=== PATIENT | female | born 1995 | race Caucasian/White ===

== ENCOUNTER → 2019-08-16 17:26 | Outpatient (BNVA) | payer OTHER, MEDICAID, SELFPAY | PROVIDERS: Family Provider Obstetrics & Gynecology; PCP Obstetrics & Gynecology; Visit Provider Obstetrics & Gynecology | DX: O09.891 Supervision of other high risk pregnancies, first trimester (principal); O21.9 Vomiting of pregnancy, unspecified; O99.611 Diseases of the digestive system complicating pregnancy, first trimester; B96.89 Other specified bacterial agents as the cause of diseases classified elsewhere; O23.599 Infection of other part of genital tract in pregnancy, unspecified trimester | CPT/HCPCS: 36415; 80048; 80307; 82950; 84315; 84443; 85027; 86592; 86762; 86803; 86850; 86900; 87077; 87086; 87186; 87210; 87340; 87491; 87591 ==

== ENCOUNTER 2019-08-20 11:48 | Emergency (ER) | payer OTHER, MEDICAID, SELFPAY ==
[2019-08-20 11:57] VITALS: BP 160/98; PULSE 95; RESP 18; TEMP 37.2; O2SAT 98; BMI 39.1
--- NOTE | 2019-08-20 12:06 | ED_ITS ---
HPI - Chest Pain General: Chief Complaint: Chest Pain Stated Complaint: Chest Pain and preg Time Seen by Provider: 08/20/19 12:06 Source: patient Mode of arrival: ambulatory Limitations: no limitations History of Present Illness: HPI narrative: Patient is a 24-year-old female 13 weeks here for complaints of right-sided chest pains that have been present over the past several days; she was seen by her OB doctor Dr. Hayes on Monday and given medications for heartburn, nausea, sleep; she addressed her chest pains to him and he recommended patient discontinue to monitor symptoms; patient presents to ED today because pain seems to be worsening MD complaint: chest pain Timing of current episode: episodic Prior episodes: Yes Pain location: right chest Pain radiation: right arm Relieving factors: nothing Exacerbating factors: nothing Associated symptoms: Reports no associated symptoms; Deny abdominal pain, dyspnea, fever(s), palpitations or syncope Review of Systems Const: Denies: fever or chills Card: Reports: chest pain; Denies: palpitations, irregular heart rhythm, edema, swelling of feet/ankles, lightheadedness, syncope, pre-syncope, shortness of breath on exertion, shortness of breath when lying down or leg pain with exertion Resp: Denies: shortness of breath, productive cough, non-productive cough, wheezing, stridor, pain on inspiration, change in phlegm color, coughing up blood or chest congestion GI: Denies: abdominal pain Musc: Denies: back pain Neuro: Denies: numbness in extremities, weakness in extremities, changes in sensation or lack of coordination PFSH ED PFSH: Statuses (acute, chronic, etc) shown below reflect problem list status as previously entered and may not be historically accurate Medical History (Updated 08/20/19 @ 13:35 by KUSH Hanley) Supervision of other high risk pregnancies, first trimester (Acute) Ms. Decker is a 24 year old 5 para 2021 with an LMP of 05/15/2019 and an EDC of 02/20/2020 ---Prior section (desires repeat). [place] OBI: 4 28WG: PP: Chicken Pox: Had the vaccine and the virus as child Flu Vaccine: Tdap Vaccine: Sex: Circumcision: Communications Technician: Epidural: Cont raception: Accepts Blood: Yes Impression: - OBI @ 9.1 WG -Ob packet provided. Reviewed routine vist schedule, labs, approved medications in , discussed the importance of avoiding nicotine/alcohol/drugs and the effects this has on her and the , and when to notify the doctor. Medical and obstetrical history reviewed. -Continue vitamins. - labs at next visit; discussed NIPT, QUAD, AFP, CF. All questions answered to her satisfaction. Greater than 50% of the visit was spent in counseling and coordinating obstetrical care. Total visit time: 30 minutes. RTC: 1-2 weeks Surgical History (Updated 08/16/19 @ 15:47 by You Hayes MD) History of tonsillectomy and adenoidectomy (Acute) 2002 performed at age 8 in [facility] cholecystectomy (Acute) 2010 Laparoscopic in [facility] Social History (Updated 08/16/19 @ 15:48 by You Hayes MD) Smoking and tobacco status: former smoker Smoking risk assessment/counseling performed?: Yes Alcohol intake: never Female Reproductive History: Date of last menstrual period: 05/14/19 Physical Exam Const: COMMON NORMALS: no apparent distress, oriented x3, alert and well nourished Chest: COMMONS NORMALS: inspection of chest normal OTHER: mild substernal tenderness with palpation Resp: COMMON NORMALS: normal respiratory effort and clear to auscultation bilaterally AUSCULTATION: clear to auscultation bilaterally Cardio: COMMON NORMALS: regular rate and regular rhythm RATE: regular rate RHYTHM: regular rhythm Neuro: COMMON NORMALS: oriented x3 SENSORIUM/ORIENTATION: Yes alert Course Vital Signs: Vital signs: Vital Signs Temperature 98.9 F 08/20/19 11:57 Pulse Rate 95 08/20/19 11:57 Respiratory Rate 18 08/20/19 11:57 Blood Pressure 160/98 08/20/19 11:57 Pulse Oximetry 98 08/20/19 11:57 MDM - Chest Pain MDM Narrative: Medical decision making narrative: labs non-concerning; CXR and EKG normal; recommend she follow up with Dr. Hayes Lab Data: Labs: Lab Results 08/20/19 08/20/19 08/20/19 Range/Units 12:37 12:37 12:56 WBC 8.4 (4.0-10.0) 10^3/ uL RBC 4.37 (4.1-5.3) 10^6/u L Hgb 12.8 (11.5-15.3) g/dL Hct 36.9 L (37.0-47.0) % MCV 84.4 (81-99) fL MCH 29.3 (28.0-34.0) pg MCHC 34.7 (30.0-36.0) g/dL RDW 11.6 L (12.1-15.1) % Plt Count 153 (130-400) 10^3/c mm MPV 12.9 H (7.4-10.4) fL Neut % (Auto) 72.4 % Lymph % (Auto) 18.5 % [place] % (Auto) 6.7 % Eos % (Auto) 2.0 % Baso % (Auto) 0.2 % Neut # (Auto) 6.0 (1.8-7.7) 10^3/u L Lymph # (Auto) 1.6 (0.8-4.8) 10^3/u L [place] # (Auto) 0.6 (0.2-0.9) 10^3/u L Eos # (Auto) 0.2 (0.0-0.8) 10^3/u L Baso # (Auto) 0.0 (0.0-0.1) 10^3/u L Nucleated RBC % (a uto) 0 % Nucleated RBCs # 0.0 /100WBC Sodium 135 L (136-145) mmol/L Potassium 3.7 (3.5-5.1) mmol/L Chloride 102 (98-107) mmol/L Carbon Dioxide 22 (22-29) mmol/L Anion Gap 14.7 (5-19) BUN 7 (6-20) mg/dL Creatinine 0.3 L (0.5-0.9) mg/dL GFR Calculation 275.7 H (90-130) mL/min Glucose 109 (74-109) mg/dL Calcium 9.4 (8.6-10.0) mg/Dl Total Bilirubin 0.3 (0.15-1.2) mg/dL AST 9 (0-32) U/L ALT 8 (0-33) U/L Alkaline Phosphata se 36 (35-105) IU/L Total Protein 6.3 L (6.6-8.7) g/dL Albumin 4.1 (3.5-5.2) g/dL Globulin 2.2 (1.3-4.6) g/dL Urine Color Yellow (Yellow) Urine Appearance Cloudy (CLEAR) Urine pH 8 H (5-7) Ur Specific Gravit y 1.015 (1.005-1.030) Urine Protein Neg (Negative) Urine Glucose (UA) 1+ (Normal) Urine Ketones Negative (Negative) Urine Occult Blood Neg (Negative) Urine Nitrate Negative (Negative) Urine Bilirubin Neg (NEGATIVE) Prot Sulfosalicyli c Acd Negative Urine Urobilinogen Norm (Negative) mg/dL Ur Leukocyte Zuleima ase Negative (Negative) Urine RBC None (0-2) /hpf Urine WBC 0-4 H (0-5) /hpf Ur Squamous Epith Cells 0-4 H (0-5) Amorphous Sediment 2+ Urine Bacteria 1+ H (NONE) Imaging Data^: CXR: Radiologist's impression: [place] [address] XRay Report Signed Patient: Evelio Knight Unit #: [id number] : [id number] Age/Sex: 24 / F ADM Date: 08/20/19 Loc: ER Room/Bed: Attending Dr: Ordering Provider/Ordering MD: Gaye Henry Date of Service: 08/20/19 Procedure(s): XR chest 1V portable [id number] Accession Number(s): [id number] Report Number: [id number] WS: [id number] PORTABLE CHEST HISTORY: chest pain COMPARISON: 02/20/2017 Minimal atelectasis at the lingula. No pneumonia. Lungs are clear. No pleural effusion or pneumothorax. Cardiac size: Normal. Mediastinum/Aorta: Normal mediastinum. No osseous abnormality seen. XR/XR chest 1V portable [id number] IMPRESSION: Minimal subsegmental atelectasis in the lingula. Dictated By: Leanne Sherwood DO Signed By: Leanne Sherwood DO Signed Date/Time: 08/20/19 1239 DD/ 1238 EKG Data^: EKG 1: EKG interpretation date: 01/14/20 EKG interpretation time: 12:13 Interpretation: Sinus Rhythm Rate [address] depression/elevation noted Discharge Plan Discharge Clinical Impression: Atypical chest pain Condition: Stable Prescriptions: No Action doxylamine-pyridoxine (vit B6) [Diclegis] 10-10 mg tablet,delayed release (DR/EC) See Rx Instructions PO .COMPLEX Qty: 120 RF: 3 famotidine 20 mg tablet 20 mg PO BID Qty: 60 RF: 10 metronidazole 500 mg tablet 500 mg PO BID 5 Days Qty: 10 RF: 0 Benadryl 25 mg Capsule 25 mg PO BEDTIME RF: 0 promethazine 25 mg Tablet 25 mg PO BEDTIME RF: 0 Discharge Orders: Discharge Order (Routine); Ordered 08/20/19 Ordered By: Gaye Henry Referrals: You Hayes MD [Primary Care Provider] - Discharge Diet: Usual diet Discharge Activity: Increase activity as tolerated Coding Level of Care Code ED Low Pressure Boiler Operator for Chg Fwd Exam Problem Focused
--- NOTE | 2019-08-20 12:16 | XR_ITS ---
WS: [id number] PORTABLE CHEST HISTORY: chest pain COMPARISON: 02/20/2017 Minimal atelectasis at the lingula. No pneumonia. Lungs are clear. No pleural effusion or pneumothora x. Cardiac size: Normal. Mediastinum/Aorta: Normal mediastinum. No osseous abnormality seen. XR/XR chest 1V portable [id number] IMPRESSION: Minimal subsegmental atelectasis in the lingula.
[2019-08-20 12:57] LABS: Basophils % 0.2 %; Eosinophils # 0.2 10^3/uL (0.0-0.8); Hematocrit 36.9 % (37.0-47.0); Hemoglobin 12.8 g/dL (11.5-15.3); Lymphocytes # 1.6 10^3/uL (0.8-4.8); Lymphocytes % 18.5 %; Mean Corpuscular HGB Conc 34.7 g/dL (30.0-36.0); Mean Corpuscular Hemoglobin 29.3 pg (28.0-34.0); Mean Corpuscular Volume 84.4 fL (81-99); Mean Platelet Volume 12.9 fL (7.4-10.4); Monocytes # 0.6 10^3/uL (0.2-0.9); Monocytes % 6.7 %; Neutrophils % 72.4 %; Nucleated Red Blood Cells % 0 %; Platelet Count 153 10^3/cmm (130-400); Red Blood Count 4.37 10^6/uL (4.1-5.3); Red Cell Distribution Width 11.6 % (12.1-15.1); White Blood Count 8.4 10^3/uL (4.0-10.0)
[2019-08-20 13:10] LABS: Alanine Aminotransferase 8 U/L (0-33); Albumin Level 4.1 g/dL (3.5-5.2); Alkaline Phosphatase 36 IU/L (35-105); Anion Gap 14.7 (5-19); Aspartate Amino Transferase 9 U/L (0-32); Blood Urea Nitrogen 7 mg/dL (6-20); Calcium 9.4 mg/Dl (8.6-10.0); Carbon Dioxide 22 mmol/L (22-29); Chloride 102 mmol/L (98-107); Globulin 2.2 g/dL (1.3-4.6); Glomerular Filtration Rate 275.7 mL/min (90-130); Glucose 109 mg/dL (74-109); Potassium 3.7 mmol/L (3.5-5.1); Sodium 135 mmol/L (136-145); Total Bilirubin 0.3 mg/dL (0.15-1.2); Total Protein 6.3 g/dL (6.6-8.7)
[2019-08-20 13:29] LABS: Urine Appearance Cloudy (CLEAR); Urine Color Yellow (Yellow)
[2019-08-20 13:30] LABS: Add Urine Microscopic? YES; Bilirubin Urine Neg (NEGATIVE); Blood Urine Neg (Negative); Glucose Urine UA 1+ (Normal); Ketones Urine Negative (Negative); Leukocyte Esterase Urine Negative (Negative); Nitrate Urine Negative (Negative); Protein Urine Neg (Negative); Specific Gravity, Urine 1.015 (1.005-1.030); Sulfosalicylic Acid Urine Negative; Urobilinogen Urine Norm (Negative); pH Urine 8 (5-7)
[2019-08-20 13:38] LABS: Bacteria Urine 1+
[2019-08-20 13:39] LABS: Add Urine Culture? No; Amorphous Sediment Urine 2+; Squamous Epithelial Cell Urine 0-4 (0-5); WBC Urine 0-4 /hpf (0-5)
[2019-08-20 14:32] VITALS: BP 122/87; PULSE 85; RESP 16; O2SAT 98
--- NOTE | 2019-08-20 16:09 | ECG_ITS ---
Measurements Intervals [place] Rate: 95 P: 22 DC: 165 QRS: 36 QRSD: 101 T: 15 QT: 351 QTc: 443 SINUS RHYTHM Compared to ECG 02/20/2017 17:10:49 No significant changes Electronically Signed On 08-20-2019 17:52:32 ENFORCEMENT OFFICER by Cherelle Silvestre M.D. [email or web address]
--- NOTE | 2019-08-21 10:16 | DCPLANNER ---
services program manager had message to schedule a follow up appointment for patient with [facility], Dr. Hayes. services program manager called the clinic, spoke with Radha, a follow up appointment is scheduled for Monday, September 06, 2019 at 1:[address] Hayes. Clinic will call patient with appointment information.
--- NOTE | 2019-09-27 14:44 | DCPLANNER ---
Patient did attend appointment scheduled for 09.06.19 with [facility].
== END 2019-08-20 14:33 | disposition home or self-care (01) ==
PROVIDERS: Physician Assistant; Emergency Provider Emergency Medicine; Family Provider Obstetrics & Gynecology; PCP Obstetrics & Gynecology
DX: O26.891 Other specified pregnancy related conditions, first trimester (principal); R07.89 Other chest pain; Z3A.13 13 weeks gestation of pregnancy; Z87.891 Personal history of nicotine dependence
CPT/HCPCS: 36415; 71045; 80053; 81003; 85025; 93005; 99281; 99282; 99283; 99284; A9270

== ENCOUNTER → 2019-09-04 10:45 | Outpatient (BNVA) | payer OTHER, MEDICAID, SELFPAY | PROVIDERS: Family Provider Obstetrics & Gynecology; PCP Obstetrics & Gynecology; Visit Provider Family Medicine | DX: J11.1 Influenza due to unidentified influenza virus with other respiratory manifestations (principal) | CPT/HCPCS: 87804 ==

== ENCOUNTER → 2019-09-13 15:51 | Outpatient (BNVA) | payer OTHER, MEDICAID, SELFPAY | PROVIDERS: Family Provider Obstetrics & Gynecology; PCP Obstetrics & Gynecology; Visit Provider Obstetrics & Gynecology | DX: O09.892 Supervision of other high risk pregnancies, second trimester (principal); O99.89 Other specified diseases and conditions complicating pregnancy, childbirth and the puerperium; R82.71 Bacteriuria | CPT/HCPCS: 81003; 84315; 87077; 87086; 87186 ==

== ENCOUNTER 2019-09-24 22:52 | Emergency (ER) | payer MEDICAID, SELFPAY ==
[2019-09-24 22:56] VITALS: BP 168/94; PULSE 99; RESP 17; TEMP 37.2; O2SAT 98; BMI 39.9
--- NOTE | 2019-09-24 23:09 | US_ITS ---
WS: [id number] TRANSABDOMINAL FIRST TRIMESTER ULTRASOUND HISTORY: abdominal pain/back pain : 6 PARA: 2 COMPARISON: None available. FINDINGS: Mild physical profile 03/14. Cervical length is 4.29 cm; closed. Single live intrauterine . Aquatic projections . Gestational sac measures 19w2d cm. cardiac tones 150 BPM. Estimated date of delivery 02/16/2020. Good activity is seen. US/US OB <= 14 weeks fetus [id number] IMPRESSION: Intrauterine with a viable at 19 weeks 2 days gestation. Suspected that a confinement February 16, 2020 Biophysical profile 03/14.
--- NOTE | 2019-09-24 23:19 | ED_ITS ---
Entered by Mary Hanson, acting as scribe for Maye Ambrose HPI - General: Chief complaint: OB/Uterine Contractions Stated complaint: 19 weeks/back and abd pain Time Seen by Provider: 09/24/19 23:14 Source: patient and family Mode of arrival: ambulatory History of Present Illness: HPI Narrative: 24 y/o female presents to the ED with elevated BP, OROZCO and cramping. Pt is 19 weeks and her OB told her she may have preeclampsia. She has had abd and back pain. She states she is on her second round of abx for E.coli in her urine. She is reports feeling dehydrated and nauseated. MD Complaint: abdominal pain Date of Last Menstrual Period: 05/14/19 Associated symptoms: Deny headache(s), malaise or syncope Review of Systems General: Reports: other (negative unless marked) Const: Denies: fever, chills, body aches, fatigue, malaise or diaphoresis Eyes: Denies: change in vision or blurry vision ENMT: Denies: throat pain, painful swallowing, hoarseness, ear pain, ear discharge, Change in hearing or nasal discharge Card: Denies: chest pain, palpitations, irregular heart rhythm, syncope, pre- syncope, shortness of breath on exertion or shortness of breath when lying down Resp: Denies: shortness of breath, productive cough, non-productive cough, wheezing, coughing up blood or chest congestion Skin/Breast: Denies: rash, skin tenderness or yellow skin Neuro: Denies: headache, numbness in extremities, weakness in extremities, changes in sensation, lack of coordination, difficulty walking, dizziness, vertigo or confusion Endo: Denies: excessive thirst, tired all the time, cold intolerance, excessive sweating, flushing or hot flashes Luis Enrique/Lymph: Denies: easy bruising, easy bleeding, petechiae or enlarged lymph nodes All/Imm: Denies: hives, throat swelling, tongue swelling, facial swelling or acute wheezing PFS ED PFSH: Social History Smoking and tobacco status: former smoker Quit status (tobacco): has quit using tobacco Year quit tobacco: 08/2019 Former quit date comment: Originally smoking 1 pack/day Smoking risk assessment/counseling performed?: Yes Alcohol intake: never Female Reproductive History: Date of last menstrual period: 05/14/19 Physical Exam Const: COMMON NORMALS: no apparent distress, oriented x3, no limitations, healthy appearing and well nourished EXAM LIMITATIONS: no altered mental status GENERAL APPEARANCE: cooperative, well kempt and well developed ORIENTATION/CONSCIOUSNESS: Yes awake HENMT: COMMON NORMALS: normocephalic, head/scalp atraumatic, hearing grossly normal bilaterally, external ears normal, EAC's normal, external nose normal and moist oral mucous membranes HEAD & SCALP: normal to inspection, normocephalic and atraumatic FACE & SINUS: normal facial exam and face symmetric NOSE: external nose normal and nares normal EXTERNAL EAR: Yes external ears normal EXTERNAL AUDITORY CANAL: EAC's normal MOUTH: oral and palatal mucosa normal and tongue normal Eye: COMMON NORMALS: PERRL, EOMs intact bilaterally, conjunctivae normal and no scleral icterus GENERAL EYE: normal appearance of both eyes and normal light reflex CONJUNCTIVA: Yes conjunctivae normal SCLERA: sclerae normal CORNEA: Yes corneas normal PUPIL: Yes PERRL DIRECT OPHTHALMOSCOPY: Yes normal light reflex Neck/C-Spine: COMMON NORMALS: full ROM, no lymphadenopathy, supple, no meningeal signs and no JVD GENERAL: Yes normal visual inspection and Yes trachea midline CERVICAL SPINE: Yes cervical ROM normal Chest: COMMONS NORMALS: inspection of chest normal and palpation of chest normal Resp: COMMON NORMALS: normal respiratory effort, no retractions, no use of accessory muscles and clear to auscultation bilaterally EFFORT & INSPECTION: Yes able to speak in complete sentences AUSCULTATION: clear to auscultation bilaterally Cardio: COMMON NORMALS: no JVD, regular rate, regular rhythm, S1 normal heart sound, S2 normal heart sound, no gallops, no clicks, no murmurs and no rub JUGULAR VENOUS DISTENTION: no JVD RATE: regular rate RHYTHM: regular rhythm HEART SOUNDS: S1 normal and S2 normal GI: INSPECTION: Yes normal to inspection Back/Pelvis: COMMON NORMALS: no thoracic nor lumbar tenderness Extremity: COMMON NORMALS: normal to inspection, full ROM, normal capillary refill, no joint enlargement, no clubbing, cyanosis or edema and no calf tenderness Neuro: COMMON NORMALS: oriented x3, CN's II-XII intact bilaterally, moves all extremities, no focal motor deficits and no sensory deficits noted MENINGEAL SIGNS: Yes no meningeal signs Psych: COMMON NORMALS: mental status grossly normal, thought process normal, cooperative, affect normal, speech normal and activity/motor behavior normal APPEARANCE: Yes well kempt SPEECH: Yes normal speech THOUGHT PROCESS: normal thought process Skin: COMMON NORMALS: no rashes or lesions noted, skin turgor normal, no jaundice, no petechiae and no mottling GENERAL SKIN EXAM: no rashes or lesions noted and turgor normal Course Vital Signs: Vital signs: Vital Signs Temperature 98.9 F 09/24/19 22:56 Pulse Rate 89 09/25/19 02:04 Respiratory Rate 18 09/25/19 02:04 Blood Pressure 154/77 09/25/19 02:04 Pulse Oximetry 99 09/25/19 02:04 MDM - OB/Uterine Contractions MDM Narrative: Medical decision making narrative: Evelio is a very nice 24-year-old female who comes in complaining of abdominal cramping but no vaginal discharge or bleeding. She is 19 weeks . She feels as though she is dehydrated. After IV fluids the patient is feeling much better and her abdominal pain has resolved. There is no sign of infection at this time and she is already on Keflex for a UTI. Her urine here tonight was contaminated. She wants to continue her antibiotics that she is already on. She has no sign of pyelonephritis as she is refusing a repeat cath specimen to better delineate if there is infection. She understands the risks of this but despite that she wants to be discharged. He is not vomited here, there is no sign of preeclampsia or other acute abnormality. Patient does agree to return should her symptoms change or worsen. Lab Data: Attestation: I reviewed the patient's lab results. Labs: Lab Results 09/24/19 09/24/19 09/24/19 Range/Units 23:22 23:22 23:22 WBC 9.1 (4.0-10.0) 10^3/ uL RBC 4.31 (4.1-5.3) 10^6/u L Hgb 13.0 (11.5-15.3) g/dL Hct 37.9 (37.0-47.0) % MCV 87.9 (81-99) fL MCH 30.2 (28.0-34.0) pg MCHC 34.3 (30.0-36.0) g/dL RDW 12.2 (12.1-15.1) % Plt Count 161 (130-400) 10^3/c mm MPV 12.6 H (7.4-10.4) fL Neut % (Auto) 69.0 % Lymph % (Auto) 20.9 % [place] % (Auto) 7.6 % Eos % (Auto) 2.1 % Baso % (Auto) 0.1 % Neut # (Auto) 6.3 (1.8-7.7) 10^3/u L Lymph # (Auto) 1.9 (0.8-4.8) 10^3/u L [place] # (Auto) 0.7 (0.2-0.9) 10^3/u L Eos # (Auto) 0.2 (0.0-0.8) 10^3/u L Baso # (Auto) 0.0 (0.0-0.1) 10^3/u L Nucleated RBC % (a uto) 0 % Nucleated RBCs # 0.0 /100WBC PT 12.70 (10.5-13.3) SECO NDS INR 0.95 (0.8-1.2) APTT 36.7 (23.9-36.7) SECO NDS Sodium 136 (136-145) mmol/L Potassium 3.7 (3.5-5.1) mmol/L Chloride 101 (98-107) mmol/L Carbon Dioxide 22 (22-29) mmol/L Anion Gap 16.7 (5-19) BUN 9 (6-20) mg/dL Creatinine 0.4 L (0.5-0.9) mg/dL GFR Calculation 197.8 H (90-130) mL/min Glucose 123 H (65-115) mg/dL Calcium 10.8 H (8.5-10.5) mg/dL Magnesium 1.8 (1.7-2.3) mg/dL Total Bilirubin 0.2 (0.15-1.2) mg/dL AST 11 (0-32) U/L ALT 11 (0-33) U/L Alkaline Phosphata se 43 (35-105) IU/L Total Protein 6.9 (6.6-8.7) g/dL Albumin 3.9 (3.5-5.2) g/dL Globulin 3.0 (1.3-4.6) g/dL Urine Color (Yellow) Urine Appearance (CLEAR) Urine pH (5-7) Ur Specific Gravit y (1.005-1.030) Urine Protein (Negative) Urine Glucose (UA) (Normal) Urine Ketones (Negative) Urine Occult Blood (Negative) Urine Nitrate (Negative) Urine Bilirubin (NEGATIVE) Urine Urobilinogen (Negative) mg/dL Ur Leukocyte Zuleima ase (Negative) Urine RBC (0-2) /hpf Urine WBC (0-5) /hpf Ur Squamous Epith Cells (0-5) Urine Bacteria (NONE) 09/24/19 Range/Units 23:57 WBC (4.0-10.0) 10^3/ uL RBC (4.1-5.3) 10^6/u L Hgb (11.5-15.3) g/dL Hct (37.0-47.0) % MCV (81-99) fL MCH (28.0-34.0) pg MCHC (30.0-36.0) g/dL RDW (12.1-15.1) % Plt Count (130-400) 10^3/c mm MPV (7.4-10.4) fL Neut % (Auto) % Lymph % (Auto) % [place] % (Auto) % Eos % (Auto) % Baso % (Auto) % Neut # (Auto) (1.8-7.7) 10^3/u L Lymph # (Auto) (0.8-4.8) 10^3/u L [place] # (Auto) (0.2-0.9) 10^3/u L Eos # (Auto) (0.0-0.8) 10^3/u L Baso # (Auto) (0.0-0.1) 10^3/u L Nucleated RBC % (a uto) % Nucleated RBCs # /100WBC PT (10.5-13.3) SECO NDS INR (0.8-1.2) APTT (23.9-36.7) SECO NDS Sodium (136-145) mmol/L Potassium (3.5-5.1) mmol/L Chloride (98-107) mmol/L Carbon Dioxide (22-29) mmol/L Anion Gap (5-19) BUN (6-20) mg/dL Creatinine (0.5-0.9) mg/dL GFR Calculation (90-130) mL/min Glucose (65-115) mg/dL Calcium (8.5-10.5) mg/dL Magnesium (1.7-2.3) mg/dL Total Bilirubin (0.15-1.2) mg/dL AST (0-32) U/L ALT (0-33) U/L Alkaline Phosphata se (35-105) IU/L Total Protein (6.6-8.7) g/dL Albumin (3.5-5.2) g/dL Globulin (1.3-4.6) g/dL Urine Color Yellow (Yellow) Urine Appearance Cloudy (CLEAR) Urine pH 6 (5-7) Ur Specific Gravit y 1.020 (1.005-1.030) Urine Protein Neg (Negative) Urine Glucose (UA) Norm (Normal) Urine Ketones Negative (Negative) Urine Occult Blood Neg (Negative) Urine Nitrate Negative (Negative) Urine Bilirubin Neg (NEGATIVE) Urine Urobilinogen Norm (Negative) mg/dL Ur Leukocyte Zuleima ase Trace H (Negative) Urine RBC 0-4 H (0-2) /hpf Urine WBC 15-25 H (0-5) /hpf Ur Squamous Epith Cells 55-80 H (0-5) Urine Bacteria 1+ H (NONE) Imaging Data^: US OB: Radiologist's impression: Ultrasound viability, tech interpretation -see formal report, no acute abnormalities. Discharge Plan Discharge Patient Disposition: Home, Self-Care Clinical Impression: Asymptomatic bacteriuria during , Abdominal pain affecting Condition: Stable Prescriptions: No Action Gummies 400 mcg-35 mg- 25 mg-5 mg tablet,chewable 2 tab PO DAILY RF: 0 potassium chloride 10 mEq tablet extended release 10 meq PO DAILY Qty: 30 RF: 0 cephalexin 500 mg capsule 500 mg PO BID Qty: 20 RF: 0 diphenhydramine HCl [Benadryl] 25 mg Capsule 25 mg PO BEDTIME RF: 0 promethazine 25 mg Tablet 25 mg PO BEDTIME RF: 0 Discharge Orders: Discharge Order (Routine); Ordered 09/25/19 Ordered By: Maye Ambrose Referrals: Freddy,You, MD [Primary Care Provider] - 1-3 days Discharge Diet: Advance as tolerated Discharge Activity: Increase activity as tolerated Patient Instructions: Abdominal Pain (ED), Abdominal Pain in (ED) Activity Restrictions/Additional Instructions: Please return to the ER immediately for any of the signs or symptoms listed on your discharge instruction sheets, worsening/changing of your symptoms, you are not getting better as quickly as expected, or for ANY other cause or concerns. Discharge Date/Time: 09/25/19 02:05 Coding Level of Care Code ED Seeing Eye Dog Trainer for Chg 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 The documentation recorded by the Valentin rodriguez Ashley, accurately reflects the service I personally performed and the decisions made by , Maye Ambrose Sep 24, 2019 22:52
[2019-09-24] MEDS: acetaminophen 500 mg Tablet 1000 MG PO (23:24)
[2019-09-24] MEDS: sodium chloride 0.9% 1,000 ML 999 ML IV (23:28)
[2019-09-24 23:35] LABS: Basophils % 0.1 %; Eosinophils # 0.2 10^3/uL (0.0-0.8); Eosinophils % 2.1 %; Hematocrit 37.9 % (37.0-47.0); Lymphocytes # 1.9 10^3/uL (0.8-4.8); Lymphocytes % 20.9 %; Mean Corpuscular HGB Conc 34.3 g/dL (30.0-36.0); Mean Corpuscular Hemoglobin 30.2 pg (28.0-34.0); Mean Corpuscular Volume 87.9 fL (81-99); Mean Platelet Volume 12.6 fL (7.4-10.4); Monocytes # 0.7 10^3/uL (0.2-0.9); Monocytes % 7.6 %; Neutrophils # 6.3 10^3/uL (1.8-7.7); Nucleated Red Blood Cells % 0 %; Platelet Count 161 10^3/cmm (130-400); Red Blood Count 4.31 10^6/uL (4.1-5.3); Red Cell Distribution Width 12.2 % (12.1-15.1); White Blood Count 9.1 10^3/uL (4.0-10.0)
[2019-09-24] MEDS: metoclopramide 5 mg/mL SDV 2 mL 10 MG IV (23:35)
[2019-09-24 23:36] VITALS: BP 130/97; BP 160/87; BP 166/100; PULSE 102; PULSE 105; PULSE 99
[2019-09-24 23:41] VITALS: BP 130/97; PULSE 101; RESP 20; O2SAT 98
[2019-09-24 23:54] LABS: Alanine Aminotransferase 11 U/L (0-33); Albumin Level 3.9 g/dL (3.5-5.2); Alkaline Phosphatase 43 IU/L (35-105); Anion Gap 16.7 (5-19); Aspartate Amino Transferase 11 U/L (0-32); Blood Urea Nitrogen 9 mg/dL (6-20); Calcium 10.8 mg/dL (8.5-10.5); Carbon Dioxide 22 mmol/L (22-29); Chloride 101 mmol/L (98-107); Glomerular Filtration Rate 197.8 mL/min (90-130); Glucose 123 mg/dL (65-115); Magnesium 1.8 mg/dL (1.7-2.3); Potassium 3.7 mmol/L (3.5-5.1); Sodium 136 mmol/L (136-145); Total Bilirubin 0.2 mg/dL (0.15-1.2); Total Protein 6.9 g/dL (6.6-8.7)
[2019-09-25 00:09] LABS: INR 0.95 (0.8-1.2); Partial Thromboplastin Time 36.7 SECONDS (23.9-36.7)
[2019-09-25 00:34] LABS: Add Urine Microscopic? NO; Bilirubin Urine Neg (NEGATIVE); Blood Urine Neg (Negative); Glucose Urine UA Norm (Normal); Ketones Urine Negative (Negative); Leukocyte Esterase Urine Trace (Negative); Nitrate Urine Negative (Negative); Protein Urine Neg (Negative); Urine Appearance Cloudy (CLEAR); Urine Color Yellow (Yellow); Urobilinogen Urine Norm (Negative); pH Urine 6 (5-7)
[2019-09-25] MEDS: sodium chloride 0.9% 1,000 ML 999 ML IV (00:40)
[2019-09-25 00:47] VITALS: BP 129/67; PULSE 88; RESP 18; O2SAT 98
[2019-09-25 00:48] LABS: RBC Urine 0-4 /hpf (0-2)
[2019-09-25 00:49] LABS: Add Urine Culture? No; Bacteria Urine 1+; Squamous Epithelial Cell Urine 55-80 (0-5); WBC Urine 15-25 /hpf (0-5)
[2019-09-25 01:22] VITALS: BP 128/60; PULSE 77; RESP 18; O2SAT 99
[2019-09-25 02:04] VITALS: BP 154/77; PULSE 89; RESP 18; O2SAT 99
--- NOTE | 2019-09-27 09:46 | DCPLANNER ---
registration manager had message to schedule a follow up appointment for patient with [facility]. registration manager called the clinic, spoke with Radha, gave clinic patients information. registration manager was told that patients information would be printed and reviewed. Clinic will call watch case polisher and patient with appointment information.
--- NOTE | 2019-09-27 13:32 | DCPLANNER ---
Radha from [facility] called, patient has a follow up appointment scheduled for Friday, October 11, 2019 at 2:[address] Hayes. Clinic will inform patient of the scheduled appointment.
--- NOTE | 2019-10-16 14:04 | DCPLANNER ---
Patient did attend appointment scheduled for 10.11.19 with [facility].
== END 2019-09-25 02:05 | disposition home or self-care (01) ==
PROVIDERS: Physician Assistant; Emergency Provider Emergency Medicine; Family Provider Obstetrics & Gynecology; PCP Obstetrics & Gynecology
DX: O23.42 Unspecified infection of urinary tract in pregnancy, second trimester (principal); B96.89 Other specified bacterial agents as the cause of diseases classified elsewhere; O99.89 Other specified diseases and conditions complicating pregnancy, childbirth and the puerperium; R10.9 Unspecified abdominal pain; Z3A.19 19 weeks gestation of pregnancy; Z87.891 Personal history of nicotine dependence
CPT/HCPCS: 36415; 76801; 80053; 81001; 81003; 83735; 85025; 85610; 85730; 96360; 96361; 96374; 96375; 99284; J2765; J7030

== ENCOUNTER 2019-10-07 14:09 | Outpatient (CLI) | payer MEDICAID, SELFPAY ==
[2019-10-07 14:10] VITALS: BMI 41.7
[2019-10-07 14:51] VITALS: BP 104/51; PULSE 85; RESP 17; TEMP 36.4
[2019-10-07 15:11] VITALS: BP 107/53; PULSE 85; RESP 16
[2019-10-07 15:32] VITALS: BP 124/54; PULSE 86; RESP 17
[2019-10-07 15:34] LABS: Bilirubin Urine Neg (NEGATIVE); Blood Urine Neg (Negative); Glucose Urine UA Trace (Normal); Ketones Urine Negative (Negative); Leukocyte Esterase Urine Negative (Negative); Nitrate Urine Negative (Negative); Protein Urine Neg (Negative); Specific Gravity, Urine 1.015 (1.005-1.030); Urine Appearance SL Hazy (CLEAR); Urine Color Yellow (Yellow); Urobilinogen Urine Norm (Negative); pH Urine 7 (5-7)
[2019-10-07 15:37] LABS: WBC Urine 0-4 /hpf (0-5)
[2019-10-07 15:38] LABS: Bacteria Urine 1+; Mucus Urine TRACE
[2019-10-07 15:55] VITALS: BP 124/54; PULSE 86; RESP 16; TEMP 36.4
== END 2019-10-07 15:55 | disposition home or self-care (01) ==
LOC: OPOB 14:31 → OBGYN 15:47 → OPOB 10-08 08:04
PROVIDERS: Family Provider Obstetrics & Gynecology; PCP Obstetrics & Gynecology; Visit Provider Obstetrics & Gynecology Female Pelvic Medicine and Reconstructive Surgery
DX: O26.899 Other specified pregnancy related conditions, unspecified trimester (principal); Z3A.00 Weeks of gestation of pregnancy not specified
CPT/HCPCS: 81001; 99211

== ENCOUNTER → 2019-10-08 12:58 | Outpatient (BNVA) | payer MEDICAID, SELFPAY | PROVIDERS: Family Provider Obstetrics & Gynecology; PCP Obstetrics & Gynecology; Visit Provider Obstetrics & Gynecology | DX: Z36.89 Encounter for other specified antenatal screening (principal); Z3A.21 21 weeks gestation of pregnancy | CPT/HCPCS: 76805 ==

== ENCOUNTER → 2019-10-11 14:19 | Outpatient (BNVA) | payer MEDICAID, SELFPAY | PROVIDERS: Family Provider Obstetrics & Gynecology; PCP Obstetrics & Gynecology; Visit Provider Obstetrics & Gynecology | DX: O99.89 Other specified diseases and conditions complicating pregnancy, childbirth and the puerperium (principal); R82.71 Bacteriuria; A74.9 Chlamydial infection, unspecified; O98.812 Other maternal infectious and parasitic diseases complicating pregnancy, second trimester | CPT/HCPCS: 84315; 87077; 87086; 87186; 87491; 87591 ==

== ENCOUNTER → 2019-10-29 13:25 | Outpatient (BNVA) | payer MEDICAID, SELFPAY | PROVIDERS: Family Provider Obstetrics & Gynecology; PCP Obstetrics & Gynecology; Visit Provider Family Medicine | DX: R68.89 Other general symptoms and signs (principal); J06.9 Acute upper respiratory infection, unspecified | CPT/HCPCS: 87400 ==

== ENCOUNTER 2019-11-09 18:41 | Emergency (ER) | payer MEDICAID, SELFPAY ==
[2019-11-09 19:05] VITALS: BP 150/86; PULSE 100; RESP 18; TEMP 36.7; O2SAT 98; BMI 42.0
--- NOTE | 2019-11-09 19:26 | PC.NURSE ---
patient states that she has been sick for the past two weeks with fever and upper respiratory with a cough. patient states that last night nausea and back pain and abdominal pain started. patient states that she is 25 weeks .
[2019-11-09 19:28] VITALS: BP 147/87; PULSE 96; RESP 16; O2SAT 97
--- NOTE | 2019-11-09 19:28 | USR_ITS ---
PROCEDURE INFORMATION: Exam: US , Limited Exam date and time: 11/09/2019 9:16 PM Age: 24 years old Clinical indication: complicated by abdominal or pelvic pain; Generalized abdominal pain; Second trimester; Gestational age or lmp: Zack 02/19/20; ; Additional info: Abd pain/back pain TECHNIQUE: Imaging protocol: Real-time ultrasound of the maternal uterus with image documentation. Exam focused on the clinical indication. COMPARISON: US OB >= 14 weeks fetus [id number] 10/08/2019 12:59 PM FINDINGS: GESTATION: Gestation: Single live intrauterine fetus. Heart rate: heart rate 153 bpm. BIOMETRY: Estimated gestational age: Ultrasonographic age 25 weeks 5 days. US/US OB >= 14 weeks fetus [id number] IMPRESSION: 1. Single live intrauterine fetus. 2. Ultrasonographic age 25 weeks 5 days. 3. heart rate 153 bpm.
[2019-11-09] MEDS: ondansetron 2 mg/ML SDV 2 mL 4 MG IVP (19:37)
[2019-11-09] MEDS: sodium chloride 0.9% 1,000 ML 999 ML IV (19:37)
[2019-11-09 19:42] LABS: Basophils % 0.2 %; Eosinophils # 0.1 10^3/uL (0.0-0.8); Eosinophils % 1.4 %; Hematocrit 36.1 % (37.0-47.0); Hemoglobin 12.2 g/dL (11.5-15.3); Lymphocytes # 1.8 10^3/uL (0.8-4.8); Lymphocytes % 19.9 %; Mean Corpuscular HGB Conc 33.8 g/dL (30.0-36.0); Mean Corpuscular Hemoglobin 29.8 pg (28.0-34.0); Monocytes # 0.7 10^3/uL (0.2-0.9); Monocytes % 7.2 %; Neutrophils # 6.4 10^3/uL (1.8-7.7); Neutrophils % 70.9 %; Nucleated Red Blood Cells % 0 %; Platelet Count 172 10^3/cmm (130-400); Red Cell Distribution Width 12.5 % (12.1-15.1); White Blood Count 9.1 10^3/uL (4.0-10.0)
--- NOTE | 2019-11-09 19:55 | PC.NURSE ---
Monitors placed at this time
--- NOTE | 2019-11-09 19:56 | W.ED.GENADLT ---
HPI - General Adult General: Chief complaint: General Medical Stated complaint: abdominal pain Time Seen by Provider: 11/09/19 19:04 History of Present Illness: HPI narrative: 24-year-old female, 25 weeks . She comes in with multiple complaints, mainly dysuria, frequency, but also some upper respiratory symptoms that of been going on for 2 weeks. She tested negative for flu a couple of weeks ago. She has not had any contact with any source of novel coronavirus. Onset (ago): day(s) Location: abdomen and pelvis Radiation: non-radiation Severity: moderate Quality: burning and aching Pain Consistency: intermittent Relieving factors: none Exacerbating factors: none Associated symptoms: Reports cough, fevers/chills and nausea; Deny chest pain, confusion, dyspnea, headache(s), rash, vomiting or weakness Review of Systems Const: Denies: fever or chills Eyes: Denies: change in vision or blurry vision ENMT: Denies: painful swallowing, swelling of lips/tongue, bleeding gums, post nasal drip or facial/sinus pain Card: Denies: chest pain Resp: Reports: non-productive cough; Denies: shortness of breath, productive cough or wheezing GI: Reports: nausea; Denies: vomiting : Reports: painful urination and urinary frequency; Denies: urinary urgency or blood in urine Musc: Reports: back pain; Denies: neck pain, redness or joint warmth Skin/Breast: Denies: rash, itching or redness Neuro: Denies: headache, dizziness, vertigo, confusion or seizure-like activity Psych: Denies: anxiety PFSH ED PFSH: Social History Smoking and tobacco status: never smoked Quit status (tobacco): has quit using tobacco Year quit tobacco: 08/2019 Former quit date comment: Originally smoking 1 pack/day Smoking risk assessment/counseling performed?: Yes Alcohol intake: never Female Reproductive History: Date of last menstrual period: 05/14/19 Physical Exam Const: GENERAL APPEARANCE: well developed ORIENTATION/CONSCIOUSNESS: Yes oriented to person, Yes oriented to place and Yes oriented to time HENMT: COMMON NORMALS: normocephalic, external ears normal and external nose normal HEAD & SCALP: normocephalic FACE & SINUS: normal facial exam NOSE: external nose normal and mucous membranes and turbinates abnormal boggy and erythematous EXTERNAL EAR: Yes external ears normal MOUTH: tongue normal TEETH & GINGIVA: no abnormal tooth and associated gingiva THROAT: tonsils abnormal bilateral erythema (mild); no peritonsillar mass Eye: COMMON NORMALS: PERRL, EOMs intact bilaterally and conjunctivae normal EYELID: eyelids normal CONJUNCTIVA: Yes conjunctivae normal PUPIL: Yes PERRL Neck/C-Spine: COMMON NORMALS: full ROM GENERAL: No tracheal deviation Chest: COMMONS NORMALS: inspection of chest normal CHEST: No tenderness Resp: COMMON NORMALS: clear to auscultation bilaterally EFFORT & INSPECTION: No tachypneic, No respiratory distress, No retractions, No uses accessory muscles and No tracheal deviation AUSCULTATION: clear to auscultation bilaterally, no rhonchi, no wheezes and lung sounds not diminished Cardio: COMMON NORMALS: regular rate and regular rhythm RATE: regular rate RHYTHM: regular rhythm HEART SOUNDS: no murmurs PERIPHERAL PULSES: radial pulses present GI: INSPECTION: No abdominal distension AUSCULTATION: No hyperactive bowel sounds and No hypoactive bowel sounds PALPATION: Yes tender Details: LLQ, RLQ and other (Suprapubic), No guarding and No rigid PERCUSSION: no dullness to percussion and no tympanic to percussion : COMMON NORMALS: Yes no CVA tenderness BLADDER/KIDNEY EXAM: Yes no CVA tenderness Back/Pelvis: COMMON NORMALS: no CVA tenderness Neuro: SENSORIUM/ORIENTATION: Yes oriented to person, Yes oriented to place and Yes oriented to time Psych: COMMON NORMALS: mental status grossly normal Skin: COMMON NORMALS: no rashes or lesions noted GENERAL SKIN EXAM: no rashes or lesions noted Course Vital Signs: Vital signs: Vital Signs Temperature 98.0 F 11/09/19 19:05 Pulse Rate 91 11/09/19 21:54 Respiratory Rate 16 11/09/19 21:54 Blood Pressure 124/44 11/09/19 20:25 Pulse Oximetry 98 11/09/19 21:54 MDM - General Adult MDM Narrative: Medical decision making narrative: 24-year-old female, 25 weeks. She presents with multiple complaints some upper respiratory, mostly belly. Her white blood cell count is 9. Her hemoglobin is 12. She was mildly dry, other labs are benign. Urinalysis shows some bacteriuria without positive nitrites or leukocyte esterase. Her symptoms are mainly urinary though. Her ultrasound did not reveal a cause of belly pain. Ultrasound is consistent with her dates, with good movement, fluid level, etc. Spoke with the wire spring relay adjuster on-call Dr. Collier. He notes that she has had E. coli twice in her urine. He would like to treat with ciprofloxacin as an outpatient, and suppressed with Macrodantin following. He will see her in a couple of days. Because of her upper respiratory symptoms, during the novel coronavirus outbreak, she will be tested. Lab Data: Labs: Lab Results 11/09/19 11/09/19 11/09/19 Range/Units 19:30 19:30 19:32 WBC 9.1 (4.0-10.0) 10^3/ uL RBC 4.10 (4.1-5.3) 10^6/u L Hgb 12.2 (11.5-15.3) g/dL Hct 36.1 L (37.0-47.0) % MCV 88.0 (81-99) fL MCH 29.8 (28.0-34.0) pg MCHC 33.8 (30.0-36.0) g/dL RDW 12.5 (12.1-15.1) % Plt Count 172 (130-400) 10^3/c mm MPV 12.0 H (7.4-10.4) fL Neut % (Auto) 70.9 % Lymph % (Auto) 19.9 % [place] % (Auto) 7.2 % Eos % (Auto) 1.4 % Baso % (Auto) 0.2 % Neut # (Auto) 6.4 (1.8-7.7) 10^3/u L Lymph # (Auto) 1.8 (0.8-4.8) 10^3/u L [place] # (Auto) 0.7 (0.2-0.9) 10^3/u L Eos # (Auto) 0.1 (0.0-0.8) 10^3/u L Baso # (Auto) 0.0 (0.0-0.1) 10^3/u L Nucleated RBC % (a uto) 0 % Nucleated RBCs # 0.0 /100WBC Sodium 136 (136-145) mmol/L Potassium 3.7 (3.5-5.1) mmol/L Chloride 104 (98-107) mmol/L Carbon Dioxide 20 L (22-29) mmol/L Anion Gap 15.7 (5-19) BUN 4 L (6-20) mg/dL Creatinine 0.3 L (0.5-0.9) mg/dL GFR Calculation 275.7 H (90-130) mL/min Glucose 84 (65-115) mg/dL Calculated Osmolal ity 277 L (285-295) mOsm/k g Calcium 9.4 (8.5-10.5) mg/dL Total Bilirubin 0.2 (0.15-1.2) mg/dL AST 14 (0-32) U/L ALT 13 (0-33) U/L Alkaline Phosphata se 53 (35-105) IU/L Total Protein 7.1 (6.6-8.7) g/dL Albumin 3.9 (3.5-5.2) g/dL Globulin 3.2 (1.3-4.6) g/dL Lipase 21 (13-60) U/L Ser , [place] 79446.00 mIU/mL Urine Color Yellow (Yellow) Urine Appearance Clear (CLEAR) Urine pH 8 H (5-7) Ur Specific Gravit y 1.015 (1.005-1.030) Urine Protein Neg (Negative) Urine Glucose (UA) Norm (Normal) Urine Ketones Negative (Negative) Urine Blood Neg (Negative) Urine Nitrate Negative (Negative) Urine Bilirubin Neg (NEGATIVE) Prot Sulfosalicyli c Acd Trace (Negative) Urine Urobilinogen Norm (Negative) mg/dL Ur Leukocyte Zuleima ase Negative (Negative) Urine RBC 0-4 H (0-2) /hpf Urine WBC 0-4 H (0-5) /hpf Ur Squamous Epith Cells 0-4 H (0-5) Urine Bacteria 1+ H (NONE) Discharge Plan Discharge Patient Disposition: Home, Self-Care Clinical Impression: UTI (urinary tract infection) during Qualifiers: Trimester: second trimester Qualified Code(s): O23.42 - Unspecified infection of urinary tract in , second trimester Condition: Stable Prescriptions: New ciprofloxacin HCl 500 mg tablet 500 mg PO BID Qty: 14 RF: 0 No Action Gummies 400 mcg-35 mg- 25 mg-5 mg tablet,chewable 2 tab PO DAILY RF: 0 diphenhydramine HCl [Benadryl] 25 mg Capsule 25 mg PO BEDTIME RF: 0 promethazine 25 mg Tablet 25 mg PO BEDTIME RF: 0 Discharge Orders: Discharge Order (Routine); Ordered 11/09/19 Ordered By: Paresh Callahan Referrals: You Hayes MD [Primary Care Provider] - 1-3 days Discharge Diet: Advance as tolerated Discharge Activity: Increase activity as tolerated Patient Instructions: Urinary Tract Infection in Women (ED) Activity Restrictions/Additional Instructions: Return for worsening pain, worsening fever despite 2-3 doses of antibiotics, shortness of breath, other concerning symptoms. Antibiotics as directed by your wire spring relay adjuster. 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
[2019-11-09 20:09] LABS: Alanine Aminotransferase 13 U/L (0-33); Albumin Level 3.9 g/dL (3.5-5.2); Alkaline Phosphatase 53 IU/L (35-105); Anion Gap 15.7 (5-19); Aspartate Amino Transferase 14 U/L (0-32); Blood Urea Nitrogen 4 mg/dL (6-20); Calcium 9.4 mg/dL (8.5-10.5); Carbon Dioxide 20 mmol/L (22-29); Chloride 104 mmol/L (98-107); Globulin 3.2 g/dL (1.3-4.6); Glomerular Filtration Rate 275.7 mL/min (90-130); Glucose 84 mg/dL (65-115); Osmolality Calculated 277 mOsm/kg (285-295); Potassium 3.7 mmol/L (3.5-5.1); Sodium 136 mmol/L (136-145); Total Bilirubin 0.2 mg/dL (0.15-1.2); Total Protein 7.1 g/dL (6.6-8.7)
--- NOTE | 2019-11-09 20:10 | PC.NURSE ---
Dr. Collier called at this time. Notified of previous x 2 at 25.3 weeks gestation, presented to the ER with cough, congestion, fever for 2 weeks and lower abdominal pain, lower back pain, nausea and migraine since last night. Patient reported that she was diagnosed on 10/29/2019 with an URI and was given no medications, and finished her 2 week course of antibiotics from [facility] for E. Coli in her urine. Patient reported that for the last week she has been taking AZO at home to self treat her symptoms of burning while urinating and frequent urination. MD also updated that FHTs were noted to be 145 with moderate variability and accels present at this time with variables noted only going down 10BPM but that the strip looks appropriate for a gestational age of 25 weeks, no contractions have been traced, palpated or reported by the patient at this time. MD updated on vitals. MD orders to check patients cervix, have patients swabbed for covid, and look up lab results and call MD with new lab results.
--- NOTE | 2019-11-09 20:20 | PC.NURSE ---
Dr. Callahan, ER physician, notified of Dr. Collier's order to swab for COVID. states that he will place the order at this time.
[2019-11-09 20:25] VITALS: BP 124/44; PULSE 80; RESP 18; O2SAT 99
--- NOTE | 2019-11-09 20:30 | PC.NURSE ---
SVE done at this time. Cervix was closed, medium firmness and midposition. head was measured to be -5 station.
--- NOTE | 2019-11-09 20:45 | PC.NURSE ---
Dr. Collier gives order for discharge from the OB side at this time.
--- NOTE | 2019-11-09 20:45 | PC.NURSE ---
Dr. Collier called ER requesting to speak to this RN. RN updated MD on lab results and MD reviewing labs from home, informed that SVE was closed, no contractions and FHTs strip reviewed with MD. orders for prescription to be sent to patient pharmacy for Cipro 500mg PO BID for 7 days, follow up with Dr. Collier in the office on Monday11/13/2019 unless symptoms get worse and come into office sooner and continue with the COVID precautions until seen in the office on monday and results are discussed. MD transferred to speak with Dr. Callahan at this time.
[2019-11-09 20:51] LABS: Bilirubin Urine Neg (NEGATIVE); Blood Urine Neg (Negative); Glucose Urine UA Norm (Normal); Ketones Urine Negative (Negative); Leukocyte Esterase Urine Negative (Negative); Nitrate Urine Negative (Negative); Protein Urine Neg (Negative); RBC Urine 0-4 /hpf (0-2); Specific Gravity, Urine 1.015 (1.005-1.030); Squamous Epithelial Cell Urine 0-4 (0-5); Sulfosalicylic Acid Urine Trace (Negative); Urine Appearance Clear (CLEAR); Urine Color Yellow (Yellow); Urobilinogen Urine Norm (Negative); WBC Urine 0-4 /hpf (0-5); pH Urine 8 (5-7)
[2019-11-09 20:52] LABS: Bacteria Urine 1+
--- NOTE | 2019-11-09 21:00 | PC.NURSE ---
RN at bedside discussing POC with patient. All questions answered at this time.
[2019-11-09 21:01] VITALS: O2SAT 99
--- NOTE | 2019-11-09 21:04 | PC.NURSE ---
ultrasound in room
--- NOTE | 2019-11-09 21:28 | PC.NURSE ---
covid swab completed with nurse in droplet precautions PPE. swab taken to lab by nurse.
--- NOTE | 2019-11-09 21:28 | PC.NURSE ---
FHTs discussed with Dr. Collier. Notified that FHTs strip was broken due to movement and maternal habitus. FHTs appropriate for gestational age. MD orders that monitors may be discontinued at this time.
[2019-11-09] MEDS: ciprofloxacin 500 mg Tablet PO (21:41)
--- NOTE | 2019-11-09 21:44 | XRR_ITS ---
PROCEDURE INFORMATION: Exam: XR Chest, 1 View Exam date and time: 11/09/2019 9:48 PM Age: 24 years old Clinical indication: Cough TECHNIQUE: Imaging protocol: XR of the chest Views: 1 view. COMPARISON: CR XR chest 1V portable [id number] 08/20/2019 12:37 PM FINDINGS: Lungs: Hazy bilateral interstitial markings may reflect bronchitis or early bronchopneumonia. Pleural space: Unremarkable. No pleural effusion. No pneumothorax. Heart/Mediastinum: Unremarkable. No cardiomegaly. Bones/joints: Unremarkable. XR/XR chest 1V portable [id number] IMPRESSION: Hazy bilateral interstitial markings may reflect bronchitis or early bronchopneumonia.
[2019-11-09] MEDS: acetaminophen 500 mg Tablet 1000 MG PO (21:47)
[2019-11-09 21:54] VITALS: PULSE 91; RESP 16; O2SAT 98
[2019-11-09 22:24] LABS: Lipase 21 U/L (13-60)
[2019-11-13 08:20] LABS: Coronavirus Overall Results NOT DETECTED
--- NOTE | 2019-11-13 10:16 | PC.NURSE ---
ATTEMPTED TO CONTACT PT TO INFORM HER OF NEGATIVE RESULTS OF covid-19 TESTING. WAS UNABLE TO GET AHOLD OF PT. NO VOICEMAIL OPTION WAS SETUP AT THE GIVEN PHONE NUMBER.
--- NOTE | 2019-11-14 08:19 | PC.NURSE ---
Pt called and notified of negative COVID-19 test.
== END 2019-11-09 21:54 | disposition home or self-care (01) ==
PROVIDERS: Emergency Provider Emergency Medicine; Family Provider Obstetrics & Gynecology; PCP Obstetrics & Gynecology
DX: O23.42 Unspecified infection of urinary tract in pregnancy, second trimester (principal); Z3A.25 25 weeks gestation of pregnancy; Z87.891 Personal history of nicotine dependence
CPT/HCPCS: 12345; 71045; 76805; 80053; 81001; 83690; 84702; 85025; 87635; 96360; 96361; 96374; 96375; 99283; 99284; J2405; J7030

== ENCOUNTER → 2019-11-21 16:30 | Outpatient (BNVA) | payer MEDICAID, SELFPAY | PROVIDERS: Family Provider Obstetrics & Gynecology; PCP Obstetrics & Gynecology; Visit Provider Obstetrics & Gynecology | DX: O09.892 Supervision of other high risk pregnancies, second trimester (principal); B96.20 Unspecified Escherichia coli [E. coli] as the cause of diseases classified elsewhere; N39.0 Urinary tract infection, site not specified | CPT/HCPCS: 80053; 81000; 82950; 85027 ==

== ENCOUNTER → 2019-11-27 08:26 | Outpatient (BNVA) | payer MEDICAID, SELFPAY | PROVIDERS: Family Provider Obstetrics & Gynecology; PCP Obstetrics & Gynecology; Visit Provider Obstetrics & Gynecology | DX: R73.09 Other abnormal glucose (principal); O21.2 Late vomiting of pregnancy; O34.211 Maternal care for low transverse scar from previous cesarean delivery; O99.213 Obesity complicating pregnancy, third trimester; Z87.59 Personal history of other complications of pregnancy, childbirth and the puerperium; O09.893 Supervision of other high risk pregnancies, third trimester; O99.613 Diseases of the digestive system complicating pregnancy, third trimester; K21.9 Gastro-esophageal reflux disease without esophagitis; O16.3 Unspecified maternal hypertension, third trimester; Z30.09 Encounter for other general counseling and advice on contraception; Z3A.28 28 weeks gestation of pregnancy | CPT/HCPCS: 81000; 82951; 82952 ==

== ENCOUNTER 2019-12-02 12:03 | Outpatient (CLI) | payer MEDICAID, SELFPAY ==
[2019-12-02 16:23] LABS: Total Protein 24 Hour Urine 250.1 mg/24HR (0-150); Total Volume, Urine 2050 mL; Urine Total Protein 24 Hour 12.2 mg/dL (0-150)
== END 2019-12-02 12:04 | disposition home or self-care (01) ==
LOC: LAB 12:08
PROVIDERS: Family Provider Obstetrics & Gynecology; Visit Provider Obstetrics & Gynecology
DX: O16.2 Unspecified maternal hypertension, second trimester (principal)
CPT/HCPCS: 84156

== ENCOUNTER 2019-12-24 06:27 | Outpatient (CLI) | payer MEDICAID, SELFPAY ==
[2019-12-24] VITALS (11 sets, daily range): BP systolic 0–140; BP diastolic 0–76; PULSE 97–104; RESP 18; TEMP 37.2; BMI 43.7
[2019-12-24] MEDS: lactated ringers 1,000 ML 999 ML IV (08:20)
[2019-12-24 08:27] LABS: Glucose Point of Care 113 mg/dL (70-110)
--- NOTE | 2019-12-24 08:59 | PM.ACPR ---
Procedure/Consent Procedure Narrative: NONSTRESS TEST: Place of test: [facility] Indication: 24-year-old 6 para 2-0-3-2 at 31 weeks and 6 days, abdominal pain, back pain, gestational diabetic Date and time of test: 12/24/2019, 8 AM Baseline: 155 Variability: Moderate variability Accelerations: Accelerations present Decelerations: No decelerations Tocometry: Contractions irregularly INTERPRETATION: NST reactive, continue kick counts, consider continuous monitoring given contractions
== END 2019-12-24 10:10 | disposition home or self-care (01) ==
LOC: OPOB 06:38 → OBGYN 10:02
PROVIDERS: Absent Provider Obstetrics & Gynecology; Family Provider Obstetrics & Gynecology; Visit Provider Obstetrics & Gynecology
DX: O26.899 Other specified pregnancy related conditions, unspecified trimester (principal); Z3A.00 Weeks of gestation of pregnancy not specified; R10.9 Unspecified abdominal pain
CPT/HCPCS: 12345; 36416; 82962

== ENCOUNTER → 2020-01-02 15:23 | Outpatient (BNVA) | payer MEDICAID, SELFPAY | PROVIDERS: Family Provider Obstetrics & Gynecology; Visit Provider Obstetrics & Gynecology | DX: O24.410 Gestational diabetes mellitus in pregnancy, diet controlled (principal); Z3A.00 Weeks of gestation of pregnancy not specified | CPT/HCPCS: 81000 ==

== ENCOUNTER 2020-01-10 | Outpatient (CLI) | payer MEDICAID, SELFPAY | END 2020-01-10 00:01 | disposition home or self-care (01) | LOC: RAD 04-06 12:57 | PROVIDERS: Family Provider Obstetrics & Gynecology; PCP Obstetrics & Gynecology; Visit Provider Obstetrics & Gynecology | DX: O09.893 Supervision of other high risk pregnancies, third trimester (principal) | CPT/HCPCS: 81000 ==

== ENCOUNTER 2020-01-10 10:00 | Outpatient (CLI) | payer MEDICAID, SELFPAY ==
--- NOTE | 2020-01-10 10:13 | US_ITS ---
WS: [id number] US OB BPP wo NST [id number] REASON FOR EXAM: Gestional Diabetes FINDINGS: Cephalic presentation. heart rate 147 beats for minute. Good movement, tone, normal fluid densities. Breathing not demonstrated. Biophysical profile 01/12. The placenta is grade 1. US/US OB BPP wo NST [id number] IMPRESSION: Biophysical profile 01/12 Breathing was not demonstrated.
[2020-01-10 10:15] VITALS: BP 124/70; PULSE 104; TEMP 36.7
== END 2020-01-10 11:38 | disposition home or self-care (01) ==
LOC: OPOB 10:08 → OBGYN 10:09
PROVIDERS: Family Provider Obstetrics & Gynecology; Visit Provider Obstetrics & Gynecology
DX: O24.419 Gestational diabetes mellitus in pregnancy, unspecified control (principal); Z3A.00 Weeks of gestation of pregnancy not specified
CPT/HCPCS: 59025; 76819; 99211

== ENCOUNTER 2020-01-14 13:55 | Outpatient (CLI) | payer MEDICAID, SELFPAY ==
[2020-01-14 15:02] LABS: Total Volume, Urine 2800 mL
[2020-01-14 16:35] LABS: Total Protein 24 Hour Urine 921.2 mg/24HR (0-150); Urine Total Protein 24 Hour 32.9 mg/dL (0-150)
== END 2020-01-14 13:56 | disposition home or self-care (01) ==
LOC: LAB 13:59
PROVIDERS: Family Provider Obstetrics & Gynecology; Visit Provider Obstetrics & Gynecology
DX: O16.3 Unspecified maternal hypertension, third trimester (principal)
CPT/HCPCS: 84156

== ENCOUNTER → 2020-01-16 10:13 | Outpatient (BNVA) | payer MEDICAID, SELFPAY | PROVIDERS: Family Provider Obstetrics & Gynecology; Visit Provider Obstetrics & Gynecology | DX: O24.410 Gestational diabetes mellitus in pregnancy, diet controlled (principal); O09.893 Supervision of other high risk pregnancies, third trimester; O14.93 Unspecified pre-eclampsia, third trimester | CPT/HCPCS: 80053; 81000; 84550; 85027; 87081 ==

== ENCOUNTER 2020-01-19 15:40 | Inpatient (IN) | payer MEDICAID, SELFPAY ==
[2020-01-19] VITALS (35 sets, daily range): BP systolic 0–221; BP diastolic 0–113; PULSE 72–110; RESP 16–18; TEMP 36–36.9; O2SAT 95–98; BMI 47.3
[2020-01-19 16:14] LABS: Urine Appearance Clear (CLEAR); Urine Color Straw (Yellow)
[2020-01-19 16:15] LABS: Add Urine Culture? No; Bacteria Urine 1+; Bilirubin Urine Neg (NEGATIVE); Blood Urine Neg (Negative); Glucose Urine UA Norm (Normal); Ketones Urine Negative (Negative); Leukocyte Esterase Urine Negative (Negative); Nitrate Urine Negative (Negative); Protein Urine Trace (Negative); Specific Gravity, Urine 1.005 (1.005-1.030); Squamous Epithelial Cell Urine 0-4 (0-5); Urobilinogen Urine Norm (Negative); WBC Urine 0-4 /hpf (0-5); pH Urine 6.5 (5-7)
[2020-01-19 16:28] LABS: Urine Creatinine 25 mg/dL (28-217)
[2020-01-19] MEDS: acetaminophen 325 mg Tablet 650 MG PO (16:40)
[2020-01-19 16:45] LABS: Urine Protein Random 30 mg/dL
[2020-01-19 17:01] LABS: Basophils % 0.4 %; Eosinophils # 0.1 10^3/uL (0.0-0.8); Eosinophils % 1.1 %; Hemoglobin 11.8 g/dL (11.5-15.3); Lymphocytes # 1.9 10^3/uL (0.8-4.8); Lymphocytes % 21.7 %; Mean Corpuscular HGB Conc 32.8 g/dL (30.0-36.0); Mean Corpuscular Hemoglobin 27.6 pg (28.0-34.0); Mean Corpuscular Volume 84.3 fL (81-99); Mean Platelet Volume 13.7 fL (7.4-10.4); Monocytes # 0.6 10^3/uL (0.2-0.9); Monocytes % 7.5 %; Neutrophils # 5.9 10^3/uL (1.8-7.7); Neutrophils % 68.9 %; Nucleated Red Blood Cells % 0 %; Platelet Count 142 10^3/cmm (130-400); Red Blood Count 4.27 10^6/uL (4.1-5.3); Red Cell Distribution Width 12.4 % (12.1-15.1); White Blood Count 8.6 10^3/uL (4.0-10.0)
[2020-01-19 17:21] LABS: Alanine Aminotransferase 7 U/L (0-33); Albumin Level 3.5 g/dL (3.5-5.2); Alkaline Phosphatase 133 IU/L (35-105); Anion Gap 18.2 (5-19); Aspartate Amino Transferase 14 U/L (0-32); Blood Urea Nitrogen 8 mg/dL (6-20); Calcium 9.9 mg/dL (8.5-10.5); Carbon Dioxide 21 mmol/L (22-29); Chloride 102 mmol/L (98-107); Globulin 2.7 g/dL (1.3-4.6); Glomerular Filtration Rate 197.8 mL/min (90-130); Glucose 99 mg/dL (65-115); Osmolality Calculated 280 mOsm/kg (285-295); Potassium 4.2 mmol/L (3.5-5.1); Sodium 137 mmol/L (136-145); Total Bilirubin 0.2 mg/dL (0.15-1.2); Total Protein 6.2 g/dL (6.6-8.7); Uric Acid 3.9 mg/dL (2.4-5.7)
--- NOTE | 2020-01-19 18:01 | PC.NURSE ---
Patient on phone when medical technical writer in to assess, with arm bent. Blood pressure cuff on elbow and not in correct position. Blood pressure cuff repositioned and patient instructed to relax arm while taking blood pressure. Reading 147/79.
[2020-01-19] MEDS: lactated ringers 1,000 ML 999 ML IV (18:48)
[2020-01-19] MEDS: labetalol 5 mg/mL SDV 20mL IVP (18:48)
[2020-01-19] MEDS: magnesium sulfate premix 4 GM/100 ML PREMIX IV (18:53)
[2020-01-19] MEDS: famotidine 20 mg/2 mL INJ IVP (18:53)
--- NOTE | 2020-01-19 18:56 | P.HP_ITS ---
Providers/Chief Complaint Admitting Physician: You Hayes MD Primary Care Provider: You Hayes MD [facility] LIFE CYCLE ASSESSMENT ANALYST History of Present Illness Evelio Knight is a 24 year old female 6, para 2-0-3-2 with an LMP of 05/15/2019 and an EDC of 02/19/2020 based on LMP and consistent with 21-week ultrasound, which places her at 35-4/7 weeks gestation. Her has been complicated by insulin controlled gestational diabetes and recently diagnosed preeclampsia. She has had 2 prior sections and is not a candidate. She is also requesting sterilization. is also complicated by maternal obesity and GERD. She presented to labor and delivery this afternoon due to contractions, worsening swelling, and headache. She had tried taking Tylenol this morning for the headache which helped some but did not alleviate it. She was reporting contractions that were occurring frequently through the day. She had also noticed increased swelling in her legs through the weekend. Labs 08/16/2019 Blood type: A positive. Antibody screen: Negative. Intake CBC: WBC 9.3, Hgb 12.5, Hct 37.1, MCV 85.9, Plt 158. Rubella: Immune. Hepatitis B surface antigen: Negative. Hepatitis C antibody: Negative. RPR: Nonreactive. HIV: Negative. Cystic fibrosis screen: Urine drug screen: Negative. Urine culture: 50-60,000 CFU, E. coli. BMP: Na 135, K 3.2, Cl 100, CO2 23, BUN 6, Creat 0.4, Gluc 87. GCT: 87. TSH: 1.33. Gonorrhea: Negative. Chlamydia: POSITIVE. Pap smear: 08/20/2019 BMP: Na 135, K 3.7, Cl 102, CO2 22, BUN 7, Creat 0.3, Gluc 109. 09/13/2019 Quad screen: Declined. Urine culture: 50-60,000 CFU, E. coli. 10/11/2019 Urine culture: 40-50,000 CFU, E. coli Chlamydia: Negative. 11/21/2019 GCT 180. 28 week CBC: WBC 10.1, Hgb 12.1, Hct 36.2, MCV 89.4, Plt 170. Urine culture: No growth. 11/27/2019 3-hour GTT: 99/153/208/158 (2 and 3-hour test elevated). 01/14/2020 24-hour urine total protein: 921 mg (TV 2800 mL). 01/16/2020 GBS: POSITIVE OB Ultrasound LMP 05/15/2019 ---> EDC 02/19/2020. 1. 10/08/2019 ---> 21-0/7 WG ---> EDC 02/18/2020. EFW 15 oz (412 g) 67%. Performed at [facility]. Consistent with dates. Normal anatomic survey. Female. Cephalic. FHR 144 bpm. Anterior placenta without previa. Grade 1. Visually normal amniotic fluid volume. DRY MOLDER 5.6. Cervix 3.8. 2. 01/02/2020 ---> 35-0/7 WG ---> EDC 02/06/2020. EFW 5 lbs 13 oz (2643 g) 94%. Performed at [facility]. Consistent with dates. LGA fetus. Female. Cephalic. FHR 146 bpm. Anterior, right lateral placenta without previa. Grade 1. KALIE 15.3 cm. DRY MOLDER 6.5 cm. Review of Systems Const: Denies: fever(s) or chills Eyes: Denies: change in vision ENMT: Denies: throat pain or nasal congestion Card: Reports: swelling of feet/ankles; Denies: chest pain, palpitations or lightheadedness Resp: Denies: dyspnea, productive cough, non-productive cough or wheezing GI: Denies: abdominal pain, nausea, vomiting, diarrhea or constipation : Reports: urinary frequency; Denies: difficulty voiding, dysuria, genital pruritis, vaginal bleeding or vaginal discharge Neuro: Reports: headache(s); Denies: dizziness or seizure-like activity Psych: Denies: anxiety or depression Luis Enrique/Lymph: Denies: easy bruising or easy bleeding Medications/Allergies Home Medications Medication Instructions Recorded Confirmed Last Taken Type diphenhydramine HCl [Benadryl] 25 mg PO BEDTIME 08/20/19 01/16/20 12/23/19 23:00 History PNV 153-FA 400 mcg-om3 35 mg-dha 2 tab PO DAILY tab 09/13/19 01/16/20 12/23/19 23:00 History 25 mg-epa 5 mg-fish oil chew tablet promethazine 25 mg tablet 25 mg PO .every 6 hours PRN tab 11/27/19 01/16/20 12/23/19 23:00 History pyridoxine (vitamin B6) 50 mg 50 mg PO DAILY 11/27/19 01/16/20 12/23/19 23:00 History capsule blood sugar diagnostic #200 each 12/02/19 01/16/20 Unknown Rx blood-glucose meter #1 each 12/02/19 01/16/20 Unknown Rx lancets 28 gauge #200 each 12/02/19 01/16/20 Unknown Rx insulin syringe-needle U-100 0.3 #200 each 01/02/20 01/16/20 Unknown Rx mL 29 gauge x 1/2 insulin aspart U-100 100 unit/mL 6 unit SUBCUT DAILY ml 01/16/20 Unknown History subcutaneous solution insulin detemir U-100 100 unit/mL 16 unit SUBCUT DAILY ml 01/16/20 Unknown History subcutaneous solution Allergies Allergy/AdvReac Type Severity Reaction Status Date / Time adhesive tape Allergy ALGY-Rash Verified 01/16/20 09:52 banana Allergy ALGY-Swell Verified 01/16/20 09:52 Lip/Tongue/Throat hydrocodone Allergy angry and Verified 01/16/20 09:52 [From Hycomine violent (hydrocodone-PPA)] phenylpropanolamine Allergy angry and Verified 01/16/20 09:52 [From Hycomine violent (hydrocodone-PPA)] PFSH LIFE CYCLE ASSESSMENT ANALYST PFSH: Medical History History of macrosomia in in prior , currently in first trimester Had macrosomia with a 10 lb 5-1/2 oz baby at delivery of her fourth baby. This increases her risk for undiagnosed gestational diabetes. Needs early GCT with current . History of pre-eclampsia in prior , currently in first trimester Had preeclampsia in her third that was present at delivery. Did not have preeclampsia with her next . Surgical History S/P section (01/31/17) Repeat low transverse section. Performed by Dr. You Hayes at [facility] in [place], [place]. S/P section (08/17/15) Low transverse section (documented). Diagnosis: Nonreassuring heart tones. Performed by Dr. Ashanti Jha at [facility] in [place], [place]. Single-layer closure of uterus. S/P cholecystectomy (~2010) Laparoscopic. Performed in [place], [place] S/P tonsillectomy and adenoidectomy (~2002) Age 8. Performed in [place], [place] Family History Father Hyperlipidemia Grandmother Diabetes paternal Hypertension Maternal Family/Other Diabetes paternal uncle, paternal aunt, paternal cousin Ovarian cancer paternal aunt Thyroid disease paternal aunt Grandfather Diabetes paternal Colon cancer maternal Thyroid disease Maternal Social History Smoking and tobacco status: never smoked Quit status (tobacco): has quit using tobacco Year quit tobacco: 08/2019 Former quit date comment: Originally smoking 1 pack/day Alcohol intake: never Substance/Drug Use: never Other Female Reproductive History: Hx Age of Menarche: 10 Duration of menses: 3-5 days Cycle Length: every 28 days Menstrual flow: normal/abnormal: normal History History History 6 Term 2 Miscarriages/Ectopic 3 0 Living Children 2 Past Pregnancies Del. Date GA/Weeks Outcome Route Wt Inf Gender Labor Lgth Comp. Anesth esia Location Unknown 5 spontaneous Unknown 12 spontaneous Unknown spontaneous 08/17/15 38 live - full term 6 lb 12 oz [place], [place] 01/31/17 39 live - full term 10 lb 5.5 oz [facility] in [place], [place] Delivery Date: First . 01/2014. No D&C needed. You Hayes Delivery Date: Second . 07/2014. No D&C needed. You Hayes Delivery Date: Fifth . No D&C needed. You Hayes Delivery Date: 08/17/15 Third . LTCS. Indications: Nonreassuring heart tones. C omplicated by preeclampsia at delivery. Progressed to 9 cm before . You Hayes Delivery Date: 01/31/17 Fourth . Repeat LTCS. Performed by Dr. You Hayes. Complications none. You Hayes Care ABHINAV Calculator Estimated Delivery Date Method Current WG Current Estimate 02/19/20 LMP (Certain) 35w 4d Other Estimates 02/18/20 Ultrasound #1 35w 5d Expected Delivery Route/Plan repeat section on 01/28 with BTL (Partial salpingectomy) Specific Issues/Plans * Prior x 2 - scheduled repeat . * Obesity * History of macrosomia (10 lbs 5-1/2 oz) * Dx: Preeclampsia at 35 weeks * Chlamydia at 13 weeks * Asymptomatic bacteriuria (E. coli at 13 weeks). * Gestational diabetes - insulin controlled Vitals/I&O/Wt Last Vital Signs Temp 98.4 F 01/19/20 15:48 Pulse 107 H 01/19/20 18:42 Resp 18 01/19/20 15:48 BP 196/113 01/19/20 18:42 Weight last 48 hrs Weight 259 lb Physical Exam Const: COMMON NORMALS: no acute distress, average body habitus, alert and well nourished GENERAL APPEARANCE: well developed ORIENTATION/CONSCIOUSNESS: Yes oriented to person, Yes oriented to place and Yes oriented to time Neck/C-Spine: COMMON NORMALS: Thyroid normal GENERAL: Yes trachea midline THYROID: Thyroid normal Resp: COMMON NORMALS: normal respiratory effort and clear to auscultation bilaterally AUSCULTATION: clear to auscultation bilaterally Cardio: COMMON NORMALS: regular rate, regular rhythm, No gallops present (Cardio) and No rub (Cardio) RATE: regular rate RHYTHM: regular rhythm GI: COMMON NORMALS: Soft to palpation, non-tender, No hepatosplenomegaly present and no masses (Except for nontender gravid uterus) AUSCULTATION: Yes normoactive bowel sounds PALPATION: Yes Soft to palpation, Yes No hepatosplenomegaly present and No Hernia present : EXTERNAL FEMALE EXAM: No Hernia present Extremity: COMMON NORMALS: no calf tenderness GENERAL: Yes edema (1+ bilateral lower extremity edema) Neuro: SENSORIUM/ORIENTATION: Yes alert, Yes oriented to person, Yes oriented to place and Yes oriented to time Psych: COMMON NORMALS: normal affect MOOD & AFFECT: Yes euthymic mood Skin: COMMON NORMALS: no rashes or lesions noted GENERAL SKIN EXAM: no rashes or lesions noted Data : 01/19/20 16:35 01/19/20 16:35 A&P Assessment and plan (1) Severe preeclampsia: Patient has severe preeclampsia based upon blood pressure readings. She is currently at 35-4/7 weeks gestation. Due to severe preeclampsia, recommendations are to proceed with delivery. Patient had mildly elevated blood pressures initially which worsened while she was being evaluated. She now has blood pressures in the 190-200/90-100. Labetalol has been ordered and given. Magnesium sulfate was discussed with patient and started for seizure prophylaxis. Patient had been diagnosed with mild preeclampsia last week with a 24-hour urine total protein of 921 on 01/13. She was being monitored conservatively prior to coming in today. Status: Acute Qualifiers: Trimester: third trimester Qualified Code(s): O14.13 - Severe pre-ec lampsia, third trimester (2) Maternal care for unspecified type scar from previous delivery: Patient has had 2 prior sections confirmed to be low transverse incisions on both. versus repeat section had been discussed with her and she wished to proceed to a repeat section. Specific risks of surgery including bleeding to the point of needing a blood transfusion, infection, and injury to intra-abdominal organs including bowel, bladder, blood vessels, nerves, and ureters were discussed. Questions were answered. She still wished for us to proceed with the section. Status: Acute Qualifiers: Previous delivery type: low transverse Qualified Code(s): O34.211 - Maternal care for low transverse scar from previous delivery (3) Contraception management: 11/27/2019: Permanence of sterilization was discussed with the patient in detail. Alternatives including control pills, Ortho Evra, NuvaRing, Depo- Provera, IUDs, Nexplanon, condoms, diaphragms, family planning methods, and vasectomy were discussed with the patient. Risks and failure rates associated with these methods were discussed. Different sterilization methods including intrapartum (time of ) and interval sterilization by partial salpingectomy, complete salpingectomy, tubal fulguration, and Falope ring application were discussed including failure rates, surgical risks, and expectations following surgery. Inability of complete salpingectomy to be reversed was discussed. Risk of ectopic was discussed. Questions were answered. Patient considering complete removal of tubes at time of . 12/26/2019: Medicaid consent signed today. Today, 01/19/2020, I reviewed with the patient her desire for sterilization. She is still adamant that she does not want any further children and wants to proceed with sterilization. Permanence of the procedure was reviewed with her. Failure rate and risk for ectopic were discussed. Questions were answered. She still wished to proceed with sterilization. She is requesting a partial salpingectomy. Status: Acute Qualifiers: Contraceptive encounter type: other general counseling and advice Qualified Code(s): Z30.09 - Encounter for other general counseling and advice on contraception (4) Diabetes in : Patient had been diagnosed with gestational diabetes at approximately 29 weeks in the . She has required insulin for control of her diabetes. Her most recent doses of insulin are Levemir 18 units daily and NovoLog 8 units at breakfast, 6 units at lunch, and 4 units at supper. Status: Acute Qualifiers: Diabetes in type: gestational Gestational diabetes mellitus control: diet-controlled Trimester: third trimester Qualified Code(s): O24.410 - Gestational diabetes mellitus in , diet controlled (5) Obesity affecting : Status: Acute Qualifiers: Trimester: third trimester Qualified Code(s): O99.213 - Obesity complicating , third trimester (6) Gastroesophageal reflux in in third trimester: Patient has been taking famotidine and Reglan for her reflux. Status: Acute Attestations Medical Necessity Statement*: Patient has developed severe preeclampsia requiring delivery. Coding Level of Care Code Acute Student Development Coordinator for [facility] Diagnoses Severe preeclampsia O14.13 Trimester: third trimester Maternal care for unspecified type scar from previous delivery O34.211 Previous delivery type: low transverse Contraception management Z30.09 Contraceptive encounter type: other general counseling and advice Diabetes in O24.410 Diabetes in type: gestational Gestational diabetes mellitus control: diet-controlled Trimester: third trimester Obesity affecting O99.213 Trimester: third trimester Gastroesophageal reflux in in third trimester O99.613; K21.9
--- NOTE | 2020-01-19 18:58 | ANES.PREANE2 ---
Pre-Anesthetic Assessment Pre-Anesthetic Assessment: Height/Weight: Height 1.57 m Weight 117.48 kg Temp Pulse Resp BP 98.4 F 107 H 18 196/113 01/19/20 15:48 01/19/20 18:42 01/19/20 15:48 01/19/20 18:42 Preop Diagnosis: IUP w/ preclampsia Proposed Procedure: C section Familial anesthetic complications: ponv Was Beta Jesi taken within 24 hours: Yes Last intake: 1500 - salad 1600 - water Social: Social History: No alcohol and No tobacco Exam: Pre-Anes Outpt Exam: alert, oriented x 3, clear to auscultation bilaterally and regular rate & rhythm Airway: Cervical ROM: WNL MP: 3 Additional comments: 1 missing Pulmonary: Pulmonary: None reported CV/HEM: CV/HEM: HTN (Preeclampsia) GI: GI: GERD Metabolic: Metabolic: DM and Morbid obesity Comments: gestational on insulin Musc/skel: Musc/skel: None reported Neuropsych: Neuropsych: None reported Anesthetic Plan: ASA status: 3E Anesthesia: Regional (specify below) Risk of > 500 ml blood loss (7ml/kg in children): No Meds/Allergies Current Medications: Current Medications Generic Name Dose Route Start Last Admin Trade Name Freq PRN Reason Stop Dose Admin Cefazolin Sodium/D extrose 2 gm in 50 mls @ 100 mls/hr 01/19/20 18:30 01/19/20 18:52 Kefzol IV 01/19/20 18:59 100 mls/hr 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 This increases her risk for undiagnosed gestational diabetes. Needs early GCT with current . History of pre-eclampsia in prior , currently in first trimester Had preeclampsia in her third that was present at delivery. Did not have preeclampsia with her next . Surgical History S/P section (01/31/17) Repeat low transverse section. Performed by Dr. You Hayes at [facility] in [place], [place]. S/P section (08/17/15) Low transverse section (documented). Diagnosis: Nonreassuring heart tones. Performed by Dr. Ashanti Jha at [facility] in [place], [place]. Single-layer closure of uterus. S/P cholecystectomy (~2010) Laparoscopic. Performed in [place], [place] S/P tonsillectomy and adenoidectomy (~2002) Age 8. Performed in [place], [place] Family History Father Hyperlipidemia Grandmother Diabetes paternal Hypertension Maternal Family/Other Diabetes paternal uncle, paternal aunt, paternal cousin Ovarian cancer paternal aunt Thyroid disease paternal aunt Grandfather Diabetes paternal Colon cancer maternal Thyroid disease Maternal Social History (Updated 01/19/20 @ 16:20 by You Hayes MD) Smoking and tobacco status: never smoked Quit status (tobacco): has quit using tobacco Year quit tobacco: 08/2019 Former quit date comment: Originally smoking 1 pack/day Alcohol intake: never Substance/Drug Use: never Female Reproductive History: Date of last menstrual period: 05/14/19 : 6 Data Anesthesia CBC & Chem 7: 01/19/20 16:35 01/19/20 16:35 Other Labs: Laboratory Results - last 48 hr 01/19/20 01/19/20 01/19/20 15:50 15:50 16:35 WBC 8.6 RBC 4.27 Hgb 11.8 Hct 36.0 L MCV 84.3 MCH 27.6 L MCHC 32.8 RDW 12.4 Plt Count 142 MPV 13.7 H Neut % (Auto) 68.9 Lymph % (Auto) 21.7 [place] % (Auto) 7.5 Eos % (Auto) 1.1 Baso % (Auto) 0.4 Neut # (Auto) 5.9 Lymph # (Auto) 1.9 [place] # (Auto) 0.6 Eos # (Auto) 0.1 Baso # (Auto) 0.0 Nucleated RBC % (auto) 0 Nucleated RBCs # 0.0 Sodium Potassium Chloride Carbon Dioxide Anion Gap BUN Creatinine GFR Calculation Glucose Calculated Osmolality Uric Acid Calcium Total Bilirubin AST ALT Alkaline Phosphatase Total Protein Albumin Globulin Urine Color Straw Urine Appearance Clear Urine pH 6.5 Ur Specific [place] 1.005 Urine Protein Trace Urine Glucose (UA) Norm Urine Ketones Negative Urine Blood Neg Urine Nitrate Negative Urine Bilirubin Neg Urine Urobilinogen Norm Ur Leukocyte Esterase Negative Urine RBC None Urine WBC 0-4 H Ur Squamous Epith Cells 0-4 H Urine Bacteria 1+ H U Random Total Protein 30 Urine Creatinine 25 L Protein/Creatinin Ratio 1.20 01/19/20 16:35 WBC RBC Hgb Hct MCV MCH MCHC RDW Plt Count MPV Neut % (Auto) Lymph % (Auto) [place] % (Auto) Eos % (Auto) Baso % (Auto) Neut # (Auto) Lymph # (Auto) [place] # (Auto) Eos # (Auto) Baso # (Auto) Nucleated RBC % (auto) Nucleated RBCs # Sodium 137 Potassium 4.2 Chloride 102 Carbon Dioxide 21 L Anion Gap 18.2 BUN 8 Creatinine 0.4 L GFR Calculation 197.8 H Glucose 99 Calculated Osmolality 280 L Uric Acid 3.9 Calcium 9.9 Total Bilirubin 0.2 AST 14 ALT 7 Alkaline Phosphatase 133 H Total Protein 6.2 L Albumin 3.5 Globulin 2.7 Urine Color Urine Appearance Urine pH Ur Specific [place] Urine Protein Urine Glucose (UA) Urine Ketones Urine Blood Urine Nitrate Urine Bilirubin Urine Urobilinogen Ur Leukocyte Esterase Urine RBC Urine WBC Ur Squamous Epith Cells Urine Bacteria U Random Total Protein Urine Creatinine Protein/Creatinin Ratio Cardiac Studies: No Data to Display
[2020-01-19] MEDS: metoclopramide 5 mg/mL SDV 2 mL 10 MG IVP (19:11)
[2020-01-19] MEDS: citric acid-sodium citrate 30 mL UDC PO (19:12)
[2020-01-19] MEDS: magnesium sulfate premix 20 GM/500 ML BAG IV (19:35)
--- NOTE | 2020-01-19 20:40 | PM.OP ---
Operative Report Date of procedure: January 19, 2020 Pre-op Diagnosis: 1. Severe preeclampsia in third trimester 2. at 35-4/7 weeks gestation 3. Prior section x2 4. Undesired fertility 5. Insulin requiring gestational diabetes in third trimester 6. Obesity complicating in third trimester 7. Gastroesophageal reflux complicating in third trimester Post-op Diagnosis: 1. Severe preeclampsia - delivered 2. at 35-4/7 weeks gestation 3. Prior section x2 4. Undesired fertility 5. Insulin requiring gestational diabetes - delivered 6. Obesity complicating - delivered 7. Gastroesophageal reflux complicating - delivered 8. Viable female Procedure Done: Repeat low transverse section with bilateral tubal ligation Specimens removed/disposition: Portions of right and left fallopian tubes Surgeon: You Hayes Anesthesia: Other (Spinal) Estimated blood loss (mL): 800 IV fluids (mL): 1,200 Complications: None Findings: 1. Viable female infant weighing 8 pounds 0.5 ounces with a length of 19-1/2 inches and Apgars of 8 at 1 minute and 8 at 5 minutes. 2. Normal-appearing uterus, tubes, and ovaries. Condition: stable Brief History: Patient is a 24-year-old white female 6, para 2-0-3-2 with an LMP of 05/15/2019 and an EDC of 02/19/2020 based on LMP and consistent with a 21-week ultrasound, which placed her at 35-4/7 weeks gestation. She presented to labor and delivery complaining of contractions, worsening swelling, and headache. She had been previously diagnosed in the office with mild preeclampsia of the prior week. Initially, blood pressures were mildly elevated. She was evaluated for possible help syndrome which was negative. Blood pressures have been slowly increasing following admission and eventually came up to severe ranges with blood pressures in the 190-200/90-100. Based upon these readings, she was diagnosed as severe preeclampsia. As a result, recommendations were to proceed with delivery. Because of 2 prior sections, decision was made to proceed to a repeat section which patient had been planning to have anyway. Patient had also requested to have a sterilization performed during the . She was still adamant regarding this. As a result, she was prepared for repeat section with tubal ligation. Procedure: A Pfannenstiel skin incision was made with a knife through the patient's prior scar and carried down to the underlying fascia with the knife. Fascia was incised in the midline with the knife and extended laterally with Link scissors. Superior aspect of the fascia was grasped with Sanchez clamps, elevated, and sharply and bluntly dissected. The inferior aspect of the fascia was grasped with Sanchez clamps, elevated, and sharply and bluntly dissected. The rectus muscles were in the midline. Peritoneum was sharply entered. Peritoneal incision was extended both superiorly and inferiorly with good visualization of the bladder. Bladder blade was inserted. The vesicouterine peritoneum was tented up and sharply entered. It was extended laterally and the bladder flap was created digitally. Bladder blade was reinserted. A transverse incision was made with the knife in the lower uterine segment. Clear fluid was obtained upon entry into the uterine cavity. The head was not well engaged and to facilitate delivery, Kiwi vacuum was used. The infant's head was delivered and no nuchal cords were noted. The rest of the infant delivered atraumatically. Nose and mouth were suctioned with bulb suction. Cord was clamped and cut and the was handed off to Dr. Ann and the waiting nurses. Cord blood was obtained. Placenta was delivered via uterine massage. Patient received 20 units of Pitocin in the IV fluids. The uterus was exteriorized and cleared of clots and debris. The uterine incision was closed in a running locking fashion using 0 Vicryl suture. The incision was imbricated using 0 Vicryl suture in a horizontal mattress fashion. The incision was inspected and noted to be hemostatic. The left fallopian tube was identified and grasped with a [place] clamp approximately midway along the tube. A window was made in the underlying mesosalpinx with electrocautery. The segment was tied proximally and distally with 0 plain suture. The intervening segment was excised and the ends were cauterized with electrocautery. It was noted to be hemostatic. The right fallopian tube was identified and grasped with a [place] clamp approximately midway along the tube. A window was made in the underlying mesosalpinx with electrocautery. The segment was tied proximally and distally with 0 plain suture. The intervening segment was excised and the ends were cauterized with electrocautery. It was noted to be hemostatic. Posterior cul-de-sac was thoroughly irrigated and cleared of clots and blood. The uterus was returned to the abdomen. The uterine incision was irrigated and noted to be hemostatic. The gutters were cleared of clots and blood. The rectus muscles and peritoneum were reapproximated in the midline using interrupted stitches of 2-0 Vicryl suture. The muscle layer was irrigated and noted to be hemostatic. The fascia was reapproximated using 0 Vicryl suture in a running fashion. The subcutaneous layer was irrigated and brought to hemostasis using electrocautery. It was reapproximated using 3-0 plain suture in an interrupted fashion. Skin was reapproximated using 4-0 Vicryl suture in a subcuticular fashion. Steri-Strips were applied. Patient tolerated the procedures well. Sponge, needle, and instrument counts were correct. DRAINS: Avalos catheter POSTOPERATIVE STATUS: The patient was left to recover in satisfactory condition Associated Problem List Diagnoses (1) Severe pre-eclampsia, delivered, current hospitalization: (2) Gestational diabetes mellitus, delivered, current hospitalization: (3) Contraception management: Qualifiers: Contraceptive encounter type: other general counseling and advice Qualified Code(s): Z30.09 - Encounter for other general counseling and advice on contraception (4) Gastroesophageal reflux in in third trimester: (5) Maternal care for unspecified type scar from previous delivery: Qualifiers: Previous delivery type: low transverse Qualified Code(s): O34.211 - Maternal care for low transverse scar from previous delivery (6) Maternal obesity, delivered, current hospitalization:
[2020-01-19] MEDS: labetalol 5 mg/mL SDV 20mL 20 MG IVP (22:10)
[2020-01-19 22:17] LABS: Magnesium Level (OB Only) 3.7 mg/dL (5.0-7.5)
[2020-01-19] MEDS: diphenhydrAMINE 50 mg/mL SDV 1mL 25 MG IVP (22:51)
[2020-01-20] VITALS (22 sets, daily range): BP systolic 99–151; BP diastolic 67–92; PULSE 74–103; RESP 16–17; TEMP 36.6–36.7; O2SAT 96–98
[2020-01-20] MEDS: ondansetron 2 mg/ML SDV 2 mL 4 MG IVP (02:26)
[2020-01-20] MEDS: ketorolac 30 mg/mL INJ IVP ×3 (02:27→15:54)
[2020-01-20 03:48] LABS: Magnesium Level (OB Only) 4.7 mg/dL (5.0-7.5)
[2020-01-20] MEDS: dextrose 5%-lactated ringers 1,000 ML 125 ML IV (04:41)
[2020-01-20] MEDS: magnesium sulfate premix 20 GM/500 ML BAG IV ×2 (04:43→13:58)
[2020-01-20] MEDS: diphenhydrAMINE 50 mg/mL SDV 1mL 25 MG IVP (08:09)
[2020-01-20] MEDS: docusate sodium 100 mg Capsule PO ×2 (08:10→18:33)
[2020-01-20 10:37] LABS: Hematocrit 31.8 % (37.0-47.0); Hemoglobin 10.3 g/dL (11.5-15.3); Mean Corpuscular HGB Conc 32.4 g/dL (30.0-36.0); Mean Corpuscular Hemoglobin 27.5 pg (28.0-34.0); Mean Corpuscular Volume 84.8 fL (81-99); Platelet Count 115 10^3/cmm (130-400); Red Blood Count 3.75 10^6/uL (4.1-5.3); Red Cell Distribution Width 12.3 % (12.1-15.1); White Blood Count 7.7 10^3/uL (4.0-10.0)
[2020-01-20 10:49] LABS: Magnesium Level (OB Only) 4.9 mg/dL (5.0-7.5)
--- NOTE | 2020-01-20 18:26 | PM.PN ---
Subjective Subjective: Interval history: Denies any problems. Reports some discomfort in lower abdomen. Denies headaches. Denies shortness of breath. Denies chest pains. Denies nausea or vomiting. Vitals/I&O/Wt Last Vital Signs Temp 98.0 F 01/20/20 14:30 Pulse 76 01/20/20 16:30 Resp 16 01/20/20 16:30 BP 132/74 01/20/20 16:30 Pulse Ox 97 01/20/20 16:30 01/20/20 01/20/20 01/20/20 06:59 14:59 22:59 Intake Total 1656.667 / 1656.667 924.166 / 924.166 Output Total 2090 / 2175 1500 / 1500 850 / 2350 Balance -433.333 / -518.333 -575.834 / -575.834 -850 / -1425.834 Weight last 48 hrs Weight 259 lb Physical Exam Const: COMMON NORMALS: no acute distress, average body habitus, alert and well nourished GENERAL APPEARANCE: well developed ORIENTATION/CONSCIOUSNESS: Yes oriented to person, Yes oriented to place and Yes oriented to time Resp: COMMON NORMALS: normal respiratory effort and clear to auscultation bilaterally AUSCULTATION: clear to auscultation bilaterally Cardio: COMMON NORMALS: regular rate, regular rhythm, No gallops present (Cardio) and No rub (Cardio) RATE: regular rate RHYTHM: regular rhythm GI: COMMON NORMALS: Soft to palpation, No hepatosplenomegaly present and no masses (except for firm uterus below umbilicus) AUSCULTATION: Yes normoactive bowel sounds PALPATION: Yes Soft to palpation, Yes Tenderness to palpation present (GI) (lower abdomen), Yes No hepatosplenomegaly present and No Hernia present : EXTERNAL FEMALE EXAM: No Hernia present Extremity: COMMON NORMALS: no calf tenderness GENERAL: Yes edema (1+ bilateral lower extremity edema) Neuro: SENSORIUM/ORIENTATION: Yes alert, Yes oriented to person, Yes oriented to place and Yes oriented to time Psych: COMMON NORMALS: normal affect MOOD & AFFECT: Yes euthymic mood Data : 01/20/20 10:25 01/19/20 16:35 Micro: Microbiology 01/19/20 15:50 Chlamydia trachomatis (DION) - Final Urine Random Neisseria gonorrhoeae (DION) - Final A&P Assessment and plan (1) Severe pre-eclampsia, delivered, current hospitalization: Postoperative day 1, s/p repeat section with BTL. Patient has been diuresing well. Discontinue magnesium at 24 hour point after delivery. Continue IVF at least until morning. Has not needed BP medication since last night. Continue to follow BP as she becomes more active tomorrow. Start clear liquid diet after magnesium stopped. Status: Acute Attestations Medical Necessity Statement*: Patient on IV magnesium for seizure prophylaxis due to severe pre-ecalmpsia. Coding Level of Care Code Acute Instructional Support Specialist for g Fwd Diagnoses Severe pre-eclampsia, delivered, current hospitalization O14.14
[2020-01-20 18:58] LABS: Magnesium Level (OB Only) 6.7 mg/dL (5.0-7.5)
[2020-01-20] MEDS: oxyCODONE-APAP 5-325 mg Tablet PO (22:00)
[2020-01-21 04:53] VITALS: BP 149/84; PULSE 73; RESP 18; TEMP 36.8
[2020-01-21 05:37] VITALS: RESP 16
[2020-01-21] MEDS: oxyCODONE-APAP 5-325 mg Tablet PO ×2 (05:37→13:54)
--- NOTE | 2020-01-21 07:22 | PM.PN ---
Subjective Subjective: Interval history: Reports feeling better this morning off of the magnesium. Denied lightheadedness or dizziness with getting up out of bed. Denied shortness of breath or chest pains. Denies nausea or vomiting with clear liquids. Reports bleeding has slowed. Reports passing flatus. Vitals/I&O/Wt Last Vital Signs Temp 98.2 F 01/21/20 04:53 Pulse 73 01/21/20 04:53 Resp 16 01/21/20 05:37 BP 149/84 01/21/20 04:53 Pulse Ox 98 01/20/20 18:36 01/20/20 01/21/20 01/21/20 22:59 06:59 14:59 Output Total 1400 / 2900 600 / 3500 Balance -1400 / -1975.834 -600 / -2575.834 Weight last 48 hrs Weight 259 lb Physical Exam Const: COMMON NORMALS: no acute distress, average body habitus, alert and well nourished GENERAL APPEARANCE: well developed ORIENTATION/CONSCIOUSNESS: Yes oriented to person, Yes oriented to place and Yes oriented to time Resp: COMMON NORMALS: normal respiratory effort and clear to auscultation bilaterally AUSCULTATION: clear to auscultation bilaterally Cardio: COMMON NORMALS: regular rate, regular rhythm, No gallops present (Cardio) and No rub (Cardio) RATE: regular rate RHYTHM: regular rhythm GI: COMMON NORMALS: Soft to palpation, No hepatosplenomegaly present and no masses (Except for firm uterus below the umbilicus.) INSPECTION: Yes incision (Well approximated with Steri-Strips present) AUSCULTATION: Yes normoactive bowel sounds PALPATION: Yes Soft to palpation, Yes Tenderness to palpation present (GI) (Lower abdomen), Yes No hepatosplenomegaly present and No Hernia present : EXTERNAL FEMALE EXAM: No Hernia present Extremity: COMMON NORMALS: no calf tenderness OTHER: SCDs in use Neuro: SENSORIUM/ORIENTATION: Yes alert, Yes oriented to person, Yes oriented to place and Yes oriented to time Psych: COMMON NORMALS: normal affect MOOD & AFFECT: Yes euthymic mood Data : 01/20/20 10:25 01/19/20 16:35 Micro: Microbiology 01/19/20 15:50 Chlamydia trachomatis (DION) - Final Urine Random Neisseria gonorrhoeae (DION) - Final A&P Assessment and plan (1) Maternal care for unspecified type scar from previous delivery: Postoperative day 2, status post repeat section with tubal ligation Patient doing well overall. Incision appears good. Increase activity, may shower. Patient switched to oral pain medications. Advance to regular diet. Status: Acute Qualifiers: Previous delivery type: low transverse Qualified Code(s): O34.211 - Maternal care for low transverse scar from previous delivery (2) Severe pre-eclampsia, delivered, current hospitalization: Patient had good diuresis yesterday and magnesium was stopped yesterday evening. Discontinue Avalos catheter this morning. Monitor blood pressure through the day as activities are increased. Discussed with patient possible need for oral blood pressure medicine depending upon what happens with her blood pressure. Status: Acute (3) Gestational diabetes mellitus, delivered, current hospitalization: Following delivery, blood sugar testing was stopped. Patient was instructed that she does not need to do any type of testing at this time or after going home. She will be rescreened for diabetes at her 6 weeks checkup. Status: Acute Attestations Medical Necessity Statement*: Patient is approximately 36 hours post delivery. Came off of magnesium last night. Monitor blood pressure during the day today with increased activities. Coding Level of Care Code Acute Trauma Manager for Claude Fwd Diagnoses Maternal care for unspecified type scar from previous delivery O34.211 Previous delivery type: low transverse Severe pre-eclampsia, delivered, current hospitalization O14.14 Gestational diabetes mellitus, delivered, current hospitalization O24.429
--- NOTE | 2020-01-21 07:45 | PC.NURSE ---
D/C valencia 10ml in balloon, cath in tact, patient tolerated well
[2020-01-21] MEDS: prenatal vitamin Capsule 1 CAP PO (08:52)
[2020-01-21] MEDS: docusate sodium 100 mg Capsule PO ×2 (08:52→18:20)
[2020-01-21 10:08] VITALS: BP 103/69; PULSE 82; RESP 14; TEMP 36.5; O2SAT 98
--- NOTE | 2020-01-21 11:51 | PC.NURSE ---
moderate sized blood clot came out in the shower . witnessed and cleaned up shower
[2020-01-21 13:54] VITALS: RESP 16
[2020-01-21 16:46] VITALS: BP 143/91; PULSE 85; RESP 17; TEMP 36.6
[2020-01-21 22:19] VITALS: BP 133/77; PULSE 93; RESP 16; TEMP 36.7; O2SAT 98
[2020-01-22] MEDS: acetaminophen 325 mg Tablet 650 MG PO (00:16)
[2020-01-22 04:10] VITALS: BP 105/69; PULSE 83; RESP 16; TEMP 36.6; O2SAT 97
[2020-01-22 05:41] VITALS: RESP 15
[2020-01-22] MEDS: oxyCODONE-APAP 5-325 mg Tablet PO (05:41)
--- NOTE | 2020-01-22 08:19 | PM.DCS ---
Discharge Providers Date of Admission: 01/19/20 18:30 Date of Discharge: January 22, 2020 Attending Provider at Admission: You Hayes MD Attending Provider at Discharge: You Hayes MD Primary Care Provider: You Hayes MD Diagnoses at Discharge Discharge Diagnosis (1) Severe pre-eclampsia, delivered, current hospitalization: Status: Acute (2) Maternal care for unspecified type scar from previous delivery: Status: Acute Qualifiers: Previous delivery type: low transverse Qualified Code(s): O34.211 - Maternal care for low transverse scar from previous delivery (3) Gestational diabetes mellitus, delivered, current hospitalization: Status: Acute (4) Contraception management: Status: Acute Qualifiers: Contraceptive encounter type: sterilization Qualified Code(s): Z30.2 - Encounter for sterilization (5) Maternal obesity, delivered, current hospitalization: Status: Acute (6) Gastroesophageal reflux in in third trimester: Status: Acute Hospital Course Hospital Course: Patient is a 24-year-old white female 6, para 2-0-3-2 with an LMP of 05/15/2019 and an EDC of 02/19/2020 based on LMP and consistent with a 21-week ultrasound, which placed her at 35-4/7 weeks gestation. She presented to L&D with complaint of contractions, worsening swelling, and headaches. She had been previously diagnosed with mild preeclampsia in the office within the last week. On evaluation in L&D she had mildly elevated blood pressures which over the observation time worsened to severe levels requiring medication management. This changed her diagnosis from mild preeclampsia to severe preeclampsia and as a result delivery was recommended. Due to her having had 2 prior sections with plan for repeat section, she was prepared for a section delivery. She had also stated during the that she did not want any further children and wanted to have her tubes tied. She was still adamant about this at this time. Patient was started on magnesium sulfate for seizure prophylaxis. Blood pressure was treated with IV labetalol. She was taken to the OR where a repeat low transverse section with bilateral tubal ligation was performed in the evening of 01/18. She delivered a viable female infant weighing 8 lbs 0.5 oz with a length of 19-1/2 inches and Apgars of 8 at 1 minute and 8 at 5 minutes. Baby was taken to the nursery after delivery and required supplemental oxygen. Mother was continued on magnesium following delivery. POSTOPERATIVE DAY 1 Patient reported doing fine at that time. She stated that her pain was controlled with the Duramorph. She denied any shortness of breath or chest pains. She denied any nausea or vomiting. Blood pressures were normal to mildly elevated, not requiring medication since the prior evening. Magnesium sulfate was discontinued at the 24-hour point after delivery. Patient was diuresing well at that time. POSTOPERATIVE DAY 2 Patient was reporting feeling better that morning after having the magnesium discontinued the prior evening. She was tolerating liquids without nausea or vomiting. She was sitting up in the chair without lightheadedness or dizziness. She denied any shortness of breath or chest pains. She reported that her pain was still well controlled on oral medications. Avalos catheter was discontinued. Activities were increased. Blood pressures were monitored through the day. She started passing flatus and diet was advanced. POSTOPERATIVE DAY 3 Patient reports that she is continuing to do well. She states that her pain is been well controlled on oral medications. She denied any shortness of breath or chest pains. She denied any lightheadedness or dizziness with ambulation. She reports tolerating a regular diet without nausea or vomiting. She denies any problems with urination. She reports passing flatus. She states that her bleeding has slowed. Physical exam: See below Plan Discharged to home (patient will be rooming-in with the baby since it is not being released today). Discharge instructions were discussed with the patient. Patient is to follow-up in the office in 2 and 6 weeks following discharge. Medication use was discussed and she plans to use [id number] ibuprofen in addition to the prescribed Percocet. Patient was instructed to stop sugar checks at home and to stop her insulin. She will need a screen at her checkup for diabetes. Physical Exam Const: COMMON NORMALS: no acute distress, average body habitus, alert and well nourished GENERAL APPEARANCE: well developed ORIENTATION/CONSCIOUSNESS: Yes oriented to person, Yes oriented to place and Yes oriented to time Neck/C-Spine: COMMON NORMALS: Thyroid normal GENERAL: Yes trachea midline THYROID: Thyroid normal Resp: COMMON NORMALS: normal respiratory effort and clear to auscultation bilaterally AUSCULTATION: clear to auscultation bilaterally Cardio: COMMON NORMALS: regular rate, regular rhythm, No gallops present (Cardio) and No rub (Cardio) RATE: regular rate RHYTHM: regular rhythm GI: COMMON NORMALS: Soft to palpation, No hepatosplenomegaly present and no masses (Except for firm uterus below the umbilicus.) INSPECTION: Yes incision (Clean, dry, and intact with Steri-Strips present.) AUSCULTATION: Yes normoactive bowel sounds PALPATION: Yes Soft to palpation, Yes Tenderness to palpation present (GI) (Lower abdomen.), Yes No hepatosplenomegaly present and No Hernia present : EXTERNAL FEMALE EXAM: No Hernia present Extremity: COMMON NORMALS: no calf tenderness GENERAL: Yes edema (1+ lower extremity edema bilaterally) Neuro: SENSORIUM/ORIENTATION: Yes alert, Yes oriented to person, Yes oriented to place and Yes oriented to time Psych: COMMON NORMALS: normal affect MOOD & AFFECT: Yes euthymic mood Discharge Data Data Completed and P[place]01/19/2020 CBC: WBC 8.6, hemoglobin 11.8, hematocrit 36.0, platelet 142 CMP: Sodium 137, potassium 4.2, chloride 102, CO2 21, BUN 8, creatinine 0.4, glucose 99, calcium 9.9, total bili 0.2, AST 14, ALT 7, alk phos 133, total protein 6.2, albumin 3.5 Serum uric acid: 3.9 01/20/2020 CBC: WBC 7.7, hemoglobin 10.3, Suki 31.8, platelet 115,000 Vitals: Last Vital Signs Temp 97.9 F 01/22/20 04:10 Pulse 83 01/22/20 04:10 Resp 15 01/22/20 05:41 BP 105/69 01/22/20 04:10 Pulse Ox 97 01/22/20 04:10 Discharge Plan Discharge Patient Disposition: Home, Self-Care Condition: Stable Prescriptions: New oxycodone-acetaminophen 5-325 mg Tablet 1 - 2 tab PO Q6H PRN (Reason: Moderate To Severe Pain) Qty: 30 RF: 0 Continued Gummies 400 mcg-35 mg- 25 mg-5 mg tablet,chewable 2 tab PO DAILY RF: 0 Discontinued pyridoxine (vitamin B6) 50 mg capsule 50 mg PO DAILY RF: 0 (DME) insulin syringe-needle U-100 [BD Insulin Syringe] 0.3 mL 29 gauge x 1/2 syringe See Rx Instructions .ROUTE .MEDSUPPLY Qty: 200 RF: 1 Levemir U-100 Insulin 100 unit/mL solution 16 unit SUBCUT DAILY RF: 0 insulin aspart U-100 [Novolog U-100 Insulin aspart] 100 unit/mL solution 6 unit SUBCUT DAILY RF: 0 (DME) blood-glucose meter [Blood Glucose Monitoring] Kit See Rx Instructions .ROUTE .MEDSUPPLY Qty: 1 RF: 0 (DME) blood sugar diagnostic [Advanced Gluc Meter Test Strip] Strip See Rx Instructions .ROUTE .MEDSUPPLY Qty: 200 RF: 2 (DME) lancets [Acti-Jesus Lancets] 28 gauge misc See Rx Instructions .ROUTE .MEDSUPPLY Qty: 200 RF: 2 diphenhydramine HCl [Benadryl] 25 mg Capsule 25 mg PO BEDTIME RF: 0 promethazine 25 mg tablet 25 mg PO .every 6 hours PRN (Reason: nausea and vomiting) RF: 0 Discharge Orders: Discharge Order (Routine); Ordered 01/22/20 Ordered By: You Hayes Referrals: You Hayes MD [Primary Care Provider] - 2 weeks (* Your 2 week incision check is on 02/10/2020 at 9:00am * Your 6 week follow up will be 03/05/2020 at 8:00am. At this appointment you will have your fasting 2 hour glucose check. Please do not drink or eat anything after midnight) Discharge Diet: Regular Discharge Activity: Limit activity as instructed Patient Instructions: OB C, OB Discharge Report, OB Food/Drug Interaction Guide, OB Home Care, OB Proud Parent Packet Discharge Attestations Time Spent in Discharge Care*: less than 30 min Quality Metrics Clinical Quality Measures During this hospital stay, did patient experience: None Coding Level of Care Code Acute Gum Scoring Machine Operator for Chg Fwd Diagnoses Severe pre-eclampsia, delivered, current hospitalization O14.14 Maternal care for unspecified type scar from previous delivery O34.211 Previous delivery type: low transverse Gestational diabetes mellitus, delivered, current hospitalization O24.429 Contraception management Z30.2 Contraceptive encounter type: sterilization Maternal obesity, delivered, current hospitalization O99.214 Gastroesophageal reflux in in third trimester O99.613; K21.9
[2020-01-22 09:00] VITALS: BP 124/78; PULSE 88; RESP 20; TEMP 36.7; O2SAT 99
[2020-01-22] MEDS: prenatal vitamin Capsule 1 CAP PO (09:12)
[2020-01-22] MEDS: docusate sodium 100 mg Capsule PO (09:12)
[2020-01-22 09:15] VITALS: BP 124/78; PULSE 88; RESP 20; TEMP 36.7; O2SAT 99
--- NOTE | 2020-01-22 09:16 | PC.NURSE ---
MOM DISCHARGED HOME WITH INSTRUCTIONS, MOTHER IS REMAINING WITH BABY WHO IS STILL A PATIENT.
== END 2020-01-22 09:15 | disposition home or self-care (01) | DRG 785 ==
PROVIDERS: Admitting Provider Obstetrics & Gynecology; Family Provider Obstetrics & Gynecology; PCP Obstetrics & Gynecology; Visit Provider Obstetrics & Gynecology
PROC: 10D00Z1 Extraction of Products of Conception, Low, Open Approach (ICD-10-PCS; CPT 59514; principal; 2020-01-19 19:15)
DX: O14.14 Severe pre-eclampsia complicating childbirth (principal); O99.214 Obesity complicating childbirth; O99.824 Streptococcus B carrier state complicating childbirth; O24.424 Gestational diabetes mellitus in childbirth, insulin controlled; Z3A.35 35 weeks gestation of pregnancy; Z37.0 Single live birth; Z87.891 Personal history of nicotine dependence; O34.211 Maternal care for low transverse scar from previous cesarean delivery; O75.89 Other specified complications of labor and delivery; K21.9 Gastro-esophageal reflux disease without esophagitis; Z30.2 Encounter for sterilization
CPT/HCPCS: 12345; 36415; 51702; 58611; 59025; 59409; 80053; 81001; 82570; 83735; 84156; 84550; 85025; 85027; 87491; 87591; 88302; 96374; 96375; 99211; G0378; G0379; J0690; J1200; J1885; J2274; J2405; J2590; J2765; J3475; J3490

== ENCOUNTER → 2020-03-05 08:08 | Outpatient (BNVA) | payer MEDICAID, SELFPAY | PROVIDERS: Family Provider Obstetrics & Gynecology; PCP Obstetrics & Gynecology; Visit Provider Obstetrics & Gynecology | DX: Z12.4 Encounter for screening for malignant neoplasm of cervix (principal); Z86.32 Personal history of gestational diabetes | CPT/HCPCS: 82947; 88175 ==

== ENCOUNTER 2020-05-19 18:32 | Emergency (ER) | payer MEDICAID, SELFPAY ==
[2020-05-19] VITALS (7 sets, daily range): BP systolic 109–173; BP diastolic 65–116; PULSE 91–95; RESP 17–18; TEMP 36.7–36.8; O2SAT 97–99; BMI 40.2
--- NOTE | 2020-05-19 19:15 | USR_ITS ---
PROCEDURE INFORMATION: Exam: US Nonobstetric Pelvis; Complete Exam date and time: 05/19/2020 9:02 PM Age: 25 years old Clinical indication: Pelvic pain; Additional info: Left sided pain, bleeding TECHNIQUE: Imaging protocol: Transabdominal and transvaginal pelvic nonobstetric ultrasound. Complete exam. Real time ultrasound with image documentation. COMPARISON: US Pelvis Female [id number] 02/20/2017 7:05 PM FINDINGS: Uterus/cervix: Uterus is normal. Endometrial stripe is normal. Normal homogeneous echotexture. Endometrium maximum diameter 10 mm. No endometrial fluid. Uterus measures 10.6 cm x 4.2 cm x 4.9 cm. Right adnexa: Ovary is normal. No mass. Normal blood flow. Right ovary measures 33 mm x 16 mm x 27 mm. Left adnexa: Ovary is normal. No mass. Normal blood flow. Left ovary measures 28 mm x 14 mm x 26 mm. Intraperitoneal space: None. Bladder: Normal. US/US pelvic with transvaginal IMPRESSION: No acute findings.
--- NOTE | 2020-05-19 19:41 | PC.NURSE ---
IV attempt-unsuccessful- lab obtained
--- NOTE | 2020-05-19 19:43 | ED_ITS ---
HPI - Female Genitourinary General: Chief complaint: Vaginal Bleeding Stated complaint: vaginal bleeding 4 MO PP Time Seen by Provider: 05/19/20 19:02 History of Present Illness: HPI Narrative: This patient is a 25-year-old female presenting with vaginal bleeding. She had a baby in January that was delivered by . She was delivered early due to preeclampsia and gestational diabetes. She also had her tubes tied. That was her third successful . The other 2 also were delivered by . She had several miscarriages prior to those. She had her first period after the in March. She did not have a period in April. She started bleeding 2 days ago and it has gotten to be extremely heavy and painful. She said her periods are normally not heavy and painful. She is concerned about endometriosis which she has been told she might have and her female family members all have. She said she is only been sexually active once since she delivered and that was in February. MD elicited complaint: vaginal bleeding Onset (ago): day(s) (2) Location of symptoms: LLQ, vaginal and pelvis Female Urogenital Radiation: Non-Radiating Severity scale (1-10): 8 Quality of pain: sharp Vaginal bleeding: heavy and # pads per hour (3) Associated symptoms: Deny abdominal pain, headache(s) or nausea Date of Last Menstrual Period: 05/19/20 Review of Systems General: Reports: 10 or more systems reviewed and unremarkable except in HPI and below Const: Denies: fever(s), chills, fatigue or malaise Eyes: Denies: change in vision ENMT: Denies: odynophagia Card: Denies: chest pain or swelling of feet/ankles Resp: Denies: dyspnea, productive cough or non-productive cough GI: Denies: abdominal pain, nausea or vomiting : Denies: flank pain or difficulty voiding Musc: Denies: neck pain or back pain Skin/Breast: Denies: rash Neuro: Denies: headache(s), numbness in extremities or weakness in extremities Luis Enrique/Lymph: Denies: easy bruising or easy bleeding PFS ED PFSH: Medical History History of gestational diabetes GDM with 6th Surgical History H/O tubal ligation (01/19/20) At time of C/S. Performed by Dr. Hayes at [facility] in [place], [place] S/P section (01/31/17) Repeat low transverse section. Performed by Dr. You Hayes at [facility] in [place], [place]. S/P section (08/17/15) Low transverse section (documented). Diagnosis: Nonreassuring heart tones. Performed by Dr. Ashanti Jha at [facility] in [place], [place]. Single-layer closure of uterus. S/P cholecystectomy (~2010) Laparoscopic. Performed in [place], [place] S/P tonsillectomy and adenoidectomy (~2002) Age 8. Performed in [place], [place] Status post section (01/19/20) RLTCS with BTL. Performed by Dr. Hayes at [facility] in [place], [place] Family History Father Hyperlipidemia Grandmother Diabetes paternal Hypertension Maternal Family/Other Diabetes paternal uncle, paternal aunt, paternal cousin Ovarian cancer paternal aunt Thyroid disease paternal aunt Grandfather Diabetes paternal Colon cancer maternal Thyroid disease Maternal Social History Smoking and tobacco status: never smoked Quit status (tobacco): has quit using tobacco Year quit tobacco: 08/2019 Former quit date comment: Originally smoking 1 pack/day Alcohol intake: never Female Reproductive History: Date of last menstrual period: 05/19/20 Physical Exam Const: COMMON NORMALS: no acute distress, patient oriented x3, no limitations and alert GENERAL APPEARANCE: cooperative and comfortable HENMT: HEAD & SCALP: normal to inspection FACE & SINUS: normal facial exam Eye: GENERAL EYE: appearance normal, both eyes and all related structures Neck/C-Spine: COMMON NORMALS: supple, no meningeal signs and no JVD Chest: COMMONS NORMALS: normal inspection of the chest Resp: COMMON NORMALS: normal respiratory effort, No use of accessory muscles and clear to auscultation bilaterally AUSCULTATION: clear to auscultation bilaterally Cardio: COMMON NORMALS: no JVD, regular rate, regular rhythm and No murmurs present (Cardio) RATE: regular rate RHYTHM: regular rhythm GI: COMMON NORMALS: Normal to inspection, nondistended, normoactive bowel sounds present, Soft to palpation and non-tender INSPECTION: Yes normal to inspection AUSCULTATION: Yes normoactive bowel sounds PALPATION: Yes Soft to palpation Back/Pelvis: COMMON NORMALS: thoracic and lumbar spine normal to inspection Extremity: COMMON NORMALS: normal to inspection Neuro: COMMON NORMALS: patient oriented x3, moves all extremities, no focal motor deficits and no sensory deficits noted SENSORIUM/ORIENTATION: Yes alert MENINGEAL SIGNS: Yes no meningeal signs Psych: COMMON NORMALS: mental status grossly normal, cooperative and normal affect Skin: COMMON NORMALS: no rashes or lesions noted and turgor normal GENERAL SKIN EXAM: no rashes or lesions noted and turgor normal Course ED course: This patient did have significant bleeding in the ER. Her hemoglobin was stable and was checked twice. I spoke with Dr. Hayes who made some recommendations for medications to try to help control the bleeding. He will follow her up in the office. Patient understands to return if worsening symptoms or if she develops any signs and symptoms of clinically significant anemia. Vital Signs: Vital signs: Vital Signs Temperature 98.1 F 05/19/20 22:39 Pulse Rate 91 05/19/20 22:39 Respiratory Rate 17 05/19/20 22:39 Blood Pressure 150/105 05/19/20 22:39 Pulse Oximetry 97 05/19/20 22:39 MDM - Female Lab Data: Labs: Lab Results 05/19/20 05/19/20 05/19/20 Range/Units 19:35 19:35 21:17 WBC 7.5 (4.0-10.0) 10^3/ uL RBC 4.63 (4.1-5.3) 10^6/u L Hgb 13.0 13.4 (11.5-15.3) g/dL Hct 39.3 41.7 (37.0-47.0) % MCV 84.9 (81-99) fL MCH 28.1 (28.0-34.0) pg MCHC 33.1 (30.0-36.0) g/dL RDW 13.0 (12.1-15.1) % Plt Count 190 (130-400) 10^3/c mm MPV 12.0 H (7.4-10.4) fL Neut % (Auto) 51.7 % Lymph % (Auto) 35.7 % [place] % (Auto) 7.9 % Eos % (Auto) 4.1 % Baso % (Auto) 0.5 % Neut # (Auto) 3.86 (1.8-7.7) 10^3/u L Lymph # (Auto) 2.7 (0.8-4.8) 10^3/u L [place] # (Auto) 0.6 (0.2-0.9) 10^3/u L Eos # (Auto) 0.3 (0.0-0.8) 10^3/u L Baso # (Auto) 0.0 (0.0-0.1) 10^3/u L Nucleated RBC % (a uto) 0 % Nucleated RBCs # 0.0 /100WBC Sodium 135 L (136-145) mmol/L Potassium 3.9 (3.5-5.1) mmol/L Chloride 102 (98-107) mmol/L Carbon Dioxide 21 L (22-29) mmol/L Anion Gap 15.9 (5-19) BUN 14 (6-20) mg/dL Creatinine 0.4 L (0.5-0.9) mg/dL GFR Calculation 196.1 H (90-130) mL/min Glucose 103 (65-115) mg/dL Calculated Osmolal ity 281 L (285-295) mOsm/k g Calcium 9.7 (8.5-10.5) mg/dL Total Bilirubin 0.2 (0.15-1.2) mg/dL AST 19 (0-32) U/L ALT 35 H (0-33) U/L Alkaline Phosphata se 47 (35-105) IU/L Total Protein 7.2 (6.6-8.7) g/dL Albumin 4.4 (3.5-5.2) g/dL Globulin 2.8 (1.3-4.6) g/dL Ser , Josi i-Qnt < 0.50 mIU/mL Discharge Plan Discharge Condition: Stable Prescriptions: New oxycodone-acetaminophen 5-325 mg tablet 1 tab PO Q6H PRN (Reason: pain) Qty: 10 RF: 0 Low-Ogestrel (28) 0.3-30 mg-mcg tablet 1 tab PO DAILY Qty: 28 RF: 0 No Action acetaminophen [Tylenol Extra Strength] 500 mg tablet 500 mg PO Q6H PRNRF: 0 metronidazole 500 mg tablet 500 mg PO BID Qty: 10 RF: 0 Discharge Orders: Discharge Order (Routine); Ordered 05/19/20 Ordered By: Angelique Swan Referrals: You Hayes MD [Physician] - Discharge Diet: Usual diet Discharge Activity: Resume usual activity Patient Instructions: Menorrhagia (ED) Activity Restrictions/Additional Instructions: Return to the ED if chest pain, shortness of breath, passing out. Expect bleeding to slow down when she start taking the pills. Take the first pack in the following manner. Take 1 tablet 3 times a day for 3 days. Then take 1 tablet 2 times a day x3 days, then take 1 pill daily for the next 15 days. Skip the last week of pills and the pack and start the next pack. Take that one as you normally would, 1 pill daily. You may have some nausea and breast tenderness while on the high dose but it will stop the bleeding. You may continue to have some spotting off and on. Follow-up with Dr. Hayes as we discussed. Discharge Date/Time: 05/19/20 22:39 Coding Level of Care Code ED Visual Lead for Claude 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
[2020-05-19 19:48] LABS: Basophils % 0.5 %; Eosinophils # 0.3 10^3/uL (0.0-0.8); Eosinophils % 4.1 %; Hematocrit 39.3 % (37.0-47.0); Lymphocytes # 2.7 10^3/uL (0.8-4.8); Lymphocytes % 35.7 %; Mean Corpuscular HGB Conc 33.1 g/dL (30.0-36.0); Mean Corpuscular Hemoglobin 28.1 pg (28.0-34.0); Mean Corpuscular Volume 84.9 fL (81-99); Monocytes # 0.6 10^3/uL (0.2-0.9); Monocytes % 7.9 %; Neutrophils # 3.86 10^3/uL (1.8-7.7); Neutrophils % 51.7 %; Nucleated Red Blood Cells % 0 %; Platelet Count 190 10^3/cmm (130-400); Red Blood Count 4.63 10^6/uL (4.1-5.3); White Blood Count 7.5 10^3/uL (4.0-10.0)
--- NOTE | 2020-05-19 20:20 | PC.NURSE ---
Ultrasound in room.
[2020-05-19 20:37] LABS: Alanine Aminotransferase 35 U/L (0-33); Albumin Level 4.4 g/dL (3.5-5.2); Alkaline Phosphatase 47 IU/L (35-105); Anion Gap 15.9 (5-19); Aspartate Amino Transferase 19 U/L (0-32); Blood Urea Nitrogen 14 mg/dL (6-20); Calcium 9.7 mg/dL (8.5-10.5); Carbon Dioxide 21 mmol/L (22-29); Chloride 102 mmol/L (98-107); Globulin 2.8 g/dL (1.3-4.6); Glomerular Filtration Rate 196.1 mL/min (90-130); Glucose 103 mg/dL (65-115); Osmolality Calculated 281 mOsm/kg (285-295); Potassium 3.9 mmol/L (3.5-5.1); Sodium 135 mmol/L (136-145); Total Bilirubin 0.2 mg/dL (0.15-1.2); Total Protein 7.2 g/dL (6.6-8.7)
[2020-05-19 20:40] LABS: HCG Quantitative < 0.50 mIU/mL
[2020-05-19] MEDS: ibuprofen 600 mg Tablet PO (21:35)
[2020-05-19 21:42] LABS: Hematocrit 41.7 % (37.0-47.0); Hemoglobin 13.4 g/dL (11.5-15.3)
[2020-05-19] MEDS: oxyCODONE-APAP 5-325 mg Tablet 1 TAB PO (22:12)
== END 2020-05-19 22:39 ==
PROVIDERS: Emergency Provider Emergency Medicine
DX: N93.9 Abnormal uterine and vaginal bleeding, unspecified (principal); Z87.891 Personal history of nicotine dependence
CPT/HCPCS: 12345; 36415; 76830; 76856; 80053; 84702; 85014; 85018; 85025; 99282; 99283

== ENCOUNTER → 2020-06-05 17:05 | Outpatient (BNVA) | payer MEDICAID, SELFPAY | DX: N92.1 Excessive and frequent menstruation with irregular cycle (principal) | CPT/HCPCS: 87635 ==

== ENCOUNTER → 2020-06-08 08:45 | Outpatient (BNVA) | payer MEDICAID, SELFPAY | PROVIDERS: Visit Provider Obstetrics & Gynecology | DX: N92.1 Excessive and frequent menstruation with irregular cycle (principal) | CPT/HCPCS: 84703; 85027 ==

== ENCOUNTER 2020-06-09 05:46 | Day surgery (SDC) | payer MEDICAID, SELFPAY ==
[2020-06-08 10:56] VITALS: BMI 36.6
[2020-06-09] VITALS (7 sets, daily range): BP systolic 125–153; BP diastolic 82–126; PULSE 87–117; RESP 18–25; TEMP 36.2–36.6; O2SAT 97–99
[2020-06-09] MEDS: ketorolac 30 mg/mL INJ IVP (06:20)
[2020-06-09] MEDS: sodium chloride 0.9% 1,000 ML 30 ML IV (06:21)
--- NOTE | 2020-06-09 06:35 | P.ANESASSM_ITS ---
Pre-Anesthetic Assessment Pre-Anesthetic Assessment: Height/Weight: Height 1.57 m Weight 90.718 kg Temp Pulse Resp BP Pulse Ox 97.8 F 87 18 135/98 98 06/09/20 05:55 06/09/20 05:55 06/09/20 05:55 06/09/20 05:55 06/09/20 05:55 Preop Diagnosis: Menometrorrhagia Proposed Procedure: Operation Date: 06/09/20 07:00 Proposed Procedures p Hysteroscopy [id number] N92.1(Not Applicable) - You Hayes MD s Dilation And Curettage (D&C) and paracervical block(Not Applicable) - You Hayes MD Familial anesthetic complications: None Was Beta Jesi taken within 24 hours: N/A Last intake: Intake Last Liquid Date 06/08/20 Last Liquid Time 23:00 Last Solid Date 06/08/20 Last Solid Time 21:00 Social: Social History: No alcohol and No tobacco Exam: Pre-Anes Outpt Exam: alert, oriented x 3, clear to auscultation bilaterally and regular rate & rhythm Airway: Cervical ROM: WNL MP: 2 Dentition: Other (1 missing tooth) Metabolic: Metabolic: Morbid obesity Anesthetic Plan: ASA status: 1 Anesthesia: MAC Risk of > 500 ml blood loss (7ml/kg in children): No Meds/Allergies Current Medications: Current Medications Generic Name Dose Route Start Last Admin Trade Name Freq PRN Reason Stop Dose Admin Sodium Chloride 1,000 mls @ 30 ml s/hr 06/09/20 06:00 06/09/20 06:21 Sodium Chloride 0.9% IV 06/10/20 05:59 30 mls/hr .Q24H BRET Administration PFSH Anesthesia PFSH: Medical History History of gestational diabetes GDM with 6th Surgical History H/O tubal ligation (01/19/20) At time of C/S. Performed by Dr. Hayes at [facility] in [place], [place] S/P section (01/31/17) Repeat low transverse section. Performed by Dr. You Hayes at [facility] in [place], [place]. S/P section (08/17/15) Low transverse section (documented). Diagnosis: Nonreassuring heart tones. Performed by Dr. Ashanti Jha at [facility] in [place], [place]. Single-layer closure of uterus. S/P cholecystectomy (~2010) Laparoscopic. Performed in [place], [place] S/P tonsillectomy and adenoidectomy (~2002) Age 8. Performed in [place], [place] Status post section (01/19/20) RLTCS with BTL. Performed by Dr. Hayes at [facility] in [place], [place] Family History Father Hyperlipidemia Grandmother Diabetes paternal Hypertension Maternal Family/Other Diabetes paternal uncle, paternal aunt, paternal cousin Ovarian cancer paternal aunt Thyroid disease paternal aunt Grandfather Diabetes paternal Colon cancer maternal Thyroid disease Maternal Social History (Updated 06/08/20 @ 20:22 by You Hayes MD) Smoking and tobacco status: never smoked Quit status (tobacco): has quit using tobacco Year quit tobacco: 08/2019 Former quit date comment: Originally smoking 1 pack/day Alcohol intake: never Female Reproductive History: Date of last menstrual period: 05/19/20 Data Anesthesia Cardiac Studies: No Data to Display
--- NOTE | 2020-06-09 06:40 | P.HPUD_ITS ---
Surgery/Procedure H&P Update DATE OF PROCEDURE: June 09, 2020 DATE H&P PERFORMED: 06/08/20 H&P UPDATE INFORMATION: I have reviewed H&P completed within last 30 days, I have examined patient prior to procedure, No changes to prior documentation and H&P is in [facility] EMR on date indicated PREOP DIAGNOSIS: Menometrorrhagia PLANNED PROCEDURE: Operation Date: 06/09/20 07:00 Proposed Procedures p Hysteroscopy [id number] N92.1(Not Applicable) - You Hayes MD s Dilation And Curettage (D&C) and paracervical block(Not Applicable) - You Hayes MD Related Problem List Diagnoses (1) Menorrhagia: Qualifiers: Menorrhagia type: with irregular cycle Qualified Code(s): N92.1 - Excessive and frequent menstruation with irregular cycle
--- NOTE | 2020-06-09 07:44 | PM.OP ---
Operative Report Date of procedure: June 09, 2020 Pre-op Diagnosis: Menometrorrhagia Post-op Diagnosis: Menometrorrhagia, Endometrial polyps Procedure Done: Hysteroscopy with D&C and polypectomy Specimens removed/disposition: Endometrial curettings with polyps Surgeon: You Hayes Mainframe Programmer: None Anesthesia: General Estimated blood loss (mL): 5 IV fluids (mL): 750 Complications: None Findings: Anteflexed uterus with first degree prolapse. In the right upper side of the endometrial cavity was clump of multiple small polyps. Rest of the cavity was normal in appearance. Both tubal ostia noted. Brief History: Patient is a 25-year-old white female 6, para 2-1-3-3 with an LMP of 05/26/2020 who is status post tubal ligation. She presented to office with complaint of heavy bleeding. She had been seen in the ER on 05/19/2020 with heavy bleeding. She had been started on high-dose taper dose control pills. This did not help with her bleeding adequately. She was then switched to high-dose estrogen which she did not tolerate due to it making her angry. As a result of continued bleeding, she is now presenting for hysteroscopy and D&C. Procedure: The patient was taken to the operating room where general anesthesia was obtained. She was prepped and draped in the usual sterile fashion in the dorsal supine position with legs in Jaime style stirrups. Sequential compression boots had been placed prior to starting the case. Bladder was drained. Exam under anesthesia was performed and the patient was noted to have first-degree uterine prolapse and a anteflexed uterus. A weighted speculum was placed in the vagina and the cervix was grasped with a single-tooth tenaculum. A paracervical block was performed with a total of 11 mL of 2% lidocaine with epinephrine used. The cervix was serially dilated until a operative hysteroscope could be passed. Crystalloid solution was used as a distention media. The endometrial cavity was inspected and appeared normal except for cluster of small polyps in the right lateral upper portion of the endometrial cavity. Both tubal ostia were identified.. Using sharp curette, the endometrial cavity was curetted. Tissue was obtained. Hysteroscope was reinserted and the cavity visualized and the polyps were no longer present. The tenaculum was removed and there was minimal bleeding from the tenaculum site. Patient tolerated the procedure well. Sponge and needle counts were correct. DRAINS: None POSTOPERATIVE STATUS: The patient was transferred to the recovery room in satisfactory condition DISPOSITION: Discharge to home when criteria was met. FOLLOWUP APPOINTMENT: Followup appointment had been scheduled on 06/25/2020 in my office. MEDICATIONS: Ibuprofen 800 mg, 1 tablet 3 times a day as needed for pain, #30, 0 refills Tramadol 50 mg, 1 to 2 tablets every 6 hours as needed for pain, #10, 0 refills
--- NOTE | 2020-06-09 08:30 | ANE.PACU2 ---
Inpatient post-anesthesia follow up: Airway intact: Yes Vital signs: Temperature 97.2 F Pulse Rate 95 Respiratory Rate 18 Blood Pressure 131/99 Pulse Oximetry 99 Oxygen Delivery Me thod Room Air Oxygen Flow Rate 8 Fraction of Inspir ed Oxygen Hydration adequate: Yes Nausea and vomiting: No Mental status: Baseline
--- NOTE | 2020-06-09 08:36 | SUR.PHASEI ---
0757 pt awake alert talkative wants to see her mom, pt tearfull, stating ( i always cry after surgery, Im sorry.) pt informed that is common to cry after surgery , because the anesthesia affects some people in this way and that it will wear off, pt alert on ra VSS handoff at bedside and pt to OPS so she can drink some sprite and see mom. Bernadine pad d/i , pt smiling and ready to go home. abd soft.
== END 2020-06-09 08:33 | disposition home or self-care (01) ==
PROVIDERS: Visit Provider Obstetrics & Gynecology
PROC: 0UJD8ZZ Inspection of Uterus and Cervix, Via Natural or Artificial Opening Endoscopic (ICD-10-PCS; CPT 58555; principal; 2020-06-09 07:00)
PROC: (CPT 58120; 2020-06-09 07:00)
DX: N92.1 Excessive and frequent menstruation with irregular cycle (principal); Z87.891 Personal history of nicotine dependence
CPT/HCPCS: 58558; 12345; 88305; 96365; 96374; J0131; J1100; J1885; J2250; J2270; J2405; J2704; J3010; J7030

== ENCOUNTER → 2020-06-25 15:11 | Outpatient (BNVA) | payer MEDICAID, SELFPAY | PROVIDERS: Visit Provider Nurse Practitioner Family | DX: Z20.828 Contact with and (suspected) exposure to other viral communicable diseases (principal); J06.9 Acute upper respiratory infection, unspecified | CPT/HCPCS: 87635 ==

== ENCOUNTER 2020-07-07 14:11 | Emergency (ER) | payer MEDICAID, SELFPAY ==
[2020-07-07 14:17] VITALS: BP 170/120; PULSE 96; RESP 18; TEMP 36.6; O2SAT 96; BMI 41.8
--- NOTE | 2020-07-07 14:30 | ED_ITS ---
HPI - Female Genitourinary General: Chief complaint: Urogenital-Female Stated complaint: CHILLS,STOMACH PAINS, N/V, DIARRHEA Time Seen by Provider: 07/07/20 14:30 Source: patient Mode of arrival: ambulatory Limitations: no limitations History of Present Illness: HPI Narrative: pt complains of NVD, cough, and lower abdominal pain, yeast infection and swelling to vagina, SOB with exertion MD elicited complaint: pelvic pain Severity scale (1-10): 6 Associated symptoms: Reports abdominal pain and nausea Date of Last Menstrual Period: 05/19/20 Review of Systems General: Reports: 10 or more systems reviewed and unremarkable except in HPI and below Const: Reports: body aches Resp: Reports: non-productive cough GI: Reports: abdominal pain, nausea, vomiting and diarrhea : Reports: genital pruritis PFSH ED PFSH: Medical History History of gestational diabetes GDM with 6th Surgical History (Updated 06/28/20 @ 14:53 by You Hayes MD) H/O tubal ligation (01/19/20) At time of C/S. Per[place]. Hayes [place] [facility] [place] History of hysteroscopy (06/09/20) With D&C and polypectomy. Performed by Dr. Hayes at [facility] [place], [place]. S/P section (01/31/17) Repeat low transverse section. Performed by Dr. You Hayes at [facility] in [place], [place]. S/P section (08/17/15) Low transverse section (documented). Diagnosis: Nonreassuring heart tones. Performed by Dr. Ashanti Jha at [facility] in [place], [place]. Single-layer closure of uterus. S/P cholecystectomy (~2010) Laparoscopic. Performed in [place], [place] S/P tonsillectomy and adenoidectomy (~2002) Age 8. Performed in [place], [place] Status post section (01/19/20) RLTCS with BTL. Performed by Dr. Hayes at [facility] [place], [place] Family History Father Hyperlipidemia Grandmother Diabetes paternal Hypertension Maternal Family/Other Diabetes paternal uncle, paternal aunt, paternal cousin Ovarian cancer paternal aunt Thyroid disease paternal aunt Grandfather Diabetes paternal Colon cancer maternal Thyroid disease Maternal Social History Smoking and tobacco status: never smoked Quit status (tobacco): has quit using tobacco Year quit tobacco: 08/2019 Former quit date comment: Originally smoking 1 pack/day Alcohol intake: never Female Reproductive History: Date of last menstrual period: 05/19/20 Physical Exam Const: COMMON NORMALS: no acute distress, patient oriented x3, no limitations and alert GENERAL APPEARANCE: cooperative and comfortable ORIENTATION/CONSCIOUSNESS: Yes awake, Yes oriented to person, Yes oriented to place and Yes oriented to time HENMT: COMMON NORMALS: normocephalic, atraumatic, external ears normal, EAC's normal, TM's normal bilaterally and Normal external nose present HEAD & SCALP: normal to inspection, normocephalic and atraumatic FACE & SINUS: normal facial exam, sinuses nontender and face symmetric NOSE: Normal external nose present, Normal nares present and No nasal discharge present EXTERNAL EAR: Yes external ears normal EXTERNAL AUDITORY CANAL: EAC's normal TYMPANIC MEMBRANE: TM's normal bilaterally MOUTH: Normal oral and palatal mucosa present, lip normal and tongue normal THROAT: posterior oropharynx normal, tonsils normal and uvula midline Eye: COMMON NORMALS: Equal, round and reactive pupils present, EOMs intact bilaterally and conjunctivae normal GENERAL EYE: appearance normal, both eyes and all related structures and normal light reflex EYELID: eyelids normal CONJUNCTIVA: Yes conjunctivae normal PUPIL: Yes Equal, round and reactive pupils present EOM: Yes EOM abnormal DIRECT OPHTHALMOSCOPY: Yes normal light reflex Neck/C-Spine: COMMON NORMALS: full ROM, no lymphadenopathy, supple, no meningeal signs, no JVD and Thyroid normal GENERAL: Yes normal visual inspection THYROID: Thyroid normal CERVICAL SPINE: Yes cervical ROM normal and Yes normal cervical lordosis Lymph: LYMPHATIC: no lymphadenopathy noted Chest: COMMONS NORMALS: normal inspection of the chest and normal palpation of entire chest wall Resp: COMMON NORMALS: normal respiratory effort, No retractions and clear to auscultation bilaterally AUSCULTATION: clear to auscultation bilaterally Cardio: COMMON NORMALS: no JVD, regular rate, regular rhythm, S1 normal heart sound present, S2 normal heart sound present, No gallops present (Cardio), No clicks present (Cardio), No murmurs present (Cardio), No rub (Cardio) and Peripheral pulses 2+ throughout RATE: regular rate RHYTHM: regular rhythm HEART SOUNDS: S1 normal heart sound present and S2 normal heart sound present PERIPHERAL PULSES: Peripheral pulses 2+ throughout GI: COMMON NORMALS: Soft to palpation INSPECTION: Yes normal to inspection AUSCULTATION: Yes Hyperactive bowel sounds present PALPATION: Yes Soft to palpation, Yes Tenderness to palpation present (GI) Details: LLQ and RLQ and No Guarding due to palpation present (GI) : COMMON NORMALS: Yes no CVA tenderness and Yes normal external appearance BLADDER/KIDNEY EXAM: Yes no CVA tenderness Back/Pelvis: COMMON NORMALS: no CVA tenderness, thoracic and lumbar spine normal to inspection, no thoracic nor lumbar tenderness and thoraco-lumbar ROM normal Extremity: COMMON NORMALS: normal to inspection, full ROM, capillary refill normal, no joint enlargement, no clubbing, cyanosis or edema, no calf tenderness and no pedal edema GENERAL: Yes normal exam except as noted Neuro: COMMON NORMALS: patient oriented x3, moves all extremities, no focal motor deficits, no sensory deficits noted and gait normal SENSORIUM/ORIENTATION: Yes alert, Yes oriented to person, Yes oriented to place and Yes oriented to time MENINGEAL SIGNS: Yes no meningeal signs Psych: COMMON NORMALS: mental status grossly normal, Normal thought process present, cooperative, normal affect, speech normal and activity/motor behavior normal SPEECH: Yes normal speech THOUGHT PROCESS: Normal thought process present Skin: COMMON NORMALS: no rashes or lesions noted, no wounds and turgor normal GENERAL SKIN EXAM: no rashes or lesions noted and turgor normal Course ED course: Pt had surgery on 06/[address] Hayes for irregular bleeding after having her daughter. She had some polyps removed but has continued to spot. She complains of body aches, lower abdominal pain, she said she was placed on antibiotics a few weeks ago for possible infection and has a yeast infection now. I want to rule out any infection in her abdomen or uterus so we will order labs and CT abd/pelvis. Pt has had SOB with minimal exertion and HTN noted upon triage. She was diagnosed with severe preeclampsia with her daughter. Reevaluation(s): Reevaluation #1: Pt has 3 plus leuk est in her urine. Will treat for UTI and yeast infection but because of her recent surgery and her diagnosis of preeclampsia as well as her SOB, I want to rule out any PE or concerns stemming from a cardiac etiology. Awaiting results to CT abd/pelvis, labs, and CXR. IV hydralizine for BP manual consistently 180/100. Pt denies CP currently. Time: 16:24 Vital Signs: Vital signs: Vital Signs Temperature 97.9 F 07/07/20 14:17 Pulse Rate 98 07/07/20 16:08 Respiratory Rate 18 07/07/20 16:08 Blood Pressure 182/112 07/07/20 16:08 Pulse Oximetry 99 07/07/20 16:08 MDM - Female Lab Data: Labs: Lab Results 07/07/20 07/07/20 07/07/20 Range/Units 15:17 15:17 15:51 WBC 7.7 (4.0-10.0) 10^3/ uL RBC 4.85 (4.1-5.3) 10^6/u L Hgb 13.6 (11.5-15.3) g/dL Hct 41.5 (37.0-47.0) % MCV 85.6 (81-99) fL MCH 28.0 (28.0-34.0) pg MCHC 32.8 (30.0-36.0) g/dL RDW 13.0 (12.1-15.1) % Plt Count 222 (130-400) 10^3/c mm MPV 12.2 H (7.4-10.4) fL Neut % (Auto) 62.1 % Lymph % (Auto) 26.4 % [place] % (Auto) 8.2 % Eos % (Auto) 2.6 % Baso % (Auto) 0.4 % Neut # (Auto) 4.77 (1.8-7.7) 10^3/u L Lymph # (Auto) 2.0 (0.8-4.8) 10^3/u L [place] # (Auto) 0.6 (0.2-0.9) 10^3/u L Eos # (Auto) 0.2 (0.0-0.8) 10^3/u L Baso # (Auto) 0.0 (0.0-0.1) 10^3/u L Nucleated RBC % (a uto) 0.3 % Nucleated RBCs # 0.0 /100WBC Sodium 137 (136-145) mmol/L Potassium 3.8 (3.5-5.1) mmol/L Chloride 103 (98-107) mmol/L Carbon Dioxide 25 (22-29) mmol/L Anion Gap 12.8 (5-19) BUN 12 (6-20) mg/dL Creatinine 0.5 (0.5-0.9) mg/dL GFR Calculation 151.6 H (90-130) mL/min Glucose 109 (65-115) mg/dL Calculated Osmolal ity 284 L (285-295) mOsm/k g Calcium 10.2 (8.5-10.5) mg/dL Total Bilirubin 0.2 (0.15-1.2) mg/dL AST 18 (0-32) U/L ALT 30 (0-33) U/L Alkaline Phosphata se 49 (35-105) IU/L Total Protein 7.1 (6.6-8.7) g/dL Albumin 4.5 (3.5-5.2) g/dL Globulin 2.6 (1.3-4.6) g/dL HCG, Qual Negative (Negative) Urine Color (Yellow) Urine Appearance (CLEAR) Urine pH (5-7) Ur Specific Gravit y (1.005-1.030) Urine Protein (Negative) Urine Glucose (UA) (Normal) Urine Ketones (Negative) Urine Blood (Negative) Urine Nitrate (Negative) Urine Bilirubin (Negative) Urine Urobilinogen (Negative) mg/dL Ur Leukocyte Zuleima ase (Negative) Amorphous Sediment 07/07/20 Range/Units 15:51 WBC (4.0-10.0) 10^3/ uL RBC (4.1-5.3) 10^6/u L Hgb (11.5-15.3) g/dL Hct (37.0-47.0) % MCV (81-99) fL MCH (28.0-34.0) pg MCHC (30.0-36.0) g/dL RDW (12.1-15.1) % Plt Count (130-400) 10^3/c mm MPV (7.4-10.4) fL Neut % (Auto) % Lymph % (Auto) % [place] % (Auto) % Eos % (Auto) % Baso % (Auto) % Neut # (Auto) (1.8-7.7) 10^3/u L Lymph # (Auto) (0.8-4.8) 10^3/u L [place] # (Auto) (0.2-0.9) 10^3/u L Eos # (Auto) (0.0-0.8) 10^3/u L Baso # (Auto) (0.0-0.1) 10^3/u L Nucleated RBC % (a uto) % Nucleated RBCs # /100WBC Sodium (136-145) mmol/L Potassium (3.5-5.1) mmol/L Chloride (98-107) mmol/L Carbon Dioxide (22-29) mmol/L Anion Gap (5-19) BUN (6-20) mg/dL Creatinine (0.5-0.9) mg/dL GFR Calculation (90-130) mL/min Glucose (65-115) mg/dL Calculated Osmolal ity (285-295) mOsm/k g Calcium (8.5-10.5) mg/dL Total Bilirubin (0.15-1.2) mg/dL AST (0-32) U/L ALT (0-33) U/L Alkaline Phosphata se (35-105) IU/L Total Protein (6.6-8.7) g/dL Albumin (3.5-5.2) g/dL Globulin (1.3-4.6) g/dL HCG, Qual (Negative) Urine Color Yellow (Yellow) Urine Appearance Clear (CLEAR) Urine pH 5.0 (5-7) Ur Specific Gravit y 1.030 (1.005-1.030) Urine Protein Trace (Negative) Urine Glucose (UA) Norm (Normal) Urine Ketones Negative (Negative) Urine Blood 3+ H (Negative) Urine Nitrate Negative (Negative) Urine Bilirubin Neg (Negative) Urine Urobilinogen Norm (Negative) mg/dL Ur Leukocyte Zuleima ase 2+ H (Negative) Amorphous Sediment Not Reportable Discharge Plan Discharge Prescriptions: No Action ibuprofen 800 mg tablet 800 mg PO TID PRN (Reason: pain) Qty: 30 RF: 0 Tylenol 325 mg Tablet 325 mg PO QID PRN (Reason: Pain) RF: 0 Coding Level of Care Code ED Director Speech And Hearing for Chg 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
--- NOTE | 2020-07-07 15:19 | CTR_ITS ---
PROCEDURE INFORMATION: Exam: CT Abdomen And Pelvis With Contrast Exam date and time: 07/07/2020 4:06 PM Age: 25 years old Clinical indication: Nausea and vomiting and other: Diarrhea; Abdominal pain; Other: Lower and bilat kidney pain; Prior surgery; Surgery type: Gb, c-sections, tubal; Additional info: Lower abdominal pain/bleeding TECHNIQUE: Imaging protocol: Computed tomography of the abdomen and pelvis with intravenous contrast. Radiation optimization: All CT scans at this facility use at least one of these dose optimization techniques: automated exposure control; mA and/or kV adjustment per patient size (includes targeted exams where dose is matched to clinical indication); or iterative reconstruction. Contrast material: OMNI 300; Contrast volume: 95 ml; Contrast route: INTRAVENOUS (IV); COMPARISON: US pelvic with transvaginal 05/19/2020 8:29 PM RADIATION DOSE METRICS: Total DLP (mGy-cm): 1611.71 FINDINGS: Liver: Normal. No mass. Gallbladder and bile ducts: Prior cholecystectomy. Pancreas: Normal. No ductal dilation. Spleen: Normal. No splenomegaly. Adrenal glands: Normal. No mass. Kidneys and ureters: Normal. No hydronephrosis. Stomach and bowel: Unremarkable. No obstruction. No mucosal thickening. Appendix: No evidence of appendicitis. Intraperitoneal space: Unremarkable. No free air. No significant fluid collection. Vasculature: Unremarkable. No abdominal aortic aneurysm. Lymph nodes: Unremarkable. No enlarged lymph nodes. Urinary bladder: Unremarkable as visualized. Reproductive: Unremarkable as visualized. Bones/joints: Unremarkable. No acute fracture. Soft tissues: Unremarkable. CT/CT abdomen pelvis w con* [id number] IMPRESSION: No acute process evident. Prior cholecystectomy. Radiation Dose CTDIVOL = (mGy): DLP = 1611.71 (mGy-cm)
[2020-07-07 15:20] VITALS: BP 159/105
[2020-07-07 15:31] LABS: Basophils % 0.4 %; Eosinophils # 0.2 10^3/uL (0.0-0.8); Eosinophils % 2.6 %; Hematocrit 41.5 % (37.0-47.0); Hemoglobin 13.6 g/dL (11.5-15.3); Lymphocytes % 26.4 %; Mean Corpuscular HGB Conc 32.8 g/dL (30.0-36.0); Mean Corpuscular Volume 85.6 fL (81-99); Mean Platelet Volume 12.2 fL (7.4-10.4); Monocytes # 0.6 10^3/uL (0.2-0.9); Monocytes % 8.2 %; Neutrophils # 4.77 10^3/uL (1.8-7.7); Neutrophils % 62.1 %; Nucleated Red Blood Cells % 0.3 %; Platelet Count 222 10^3/cmm (130-400); Red Blood Count 4.85 10^6/uL (4.1-5.3); White Blood Count 7.7 10^3/uL (4.0-10.0)
[2020-07-07] MEDS: ondansetron 2 mg/ML SDV 2 mL 4 MG IVP (16:00)
[2020-07-07] MEDS: sodium chloride 0.9% 500 ML IV (16:00)
[2020-07-07] MEDS: fluconazole 100 mg Tablet 150 MG PO (16:00)
[2020-07-07] MEDS: ketorolac 30 mg/mL INJ IVP (16:01)
[2020-07-07 16:04] LABS: Add Urine Microscopic? YES; Bilirubin Urine Neg (Negative); Blood Urine 3+ (Negative); Glucose Urine UA Norm (Normal); Ketones Urine Negative (Negative); Leukocyte Esterase Urine 2+ (Negative); Nitrate Urine Negative (Negative); Protein Urine Trace (Negative); Urine Appearance Clear (CLEAR); Urine Color Yellow (Yellow); Urobilinogen Urine Norm (Negative)
[2020-07-07 16:05] LABS: HCG Qualitative Urine. Negative (Negative)
[2020-07-07 16:08] VITALS: BP 182/112; PULSE 98; RESP 18; O2SAT 99
[2020-07-07 16:15] LABS: Alanine Aminotransferase 30 U/L (0-33); Albumin Level 4.5 g/dL (3.5-5.2); Alkaline Phosphatase 49 IU/L (35-105); Anion Gap 12.8 (5-19); Aspartate Amino Transferase 18 U/L (0-32); Blood Urea Nitrogen 12 mg/dL (6-20); Calcium 10.2 mg/dL (8.5-10.5); Carbon Dioxide 25 mmol/L (22-29); Chloride 103 mmol/L (98-107); Globulin 2.6 g/dL (1.3-4.6); Glomerular Filtration Rate 151.6 mL/min (90-130); Glucose 109 mg/dL (65-115); Osmolality Calculated 284 mOsm/kg (285-295); Potassium 3.8 mmol/L (3.5-5.1); Sodium 137 mmol/L (136-145); Total Bilirubin 0.2 mg/dL (0.15-1.2); Total Protein 7.1 g/dL (6.6-8.7)
[2020-07-07] MEDS: iohexol 300 mg/mL 100 mL Btl IV (16:18)
--- NOTE | 2020-07-07 16:19 | XRR_ITS ---
PROCEDURE INFORMATION: Exam: XR Chest, 1 View Exam date and time: 07/07/2020 4:36 PM Age: 25 years old Clinical indication: Shortness of breath and other: Poss infection with antibiotics few weeks ago; Patient HX: Had surgery 06/09 for irregular bleeding after having daughter. Polyps removed, continued to spot. C/O body aches, low abd pain. Some shortness of breath with minimal exertion. Had preeclampsia with daughter. ; Additional info: Htn/ (preeclampsia) TECHNIQUE: Imaging protocol: XR of the chest Views: 1 view. COMPARISON: CR XR chest 1V portable [id number] 11/09/2019 9:30 PM FINDINGS: Lungs: Unremarkable. No consolidation. Pleural space: Unremarkable. No pleural effusion. No pneumothorax. Heart/Mediastinum: Unremarkable. No cardiomegaly. Bones/joints: Unremarkable. XR/XR chest 1V portable [id number] IMPRESSION: No acute findings.
[2020-07-07] MEDS: hyDRALAzine 20 mg/mL INJ 1 mL 10 MG IVP (16:41)
[2020-07-07] MEDS: cefTRIAXone 1,000 MG in sodium chloride 0.9% (plus) 50 ML 100 MG IV (16:44)
[2020-07-07 16:46] VITALS: PULSE 91; RESP 16; O2SAT 99
[2020-07-07 16:47] LABS: Bacteria Urine 3+ /hpf; RBC Urine 15-25 /hpf (0-2)
[2020-07-07 16:50] LABS: Add Urine Culture? Yes
[2020-07-07] MEDS: acetaminophen 500 mg Tablet 1000 MG PO (17:15)
[2020-07-07 17:31] VITALS: BP 145/95; PULSE 96; RESP 18; O2SAT 99
[2020-07-07 17:49] LABS: Troponin T (5th) Once 6 ng/L (0-10)
[2020-07-07 17:57] LABS: NT Pro B Type Natriuretic Pept 5 pg/mL (0-125)
== END 2020-07-07 17:31 | disposition home or self-care (01) ==
PROVIDERS: Nurse Practitioner Family; Emergency Provider Nurse Practitioner Family
DX: R11.2 Nausea with vomiting, unspecified (principal); R19.7 Diarrhea, unspecified; Z87.891 Personal history of nicotine dependence
CPT/HCPCS: 12345; 71045; 74177; 80053; 81001; 81025; 83880; 84484; 85025; 87086; 96365; 96375; 99282; 99284; J0360; J0696; J1885; J2405; J7040; Q9967

== ENCOUNTER 2020-08-04 21:53 | Emergency (ER) | payer MEDICAID, SELFPAY ==
[2020-08-04 22:03] VITALS: BP 170/101; PULSE 114; RESP 18; TEMP 36.7; O2SAT 98; BMI 36.6
--- NOTE | 2020-08-04 22:15 | XRR_ITS ---
PROCEDURE INFORMATION: Exam: XR Chest, 1 View Exam date and time: 08/04/2020 10:30 PM Age: 25 years old Clinical indication: Cough TECHNIQUE: Imaging protocol: XR of the chest Views: 1 view. COMPARISON: CR XR chest 1V portable [id number] 07/07/2020 4:30 PM FINDINGS: Lungs: Unremarkable. No consolidation. Pleural space: Unremarkable. No pleural effusion. No pneumothorax. Heart/Mediastinum: Unremarkable. No cardiomegaly. Bones/joints: Unremarkable. XR/XR chest 1V portable [id number] IMPRESSION: No acute findings.
--- NOTE | 2020-08-05 00:19 | ECG_ITS ---
[facility] Test Date: 2020-08-05 Pat Name: Evelio Knight Department: Room: Gender: Female Plan Coordinator: : 1995 Requested By: Marcelo Irby Order Number: [id number] Claus MD: Cherelle Silvestre M.D. Measurements Intervals [place] Rate: 100 P: 17 MA: 162 QRS: 44 QRSD: 99 T: 32 QT: 330 QTc: 427 Interpretive Statements SINUS TACHYCARDIA ABNORMAL RHYTHM ECG Compared to ECG 08/20/2019 12:13:34 Sinus rhythm no longer present Electronically Signed On 08-05-2020 16:53:11 HI LO DRIVER by Cherelle Silvestre M.D. [email or web address]
--- NOTE | 2020-08-05 00:36 | W.ED.COVID ---
HPI - COVID General: Chief Complaint: COVID symptoms Stated Complaint: Covid Syptoms Time Seen by Provider: 08/04/20 23:46 Source: patient Mode of arrival: ambulatory Limitations: no limitations Triage information: Has fever, cough or shortness of breath. No known COVID + exposure last 14 days History of Present Illness: HPI Narrative: 25-year-old female states over last 2 weeks had a cough congestion along with body aches. States she is concerned she may have Covid and has not been tested yet. Patient states she is also recently diagnosed with hypertension has been on half a pill and she is not sure what it was. Her blood pressure here is high. She denies any chest pain. Denies any worsening improving factors. COVID 19 common symptoms: positive chills, non-productive cough and body aches; negative headache(s), throat pain, nausea, vomiting or diarrhea COVID 19 other sytmptoms: negative chest pain COVID Results: SARS-CoV-2 RNA (RT-PCR) Not detected (NOT DETECTED) 06/25/20 15:11 06/25/20 Nasal/Oral Coronavirus 2019 PCR Pending 08/05/20 01:05 08/05/20 Review of Systems Const: Reports: chills and body aches Eyes: Denies: blurry vision or eye discomfort ENMT: Denies: throat pain or dental pain Card: Denies: chest pain Resp: Reports: non-productive cough GI: Denies: abdominal pain, nausea, vomiting or diarrhea : Denies: dysuria Musc: Denies: neck pain or back pain Skin/Breast: Denies: rash Neuro: Denies: headache(s) Psych: Denies: depression Luis Enrique/Lymph: Denies: easy bruising All/Imm: Denies: urticaria PFSH ED PFSH: Medical History History of gestational diabetes GDM with 6th Surgical History (Updated 06/28/20 @ 14:53 by You Hayes MD) H/O tubal ligation (01/19/20) At time of C/S. Performed by Dr. Hayes at [facility] [place] in [place], [place] History of hysteroscopy (06/09/20) With D&C and polypectomy. Performed by Dr. Hayes at [facility] [place] in [place], [place]. S/P section (01/31/17) Repeat low transverse section. Performed by Dr. You Hayes at [facility] in [place], [place]. S/P section (08/17/15) Low transverse section (documented). Diagnosis: Nonreassuring heart tones. Performed by Dr. Asahnti Jha at [facility] in [place], [place]. Single-layer closure of uterus. S/P cholecystectomy (~2010) Laparoscopic. Performed in [place], [place] S/P tonsillectomy and adenoidectomy (~2002) Age 8. Performed in [place], [place] Status post section (01/19/20) RLTCS with BTL. Performed by Dr. Hayes at [facility] in [place], [place] Family History Father Hyperlipidemia Grandmother Diabetes paternal Hypertension Maternal Family/Other Diabetes paternal uncle, paternal aunt, paternal cousin Ovarian cancer paternal aunt Thyroid disease paternal aunt Grandfather Diabetes paternal Colon cancer maternal Thyroid disease Maternal Social History Smoking and tobacco status: never smoked Quit status (tobacco): has quit using tobacco Year quit tobacco: 08/2019 Former quit date comment: Originally smoking 1 pack/day Alcohol intake: never Female Reproductive History: Date of last menstrual period: 07/11/20 Physical Exam Const: COMMON NORMALS: no acute distress, patient oriented x3 and healthy appearing HENMT: COMMON NORMALS: normocephalic and atraumatic HEAD & SCALP: normocephalic and atraumatic Eye: COMMON NORMALS: Equal, round and reactive pupils present and EOMs intact bilaterally PUPIL: Yes Equal, round and reactive pupils present Neck/C-Spine: COMMON NORMALS: full ROM and supple Chest: COMMONS NORMALS: normal inspection of the chest and normal palpation of entire chest wall Resp: COMMON NORMALS: normal respiratory effort, No retractions, No use of accessory muscles and clear to auscultation bilaterally AUSCULTATION: clear to auscultation bilaterally Cardio: COMMON NORMALS: regular rate, regular rhythm and No murmurs present (Cardio) RATE: regular rate RHYTHM: regular rhythm GI: COMMON NORMALS: Normal to inspection, nondistended, normoactive bowel sounds present, Soft to palpation, non-tender and no masses PALPATION: Yes Soft to palpation Extremity: COMMON NORMALS: normal to inspection and full ROM Neuro: COMMON NORMALS: patient oriented x3, moves all extremities and no focal motor deficits Psych: COMMON NORMALS: mental status grossly normal, Normal thought process present and cooperative THOUGHT PROCESS: Normal thought process present Skin: COMMON NORMALS: no rashes or lesions noted and no wounds GENERAL SKIN EXAM: no rashes or lesions noted Course Vital Signs: Vital signs: Vital Signs Temperature 98.1 F 08/04/20 22:03 Pulse Rate 97 08/05/20 01:38 Respiratory Rate 18 08/05/20 01:38 Blood Pressure 126/100 08/05/20 01:38 Pulse Oximetry 98 08/05/20 01:38 MDM - COVID MDM Narrative: Medical decision making narrative: Patient presents with Covid-like symptoms and will test for Covid. Blood work and x-ray are normal here. She was hypertensive and I informed her that the half pill she is taking for blood pressure to start taking a whole pill. She is to follow-up with PCP and return if worsening. She understands and agrees to plan. Lab Data: Labs: Lab Results 08/05/20 08/05/20 Range/Units 01:03 01:03 WBC 10.7 H (4.0-10.0) 10^3/ uL RBC 5.16 (4.1-5.3) 10^6/u L Hgb 14.7 (11.5-15.3) g/dL Hct 44.7 (37.0-47.0) % MCV 86.6 (81-99) fL MCH 28.5 (28.0-34.0) pg MCHC 32.9 (30.0-36.0) g/dL RDW 13.1 (12.1-15.1) % Plt Count 196 (130-400) 10^3/c mm MPV 11.7 H (7.4-10.4) fL Neut % (Auto) 59.7 % Lymph % (Auto) 27.5 % [place] % (Auto) 9.2 % Eos % (Auto) 3.0 % Baso % (Auto) 0.4 % Neut # (Auto) 6.37 (1.8-7.7) 10^3/u L Lymph # (Auto) 2.9 (0.8-4.8) 10^3/u L [place] # (Auto) 1.0 H (0.2-0.9) 10^3/u L Eos # (Auto) 0.3 (0.0-0.8) 10^3/u L Baso # (Auto) 0.0 (0.0-0.1) 10^3/u L Nucleated RBC % (a uto) 0 % Nucleated RBCs # 0.0 /100WBC Sodium 139 (136-145) mmol/L Potassium 3.9 (3.5-5.1) mmol/L Chloride 100 (98-107) mmol/L Carbon Dioxide 27 (22-29) mmol/L Anion Gap 15.9 (5-19) BUN 12 (6-20) mg/dL Creatinine 0.4 L (0.5-0.9) mg/dL GFR Calculation 196.1 H (90-130) mL/min Glucose 104 (65-115) mg/dL Calculated Osmolal ity 288 (285-295) mOsm/k g Calcium 10.1 (8.5-10.5) mg/dL Total Bilirubin 0.2 (0.15-1.2) mg/dL AST 14 (0-32) U/L ALT 24 (0-33) U/L Alkaline Phosphata se 54 (35-105) IU/L Total Protein 7.5 (6.6-8.7) g/dL Albumin 4.3 (3.5-5.2) g/dL Globulin 3.2 (1.3-4.6) g/dL Imaging Data: CXR: Attestation: I personally reviewed and interpreted this imaging study as follows: My impression: no acute abnormality EKG Data: EKG 1: Attestation: I personally reviewed and interpreted this EKG as follows: EKG interpretation date: 08/05/20 EKG interpretation time: 00:46 Interpretation: Sinus tachycardia heart rate [address] or T wave abnormalities QRS 99 QTc 387 COVID Results: SARS-CoV-2 RNA (RT-PCR) Not detected (NOT DETECTED) 06/25/20 15:11 06/25/20 Nasal/Oral Coronavirus 2019 PCR Pending 08/05/20 01:05 08/05/20 Discharge Plan Discharge Patient Disposition: Home Clinical Impression: Upper respiratory infection Qualifiers: URI type: unspecified URI Qualified Code(s): J06.9 - Acute upper respiratory infection, unspecified Condition: Stable Prescriptions: No Action Tylenol 325 mg Tablet 325 mg PO QID PRN (Reason: Pain) RF: 0 Discharge Orders: Discharge ED (Routine); Ordered 08/05/20 Ordered By: Marcelo Irby Discharge Diet: Advance as tolerated Discharge Activity: Resume usual activity Patient Instructions: Upper Respiratory Infection (ED) Coding Level of Care Code ED Pleasure Craft Sailor for Claude 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
[2020-08-05 01:06] VITALS: O2SAT 99
[2020-08-05 01:07] VITALS: BP 159/129; PULSE 112; RESP 18; O2SAT 96
[2020-08-05] MEDS: sodium chloride 0.9% 1,000 ML 999 ML IV (01:13)
[2020-08-05] MEDS: labetalol 5 mg/mL SDV 20mL 10 MG IVP (01:13)
[2020-08-05 01:19] LABS: Basophils % 0.4 %; Eosinophils # 0.3 10^3/uL (0.0-0.8); Hematocrit 44.7 % (37.0-47.0); Hemoglobin 14.7 g/dL (11.5-15.3); Lymphocytes # 2.9 10^3/uL (0.8-4.8); Lymphocytes % 27.5 %; Mean Corpuscular HGB Conc 32.9 g/dL (30.0-36.0); Mean Corpuscular Hemoglobin 28.5 pg (28.0-34.0); Mean Corpuscular Volume 86.6 fL (81-99); Mean Platelet Volume 11.7 fL (7.4-10.4); Monocytes % 9.2 %; Neutrophils # 6.37 10^3/uL (1.8-7.7); Neutrophils % 59.7 %; Nucleated Red Blood Cells % 0 %; Platelet Count 196 10^3/cmm (130-400); Red Blood Count 5.16 10^6/uL (4.1-5.3); Red Cell Distribution Width 13.1 % (12.1-15.1); White Blood Count 10.7 10^3/uL (4.0-10.0)
[2020-08-05 01:32] LABS: Alanine Aminotransferase 24 U/L (0-33); Albumin Level 4.3 g/dL (3.5-5.2); Alkaline Phosphatase 54 IU/L (35-105); Anion Gap 15.9 (5-19); Aspartate Amino Transferase 14 U/L (0-32); Blood Urea Nitrogen 12 mg/dL (6-20); Calcium 10.1 mg/dL (8.5-10.5); Carbon Dioxide 27 mmol/L (22-29); Chloride 100 mmol/L (98-107); Globulin 3.2 g/dL (1.3-4.6); Glomerular Filtration Rate 196.1 mL/min (90-130); Glucose 104 mg/dL (65-115); Osmolality Calculated 288 mOsm/kg (285-295); Potassium 3.9 mmol/L (3.5-5.1); Sodium 139 mmol/L (136-145); Total Bilirubin 0.2 mg/dL (0.15-1.2); Total Protein 7.5 g/dL (6.6-8.7)
[2020-08-05 01:38] VITALS: BP 126/100; PULSE 97; RESP 18; O2SAT 98
[2020-08-05] MEDS: ketorolac 30 mg/mL INJ IVP (02:42)
[2020-08-05 02:49] VITALS: BP 123/85; PULSE 96; RESP 18; O2SAT 99
[2020-08-05 18:41] LABS: Coronavirus Test Green County Not Detected
== END 2020-08-05 02:51 | disposition home or self-care (01) ==
PROVIDERS: Emergency Provider Emergency Medicine
DX: J06.9 Acute upper respiratory infection, unspecified (principal); Z87.891 Personal history of nicotine dependence
CPT/HCPCS: 12345; 71045; 80053; 85025; 87635; 93005; 96361; 96374; 96375; 99283; J1885; J3490; J7030

== ENCOUNTER → 2020-09-16 08:30 | Outpatient (BNVA) | payer BC, MEDICAID, SELFPAY | PROVIDERS: Visit Provider Obstetrics & Gynecology | DX: N92.1 Excessive and frequent menstruation with irregular cycle (principal) | CPT/HCPCS: 84443; 85027; 87635 ==

== ENCOUNTER 2020-09-22 13:10 | Day surgery (SDC) | payer BC, MEDICAID, SELFPAY ==
[2020-09-21 10:40] VITALS: BMI 47.5
--- NOTE | 2020-09-21 11:10 | P.ANESASSM_ITS ---
Pre-Anesthetic Assessment Pre-Anesthetic Assessment: Height/Weight: Height 1.57 m Weight 117.934 kg Preop Diagnosis: Menorrhagia Proposed Procedure: Operation Date: 09/22/20 08:00 Proposed Procedures p Endometrial ablation with novasure 72279 N92.0(Not Applicable) - MD devonte Fields Dilation And Curettage (D&C)(Not Applicable) - You Hayes MD Familial anesthetic complications: None Social: Social History: No alcohol and No tobacco Exam: Pre-Anes Outpt Exam: alert, oriented x 3, clear to auscultation bilaterally and regular rate & rhythm Airway: Cervical ROM: WNL MP: 3 Dentition: Other (1 missing tooth) Pulmonary: Pulmonary: Sleep apnea CV/HEM: CV/HEM: HTN GI: GI: GERD Metabolic: Metabolic: Hyperlipidemia and Morbid obesity Anesthetic Plan: ASA status: 2 Anesthesia: MAC Risk of > 500 ml blood loss (7ml/kg in children): No PFSH Anesthesia PFSH: Medical History History of gestational diabetes GDM with 6th Surgical History (Updated 06/28/20 @ 14:53 by You Hayes MD) H/O tubal ligation (01/19/20) At time of C/S. Performed by Dr. Hayes at [facility] in [place], [place] History of hysteroscopy (06/09/20) With D&C and polypectomy. Performed by Dr. Hayes at [facility] in [place], [place]. S/P section (01/31/17) Repeat low transverse section. Performed by Dr. You Hayes at [facility] [place] [facility] in [place], [place]. S/P section (08/17/15) Low transverse section (documented). Diagnosis: Nonreassuring heart tones. Performed by Dr. Ashanti Jha at [facility] in [place], [place]. Single-layer closure of uterus. S/P cholecystectomy (~2010) Laparoscopic. Performed in [place], [place] S/P tonsillectomy and adenoidectomy (~2002) Age 8. Performed in [place], [place] Status post section (01/19/20) RLTCS with BTL. Performed by Dr. Hayes at [facility] in [place], [place] Family History Father Hyperlipidemia Grandmother Diabetes paternal Hypertension Maternal Family/Other Diabetes paternal uncle, paternal aunt, paternal cousin Ovarian cancer paternal aunt Thyroid disease paternal aunt Grandfather Diabetes paternal Colon cancer maternal Thyroid disease Maternal Social History (Updated 09/01/20 @ 14:04 by You Hayes MD) Smoking and tobacco status: never smoked Quit status (tobacco): has quit using tobacco Year quit tobacco: 08/2019 Former quit date comment: Originally smoking 1 pack/day Alcohol intake: never Female Reproductive History: Date of last menstrual period: 08/11/20 Data Anesthesia Cardiac Studies: No Data to Display
[2020-09-22 09:51] VITALS: BP 158/78; PULSE 86; RESP 16; TEMP 36.3; O2SAT 98
[2020-09-22] MEDS: sodium chloride 0.9% 1,000 ML 30 ML IV (10:09)
[2020-09-22] MEDS: ketorolac 30 mg/mL INJ IVP (10:10)
--- NOTE | 2020-09-22 11:09 | P.HPUD_ITS ---
Surgery/Procedure H&P Update DATE OF PROCEDURE: September 22, 2020 DATE H&P PERFORMED: 08/28/20 H&P UPDATE INFORMATION: I have reviewed H&P completed within last 30 days, I have examined patient prior to procedure, No changes to prior documentation and H&P is in [facility] EMR on date indicated PREOP DIAGNOSIS: Menorrhagia PLANNED PROCEDURE: Operation Date: 09/22/20 11:10 Proposed Procedures p Endometrial ablation with novasure 76357 N92.0(Not Applicable) - You Hayes MD s Dilation And Curettage (D&C)(Not Applicable) - You Hayes MD Related Problem List Diagnoses (1) Menorrhagia: Qualifiers: Menorrhagia type: with irregular cycle Qualified Code(s): N92.1 - Excessive and frequent menstruation with irregular cycle
[2020-09-22] MEDS: midazolam 1 mg/mL INJ 2 mL 2 MG IVP (11:16)
[2020-09-22 11:21] LABS: HCG, Serum Qual Negative (Negative)
--- NOTE | 2020-09-22 12:08 | P.OP_ITS ---
Operative Report Date of procedure: September 22, 2020 Pre-op Diagnosis: Menorrhagia Post-op Diagnosis: Menorrhagia Procedure Done: Hysteroscopy, D&C, with endometrial ablation with NovaSure, Paracervical block Specimens removed/disposition: Endometrial curettings. Surgeon: You Hayes Respiratory Therapy Aide: None Anesthesia: MAC and Other (Paracervical block) IV fluids (mL): 800 Complications: None Findings: First-degree uterine prolapse. No palpable pelvic masses noted. Polyp-like growths from the endometrial cavity noted. Brief History: Patient is a 25-year-old white female 6, para 2-1-3-3, who is status post tubal ligation. She presented to the office on 05/29/2020 complaining of heavier bleeding. She had delivered vaginally on January 18, 2019. She had her first menses in 03/2020 and then no bleeding until 05/17/2020 since then she has had multiple heavy bleeding episodes. She has been to the ER and had been treated with high dose OCPs. She had a negative ultrasound as part of the evaluation. In 06/2020, she had a hysteroscopy with D&C which found polyps which on pathology were benign. She continued to have heavy bleeding afterwards and was scheduled for an endometrial ablation with NovaSure. While waiting on surgery she had been started on high-dose Provera orally. She is presenting for the endometrial ablation today. Procedure: The patient was taken to the operating room where IV sedation was started. She was prepped and draped in the usual sterile fashion in the dorsal supine position with legs in Jaime style stirrups. Sequential compression boots had been placed prior to starting the case. Patient had voided just before coming to the operating room. Exam under anesthesia was performed and the patient was noted to have first- degree uterine prolapse. A weighted speculum was placed in the vagina and the cervix was grasped with a single-tooth tenaculum. A paracervical block was performed with a total of 12 mL of 2% lidocaine with epinephrine used. The cervix was serially dilated until a hysteroscope could be passed. Crystalloid solution was used as a distention media. The endometrial cavity was inspected and appeared normal except for appearance of polyp-like structures. Hysteroscope was removed and curettage was performed. This was performed till gritty texture was present throughout the endometrial cavity. Using the NovaSure sound, endometrial cavity length was measured at 6.0 cm. The NovaSure device was inserted and device was deployed. The device was moved up and down and left and right until no further with adjustment occurred. Uterine width was measured at 4.6 cm. Settings were entered in the NovaSure machine and wattage was set at 152 Lin. Cavity integrity check was performed and integrity confirmed. Device was then activated. Total treatment time was 47 seconds. Device was removed. The tenaculum was removed and there was minimal bleeding from the tenaculum site. Patient tolerated the procedure well. Sponge and needle counts were correct. DRAINS: None POSTOPERATIVE STATUS: The patient was transferred to the recovery room in satisfactory condition DISPOSITION: Discharge to home when criteria was met. FOLLOWUP APPOINTMENT: Followup appointment had been scheduled on 10/05/2020 in my office. MEDICATIONS: Tramadol 50 mg, 1 to 2 tablets every 6 hours as needed for pain, #10, 0 refills Ibuprofen 800 mg, 1 tablet 3 times a day as needed for pain, #30, 0 refills
[2020-09-22 12:13] VITALS: BP 115/92; PULSE 94; RESP 18; TEMP 36.2; O2SAT 93
[2020-09-22] MEDS: TRAMadol 50 mg Tablet PO (12:36)
[2020-09-22 12:38] VITALS: BP 123/102; PULSE 87; RESP 16; O2SAT 98
[2020-09-22 12:57] VITALS: BP 143/95
== END 2020-09-22 13:14 | disposition home or self-care (01) ==
LOC: OR 13:10
PROVIDERS: Anesthesiology; Visit Provider Obstetrics & Gynecology
PROC: 0U598ZZ Destruction of Uterus, Via Natural or Artificial Opening Endoscopic (ICD-10-PCS; CPT 58563; principal; 2020-09-22 11:10)
PROC: (CPT 58120; 2020-09-22 11:10)
DX: N92.1 Excessive and frequent menstruation with irregular cycle (principal); I10 Essential (primary) hypertension; K21.9 Gastro-esophageal reflux disease without esophagitis; E78.5 Hyperlipidemia, unspecified; E66.01 Morbid (severe) obesity due to excess calories; Z68.42 Body mass index [BMI] 45.0-49.9, adult
CPT/HCPCS: 58563; 81025; 84703; 88305; 96374; 96375; J1885; J2250; J2405; J2704; J3010; J7030

== ENCOUNTER → 2020-11-02 08:46 | Outpatient (BNVA) | payer BC, MEDICAID, SELFPAY | PROVIDERS: Visit Provider Obstetrics & Gynecology | DX: R10.9 Unspecified abdominal pain (principal) | CPT/HCPCS: 76830 ==

== ENCOUNTER 2021-01-10 13:26 | Emergency (ER) | payer BC, MEDICAID, SELFPAY ==
[2021-01-10 13:31] VITALS: BP 160/101; PULSE 103; RESP 16; TEMP 36.9; O2SAT 99; BMI 40.0
[2021-01-10 13:37] VITALS: BP 160/101; PULSE 103; RESP 18; O2SAT 99
--- NOTE | 2021-01-10 13:45 | USR_ITS ---
PROCEDURE INFORMATION: Exam: US Duplex Right Lower Extremity Veins, Limited Exam date and time: 01/10/2021 2:14 PM Age: 25 years old Clinical indication: Pain; Leg, upper; Right; Additional info: Dvt? TECHNIQUE: Imaging protocol: Real-time Duplex ultrasound of the Right Lower Extremity with 2-D carcamo scale, color Doppler flow and spectral waveform analysis with image documentation. Limited exam was focused on the right lower extremity veins. COMPARISON: No relevant prior studies available. FINDINGS: Right deep veins: Unremarkable. The common femoral, femoral, proximal profunda femoral and popliteal veins are patent without thrombus. Normal Doppler waveforms. Normal compressibility and/or augmentation response. Right superficial veins: Unremarkable. Saphenofemoral junction is patent without thrombus. Soft tissues: Unremarkable. US/[place] [id number] IMPRESSION: No evidence of deep vein thrombosis.
--- NOTE | 2021-01-10 13:51 | W.ED.BACK ---
HPI - Back Pain/Injury General: Chief Complaint: Back Pain/Injury Stated Complaint: migraine, lower back pain, right leg pain Time Seen by Provider: 01/10/21 13:40 History of Present Illness: HPI Narrative: The patient is a 25-year-old female who comes to the ER complaining of a diffuse headache for the past 3 days which she has taken Tylenol and ibuprofen for with no improvement. She also says she has low back pain on the right side that radiates down her thigh. She says she began to have pain early this morning she woke up and slept on the other side. She says when she woke she continued to have pain and it hurts when she moves. Denies injury but she does have a 1-year-old she carries frequently on the right side. MD elicited complaint: back pain Onset (ago): hour(s) (10) Severity: moderate Similar Symptoms Previously: No Quality: sharp Location: lumbar spine Exacerbating factors: movement Relieving factors: other (Rest) Associated symptoms: Reports no associated symptoms; Deny abdominal pain, difficulty walking, fatigue or urinary urgency Review of Systems General: Reports: 10 or more systems reviewed and unremarkable except in HPI and below Const: Denies: fatigue Eyes: Denies: change in vision, blurry vision or eye redness ENMT: Denies: throat pain, swelling of lips/tongue, ear or mastoid pain or nasal congestion Card: Denies: chest pain, palpitations, irregular heart rhythm, edema, dyspnea on exertion or orthopnea Resp: Denies: dyspnea, productive cough or non-productive cough GI: Denies: abdominal pain, diarrhea or GI cramping : Denies: flank pain, difficulty voiding, urinary frequency or urinary urgency Musc: Reports: back pain; Denies: neck pain, extremity pain, joint pain, joint redness, limited range of motion or muscle weakness Skin/Breast: Denies: rash, pruritus, erythema, skin pain or skin tenderness Neuro: Reports: headache(s); Denies: numbness in extremities, weakness in extremities, sensory changes, difficulty walking, dizziness, confusion or Slurred speech present Psych: Denies: anxiety or depression Endo: Denies: polyuria All/Imm: Denies: urticaria, throat swelling or tongue swelling PFSH ED PFSH: Medical History (Updated 01/10/21 @ 15:37 by James Hurley MD) History of gestational diabetes GDM with 6th Surgical History H/O tubal ligation (01/19/20) At time of C/S. Performed by Dr. Hayes at [facility] in [place], [place] History of hysteroscopy (06/09/20) With D&C and polypectomy. Performed by Dr. Hayes at [facility] in [place], [place]. S/P section (01/31/17) Repeat low transverse section. Performed by Dr. You Hayes at [facility] in [place], [place]. S/P section (08/17/15) Low transverse section (documented). Diagnosis: Nonreassuring heart tones. Performed by Dr. Ashanti Jha at [facility] in [place], [place]. Single-layer closure of uterus. S/P cholecystectomy (~2010) Laparoscopic. Performed in [place], [place] S/P endometrial ablation (09/22/20) Hysteroscopy, D&C, NovaSure endometrial ablation. Performed by Dr. Hayes at [facility] in [place], [place] S/P tonsillectomy and adenoidectomy (~2002) Age 8. Performed in [place], [place] Status post section (01/19/20) RLTCS with BTL. Performed by Dr. Hayes at [facility] in [place], [place] Family History Father Hyperlipidemia Grandmother Diabetes paternal Hypertension Maternal Family/Other Diabetes paternal uncle, paternal aunt, paternal cousin Ovarian cancer paternal aunt Thyroid disease paternal aunt Grandfather Diabetes paternal Colon cancer maternal Thyroid disease Maternal Social History (Updated 11/02/20 @ 19:58 by You Hayes MD) Smoking and tobacco status: never smoked Quit status (tobacco): has quit using tobacco Year quit tobacco: 08/2019 Former quit date comment: Originally smoking 1 pack/day Alcohol intake: never Female Reproductive History: Date of last menstrual period: 07/11/20 Physical Exam Const: COMMON NORMALS: no acute distress, average body habitus, patient oriented x3, no limitations, healthy appearing, alert and well nourished GENERAL APPEARANCE: cooperative, comfortable, well kempt and well developed ORIENTATION/CONSCIOUSNESS: Yes awake, Yes oriented to person, Yes oriented to place and Yes oriented to time HENMT: COMMON NORMALS: normocephalic, external ears normal and Normal external nose present HEAD & SCALP: normal to inspection and normocephalic NOSE: Normal external nose present EXTERNAL EAR: Yes external ears normal MOUTH: Normal oral and palatal mucosa present THROAT: posterior oropharynx normal Eye: COMMON NORMALS: Equal, round and reactive pupils present and EOMs intact bilaterally GENERAL EYE: appearance normal, both eyes and all related structures PUPIL: Yes Equal, round and reactive pupils present Neck/C-Spine: COMMON NORMALS: full ROM, no lymphadenopathy, no meningeal signs and no JVD GENERAL: Yes normal visual inspection Lymph: LYMPHATIC: no lymphadenopathy noted Chest: COMMONS NORMALS: normal inspection of the chest and normal palpation of entire chest wall Resp: COMMON NORMALS: normal respiratory effort, No retractions, No use of accessory muscles, clear to auscultation bilaterally and percussion normal EFFORT & INSPECTION: Yes able to speak in complete sentences AUSCULTATION: clear to auscultation bilaterally PERCUSSION: percussion normal Cardio: COMMON NORMALS: no JVD, regular rate, regular rhythm, S1 normal heart sound present, S2 normal heart sound present and Peripheral pulses 2+ throughout RATE: regular rate RHYTHM: regular rhythm HEART SOUNDS: S1 normal heart sound present and S2 normal heart sound present PERIPHERAL PULSES: Peripheral pulses 2+ throughout GI: COMMON NORMALS: Normal to inspection, nondistended, normoactive bowel sounds present, Soft to palpation, non-tender and no masses INSPECTION: Yes normal to inspection PALPATION: Yes Soft to palpation Back/Pelvis: COMMON NORMALS: thoracic and lumbar spine normal to inspection, no thoracic nor lumbar tenderness and thoraco-lumbar ROM normal OTHER: She is obese. She has paralumbar muscular spinal tenderness and right flank tenderness. Unclear if that is muscular in origin or true flank pain based on her size. She definitely has lumbar paraspinal tenderness in the lower right back. BACK IMAGE (FEMALE): 1. Lumbar para muscular spinal tenderness. Extremity: COMMON NORMALS: normal to inspection, full ROM, capillary refill normal, no joint enlargement and no pedal edema GENERAL: Yes normal exam except as noted Neuro: COMMON NORMALS: patient oriented x3, CN's II-XII intact bilaterally, moves all extremities, no focal motor deficits, no sensory deficits noted and gait normal SENSORIUM/ORIENTATION: Yes alert, Yes oriented to person, Yes oriented to place and Yes oriented to time MENINGEAL SIGNS: Yes no meningeal signs Psych: COMMON NORMALS: mental status grossly normal, Normal thought process present, cooperative, normal affect and speech normal APPEARANCE: Yes well kempt ATTITUDE: Yes calm SPEECH: Yes normal speech THOUGHT PROCESS: Normal thought process present Skin: COMMON NORMALS: no rashes or lesions noted GENERAL SKIN EXAM: no rashes or lesions noted Course Vital Signs: Vital signs: Vital Signs Temperature 98.4 F 01/10/21 13:31 Pulse Rate 103 H 01/10/21 13:37 Respiratory Rate 18 01/10/21 13:37 Blood Pressure 160/101 01/10/21 13:37 Pulse Oximetry 99 01/10/21 13:37 MDM - Back Pain/Injury MDM Narrative: Medical decision making narrative: The patient has some improvement with migraine cocktail. She is stable for discharge with Flexeril for her back strain. ER with worsening symptoms otherwise primary care in a couple days. Lab Data: Labs: Lab Results 01/10/21 01/10/21 01/10/21 Range/Units 14:10 14:10 14:10 WBC 7.1 (4.0-10.0) 10^3/ uL RBC 4.87 (4.1-5.3) 10^6/u L Hgb 14.1 (11.5-15.3) g/dL Hct 41.8 (37.0-47.0) % MCV 85.8 (81-99) fL MCH 29.0 (28.0-34.0) pg MCHC 33.7 (30.0-36.0) g/dL RDW 13.0 (12.1-15.1) % Plt Count 91 L (130-400) 10^3/c mm MPV 12.4 H (7.4-10.4) fL Neut % (Auto) 61.9 % Lymph % (Auto) 26.8 % [place]atham % (Auto) 7.7 % Eos % (Auto) 2.9 % Baso % (Auto) 0.6 % Neut # (Auto) 4.41 (1.8-7.7) 10^3/u L Lymph # (Auto) 1.9 (0.8-4.8) 10^3/u L [place] # (Auto) 0.6 (0.2-0.9) 10^3/u L Eos # (Auto) 0.2 (0.0-0.8) 10^3/u L Baso # (Auto) 0.0 (0.0-0.1) 10^3/u L Nucleated RBC % (a uto) 0 % Nucleated RBCs # 0.0 /100WBC Sodium Cancelled Potassium Cancelled Chloride Cancelled Carbon Dioxide Cancelled Anion Gap Cancelled BUN Cancelled Creatinine Cancelled GFR Calculation Cancelled Glucose Cancelled Calculated Osmolal ity Cancelled Calcium Cancelled Total Bilirubin Cancelled AST Cancelled ALT Cancelled Alkaline Phosphata se Cancelled Total Protein Cancelled Albumin Cancelled Globulin Cancelled HCG, Qual Negative (Negative) Urine Color (Yellow) Urine Appearance (CLEAR) Urine pH (5-7) Ur Specific Gravit y (1.005-1.030) Urine Protein (Negative) Urine Glucose (UA) (Normal) Urine Ketones (Negative) Urine Blood (Negative) Urine Nitrate (Negative) Urine Bilirubin (Negative) Urine Urobilinogen (Negative) mg/dL Ur Leukocyte Zuleima ase (Negative) 01/10/21 01/10/21 Range/Units 14:15 14:46 WBC (4.0-10.0) 10^3/ uL RBC (4.1-5.3) 10^6/u L Hgb (11.5-15.3) g/dL Hct (37.0-47.0) % MCV (81-99) fL MCH (28.0-34.0) pg MCHC (30.0-36.0) g/dL RDW (12.1-15.1) % Plt Count (130-400) 10^3/c mm MPV (7.4-10.4) fL Neut % (Auto) % Lymph % (Auto) % [place] % (Auto) % Eos % (Auto) % Baso % (Auto) % Neut # (Auto) (1.8-7.7) 10^3/u L Lymph # (Auto) (0.8-4.8) 10^3/u L [place] # (Auto) (0.2-0.9) 10^3/u L Eos # (Auto) (0.0-0.8) 10^3/u L Baso # (Auto) (0.0-0.1) 10^3/u L Nucleated RBC % (a uto) % Nucleated RBCs # /100WBC Sodium 132 L Potassium 4.3 Chloride 98 Carbon Dioxide 24 Anion Gap 14.3 BUN 10 Creatinine 0.4 L GFR Calculation 196.1 H Glucose 106 Calculated Osmolal ity 273 L Calcium 9.2 Total Bilirubin 0.3 AST 27 ALT 28 Alkaline Phosphata se 41 Total Protein 7.2 Albumin 4.2 Globulin 3.0 HCG, Qual (Negative) Urine Color Yellow (Yellow) Urine Appearance Clear (CLEAR) Urine pH 5 (5-7) Ur Specific Gravit y 1.025 (1.005-1.030) Urine Protein Neg (Negative) Urine Glucose (UA) Norm (Normal) Urine Ketones Negative (Negative) Urine Blood Neg (Negative) Urine Nitrate Negative (Negative) Urine Bilirubin Neg (Negative) Urine Urobilinogen Norm (Negative) mg/dL Ur Leukocyte Zuleima ase Negative (Negative) Discharge Plan Discharge Patient Disposition: Home Clinical Impression: Strain of lumbar region, Headache Condition: Stable Prescriptions: New cyclobenzaprine 5 mg tablet 5 mg PO TID PRN (Reason: muscle spasm) Qty: 10 RF: 0 No Action acetaminophen [Tylenol] 325 mg Tablet 325 mg PO QID PRN (Reason: Pain) RF: 0 ibuprofen 800 mg tablet 800 mg PO TID PRN (Reason: pain) Qty: 30 RF: 0 Discharge Orders: Discharge ED (Routine); Ordered 01/10/21 Ordered By: James Hurley Referrals: Carline Orlando, P[employer] SUPPORT WORKER [Primary Care Provider] - Discharge Diet: Advance as tolerated Discharge Activity: Resume usual activity Patient Instructions: Low Back Strain (ED), Acute Headache (ED), Opioid Safety Activity Restrictions/Additional Instructions: You likely have a strain of your low back which is causing your pain. Please take the muscle relaxer to help. Do not mix with drugs, alcohol, nor operate machinery while taking this medication. Also continue to take Tylenol and ibuprofen for your headache. Return to the ER with worsening symptoms otherwise follow-up with your primary care physician in a couple days. 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
[2021-01-10 14:16] LABS: Basophils % 0.6 %; Eosinophils # 0.2 10^3/uL (0.0-0.8); Eosinophils % 2.9 %; Hematocrit 41.8 % (37.0-47.0); Hemoglobin 14.1 g/dL (11.5-15.3); Lymphocytes # 1.9 10^3/uL (0.8-4.8); Lymphocytes % 26.8 %; Mean Corpuscular HGB Conc 33.7 g/dL (30.0-36.0); Mean Corpuscular Volume 85.8 fL (81-99); Mean Platelet Volume 12.4 fL (7.4-10.4); Monocytes # 0.6 10^3/uL (0.2-0.9); Monocytes % 7.7 %; Neutrophils # 4.41 10^3/uL (1.8-7.7); Neutrophils % 61.9 %; Nucleated Red Blood Cells % 0 %; Platelet Count 91 10^3/cmm (130-400); Red Blood Count 4.87 10^6/uL (4.1-5.3); White Blood Count 7.1 10^3/uL (4.0-10.0)
[2021-01-10 14:32] LABS: HCG, Serum Qual Negative (Negative)
[2021-01-10 14:46] LABS: Add Urine Microscopic? NO; Charge for UA Resulting for Rev
[2021-01-10] MEDS: ketorolac 30 mg/mL INJ 15 MG IVP (14:49)
[2021-01-10] MEDS: orphenadrine 30 mg/mL Inj 2 mL 60 MG IM (14:49)
[2021-01-10] MEDS: acetaminophen 325 mg Tablet 650 MG PO (14:51)
[2021-01-10 14:52] LABS: Bilirubin Urine Neg (Negative); Blood Urine Neg (Negative); Glucose Urine UA Norm (Normal); Ketones Urine Negative (Negative); Leukocyte Esterase Urine Negative (Negative); Nitrate Urine Negative (Negative); Protein Urine Neg (Negative); Specific Gravity, Urine 1.025 (1.005-1.030); Urine Appearance Clear (CLEAR); Urine Color Yellow (Yellow); Urobilinogen Urine Norm (Negative); pH Urine 5 (5-7)
[2021-01-10 15:25] LABS: Alanine Aminotransferase 28 U/L (0-33); Albumin Level 4.2 g/dL (3.5-5.2); Alkaline Phosphatase 41 IU/L (35-105); Blood Urea Nitrogen 10 mg/dL (6-20); Calcium 9.2 mg/dL (8.5-10.5); Carbon Dioxide 24 mmol/L (22-29); Chloride 98 mmol/L (98-107); Glomerular Filtration Rate 196.1 mL/min (90-130); Glucose 106 mg/dL (65-115); Osmolality Calculated 273 mOsm/kg (285-295); Sodium 132 mmol/L (136-145); Total Bilirubin 0.3 mg/dL (0.15-1.2); Total Protein 7.2 g/dL (6.6-8.7)
[2021-01-10 15:28] LABS: Anion Gap 14.3 (5-19); Aspartate Amino Transferase 27 U/L (0-32); Potassium 4.3 mmol/L (3.5-5.1)
[2021-01-10 15:48] VITALS: BP 120/89; PULSE 84; RESP 18; TEMP 37.1; O2SAT 97
== END 2021-01-10 15:50 | disposition home or self-care (01) ==
PROVIDERS: Emergency Provider Family Medicine; PCP Nurse Practitioner Family
DX: R51.9 Headache, unspecified (principal); S39.012A Strain of muscle, fascia and tendon of lower back, initial encounter; X58.XXXA Exposure to other specified factors, initial encounter; Z87.891 Personal history of nicotine dependence
CPT/HCPCS: 80053; 81003; 84703; 85025; 93971; 96372; 96374; 96375; 99283; J1885; J2360

== ENCOUNTER → 2021-03-02 14:44 | Outpatient (BNVA) | payer BC, MEDICAID, SELFPAY | PROVIDERS: PCP Nurse Practitioner Family; Visit Provider Nurse Practitioner Family | DX: Z20.822 Contact with and (suspected) exposure to COVID-19 (principal) | CPT/HCPCS: 87635 ==

== ENCOUNTER → 2021-11-12 14:36 | Outpatient (BNVA) | payer BC, MEDICAID, SELFPAY | PROVIDERS: PCP Nurse Practitioner Family; Visit Provider Family Medicine Adult Medicine | DX: J11.1 Influenza due to unidentified influenza virus with other respiratory manifestations (principal) | CPT/HCPCS: 87400 ==

== ENCOUNTER 2021-12-09 19:08 | Emergency (ER) | payer BC, MEDICAID, SELFPAY ==
[2021-12-09 19:21] VITALS: BP 137/89; PULSE 92; RESP 16; TEMP 36.5; O2SAT 99
--- NOTE | 2021-12-09 19:36 | ED_ITS ---
HPI - Abdominal Pain General: Chief Complaint: Abdominal Pain Stated Complaint: abd pain, N/V Time Seen by Provider: 12/09/21 19:27 Source: patient Mode of arrival: ambulatory Limitations: no limitations History of Present Illness: This patient states she was in her normal state of health and then earlier this evening approximately an hour and a half prior to arrival she developed sharp right lower abdominal pain. She states she had previously had a bowel movement shortly prior to the onset of her symptoms but there was no pain during her bowel movement. She states the pain is sharp and knifelike and unremitting. There is no migration or change in the location of her pain. She states she has never had pain like this before. She had a prior cholecystectomy as well as a uterine ablation for menorrhagia mental menorrhagia. She has had 3 successful pregnancies. She tells me that she was t old in the past she had endometriosis and had ovarian cyst but again is never experienced symptoms like this. She has no menstrual periods because of her ablation. No vaginal discharge, history of STDs etc. She denies any blood in her stools or change in her stools during her prior bowel movement today. She has had no dysuria or blood in her urine. No history of kidney stones. She does not use tobacco or drink alcohol. She has not been recently ill with fevers chills recent antibiotic use etc. MD elicited complaint: abdominal pain Pertinent past history: none Pain Consistency: constant Location: RLQ Severity: moderate Quality: stabbing and sharp Radiation: none Migration to: no migration Exacerbating factors: nothing Relieving factors: nothing Associated Symptoms: Reports no associated symptoms; Denies chills, dysuria, fever(s) and hematuria Related Data: Date of Last Menstrual Period: 07/11/20 Review of Systems Const: Denies: fever(s), chills, body aches or change in appetite Eyes: Denies: change in vision ENMT: Denies: throat pain or odynophagia Card: Denies: chest pain or palpitations Resp: Denies: dyspnea, productive cough or non-productive cough GI: Reports: abdominal pain : Denies: flank pain, difficulty voiding, dysuria, urinary frequency or hematuria Musc: Denies: neck pain, back pain, extremity pain or extremity swelling Skin/Breast: Denies: rash, pruritus or erythema Neuro: Denies: headache(s), numbness in extremities or weakness in extremities Psych: Denies: anxiety, depression or mood swings Endo: Denies: polyuria or polydipsia Luis Enrique/Lymph: Denies: easy bruising or easy bleeding PFSH ED PFSH: Medical History History of gestational diabetes GDM with 6th Pharyngitis with viral syndrome Surgical History H/O tubal ligation (01/19/20) At time of C/S. Performed by Dr. Hayes at [facility] in [place], [place] History of hysteroscopy (06/09/20) With D&C and polypectomy. Performed by Dr. Hayes at [facility] in [place], [place]. S/P section (01/31/17) Repeat low transverse section. Performed by Dr. You Hayes at [facility] in [place], [place]. S/P section (08/17/15) Low transverse section (documented). Diagnosis: Nonreassuring heart tones. Performed by Dr. Ashanti Jha at [facility] in [place], [place]. Single-layer closure of uterus. S/P cholecystectomy (~2010) Laparoscopic. Performed in [place], [place] S/P endometrial ablation (09/22/20) Hysteroscopy, D&C, NovaSure endometrial ablation. Performed by Dr. Hayes at [facility] in [place], [place] S/P tonsillectomy and adenoidectomy (~2002) Age 8. Performed in [place], [place] Status post section (01/19/20) RLTCS with BTL. Performed by Dr. Hayes at [facility] in [place], [place] Family History Father Hyperlipidemia Grandmother Diabetes paternal Hypertension Maternal Family/Other Diabetes paternal uncle, paternal aunt, paternal cousin Ovarian cancer paternal aunt Thyroid disease paternal aunt Grandfather Diabetes paternal Colon cancer maternal Thyroid disease Maternal Social History (Updated 06/10/21 @ 07:42 by Marcia Polo LPN) Smoking and tobacco status: former smoker Quit status (tobacco): has quit using tobacco Year quit tobacco: 08/2019 Former quit date comment: Originally smoking 1 pack/day Alcohol intake: never Female Reproductive History: Date of last menstrual period: 07/11/20 Physical Exam Narrative: EXAM NARRATIVE: She is alert and cooperative. She is uncomfortable with positional changes but generally appears to be in no acute distress. Const: COMMON NORMALS: no acute distress, patient oriented x3 and alert GENERAL APPEARANCE: cooperative and well kempt NUTRITIONAL APPEARANCE: overweight HENMT: COMMON NORMALS: normocephalic, Normal nasal mucous membranes and turbinates present and moist oral mucous membranes HEAD & SCALP: normocephalic NOSE: Normal nasal mucous membranes and turbinates present Eye: COMMON NORMALS: Equal, round and reactive pupils present, EOMs intact bilaterally and no scleral icterus PUPIL: Yes Equal, round and reactive pupils present Neck/C-Spine: COMMON NORMALS: full ROM, no lymphadenopathy, supple and no JVD Chest: COMMONS NORMALS: normal inspection of the chest and normal palpation of entire chest wall Resp: COMMON NORMALS: normal respiratory effort, No use of accessory muscles and clear to auscultation bilaterally AUSCULTATION: clear to auscultation bilaterally Cardio: COMMON NORMALS: no JVD, regular rate, regular rhythm, No gallops present (Cardio), No murmurs present (Cardio) and Peripheral pulses 2+ throughout RATE: regular rate RHYTHM: regular rhythm PERIPHERAL PULSES: Peripheral pulses 2+ throughout GI: COMMON NORMALS: Normal to inspection, nondistended, normoactive bowel sounds present and no masses OTHER: Abdominal examination reveals maximal tenderness in the right lower quadrant however she does have voluntary guarding with palpation in the other areas of the abdomen referring to the right lower quadrant as increasing discomfort. : COMMON NORMALS: Yes no CVA tenderness BLADDER/KIDNEY EXAM: Yes no CVA tenderness Back/Pelvis: COMMON NORMALS: no CVA tenderness, thoracic and lumbar spine normal to inspection, no thoracic nor lumbar tenderness and thoraco-lumbar ROM normal Extremity: COMMON NORMALS: normal to inspection, full ROM, capillary refill normal, no calf tenderness and no pedal edema Neuro: COMMON NORMALS: patient oriented x3, moves all extremities, no focal motor deficits, no sensory deficits noted and gait normal SENSORIUM/ORIENTATION: Yes alert Psych: COMMON NORMALS: mental status grossly normal APPEARANCE: Yes well kempt Skin: COMMON NORMALS: no rashes or lesions noted and no wounds GENERAL SKIN EXAM: no rashes or lesions noted Course Vital Signs: Vital signs: Vital Signs Temperature 97.7 F 12/09/21 19:21 Pulse Rate 87 12/09/21 20:46 Respiratory Rate 17 12/09/21 20:46 Blood Pressure 133/82 12/09/21 20:46 Pulse Oximetry 100 12/09/21 20:46 MDM - Abdominal Pain Medical Decision Making Patient who comes to our emergency department for right lower abdominal pain. Initially she was concerned about a possible appendicitis. She does have a history of endometriosis and has had prior uterine ablation. Her evaluation this evening was reassuring. She had unremarkable laboratories with stable h emoglobin. She had a CT which showed a approximately 5 cm right ovarian cyst no evidence of edema or other secondary findings suggest torsion. No free fluid to suggest rupture etc. Appendix normal and no other pathologic findings on CT scan. Patient remained stable with normal vital signs. We will continue with symptomatic control and have her follow-up with her veterinary radiologist in the next 7 to 10 days or return to the emergency department at any time should her symptoms persist or worsen. All discussion was acknowledged by patient and her mother who was present at the end of her emergency department stay. Differential Diagnosis Likely abdominal pain; Unlikely acute appendicitis, calculus of kidney, constipation, diverticulitis, endometriosis, pancreatitis or small bowel obstruction Medical Records I reviewed the patient's medical records. Lab Data I reviewed the patient's lab results. : 12/09/21 20:20 12/09/21 20:20 Labs/Radiology: Radiology Impressions Abdomen/Pelvis CT 12/09/21 20:42 IMPRESSION: 1. No acute abnormality is seen. The appendix is normal. A 5.4 cm right ovarian cyst is present. 2. Mild hepatomegaly and hepatic steatosis. Laboratory Results WBC 7.5 10^3/uL (4.0-10.0) 12/09/21 20:20 RBC 5.06 10^6/uL (4.1-5.3) 12/09/21 20:20 Hgb 15.3 g/dL (11.5-15.3) 12/09/21 20:20 Hct 44.2 % (37.0-47.0) 12/09/21 20:20 MCV 87.4 fl (81-99) 12/09/21 20:20 MCH 30.2 pg (28.0-34.0) 12/09/21 20:20 MCHC 34.6 g/dL (30.0-36.0) 12/09/21 20:20 RDW 12.0 % (12.1-15.1) L 12/09/21 20:20 Plt Count 201 10^3/cmm (130-400) 12/09/21 20:20 MPV 11.8 fL (7.4-10.4) H 12/09/21 20:20 Neut % (Auto) 50.6 % 12/09/21 20:20 Lymph % (Auto) 34.9 % 12/09/21 20:20 [place] % (Auto) 10.7 % 12/09/21 20:20 Eos % (Auto) 3.2 % 12/09/21 20:20 Baso % (Auto) 0.5 % 12/09/21 20:20 Neut # (Auto) 3.80 10^3/uL (1.8-7.7) 12/09/21 20:20 Lymph # (Auto) 2.6 10^3/uL (0.8-4.8) 12/09/21 20:20 [place] # (Auto) 0.8 10^3/uL (0.2-0.9) 12/09/21 20:20 Eos # (Auto) 0.2 10^3/uL (0.0-0.8) 12/09/21 20:20 Baso # (Auto) 0.0 10^3/uL (0.0-0.1) 12/09/21 20:20 Nucleated RBC % (auto) 0 % 12/09/21 20:20 Nucleated RBCs # 0.0 /100WBC 12/09/21 20:20 Sodium 136 mmol/L (136-145) 12/09/21 20:20 Potassium 3.4 mmol/L (3.5-5.1) L 12/09/21 20:20 Chloride 99 mmol/L (98-107) 12/09/21 20:20 Carbon Dioxide 24 mmol/L (22-29) 12/09/21 20:20 Anion Gap 16.4 (5-19) 12/09/21 20:20 BUN 9 mg/dL (6-20) 12/09/21 20:20 Creatinine 0.5 mg/dL (0.5-0.9) 12/09/21 20:20 GFR Calculation 150.3 mL/min (90-130) H 12/09/21 20:20 Glucose 89 mg/dL (65-115) 12/09/21 20:20 Calculated Osmolality 280 mOsm/kg (285-295) L 12/09/21 20:20 Calcium 9.6 mg/dL (8.5-10.5) 12/09/21 20:20 Total Bilirubin 0.4 mg/dL (0.15-1.2) 12/09/21 20:20 AST 17 U/L (0-32) 12/09/21 20:20 ALT 28 U/L (0-33) 12/09/21 20:20 Alkaline Phosphatase 45 IU/L (35-105) 12/09/21 20:20 Total Protein 7.9 g/dL (6.6-8.7) 12/09/21 20:20 Albumin 4.7 g/dL (3.5-5.2) 12/09/21 20:20 Globulin 3.2 g/dL (1.3-4.6) 12/09/21 20:20 Lipase 24 U/L (13-60) 12/09/21 20:20 HCG, Qual Negative (Negative) 12/09/21 20:20 Urine Color Yellow (Yellow) 12/09/21 19:49 Urine Appearance Clear (CLEAR) 12/09/21 19:49 Urine pH 6 (5-7) 12/09/21 19:49 Ur Specific [place] 1.015 (1.005-1.030) 12/09/21 19:49 Urine Protein Neg (Negative) 12/09/21 19:49 Urine Glucose (UA) Norm (Normal) 12/09/21 19:49 Urine Ketones Negative (Negative) 12/09/21 19:49 Urine Blood Neg (Negative) 12/09/21 19:49 Urine Nitrate Negative (Negative) 12/09/21 19:49 Urine Bilirubin Neg (Negative) 12/09/21 19:49 Urine Urobilinogen Norm mg/dL (Negative) 12/09/21 19:49 Ur Leukocyte Esterase Negative (Negative) 12/09/21 19:49 Discharge Plan Discharge Patient Disposition: Home Clinical Impression: Right ovarian cyst Condition: Stable Prescriptions: New ketorolac 10 mg tablet 10 mg PO Q8H PRN (Reason: pain) 5 Days Qty: 14 0RF No Action azithromycin 250 mg tablet See Rx Instructions PO .COMPLEX Qty: 6 0RF Rx Instructions: For 250 mg dose pack: take 500 mg today (day 1), then 250 mg for 4 days (days 2-5) PO fluticasone propionate 50 mcg/actuation spray,suspension 1 spray intranasal BID PRN (Reason: nasal congestion) Qty: 16 2RF Rx Instructions: administer into each nostril acetaminophen [Tylenol] 325 mg Tablet 325 mg PO QID PRN (Reason: Pain) 0RF Discharge Orders: Discharge ED (Routine); Ordered 12/09/21 Ordered By: Rafiq Guzman Referrals: Carline Orlando FNP [Primary Care Provider] - Discharge Diet: Usual diet Discharge Activity: Increase activity as tolerated Patient Instructions: Opioid Safety Activity Restrictions/Additional Instructions: As we discussed while you are in the emergency department receiving you had no evidence of appendicitis or other concerning conditions but do have a right ovarian cyst that is likely the cause of your pain. We have provided a prescription for medications that should help control the symptoms. If they do not resolve, worsen or you develop new symptoms to include fever increasing pain etc. return to this or the nearest emergency department immediately. You should call your veterinary radiologist for a follow-up appointment within the next 2 weeks for recheck. Coding Level of Care Code ED Telescope Operator for Claude Fwpao Exam Comprehensive
[2021-12-09 19:58] VITALS: BP 151/105; PULSE 92; RESP 17; O2SAT 100
[2021-12-09 19:59] LABS: Add Urine Microscopic? NO; Charge for UA Resulting for Rev; HCG Qualitative Urine. Negative (Negative)
[2021-12-09 20:01] LABS: Bilirubin Urine Neg (Negative); Blood Urine Neg (Negative); Glucose Urine UA Norm (Normal); Ketones Urine Negative (Negative); Leukocyte Esterase Urine Negative (Negative); Nitrate Urine Negative (Negative); Protein Urine Neg (Negative); Specific Gravity, Urine 1.015 (1.005-1.030); Urine Appearance Clear (CLEAR); Urine Color Yellow (Yellow); Urobilinogen Urine Norm (Negative); pH Urine 6 (5-7)
[2021-12-09 20:41] LABS: Basophils % 0.5 %; Eosinophils # 0.2 10^3/uL (0.0-0.8); Eosinophils % 3.2 %; Hematocrit 44.2 % (37.0-47.0); Hemoglobin 15.3 g/dL (11.5-15.3); Lymphocytes # 2.6 10^3/uL (0.8-4.8); Lymphocytes % 34.9 %; Mean Corpuscular HGB Conc 34.6 g/dL (30.0-36.0); Mean Corpuscular Hemoglobin 30.2 pg (28.0-34.0); Mean Corpuscular Volume 87.4 fl (81-99); Mean Platelet Volume 11.8 fL (7.4-10.4); Monocytes # 0.8 10^3/uL (0.2-0.9); Monocytes % 10.7 %; Neutrophils % 50.6 %; Nucleated Red Blood Cells % 0 %; Platelet Count 201 10^3/cmm (130-400); Red Blood Count 5.06 10^6/uL (4.1-5.3); White Blood Count 7.5 10^3/uL (4.0-10.0)
[2021-12-09 20:42] VITALS: RESP 16; O2SAT 100
[2021-12-09] MEDS: morphine 4 mg/mL SDV 1 mL IVP (20:42)
[2021-12-09] MEDS: ondansetron 2 mg/ML SDV 2 mL 4 MG IVP (20:42)
--- NOTE | 2021-12-09 20:42 | CTR_ITS ---
PROCEDURE INFORMATION: Exam: CT Abdomen And Pelvis Without Contrast Exam date and time: 12/09/2021 9:14 PM Age: 26 years old Clinical indication: Nausea and vomiting; Abdominal pain; Localized; Right lower quadrant (rlq); Prior surgery; Surgery type: Gb. Csection. Tubal ligation. ; Patient HX: C/O rlq pain with n/v. ; Additional info: Right lower quad pain TECHNIQUE: Imaging protocol: Computed tomography of the abdomen and pelvis without contrast. Radiation optimization: All CT scans at this facility use at least one of these dose optimization techniques: automated exposure control; mA and/or kV adjustment per patient size (includes targeted exams where dose is matched to clinical indication); or iterative reconstruction. COMPARISON: CT abdomen pelvis w con* [id number] 07/07/2020 4:07 PM RADIATION DOSE METRICS: Total DLP (mGy-cm): 1154.24 FINDINGS: Liver: The liver is mildly enlarged and demonstrates fatty infiltration changes. No parenchymal lesion is seen. Gallbladder and bile ducts: The gallbladder has been removed. No biliary ductal dilatation. Pancreas: Normal. No ductal dilation. Spleen: Normal. No splenomegaly. Adrenal glands: Normal. No mass. Kidneys and ureters: Normal. No hydronephrosis. Stomach and bowel: Unremarkable. No obstruction. No mucosal thickening. Appendix: The appendix is normal. Intraperitoneal space: Unremarkable. No free air. No significant fluid collection. Vasculature: Unremarkable. No abdominal aortic aneurysm. Lymph nodes: Unremarkable. No enlarged lymph nodes. Urinary bladder: Unremarkable as visualized. Reproductive: The uterus and ovaries appear normal. A 5.4 cm right ovarian cyst is noted. Bones/joints: Unremarkable. No acute fracture. Soft tissues: Unremarkable. CT/CT abdomen pelvis con [id number] IMPRESSION: 1. No acute abnormality is seen. The appendix is normal. A 5.4 cm right ovarian cyst is present. 2. Mild hepatomegaly and hepatic steatosis.
[2021-12-09 20:44] VITALS: BP 133/82; PULSE 85; RESP 17; O2SAT 100
[2021-12-09 20:46] VITALS: BP 133/82; PULSE 87; RESP 17; O2SAT 100
[2021-12-09 20:58] LABS: Alanine Aminotransferase 28 U/L (0-33); Albumin Level 4.7 g/dL (3.5-5.2); Alkaline Phosphatase 45 IU/L (35-105); Anion Gap 16.4 (5-19); Aspartate Amino Transferase 17 U/L (0-32); Blood Urea Nitrogen 9 mg/dL (6-20); Calcium 9.6 mg/dL (8.5-10.5); Carbon Dioxide 24 mmol/L (22-29); Chloride 99 mmol/L (98-107); Globulin 3.2 g/dL (1.3-4.6); Glomerular Filtration Rate 150.3 mL/min (90-130); Glucose 89 mg/dL (65-115); Lipase 24 U/L (13-60); Osmolality Calculated 280 mOsm/kg (285-295); Potassium 3.4 mmol/L (3.5-5.1); Sodium 136 mmol/L (136-145); Total Bilirubin 0.4 mg/dL (0.15-1.2); Total Protein 7.9 g/dL (6.6-8.7)
[2021-12-09 21:05] LABS: HCG, Serum Qual Negative (Negative)
[2021-12-09] MEDS: ketorolac 30 mg/mL INJ 15 MG IVP (22:34)
[2021-12-09 22:46] VITALS: BP 121/60; PULSE 81; RESP 18; O2SAT 98
== END 2021-12-09 22:47 | disposition home or self-care (01) ==
PROVIDERS: Nurse Practitioner Family; Emergency Provider Emergency Medicine; PCP Nurse Practitioner Family
DX: N83.201 Unspecified ovarian cyst, right side (principal); Z87.42 Personal history of other diseases of the female genital tract; Z90.49 Acquired absence of other specified parts of digestive tract; Z98.891 History of uterine scar from previous surgery; Z98.51 Tubal ligation status
CPT/HCPCS: 74176; 80053; 81003; 81025; 83690; 84703; 85025; 96374; 96375; 99285; J1885; J2270; J2405

== ENCOUNTER → 2021-12-21 10:00 | Outpatient (BNVA) | payer BC, MEDICAID, SELFPAY | PROVIDERS: PCP Nurse Practitioner Family; Visit Provider Obstetrics & Gynecology | DX: N83.201 Unspecified ovarian cyst, right side (principal) | CPT/HCPCS: 76830 ==

== ENCOUNTER 2022-01-11 09:24 | Outpatient (CLI) | payer BC, MEDICAID, SELFPAY ==
--- NOTE | 2022-01-11 09:15 | US_ITS ---
WS: [id number] TRANSABDOMINAL PELVIC AND TRANSVAGINAL PELVIC ULTRASOUND HISTORY: N83.209 - Unspecified ovarian cyst, unspecified side COMPARISON: 12/21/2021 and 11/02/2020 Uterus: 9.7 cm x 5.5 cm x 4.5 cm. Mildly enlarged anteverted uterus. Uterus is very mildly heterogene ous but no discrete mass. Endometrium: 0.5 cm. Poorly delineated. No abnormality identified. Right ovary: 3.7 cm x 2.4 cm x 2.6 cm. Multiple small follicles. Previously described cyst within the RIGHT ovary continues to decrease in size. Cyst is subcentimeter in size. Left ovary: 3.6 cm x 2.1 cm x 2.2 cm. Small follicles. Normal vascularity. No free fluid. US/US pelvic with transvaginal IMPRESSION: 1. Continued decrease in size of a previously described RIGHT ovarian cyst. Re sidual cyst is now subcentimeter. 2. Mildly enlarged uterus. No fibroid identified.
== END 2022-01-11 09:25 | disposition home or self-care (01) ==
PROVIDERS: PCP Nurse Practitioner Family; Visit Provider Obstetrics & Gynecology
DX: N83.209 Unspecified ovarian cyst, unspecified side (principal); N93.9 Abnormal uterine and vaginal bleeding, unspecified
CPT/HCPCS: 76830; 76856

== ENCOUNTER → 2022-02-10 11:25 | Outpatient (BNVA) | payer BC, MEDICAID, SELFPAY | PROVIDERS: PCP Nurse Practitioner Family; Visit Provider Registered Nurse Neonatal Intensive Care | DX: M25.531 Pain in right wrist (principal) | CPT/HCPCS: 73110 ==

== ENCOUNTER 2022-02-14 13:58 | Outpatient (CLI) | payer BC, MEDICAID, SELFPAY ==
[2022-02-14 14:31] LABS: Basophils # 0.1 10^3/uL (0.0-0.1); Basophils % 0.7 %; Eosinophils # 0.1 10^3/uL (0.0-0.8); Eosinophils % 1.5 %; Hematocrit 43.6 % (37.0-47.0); Hemoglobin 15.5 g/dL (11.5-15.3); Lymphocytes # 2.1 10^3/uL (0.8-4.8); Lymphocytes % 27.9 %; Mean Corpuscular HGB Conc 35.6 g/dL (30.0-36.0); Mean Corpuscular Hemoglobin 29.8 pg (28.0-34.0); Mean Corpuscular Volume 83.8 fl (81-99); Mean Platelet Volume 12.2 fL (7.4-10.4); Monocytes # 0.6 10^3/uL (0.2-0.9); Monocytes % 7.8 %; Neutrophils # 4.59 10^3/uL (1.8-7.7); Neutrophils % 61.8 %; Nucleated Red Blood Cells % 0 %; Platelet Count 222 10^3/cmm (130-400); Red Cell Distribution Width 11.7 % (12.1-15.1); White Blood Count 7.4 10^3/uL (4.0-10.0)
[2022-02-14 14:46] LABS: Alanine Aminotransferase 46 U/L (0-33); Albumin Level 4.9 g/dL (3.5-5.2); Alkaline Phosphatase 41 IU/L (35-105); Anion Gap 18.5 (5-19); Aspartate Amino Transferase 35 U/L (0-32); Blood Urea Nitrogen 6 mg/dL (6-20); Calcium 9.4 mg/dL (8.5-10.5); Carbon Dioxide 22 mmol/L (22-29); Chloride 102 mmol/L (98-107); Glomerular Filtration Rate 121.8 mL/min (90-130); Glucose 93 mg/dL (65-115); Osmolality Calculated 285 mOsm/kg (285-295); Potassium 3.5 mmol/L (3.5-5.1); Sodium 139 mmol/L (136-145); Total Bilirubin 0.6 mg/dL (0.15-1.2); Total Protein 7.9 g/dL (6.6-8.7)
== END 2022-02-14 13:59 | disposition home or self-care (01) ==
PROVIDERS: PCP Nurse Practitioner Family; Visit Provider Family Medicine
DX: A08.4 Viral intestinal infection, unspecified (principal)
CPT/HCPCS: 36415; 80053; 85025

== ENCOUNTER 2022-02-25 21:13 | Emergency (ER) | payer BC, MEDICAID, SELFPAY ==
[2022-02-25 21:29] VITALS: BP 142/92; PULSE 99; RESP 19; TEMP 36.8; O2SAT 96; BMI 37.5
[2022-02-25 23:15] LABS: Basophils % 0.4 %; Eosinophils # 0.6 10^3/uL (0.0-0.8); Eosinophils % 5.8 %; Hemoglobin 15.1 g/dL (11.5-15.3); Lymphocytes # 2.1 10^3/uL (0.8-4.8); Lymphocytes % 21.5 %; Mean Corpuscular HGB Conc 34.3 g/dL (30.0-36.0); Mean Corpuscular Hemoglobin 30.3 pg (28.0-34.0); Mean Corpuscular Volume 88.4 fl (81-99); Mean Platelet Volume 12.8 fL (7.4-10.4); Monocytes # 0.7 10^3/uL (0.2-0.9); Monocytes % 7.4 %; Neutrophils # 6.27 10^3/uL (1.8-7.7); Neutrophils % 64.8 %; Nucleated Red Blood Cells % 0 %; Platelet Count 202 10^3/cmm (130-400); Red Blood Count 4.98 10^6/uL (4.1-5.3); Red Cell Distribution Width 11.9 % (12.1-15.1); White Blood Count 9.7 10^3/uL (4.0-10.0)
[2022-02-25 23:18] VITALS: BP 131/79; PULSE 86; RESP 17; O2SAT 97
[2022-02-25 23:31] LABS: HCG, Serum Qual Negative (Negative)
[2022-02-25 23:38] LABS: Alanine Aminotransferase 33 U/L (0-33); Albumin Level 4.7 g/dL (3.5-5.2); Alkaline Phosphatase 40 IU/L (35-105); Aspartate Amino Transferase 18 U/L (0-32); Blood Urea Nitrogen 16 mg/dL (6-20); Calcium 9.6 mg/dL (8.5-10.5); Carbon Dioxide 26 mmol/L (22-29); Chloride 99 mmol/L (98-107); Creatinine Clr Calc Pharmacy 152.1786; Globulin 2.6 g/dL (1.3-4.6); Glomerular Filtration Rate 121.8 mL/min (90-130); Glucose 105 mg/dL (65-115); Lipase 28 U/L (13-60); Osmolality Calculated 282 mOsm/kg (285-295); Sodium 135 mmol/L (136-145); Total Bilirubin 0.4 mg/dL (0.15-1.2); Total Protein 7.3 g/dL (6.6-8.7)
[2022-02-26] MEDS: ondansetron 2 mg/ML SDV 2 mL 4 MG IVP ×2 (00:24→02:40)
[2022-02-26 00:26] VITALS: RESP 18
[2022-02-26] MEDS: morphine 4 mg/mL SDV 1 mL IVP ×2 (00:26→02:40)
[2022-02-26] MEDS: sodium chloride 0.9% 1,000 ML 999 ML IV (00:28)
[2022-02-26 00:35] LABS: Add Urine Microscopic? NO; Charge for UA Resulting for Rev
[2022-02-26 00:40] LABS: Urine Appearance Cloudy (CLEAR); Urine Color Yellow (Yellow); pH Urine 8 (5-7)
[2022-02-26 00:41] LABS: Bilirubin Urine Neg (Negative); Blood Urine Neg (Negative); Glucose Urine UA Norm (Normal); Ketones Urine Negative (Negative); Leukocyte Esterase Urine Negative (Negative); Nitrate Urine Negative (Negative); Protein Urine Neg (Negative); Sulfosalicylic Acid Urine Negative (Negative); Urobilinogen Urine Neg (Negative)
--- NOTE | 2022-02-26 01:58 | W.ED.ABDPA2 ---
Documented by User: Sonya Latham 02/26/22 02:02 HPI - Abdominal Pain General: Chief Complaint: Abdominal Pain Stated Complaint: Back\Chest\ABD Pain Time Seen by Provider: 02/25/22 23:02 History of Present Illness: 26 yo female patient presents to ER post hysterectomy on 02/22. Pt states she coughed and has had lower back pain that radiates around to her incision sites. Pt denies any vaginal bleeding. Pt denies any fever. Pt does c/o nausea without vomiting. Associated Symptoms: Denies change in bowel habits, chills, constipation, GI cramping, diarrhea, dysuria, fever(s), hematuria, hematemesis, syncope and vomiting Related Data: Date of Last Menstrual Period: 07/11/20 Review of Systems Const: Denies: fever(s), chills, body aches, change in appetite, change in weight, fatigue, malaise or diaphoresis Eyes: Denies: change in vision, blurry vision, blind spots, photophobia, eye discomfort, eye discharge, eye redness, floaters or seeing flashes ENMT: Denies: throat pain, uvular edema, enlarged tonsils, odynophagia, hoarseness, mouth pain, swelling of lips/tongue, oral sores, bleeding gums, dental pain, dry mouth, ear or mastoid pain, ear discharge, change in hearing, tinnitus, disequilibrium, nasal discharge, nasal congestion, post nasal drip or sinus pain Card: Denies: chest pain, palpitations, irregular heart rhythm, edema, swelling of feet/ankles, lightheadedness, syncope, pre-syncope, dyspnea on exertion, orthopnea, leg pain with exertion or acrocyanosis Resp: Denies: dyspnea, productive cough, non-productive cough, wheezing, stridor, pain on inspiration, change in phlegm color, hemoptysis or chest congestion GI: Denies: vomiting, hematemesis, dysphagia, diarrhea, constipation, GI cramping, change in bowel habits or rectal pain : Denies: flank pain, difficulty voiding, dysuria, urinary frequency, urinary urgency, urinary hesitancy or hematuria Musc: Denies: neck pain, extremity pain, extremity swelling, joint pain, joint swelling, joint redness, joint warmth or deformity Skin/Breast: Denies: rash, pruritus, erythema, sores, new lesions, changes in skin color or dry skin Neuro: Denies: headache(s), numbness in extremities, weakness in extremities, sensory changes, lack of coordination, difficulty walking, frequent falls, dizziness, vertigo, confusion, behavioral changes, Slurred speech present, difficulty communicating thoughts or seizure-like activity Psych: Denies: anxiety, depression, suicidal ideation or homicidal ideation Endo: Denies: polyuria, polydipsia, tired all the time, cold intolerance, excessive sweating, flushing, hot flashes or heat intolerance Luis Enrique/Lymph: Denies: easy bruising, easy bleeding, petechiae, purpura, enlarged lymph nodes or tender lymph nodes All/Imm: Denies: urticaria, throat swelling, tongue swelling, facial swelling, acute wheezing or itchy eyes PFSH ED PFSH: Medical History History of gestational diabetes GDM with 6th No pertinent past medical history neghx: htn, dm, thyroid, dvt/pe PCP: Carline at [facility] Pharyngitis with viral syndrome Surgical History H/O tubal ligation (01/19/20) At time of C/S. Performed by Dr. Hayes at [facility] in [place], [place] History of hysteroscopy (06/09/20) With D&C and polypectomy. Performed by Dr. Hayes at [facility] in [place], [place]. S/P section (01/31/17) Repeat low transverse section. Performed by Dr. You Hayes at [facility] in [place], [place]. S/P section (08/17/15) Low transverse section (documented). Diagnosis: Nonreassuring heart tones. Performed by Dr. Ashanti Jha at [facility] in [place], [place]. Single-layer closure of uterus. S/P cholecystectomy (~2010) Laparoscopic. Performed in [place], [place] S/P endometrial ablation (09/22/20) Hysteroscopy, D&C, NovaSure endometrial ablation. Performed by Dr. Hayes at [facility] in [place], [place] S/P tonsillectomy and adenoidectomy (~2002) Age 8. Performed in [place], [place] Status post section (01/19/20) RLTCS with BTL. Performed by Dr. Hayes at [facility] in [place], [place] Family History Father Hyperlipidemia Grandmother Diabetes paternal Hypertension Maternal Family/Other Diabetes paternal uncle, paternal aunt, paternal cousin Ovarian cancer paternal aunt Thyroid disease paternal aunt Grandfather Diabetes paternal Colon cancer maternal Thyroid disease Maternal Social History Smoking and tobacco status: former smoker Quit status (tobacco): has quit using tobacco Year quit tobacco: 08/2019 Former quit date comment: Originally smoking 1 pack/day Alcohol intake: never Female Reproductive History: Date of last menstrual period: 07/11/20 Physical Exam Const: COMMON NORMALS: no acute distress, average body habitus, patient oriented x3, no limitations, alert and well nourished HENMT: COMMON NORMALS: normocephalic and atraumatic HEAD & SCALP: normocephalic and atraumatic THROAT: no uvular edema Eye: COMMON NORMALS: Equal, round and reactive pupils present, EOMs intact bilaterally, conjunctivae normal and no scleral icterus CONJUNCTIVA: Yes conjunctivae normal PUPIL: Yes Equal, round and reactive pupils present Neck/C-Spine: COMMON NORMALS: full ROM, no lymphadenopathy, supple, no meningeal signs, no JVD, Thyroid normal and No carotid bruits THYROID: Thyroid normal Lymph: LYMPHATIC: no lymphadenopathy noted and no lymphedema noted Chest: COMMONS NORMALS: normal inspection of the chest and normal palpation of entire chest wall Resp: COMMON NORMALS: normal respiratory effort, No retractions, No use of accessory muscles, clear to auscultation bilaterally and percussion normal AUSCULTATION: clear to auscultation bilaterally PERCUSSION: percussion normal Cardio: COMMON NORMALS: no JVD, regular rate and regular rhythm RATE: regular rate RHYTHM: regular rhythm GI: COMMON NORMALS: Normal to inspection, nondistended, normoactive bowel sounds present, Soft to palpation, non-tender (to incisional site incisions are well approximated), No hepatosplenomegaly present, no masses and no bruits PALPATION: Yes Soft to palpation and Yes No hepatosplenomegaly present : COMMON NORMALS: Yes no CVA tenderness BLADDER/KIDNEY EXAM: Yes no CVA tenderness Back/Pelvis: COMMON NORMALS: no CVA tenderness, thoracic and lumbar spine normal to inspection, no thoracic nor lumbar tenderness, thoraco-lumbar ROM normal and straight leg raise negative bilaterally Neuro: COMMON NORMALS: patient oriented x3, CN's II-XII intact bilaterally, moves all extremities and no focal motor deficits SENSORIUM/ORIENTATION: Yes alert MENINGEAL SIGNS: Yes no meningeal signs Psych: COMMON NORMALS: mental status grossly normal, Normal thought process present, cooperative, normal affect, speech normal, activity/motor behavior normal, denies hallucinations, denies homicidal ideation and denies suicidal ideation SPEECH: Yes normal speech THOUGHT PROCESS: Normal thought process present Skin: COMMON NORMALS: no rashes or lesions noted, no wounds, turgor normal, no jaundice, no petechiae and no mottling GENERAL SKIN EXAM: no rashes or lesions noted and turgor normal Course Vital Signs: Vital signs: Vital Signs Temperature 98.2 F 02/25/22 21:29 Pulse Rate 81 02/26/22 02:30 Respiratory Rate 18 02/26/22 02:40 Blood Pressure 131/100 02/26/22 02:30 Pulse Oximetry 96 02/26/22 02:30 MDM - Abdominal Pain Lab Data : 02/25/22 23:08 02/25/22 23:08 Labs/Radiology: Radiology Impressions Abdomen/Pelvis CT 02/26/22 02:34 IMPRESSION: 1. Status post recent partial hysterectomy with some strandy and hazy opacity seen in the pelvic fascia adjacent to the vaginal cuff and strandy and hazy opacities and gas densities seen in the properitoneal fat and fascia of the anterior pelvis compatible with postoperative changes. 2. The ovaries are visualized on the CT examination. Probable benign or functional right ovarian cyst measuring 3.4 cm in diameter. 3. Mild fatty infiltration of the liver Pelvis Ultrasound 02/26/22 23:03 IMPRESSION: No acute findings. Laboratory Results WBC 9.7 10^3/uL (4.0-10.0) 02/25/22 23:08 RBC 4.98 10^6/uL (4.1-5.3) 02/25/22 23:08 Hgb 15.1 g/dL (11.5-15.3) 02/25/22 23:08 Hct 44.0 % (37.0-47.0) 02/25/22 23:08 MCV 88.4 fl (81-99) 02/25/22 23:08 MCH 30.3 pg (28.0-34.0) 02/25/22 23:08 MCHC 34.3 g/dL (30.0-36.0) 02/25/22 23:08 RDW 11.9 % (12.1-15.1) L 02/25/22 23:08 Plt Count 202 10^3/cmm (130-400) 02/25/22 23:08 MPV 12.8 fL (7.4-10.4) H 02/25/22 23:08 Neut % (Auto) 64.8 % 02/25/22 23:08 Lymph % (Auto) 21.5 % 02/25/22 23:08 [place] % (Auto) 7.4 % 02/25/22 23:08 Eos % (Auto) 5.8 % 02/25/22 23:08 Baso % (Auto) 0.4 % 02/25/22 23:08 Neut # (Auto) 6.27 10^3/uL (1.8-7.7) 02/25/22 23:08 Lymph # (Auto) 2.1 10^3/uL (0.8-4.8) 02/25/22 23:08 [place] # (Auto) 0.7 10^3/uL (0.2-0.9) 02/25/22 23:08 Eos # (Auto) 0.6 10^3/uL (0.0-0.8) 02/25/22 23:08 Baso # (Auto) 0.0 10^3/uL (0.0-0.1) 02/25/22 23:08 Nucleated RBC % (auto) 0 % 02/25/22 23:08 Nucleated RBCs # 0.0 /100WBC 02/25/22 23:08 Sodium 135 mmol/L (136-145) L 02/25/22 23:08 Potassium 4.0 mmol/L (3.5-5.1) 02/25/22 23:08 Chloride 99 mmol/L (98-107) 02/25/22 23:08 Carbon Dioxide 26 mmol/L (22-29) 02/25/22 23:08 Anion Gap 14.0 (5-19) 02/25/22 23:08 BUN 16 mg/dL (6-20) 02/25/22 23:08 Creatinine 0.6 mg/dL (0.5-0.9) 02/25/22 23:08 GFR Calculation 121.8 mL/min (90-130) 02/25/22 23:08 Glucose 105 mg/dL (65-115) 02/25/22 23:08 Calculated Osmolality 282 mOsm/kg (285-295) L 02/25/22 23:08 Calcium 9.6 mg/dL (8.5-10.5) 02/25/22 23:08 Total Bilirubin 0.4 mg/dL (0.15-1.2) 02/25/22 23:08 AST 18 U/L (0-32) 02/25/22 23:08 ALT 33 U/L (0-33) 02/25/22 23:08 Alkaline Phosphatase 40 IU/L (35-105) 02/25/22 23:08 Total Protein 7.3 g/dL (6.6-8.7) 02/25/22 23:08 Albumin 4.7 g/dL (3.5-5.2) 02/25/22 23:08 Globulin 2.6 g/dL (1.3-4.6) 02/25/22 23:08 Lipase 28 U/L (13-60) 02/25/22 23:08 HCG, Qual Negative (Negative) 02/25/22 23:08 Urine Color Yellow (Yellow) 02/26/22 00:25 Urine Appearance Cloudy (CLEAR) 02/26/22 00:25 Urine pH 8 (5-7) H 02/26/22 00:25 Ur Specific [place] 1.010 (1.005-1.030) 02/26/22 00:25 Urine Protein Neg (Negative) 02/26/22 00:25 Urine Glucose (UA) Norm (Normal) 02/26/22 00:25 Urine Ketones Negative (Negative) 02/26/22 00:25 Urine Blood Neg (Negative) 02/26/22 00:25 Urine Nitrate Negative (Negative) 02/26/22 00:25 Urine Bilirubin Neg (Negative) 02/26/22 00:25 Prot Sulfosalicylic Acd Negative (Negative) 02/26/22 00:25 Urine Urobilinogen Neg mg/dL (Negative) 02/26/22 00:25 Ur Leukocyte Esterase Negative (Negative) 02/26/22 00:25 Discharge Plan Discharge Patient Disposition: Home Clinical Impression: Abdominal pain Condition: Stable Prescriptions: New ondansetron 4 mg tablet,disintegrating 4 mg PO Q6H PRN (Reason: nausea and vomiting) Qty: 14 0RF oxycodone 5 mg tablet 5 mg PO Q12H PRN (Reason: pain) Qty: 10 0RF No Action acetaminophen [Tylenol] 325 mg Tablet 325 mg PO QID PRN (Reason: Pain) 0RF Discharge Orders: Discharge ED (Routine); Ordered 02/26/22 Ordered By: Marcelo Irby Referrals: Carline Orlando FNP [Primary Care Provider] - Discharge Diet: Advance as tolerated Discharge Activity: Resume usual activity Patient Instructions: Abdominal Pain (ED), Opioid Safety Coding Level of Care Code 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 Documented by User: Marcelo Irby MD 02/26/22 03:23 HPI - Abdominal Pain General: Chief Complaint: Abdominal Pain Stated Complaint: Back\Chest\ABD Pain Time Seen by Provider: 02/25/22 23:02 [facility] ED PFSH: Medical History History of gestational diabetes GDM with 6th No pertinent past medical history neghx: htn, dm, thyroid, dvt/pe PCP: Carline at [facility] Pharyngitis with viral syndrome Surgical History H/O tubal ligation (01/19/20) At time of C/S. Performed by Dr. Hayes at [facility] in [place], [place] History of hysteroscopy (06/09/20) With D&C and polypectomy. Performed by Dr. Hayes at [facility] in [place], [place]. S/P section (01/31/17) Repeat low transverse section. Performed by Dr. You Hayes at [facility] in [place], [place]. S/P section (08/17/15) Low transverse section (documented). Diagnosis: Nonreassuring heart tones. Performed by Dr. Ashanti Jha at [facility] in [place], [place]. Single-layer closure of uterus. S/P cholecystectomy (~2010) Laparoscopic. Performed in [place], [place] S/P endometrial ablation (09/22/20) Hysteroscopy, D&C, NovaSure endometrial ablation. Performed by Dr. Hayes at [facility] in [place], [place] S/P tonsillectomy and adenoidectomy (~2002) Age 8. Performed in [place], [place] Status post section (01/19/20) RLTCS with BTL. Performed by Dr. Hayes at [facility] in [place], [place] Family History Father Hyperlipidemia Grandmother Diabetes paternal Hypertension Maternal Family/Other Diabetes paternal uncle, paternal aunt, paternal cousin Ovarian cancer paternal aunt Thyroid disease paternal aunt Grandfather Diabetes paternal Colon cancer maternal Thyroid disease Maternal Social History Smoking and tobacco status: former smoker Quit status (tobacco): has quit using tobacco Year quit tobacco: 08/2019 Former quit date comment: Originally smoking 1 pack/day Alcohol intake: never Course Vital Signs: Vital signs: Vital Signs Temperature 98.2 F 02/25/22 21:29 Pulse Rate 81 02/26/22 02:30 Respiratory Rate 18 02/26/22 02:40 Blood Pressure 131/100 02/26/22 02:30 Pulse Oximetry 96 02/26/22 02:30 MDM - Abdominal Pain Medical Decision Making Patient presents with abdominal pain is likely postop pain she is well-appearing here blood work is normal CT abdomen shows no acute abnormalities patient stable for discharge is to follow-up PCP and return if worsening she understands agrees to plan. Lab Data : 02/25/22 23:08 02/25/22 23:08 Labs/Radiology: Radiology Impressions Abdomen/Pelvis CT 02/26/22 02:34 IMPRESSION: 1. Status post recent partial hysterectomy with some strandy and hazy opacity seen in the pelvic fascia adjacent to the vaginal cuff and strandy and hazy opacities and gas densities seen in the properitoneal fat and fascia of the anterior pelvis compatible with postoperative changes. 2. The ovaries are visualized on the CT examination. Probable benign or functional right ovarian cyst measuring 3.4 cm in diameter. 3. Mild fatty infiltration of the liver Pelvis Ultrasound 02/26/22 23:03 IMPRESSION: No acute findings. Laboratory Results WBC 9.7 10^3/uL (4.0-10.0) 02/25/22 23:08 RBC 4.98 10^6/uL (4.1-5.3) 02/25/22 23:08 Hgb 15.1 g/dL (11.5-15.3) 02/25/22 23:08 Hct 44.0 % (37.0-47.0) 02/25/22 23:08 MCV 88.4 fl (81-99) 02/25/22 23:08 MCH 30.3 pg (28.0-34.0) 02/25/22 23:08 MCHC 34.3 g/dL (30.0-36.0) 02/25/22 23:08 RDW 11.9 % (12.1-15.1) L 02/25/22 23:08 Plt Count 202 10^3/cmm (130-400) 02/25/22 23:08 MPV 12.8 fL (7.4-10.4) H 02/25/22 23:08 Neut % (Auto) 64.8 % 02/25/22 23:08 Lymph % (Auto) 21.5 % 02/25/22 23:08 [place] % (Auto) 7.4 % 02/25/22 23:08 Eos % (Auto) 5.8 % 02/25/22 23:08 Baso % (Auto) 0.4 % 02/25/22 23:08 Neut # (Auto) 6.27 10^3/uL (1.8-7.7) 02/25/22 23:08 Lymph # (Auto) 2.1 10^3/uL (0.8-4.8) 02/25/22 23:08 [place] # (Auto) 0.7 10^3/uL (0.2-0.9) 02/25/22 23:08 Eos # (Auto) 0.6 10^3/uL (0.0-0.8) 02/25/22 23:08 Baso # (Auto) 0.0 10^3/uL (0.0-0.1) 02/25/22 23:08 Nucleated RBC % (auto) 0 % 02/25/22 23:08 Nucleated RBCs # 0.0 /100WBC 02/25/22 23:08 Sodium 135 mmol/L (136-145) L 02/25/22 23:08 Potassium 4.0 mmol/L (3.5-5.1) 02/25/22 23:08 Chloride 99 mmol/L (98-107) 02/25/22 23:08 Carbon Dioxide 26 mmol/L (22-29) 02/25/22 23:08 Anion Gap 14.0 (5-19) 02/25/22 23:08 BUN 16 mg/dL (6-20) 02/25/22 23:08 Creatinine 0.6 mg/dL (0.5-0.9) 02/25/22 23:08 GFR Calculation 121.8 mL/min (90-130) 02/25/22 23:08 Glucose 105 mg/dL (65-115) 02/25/22 23:08 Calculated Osmolality 282 mOsm/kg (285-295) L 02/25/22 23:08 Calcium 9.6 mg/dL (8.5-10.5) 02/25/22 23:08 Total Bilirubin 0.4 mg/dL (0.15-1.2) 02/25/22 23:08 AST 18 U/L (0-32) 02/25/22 23:08 ALT 33 U/L (0-33) 02/25/22 23:08 Alkaline Phosphatase 40 IU/L (35-105) 02/25/22 23:08 Total Protein 7.3 g/dL (6.6-8.7) 02/25/22 23:08 Albumin 4.7 g/dL (3.5-5.2) 02/25/22 23:08 Globulin 2.6 g/dL (1.3-4.6) 02/25/22 23:08 Lipase 28 U/L (13-60) 02/25/22 23:08 HCG, Qual Negative (Negative) 02/25/22 23:08 Urine Color Yellow (Yellow) 02/26/22 00:25 Urine Appearance Cloudy (CLEAR) 02/26/22 00:25 Urine pH 8 (5-7) H 02/26/22 00:25 Ur Specific [place] 1.010 (1.005-1.030) 02/26/22 00:25 Urine Protein Neg (Negative) 02/26/22 00:25 Urine Glucose (UA) Norm (Normal) 02/26/22 00:25 Urine Ketones Negative (Negative) 02/26/22 00:25 Urine Blood Neg (Negative) 02/26/22 00:25 Urine Nitrate Negative (Negative) 02/26/22 00:25 Urine Bilirubin Neg (Negative) 02/26/22 00:25 Prot Sulfosalicylic Acd Negative (Negative) 02/26/22 00:25 Urine Urobilinogen Neg mg/dL (Negative) 02/26/22 00:25 Ur Leukocyte Esterase Negative (Negative) 02/26/22 00:25 Discharge Plan Discharge Patient Disposition: Home Clinical Impression: Abdominal pain Condition: Stable Prescriptions: New ondansetron 4 mg tablet,disintegrating 4 mg PO Q6H PRN (Reason: nausea and vomiting) Qty: 14 0RF oxycodone 5 mg tablet 5 mg PO Q12H PRN (Reason: pain) Qty: 10 0RF No Action acetaminophen [Tylenol] 325 mg Tablet 325 mg PO QID PRN (Reason: Pain) 0RF Discharge Orders: Discharge ED (Routine); Ordered 02/26/22 Ordered By: Marcelo Irby Referrals: Carline Orlando, [employer]OO[employer]ICATOR [Primary Care Provider] - Discharge Diet: Advance as tolerated Discharge Activity: Resume usual activity Patient Instructions: Abdominal Pain (ED), Opioid Safety Coding Level of Care Code 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
[2022-02-26 02:30] VITALS: BP 131/100; PULSE 81; RESP 17; O2SAT 96
--- NOTE | 2022-02-26 02:34 | CTR_ITS ---
PROCEDURE INFORMATION: Exam: CT Abdomen And Pelvis Without Contrast Exam date and time: 02/26/2022 2:47 AM Age: 26 years old Clinical indication: Abdominal pain; Localized; Prior surgery; Surgery date: 3-7 days post-operative; Surgery type: Partial hysterectomy 02/22/2022. Patient HX: New onset of lower abd/pelvic pain since hysterectomy on 02/22/2022. ; Additional info: Abd pain TECHNIQUE: Imaging protocol: Computed tomography of the abdomen and pelvis without contrast. Radiation optimization: All CT scans at this facility use at least one of these dose optimization techniques: automated exposure control; mA and/or kV adjustment per patient size (includes targeted exams where dose is matched to clinical indication); or iterative reconstruction. COMPARISON: CT abdomen pelvis con [id number] 12/09/2021 9:14 PM RADIATION DOSE METRICS: Total DLP (mGy-cm): 1256.46 FINDINGS: Liver: There is mild hypoattenuation of the hepatic parenchyma compatible with fatty infiltration. Gallbladder and bile ducts: Status post cholecystectomy. Pancreas: Normal. No ductal dilation. Spleen: Normal. No splenomegaly. Adrenal glands: Normal. No mass. Kidneys and ureters: Normal. No hydronephrosis. Stomach and bowel: Unremarkable. No obstruction. No mucosal thickening. Appendix: No evidence of appendicitis. Intraperitoneal space: Unremarkable. No free air. No significant fluid collection. Vasculature: Unremarkable. No abdominal aortic aneurysm. Lymph nodes: Unremarkable. No enlarged lymph nodes. Urinary bladder: Unremarkable as visualized. Reproductive: There are some hazy in strandy opacity seen adjacent to the vaginal cuff in this patient is status post hysterectomy. The ovaries are visualized in the CT examination. There is a hypoattenuation cystic mass seen associated with the right ovary measuring 3.4 cm in diameter compatible with a benign or functional ovarian cyst. There are small gas densities and some haziness seen in the properitoneal pelvic fat and fascia likely representing postoperative changes from recent partial hysterectomy. Bones/joints: Unremarkable. No acute fracture. Soft tissues: Unremarkable. CT/CT abdomen pelvis con [id number] IMPRESSION: 1. Status post recent partial hysterectomy with some strandy and hazy opacity seen in the pelvic fascia adjacent to the vaginal cuff and strandy and hazy opacities and gas densities seen in the properitoneal fat and fascia of the anterior pelvis compatible with postoperative changes. 2. The ovaries are visualized on the CT examination. Probable benign or functional right ovarian cyst measuring 3.4 cm in diameter. 3. Mild fatty infiltration of the liver
[2022-02-26 02:40] VITALS: RESP 18
[2022-02-26 03:29] VITALS: BP 144/87; PULSE 81; RESP 16; O2SAT 97
--- NOTE | 2022-02-26 23:03 | USR_ITS ---
PROCEDURE INFORMATION: Exam: US Nonobstetric Pelvis; Complete Exam date and time: 02/26/2022 1:07 AM Age: 26 years old Clinical indication: Abdominal pain; Other: Generalized; Prior surgery; Surgery date: 3-7 days post-operative; Surgery type: Hysterectomy; Additional info: Post op hyster TECHNIQUE: Imaging protocol: Transabdominal pelvic nonobstetric ultrasound. Complete exam. Real time ultrasound with image documentation. COMPARISON: US pelvic with transvaginal 01/11/2022 9:34 AM FINDINGS: Uterus: Uterus is absent Right ovary/adnexa: Status post oophorectomy Left ovary/adnexa: Status post oophorectomy Intraperitoneal space: No intraperitoneal fluid. Urinary bladder: Normal. US/US pelvic limited [id number] IMPRESSION: No acute findings.
== END 2022-02-26 03:30 | disposition home or self-care (01) ==
PROVIDERS: Emergency Provider Emergency Medicine; PCP Nurse Practitioner Family
DX: R10.9 Unspecified abdominal pain (principal); Z87.891 Personal history of nicotine dependence
CPT/HCPCS: 74176; 76857; 80053; 81003; 83690; 84703; 85025; 96374; 96375; 96376; 99285; J2270; J2405; J7030

== ENCOUNTER 2022-03-09 12:40 | Emergency (ER) | payer BC, MEDICAID, SELFPAY ==
[2022-03-09 12:50] VITALS: BP 149/92; PULSE 87; RESP 18; TEMP 36.8; O2SAT 97; BMI 37.5
[2022-03-09 14:22] LABS: Basophils # 0.1 10^3/uL (0.0-0.1); Basophils % 0.8 %; Eosinophils # 0.2 10^3/uL (0.0-0.8); Eosinophils % 2.6 %; Hematocrit 46.5 % (37.0-47.0); Hemoglobin 15.8 g/dL (11.5-15.3); Lymphocytes # 1.8 10^3/uL (0.8-4.8); Lymphocytes % 20.7 %; Mean Corpuscular Hemoglobin 30.2 pg (28.0-34.0); Mean Corpuscular Volume 88.9 fl (81-99); Mean Platelet Volume 12.5 fL (7.4-10.4); Monocytes # 0.6 10^3/uL (0.2-0.9); Monocytes % 6.7 %; Neutrophils # 6.07 10^3/uL (1.8-7.7); Nucleated Red Blood Cells % 0 %; Platelet Count 224 10^3/cmm (130-400); Red Blood Count 5.23 10^6/uL (4.1-5.3); Red Cell Distribution Width 11.9 % (12.1-15.1); White Blood Count 8.8 10^3/uL (4.0-10.0)
[2022-03-09 14:39] LABS: Alanine Aminotransferase 32 U/L (0-33); Albumin Level 4.7 g/dL (3.5-5.2); Alkaline Phosphatase 45 IU/L (35-105); Anion Gap 16.2 (5-19); Aspartate Amino Transferase 17 U/L (0-32); Blood Urea Nitrogen 9 mg/dL (6-20); Calcium 9.7 mg/dL (8.5-10.5); Carbon Dioxide 25 mmol/L (22-29); Chloride 102 mmol/L (98-107); Globulin 2.8 g/dL (1.3-4.6); Glomerular Filtration Rate 150.3 mL/min (90-130); Glucose 103 mg/dL (65-115); Osmolality Calculated 287 mOsm/kg (285-295); Potassium 4.2 mmol/L (3.5-5.1); Sodium 139 mmol/L (136-145); Total Bilirubin 0.5 mg/dL (0.15-1.2); Total Protein 7.5 g/dL (6.6-8.7)
--- NOTE | 2022-03-09 15:01 | CTR_ITS ---
PROCEDURE INFORMATION: Exam: CT Abdomen And Pelvis Without Contrast Exam date and time: 03/09/2022 4:36 PM Age: 26 years old Clinical indication: Abdominal pain; Flank; Left; Prior surgery; Surgery date: 6+ months; Surgery type: See below; Additional info: L abdominal pain/flank pain, recent pattern carrier sug/hysterectomy TECHNIQUE: Imaging protocol: Computed tomography of the abdomen and pelvis without contrast. Axial, coronal and sagittal reformatted images were created and reviewed. Radiation optimization: All CT scans at this facility use at least one of these dose optimization techniques: automated exposure control; mA and/or kV adjustment per patient size (includes targeted exams where dose is matched to clinical indication); or iterative reconstruction. COMPARISON: CT abdomen pelvis wo con [id number] 02/26/2022 2:47 AM RADIATION DOSE METRICS: Total DLP (mGy-cm): 887.14 FINDINGS: Liver: Mild hepatomegaly. Diffuse hepatic steatosis. Gallbladder and bile ducts: No radiodense gallstones. No biliary ductal dilatation. Pancreas: Unremarkable. Spleen: Unremarkable. Adrenal glands: Normal. No mass. Kidneys and ureters: Punctate nonobstructing left renal calculus. No hydronephrosis. Stomach and bowel: No bowel wall thickening. No obstruction. No pneumatosis. Appendix: Normal. Intraperitoneal space: No free fluid. No organized fluid collection. No free air. Vasculature: Unremarkable. No aneurysm. Lymph nodes: No pathologically enlarged lymph nodes. Urinary bladder: Mild circumferential urinary bladder wall thickening, likely secondary to underdistention. Reproductive: Status post hysterectomy. Bones/joints: No acute osseous abnormality. Soft tissues: Unremarkable. CT/CT abdomen pelvis wo con [id number] IMPRESSION: 1. Limited noncontrast examination without CT evidence of acute intra-abdominal or pelvic pathology. 2. Additional findings, as above.
--- NOTE | 2022-03-09 15:52 | ED_ITS ---
Documented by User: KUSH Hanley 03/09/22 16:18 HPI - Abdominal Pain General: Chief Complaint: Urogenital-Female Stated Complaint: Sharp abd pain Time Seen by Provider: 03/09/22 15:36 Source: patient Mode of arrival: ambulatory Limitations: no limitations History of Present Illness: Patient is a 26-year-old female who presents to ED today with a complaint of left flank pain and left-sided abdominal pains. Patient states she is status post laparoscopic hysterectomy 2 weeks ago by a [employer] surgeon in [place]. Patient states hysterectomy was performed secondary to endometriosis and menorrhagia. She states immediately following the surgery she had abdominal pains for about 3 days which she felt like was normal postop discomforts. She states these did improve as expected and had several days where she was no longer experiencing much discomfort. She states a few days ago she began developing pain throughout the left side of her abdomen and her left flank. She is concerned because she does complain of some dysuria and discoloration to her urine and is worried about a possible kidney infection. Patient is not having any vaginal discharge, bleeding or vaginal odor. MD elicited complaint: abdominal pain Onset (ago): day(s) Pain Consistency: constant Location: LUQ, LLQ and L flank Severity: moderate Quality: sharp Exacerbating factors: nothing Relieving factors: nothing Associated Symptoms: Reports dysuria; Denies change in bowel habits, chills, diarrhea, fever(s), hematuria, nausea and vomiting Related Data: Date of Last Menstrual Period: 07/11/20 Patient : No Review of Systems Const: Denies: fever(s), chills, body aches, fatigue or malaise Card: Denies: chest pain Resp: Denies: dyspnea GI: Reports: abdominal pain; Denies: nausea, vomiting, diarrhea or change in bowel habits : Reports: flank pain, dysuria and pelvic pain; Denies: hematuria, vaginal bleeding or vaginal discharge Musc: Denies: neck pain, back pain, extremity pain or joint pain Skin/Breast: Denies: rash Neuro: Denies: headache(s), numbness in extremities, weakness in extremities, sensory changes or dizziness PFS ED PFSH: Medical History History of gestational diabetes GDM with 6th No pertinent past medical history neghx: htn, dm, thyroid, dvt/pe PCP: Carline at [facility] Pharyngitis with viral syndrome Surgical History H/O tubal ligation (01/19/20) At time of C/S. Performed by Dr. Hayes at [facility] in [place], [place] History of hysteroscopy (06/09/20) With D&C and polypectomy. Performed by Dr. Hayes at [facility] in [place], [place]. S/P section (01/31/17) Repeat low transverse section. Performed by Dr. You Hayes at [facility] in [place], [place]. S/P section (08/17/15) Low transverse section (documented). Diagnosis: Nonreassuring heart tones. Performed by Dr. Ashanti Jha at [facility] in [place], [place]. Single-layer closure of uterus. S/P cholecystectomy (~2010) Laparoscopic. Performed in [place], [place] S/P endometrial ablation (09/22/20) Hysteroscopy, D&C, NovaSure endometrial ablation. Performed by Dr. Hayes at [facility] in [place], [place] S/P tonsillectomy and adenoidectomy (~2002) Age 8. Performed in [place], [place] Status post section (01/19/20) RLTCS with BTL. Performed by Dr. Hayes at [facility] in [place], [place] Family History Father Hyperlipidemia Grandmother Diabetes paternal Hypertension Maternal Family/Other Diabetes paternal uncle, paternal aunt, paternal cousin Ovarian cancer paternal aunt Thyroid disease paternal aunt Grandfather Diabetes paternal Colon cancer maternal Thyroid disease Maternal Social History Smoking and tobacco status: former smoker Quit status (tobacco): has quit using tobacco Year quit tobacco: 08/2019 Former quit date comment: Originally smoking 1 pack/day Alcohol intake: never Female Reproductive History: Date of last menstrual period: 07/11/20 Physical Exam Const: COMMON NORMALS: no acute distress, patient oriented x3, no limitations and alert GENERAL APPEARANCE: cooperative NUTRITIONAL APPEARANCE: obese ORIENTATION/CONSCIOUSNESS: Yes awake, Yes oriented to person, Yes oriented to place and Yes oriented to time HENMT: COMMON NORMALS: normocephalic and atraumatic HEAD & SCALP: normal to inspection, normocephalic and atraumatic Resp: COMMON NORMALS: normal respiratory effort and clear to auscultation aiden aterally AUSCULTATION: clear to auscultation bilaterally Cardio: COMMON NORMALS: regular rate and regular rhythm RATE: regular rate RHYTHM: regular rhythm GI: COMMON NORMALS: Normal to inspection, nondistended, normoactive bowel sounds present, Soft to palpation, No hepatosplenomegaly present and no masses INSPECTION: Yes normal to inspection AUSCULTATION: Yes normoactive bowel sounds PALPATION: Yes Soft to palpation, Yes Tenderness to palpation present (GI) (throughout L side of abdomen), No Rigid due to palpation and Yes No hepatosplenomegaly present OTHER: trocar sites from recent laparoscopic hysterectomy appear well-healed without evidence for infection : BLADDER/KIDNEY EXAM: Yes CVA tenderness on the left Back/Pelvis: COMMON NORMALS: thoracic and lumbar spine normal to inspection, no thoracic nor lumbar tenderness and thoraco-lumbar ROM normal GENERAL BACK: Yes CVA tenderness Extremity: COMMON NORMALS: normal to inspection GENERAL: Yes normal exam except as noted Neuro: DENEEN COMA SCALE: document GCS findings Dene[place] coma scale eye opening: Spontaneous [place] coma scale verbal response: Orientated [place] coma scale motor response: Obey commands [place] coma scale total score: 15 COMMON NORMALS: patient oriented x3, moves all extremities, no focal motor deficits, no sensory deficits noted and gait normal SENSORIUM/ORIENTATION: Yes alert, Yes oriented to person, Yes oriented to place and Yes oriented to time Skin: COMMON NORMALS: no rashes or lesions noted GENERAL SKIN EXAM: no rashes or lesions noted Course Vital Signs: Vital signs: Vital Signs Temperature 98.1 F 03/09/22 17:38 Pulse Rate 76 03/09/22 17:38 Respiratory Rate 16 03/09/22 17:54 Blood Pressure 121/82 03/09/22 17:38 Pulse Oximetry 99 03/09/22 17:38 Oxygen Delivery Me thod 03/09/22 17:38 MDM - Abdominal Pain Lab Data : 03/09/22 13:54 03/09/22 13:54 Labs/Radiology: Radiology Impressions Abdomen/Pelvis CT 03/09/22 15:01 IMPRESSION: 1. Limited noncontrast examination without CT evidence of acute intra-abdominal or pelvic pathology. 2. Additional findings, as above. Laboratory Results WBC 8.8 10^3/uL (4.0-10.0) 03/09/22 13:54 RBC 5.23 10^6/uL (4.1-5.3) 03/09/22 13:54 Hgb 15.8 g/dL (11.5-15.3) H 03/09/22 13:54 Hct 46.5 % (37.0-47.0) 03/09/22 13:54 MCV 88.9 fl (81-99) 03/09/22 13:54 MCH 30.2 pg (28.0-34.0) 03/09/22 13:54 MCHC 34.0 g/dL (30.0-36.0) 03/09/22 13:54 RDW 11.9 % (12.1-15.1) L 03/09/22 13:54 Plt Count 224 10^3/cmm (130-400) 03/09/22 13:54 MPV 12.5 fL (7.4-10.4) H 03/09/22 13:54 Neut % (Auto) 69.0 % 03/09/22 13:54 Lymph % (Auto) 20.7 % 03/09/22 13:54 [place] % (Auto) 6.7 % 03/09/22 13:54 Eos % (Auto) 2.6 % 03/09/22 13:54 Baso % (Auto) 0.8 % 03/09/22 13:54 Neut # (Auto) 6.07 10^3/uL (1.8-7.7) 03/09/22 13:54 Lymph # (Auto) 1.8 10^3/uL (0.8-4.8) 03/09/22 13:54 [place] # (Auto) 0.6 10^3/uL (0.2-0.9) 03/09/22 13:54 Eos # (Auto) 0.2 10^3/uL (0.0-0.8) 03/09/22 13:54 Baso # (Auto) 0.1 10^3/uL (0.0-0.1) 03/09/22 13:54 Nucleated RBC % (auto) 0 % 03/09/22 13:54 Nucleated RBCs # 0.0 /100WBC 03/09/22 13:54 Sodium 139 mmol/L (136-145) 03/09/22 13:54 Potassium 4.2 mmol/L (3.5-5.1) 03/09/22 13:54 Chloride 102 mmol/L (98-107) 03/09/22 13:54 Carbon Dioxide 25 mmol/L (22-29) 03/09/22 13:54 Anion Gap 16.2 (5-19) 03/09/22 13:54 BUN 9 mg/dL (6-20) 03/09/22 13:54 Creatinine 0.5 mg/dL (0.5-0.9) 03/09/22 13:54 GFR Calculation 150.3 mL/min (90-130) H 03/09/22 13:54 Glucose 103 mg/dL (65-115) 03/09/22 13:54 Calculated Osmolality 287 mOsm/kg (285-295) 03/09/22 13:54 Calcium 9.7 mg/dL (8.5-10.5) 03/09/22 13:54 Total Bilirubin 0.5 mg/dL (0.15-1.2) 03/09/22 13:54 AST 17 U/L (0-32) 03/09/22 13:54 ALT 32 U/L (0-33) 03/09/22 13:54 Alkaline Phosphatase 45 IU/L (35-105) 03/09/22 13:54 Total Protein 7.5 g/dL (6.6-8.7) 03/09/22 13:54 Albumin 4.7 g/dL (3.5-5.2) 03/09/22 13:54 Globulin 2.8 g/dL (1.3-4.6) 03/09/22 13:54 Urine Color Yellow (Yellow) 03/09/22 16:16 Urine Appearance Sl hazy (CLEAR) 03/09/22 16:16 Urine pH 5 (5-7) 03/09/22 16:16 Ur Specific [place] 1.030 (1.005-1.030) 03/09/22 16:16 Urine Protein Neg (Negative) 03/09/22 16:16 Urine Glucose (UA) Norm (Normal) 03/09/22 16:16 Urine Ketones Negative (Negative) 03/09/22 16:16 Urine Blood 2+ (Negative) H 03/09/22 16:16 Urine Nitrate Negative (Negative) 03/09/22 16:16 Urine Bilirubin Neg (Negative) 03/09/22 16:16 Urine Urobilinogen Norm mg/dL (Negative) 03/09/22 16:16 Ur Leukocyte Esterase Trace (Negative) H 03/09/22 16:16 Urine RBC 10-15 /hpf (0-2) H 03/09/22 16:16 Urine WBC 10-15 /hpf (0-5) H 03/09/22 16:16 Ur Squamous Epith Cells 5-10 /hpf (0-5) H 03/09/22 16:16 Amorphous Sediment Not Reportable 03/09/22 16:16 Urine Bacteria 3+ /hpf (NONE) H 03/09/22 16:16 Discharge Plan Discharge Patient Disposition: Home Clinical Impression: UTI (urinary tract infection) Qualifiers: Urinary tract infection type: acute cystitis Hematuria presence: with hematuria Qualified Code(s): N30.01 - Acute cystitis with hematuria Condition: Stable Prescriptions: New cefdinir 300 mg capsule 300 mg PO BID 10 Days Qty: 20 0RF ondansetron 4 mg tablet,disintegrating 4 mg PO Q8H PRN (Reason: nausea and vomiting) Qty: 20 0RF No Action acetaminophen [Tylenol] 325 mg Tablet 325 mg PO QID PRN (Reason: Pain) ondansetron 4 mg tablet,disintegrating 4 mg PO Q6H PRN (Reason: nausea and vomiting) Qty: 14 0RF oxycodone 5 mg tablet 5 mg PO Q12H PRN (Reason: pain) Qty: 10 0RF Discharge Orders: Discharge ED (Routine); Ordered 03/09/22 Ordered By: Margarito Singh Referrals: Carline Orlando FNP [Primary Care Provider] - Discharge Diet: Regular Discharge Activity: Increase activity as tolerated Patient Instructions: Urinary Tract Infection in Women (DC) Activity Restrictions/Additional Instructions: Follow-up with medical provider as directed in the next 7 to 10 days for reevaluation. Take medications as prescribed. Return to the ER or your medical provider if condition worsens. Please read and understand discharge instructions. Thank you for choosing [facility] for your healthcare needs today. Please realize this is an emergency room and that we are providing you with a medical screening exam and this may not be complete and all inclusive of all the testing and or work up that you may need to determine your ailment or severity of your illness. It is very important that you follow up as instructed or that you return to the Emergency Department should you have concerns or if your condi tion changes or worsens in any way. Stand Alone Forms: Work/School Release Sign Out Sign Out Data: Patient Sign Out occurred on 03/09/22 at 17:15. Patient's care was discussed, and care was transferred from to KUSH Lujan. Coding Level of Care Code ED Green Pipefitter for Chg 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 Documented by User: KUSH Lujan 03/09/22 23:38 HPI - Abdominal Pain General: Chief Complaint: Urogenital-Female Stated Complaint: Sharp abd pain Time Seen by Provider: 03/09/22 15:36 [facility] ED PFSH: Medical History History of gestational diabetes GDM with 6th No pertinent past medical history neghx: htn, dm, thyroid, dvt/pe PCP: Carline at [facility] Pharyngitis with viral syndrome Surgical History H/O tubal ligation (01/19/20) At time of C/S. Performed by Dr. Hayes at [facility] in [place], [place] History of hysteroscopy (06/09/20) With D&C and polypectomy. Performed by Dr. Hayes at [facility] in [place], [place]. S/P section (01/31/17) Repeat low transverse section. Performed by Dr. You Hayes at [facility] in [place], [place]. S/P section (08/17/15) Low transverse section (documented). Diagnosis: Nonreassuring heart tones. Performed by Dr. Ashanti Jha at [facility] in [place], [place]. Single-layer closure of uterus. S/P cholecystectomy (~2010) Laparoscopic. Performed in [place], [place] S/P endometrial ablation (09/22/20) Hysteroscopy, D&C, NovaSure endometrial ablation. Performed by Dr. Hayes at [facility] in [place], [place] S/P tonsillectomy and adenoidectomy (~2002) Age 8. Performed in [place], [place] Status post section (01/19/20) RLTCS with BTL. Performed by Dr. Hayes at [facility] in [place], [place] Family History Father Hyperlipidemia Grandmother Diabetes paternal Hypertension Maternal Family/Other Diabetes paternal uncle, paternal aunt, paternal cousin Ovarian cancer paternal aunt Thyroid disease paternal aunt Grandfather Diabetes paternal Colon cancer maternal Thyroid disease Maternal Social History Smoking and tobacco status: former smoker Quit status (tobacco): has quit using tobacco Year quit tobacco: 08/2019 Former quit date comment: Originally smoking 1 pack/day Alcohol intake: never Physical Exam Neuro: DENEEN COMA SCALE: document GCS findings [place] coma scale total score: 15 Course Vital Signs: Vital signs: Vital Signs Temperature 98.1 F 03/09/22 17:38 Pulse Rate 76 03/09/22 17:38 Respiratory Rate 16 03/09/22 17:54 Blood Pressure 121/82 03/09/22 17:38 Pulse Oximetry 99 03/09/22 17:38 Oxygen Delivery Me thod 03/09/22 17:38 MDM - Abdominal Pain Medical Decision Making Patient is a 26-year-old female comes to the ED with left flank and left-sided abdominal pain. Vitals are stable. Exam of patient shows some right CVA tenderness but rest of exam is benign. She appears nontoxic and in no acute distress or pain. Labs are unremarkable. UA shows some blood, white blood cells and bacteria. CT of abdomen pelvis showed no acute findings, but some bl adder wall thickening noted. Given patient's CT of some bladder wall thickening and UA findings someone to treat her for UTI. She was given a dose of cefdinir here in the ED and discharged home with a prescription for cefdinir and some tramadol for pain. Follow-up with PCP in the next week for reevaluation. Return to ED precautions given. Patient understood and agreed with plan. Lab Data I reviewed the patient's lab results. : 03/09/22 13:54 03/09/22 13:54 Labs/Radiology: Radiology Impressions Abdomen/Pelvis CT 03/09/22 15:01 IMPRESSION: 1. Limited noncontrast examination without CT evidence of acute intra-abdominal or pelvic pathology. 2. Additional findings, as above. Laboratory Results WBC 8.8 10^3/uL (4.0-10.0) 03/09/22 13:54 RBC 5.23 10^6/uL (4.1-5.3) 03/09/22 13:54 Hgb 15.8 g/dL (11.5-15.3) H 03/09/22 13:54 Hct 46.5 % (37.0-47.0) 03/09/22 13:54 MCV 88.9 fl (81-99) 03/09/22 13:54 MCH 30.2 pg (28.0-34.0) 03/09/22 13:54 MCHC 34.0 g/dL (30.0-36.0) 03/09/22 13:54 RDW 11.9 % (12.1-15.1) L 03/09/22 13:54 Plt Count 224 10^3/cmm (130-400) 03/09/22 13:54 MPV 12.5 fL (7.4-10.4) H 03/09/22 13:54 Neut % (Auto) 69.0 % 03/09/22 13:54 Lymph % (Auto) 20.7 % 03/09/22 13:54 [place] % (Auto) 6.7 % 03/09/22 13:54 Eos % (Auto) 2.6 % 03/09/22 13:54 Baso % (Auto) 0.8 % 03/09/22 13:54 Neut # (Auto) 6.07 10^3/uL (1.8-7.7) 03/09/22 13:54 Lymph # (Auto) 1.8 10^3/uL (0.8-4.8) 03/09/22 13:54 [place] # (Auto) 0.6 10^3/uL (0.2-0.9) 03/09/22 13:54 Eos # (Auto) 0.2 10^3/uL (0.0-0.8) 03/09/22 13:54 Baso # (Auto) 0.1 10^3/uL (0.0-0.1) 03/09/22 13:54 Nucleated RBC % (auto) 0 % 03/09/22 13:54 Nucleated RBCs # 0.0 /100WBC 03/09/22 13:54 Sodium 139 mmol/L (136-145) 03/09/22 13:54 Potassium 4.2 mmol/L (3.5-5.1) 03/09/22 13:54 Chloride 102 mmol/L (98-107) 03/09/22 13:54 Carbon Dioxide 25 mmol/L (22-29) 03/09/22 13:54 Anion Gap 16.2 (5-19) 03/09/22 13:54 BUN 9 mg/dL (6-20) 03/09/22 13:54 Creatinine 0.5 mg/dL (0.5-0.9) 03/09/22 13:54 GFR Calculation 150.3 mL/min (90-130) H 03/09/22 13:54 Glucose 103 mg/dL (65-115) 03/09/22 13:54 Calculated Osmolality 287 mOsm/kg (285-295) 03/09/22 13:54 Calcium 9.7 mg/dL (8.5-10.5) 03/09/22 13:54 Total Bilirubin 0.5 mg/dL (0.15-1.2) 03/09/22 13:54 AST 17 U/L (0-32) 03/09/22 13:54 ALT 32 U/L (0-33) 03/09/22 13:54 Alkaline Phosphatase 45 IU/L (35-105) 03/09/22 13:54 Total Protein 7.5 g/dL (6.6-8.7) 03/09/22 13:54 Albumin 4.7 g/dL (3.5-5.2) 03/09/22 13:54 Globulin 2.8 g/dL (1.3-4.6) 03/09/22 13:54 Urine Color Yellow (Yellow) 03/09/22 16:16 Urine Appearance Sl hazy (CLEAR) 03/09/22 16:16 Urine pH 5 (5-7) 03/09/22 16:16 Ur Specific [place] 1.030 (1.005-1.030) 03/09/22 16:16 Urine Protein Neg (Negative) 03/09/22 16:16 Urine Glucose (UA) Norm (Normal) 03/09/22 16:16 Urine Ketones Negative (Negative) 03/09/22 16:16 Urine Blood 2+ (Negative) H 03/09/22 16:16 Urine Nitrate Negative (Negative) 03/09/22 16:16 Urine Bilirubin Neg (Negative) 03/09/22 16:16 Urine Urobilinogen Norm mg/dL (Negative) 03/09/22 16:16 Ur Leukocyte Esterase Trace (Negative) H 03/09/22 16:16 Urine RBC 10-15 /hpf (0-2) H 03/09/22 16:16 Urine WBC 10-15 /hpf (0-5) H 03/09/22 16:16 Ur Squamous Epith Cells 5-10 /hpf (0-5) H 03/09/22 16:16 Amorphous Sediment Not Reportable 03/09/22 16:16 Urine Bacteria 3+ /hpf (NONE) H 03/09/22 16:16 Discharge Plan Discharge Patient Disposition: Home Clinical Impression: UTI (urinary tract infection) Qualifiers: Urinary tract infection type: acute cystitis Hematuria presence: with hematuria Qualified Code(s): N30.01 - Acute cystitis with hematuria Condition: Stable Prescriptions: New cefdinir 300 mg capsule 300 mg PO BID 10 Days Qty: 20 0RF ondansetron 4 mg tablet,disintegrating 4 mg PO Q8H PRN (Reason: nausea and vomiting) Qty: 20 0RF No Action acetaminophen [Tylenol] 325 mg Tablet 325 mg PO QID PRN (Reason: Pain) ondansetron 4 mg tablet,disintegrating 4 mg PO Q6H PRN (Reason: nausea and vomiting) Qty: 14 0RF oxycodone 5 mg tablet 5 mg PO Q12H PRN (Reason: pain) Qty: 10 0RF Discharge Orders: Discharge ED (Routine); Ordered 03/09/22 Ordered By: Margarito Singh Referrals: Carline Orlando VOLUNTEER MANAGER [Primary Care Provider] - Discharge Diet: Regular Discharge Activity: Increase activity as tolerated Patient Instructions: Urinary Tract Infection in Women (DC) Activity Restrictions/Additional Instructions: Follow-up with medical provider as directed in the next 7 to 10 days for reevaluation. Take medications as prescribed. Return to the ER or your medical provider if condition worsens. Please read and understand discharge instructions. Thank you for choosing [facility] for your healthcare needs today. Please realize this is an emergency room and that we are providing you with a medical screening exam and this may not be complete and all inclusive of all the testing and or work up that you may need to determine your ailment or severity of your illness. It is very important that you follow up as instructed or that you return to the Emergency Department should you have concerns or if your condition changes or worsens in any way. Stand Alone Forms: Work/School Release Sign Out Sign Out Data: Patient Sign Out occurred on 03/09/22 at 17:15. Patient's care was discussed, and care was transferred from to KUSH Lujan. Coding Level of Care Code ED Green Pipefitter for Chandrakantg 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
[2022-03-09 16:18] VITALS: BP 149/92; PULSE 87; RESP 18; TEMP 36.8; O2SAT 97
[2022-03-09 16:56] VITALS: BP 149/92; PULSE 87; RESP 18; TEMP 36.8; O2SAT 97
[2022-03-09 17:02] LABS: Glucose Urine UA Norm (Normal); Ketones Urine Negative (Negative); Protein Urine Neg (Negative); Urine Appearance SL Hazy (CLEAR); Urine Color Yellow (Yellow); pH Urine 5 (5-7)
[2022-03-09 17:03] LABS: Add Urine Culture? Yes; Add Urine Microscopic? YES; Bacteria Urine 3+ /hpf; Bilirubin Urine Neg (Negative); Blood Urine 2+ (Negative); Leukocyte Esterase Urine Trace (Negative); Nitrate Urine Negative (Negative); Urobilinogen Urine Norm (Negative)
[2022-03-09 17:38] VITALS: BP 121/82; PULSE 76; RESP 16; TEMP 36.7; O2SAT 99
[2022-03-09] MEDS: cefdinir 300 MG CAPSULE PO (17:51)
[2022-03-09 17:54] VITALS: RESP 16
[2022-03-09] MEDS: morphine 4 mg/mL SDV 1 mL IVP (17:54)
[2022-03-09] MEDS: ondansetron 2 mg/ML SDV 2 mL 4 MG IVP (17:56)
== END 2022-03-09 18:09 | disposition home or self-care (01) ==
PROVIDERS: Physician Assistant; Emergency Provider Physician Assistant; PCP Nurse Practitioner Family
DX: N30.01 Acute cystitis with hematuria (principal); Z87.891 Personal history of nicotine dependence
CPT/HCPCS: 36415; 74176; 80053; 81001; 85025; 87077; 87086; 87186; 96374; 96375; 99285; J2270; J2405

== ENCOUNTER 2022-04-25 11:28 | Outpatient (CLI) | payer BC, MEDICAID, SELFPAY ==
--- NOTE | 2022-04-25 11:40 | XRR_ITS ---
PROCEDURE INFORMATION: Exam: XR Right Knee Exam date and time: 04/25/2022 11:49 AM Age: 27 years old Clinical indication: Pain and injury or trauma; Fall; Blunt trauma; Knee; Right; Injury date: Week ago; Additional info: R knee pain TECHNIQUE: Imaging protocol: Radiologic exam of the Right knee. Views: 3 views. COMPARISON: No relevant prior studies available. FINDINGS: Bones/joints: Normal. Soft tissues: Normal. XR/XR knee RT 3V* [id number] IMPRESSION: No significant abnormality.
== END 2022-04-25 11:29 | disposition home or self-care (01) ==
LOC: RAD 11:31
PROVIDERS: PCP Nurse Practitioner Family; Visit Provider Family Medicine
DX: M25.561 Pain in right knee (principal)
CPT/HCPCS: 73562

== ENCOUNTER 2022-09-05 09:27 | Emergency (ER) | payer BC, MEDICAID, SELFPAY ==
[2022-09-05 09:38] VITALS: BP 132/87; PULSE 90; RESP 16; TEMP 36.4; O2SAT 97
--- NOTE | 2022-09-05 10:07 | PC.NURSE ---
ATTEMPTED TO COLLECT UA FROM PT SHE DENIES BEING ABLE TO PROVIDE UA AT THIS TIME.
--- NOTE | 2022-09-05 10:26 | CT_ITS ---
WS: [id number] CT ABDOMEN AND PELVIS NONCONTRAST HISTORY: right flank pain TECHNIQUE: Imaging performed through the abdomen and pelvis. Coronal and sagittal reformats are submi tted. All CT scans at [facility] use at least one of these dose optimization techniques: auto mated exposure control; mA and/or kV adjustment per patient size (includes targeted exams where dose is matched to clinical indication); or iterative reconstruction. DLP: 879.30 mGy.cm COMPARISON: 03/09/2022 Lower thorax: Very slight atelectasis at the LEFT lung base. No pneumonia. Normal heart. Small hiatal hernia. Liver: Normal size liver. No mass or bile duct dilatation. Gallbladder: Prior cholecystectomy. Pancreas: Normal size and attenuation. Normal pancreatic duct. No pancreatitis or mass. Spleen: Normal. Adrenal glands: Normal. No mass. Right kidney: Normal size kidney with no mass or hydronephrosis. Left kidney: Normal size kidney. Nonobstructing calcifications in the lower pole. No ureteral dilatat ion or calcification. Aorta: Normal abdominal aorta, no aneurysm or atherosclerosis. No free fluid, intraperitoneal air or significant lymphadenopathy. GI tract: Normal appendix. No GI tract obstruction or diverticulosis. Abdominal wall: Negative. No hernia. Pelvis: Patient is status post hysterectomy. There is a well-circumscribed mass in the RIGHT adnexa w hich is probably the RIGHT ovary measuring 3.6 x 3.0 cm. The LEFT ovary is smaller and probably also present. The uterus is no longer present. No free fluid. Osseous structures: Unremarkable. CT/CT kidney stone [id number] IMPRESSION: 1. No renal stone or obstruction. 2. Bilateral adnexal masses. Most consistent with ovaries. The larger on the R IGHT measures 3.6 x 3.0 cm. No free fluid or adjacent inflammation. 3. Prior cholecystectomy. 4. No ascites.
--- NOTE | 2022-09-05 10:32 | W.ED.ABDPA2 ---
HPI - Abdominal Pain General: Chief Complaint: Abdominal Pain Stated Complaint: lower back and abd pain Time Seen by Provider: 09/05/22 09:55 History of Present Illness: Patient is a 27-year-old female comes to the ED with right flank pain. Symptoms started approximately 3 days ago. She has a history of kidney stones. Past surgical history of hysterectomy. She rates her pain currently an 8 out of 10. Pain initially started in the right lower back and has now migrated more to the right side of the abdomen. She endorses some nausea but denies any emesis. Her urine is becoming more dark and foul-smelling. She has not taken anything for pain this morning. Associated Symptoms: Reports nausea; Denies chills, constipation, diarrhea, dysuria, fever(s), hematochezia, hematuria and vomiting Related Data: Date of Last Menstrual Period: 07/11/20 Review of Systems Const: Denies: fever(s), chills or fatigue Eyes: Denies: change in vision or eye discomfort ENMT: Denies: throat pain, odynophagia, nasal discharge or nasal congestion Card: Denies: chest pain, palpitations, edema, swelling of feet/ankles, dyspnea on exertion or orthopnea Resp: Denies: dyspnea, productive cough or non-productive cough GI: Reports: nausea; Denies: abdominal pain, vomiting, diarrhea, constipation or hematochezia : Reports: flank pain; Denies: dysuria or hematuria Musc: Denies: neck pain, back pain or extremity swelling Skin/Breast: Denies: rash or new lesions Neuro: Denies: headache(s), numbness in extremities or weakness in extremities PFS ED PFSH: Medical History History of gestational diabetes GDM with 6th No pertinent past medical history neghx: htn, dm, thyroid, dvt/pe PCP: Carline at [facility] Pharyngitis with viral syndrome Surgical History H/O tubal ligation (01/19/20) At time of C/S. Performed by Dr. Hayes at [facility] [place] in [place], [place] History of hysteroscopy (06/09/20) With D&C and polypectomy. Performed by Dr. Hayes at [facility] in [place], [place]. S/P section (01/31/17) Repeat low transverse section. Performed by Dr. You Hayes at [facility] in [place], [place]. S/P section (08/17/15) Low transverse section (documented). Diagnosis: Nonreassuring heart tones. Performed by Dr. Ashanti Jha at [facility] in [place], [place]. Single-layer closure of uterus. S/P cholecystectomy (~2010) Laparoscopic. Performed in [place], [place] S/P endometrial ablation (09/22/20) Hysteroscopy, D&C, NovaSure endometrial ablation. Performed by Dr. Hayes at [facility] in [place], [place] S/P tonsillectomy and adenoidectomy (~2002) Age 8. Performed in [place], [place] Status post section (01/19/20) RLTCS with BTL. Performed by Dr. Hayes at [facility] in [place], [place] Family History Father Hyperlipidemia Grandmother Diabetes paternal Hypertension Maternal Family/Other Diabetes paternal uncle, paternal aunt, paternal cousin Ovarian cancer paternal aunt Thyroid disease paternal aunt Grandfather Diabetes paternal Colon cancer maternal Thyroid disease Maternal Social History Smoking and tobacco status: former smoker Female Reproductive History: Date of last menstrual period: 07/11/20 Physical Exam Const: COMMON NORMALS: patient oriented x3 and alert GENERAL APPEARANCE: cooperative and comfortable HENMT: COMMON NORMALS: normocephalic HEAD & SCALP: normocephalic MOUTH: Normal oral and palatal mucosa present THROAT: posterior oropharynx normal and uvula midline Neck/C-Spine: COMMON NORMALS: supple GENERAL: Yes normal visual inspection Resp: COMMON NORMALS: normal respiratory effort, No retractions, No use of accessory muscles and clear to auscultation bilaterally AUSCULTATION: clear to auscultation bilaterally Cardio: COMMON NORMALS: regular rate, regular rhythm, S1 normal heart sound present, S2 normal heart sound present, No gallops present (Cardio), No clicks present (Cardio), No murmurs present (Cardio) and Peripheral pulses 2+ throughout RATE: regular rate RHYTHM: regular rhythm HEART SOUNDS: S1 normal heart sound present and S2 normal heart sound present PERIPHERAL PULSES: Peripheral pulses 2+ throughout GI: COMMON NORMALS: Normal to inspection, nondistended, normoactive bowel sounds present, Soft to palpation, non-tender and no masses PALPATION: Yes Soft to palpation : BLADDER/KIDNEY EXAM: Yes CVA tenderness Back/Pelvis: GENERAL BACK: Yes CVA tenderness CVA tenderness: right LUMBAR SPINE/LOWER BACK: Yes paraspinal muscle tenderness Lumbar paraspinal muscle tenderness: right Extremity: COMMON NORMALS: normal to inspection Neuro: COMMON NORMALS: patient oriented x3 SENSORIUM/ORIENTATION: Yes alert GAIT: Yes Normal gait present Skin: GENERAL SKIN EXAM: dry skin Course Vital Signs: Vital signs: Vital Signs Temperature 97.5 F L 09/05/22 09:38 Pulse Rate 84 09/05/22 13:47 Respiratory Rate 16 09/05/22 13:47 Blood Pressure 131/80 09/05/22 13:47 Pulse Oximetry 99 09/05/22 13:47 Oxygen Delivery Me thod 09/05/22 13:19 MDM - Abdominal Pain Medical Decision Making Patient is a 27-year-old female comes to the ED with a right lower back and right flank pain. She is a history of past kidney stones. Endorses having a little bit of nausea. Patient appears nontoxic in no acute distress or pain. She has some right lumbar paraspinal muscle tenderness and right CVA tenderness but rest of exam is benign. Vitals are stable. CBC, CMP and UA were unremarkable. CT abdomen pelvis shows no kidney stone. Patient's pain is likely due to lower back muscle strain. She was discharged home with a prescription for ibuprofen 800 mg and a muscle relaxer. Told to follow-up with PCP within the next week for reevaluation. Return to ED precautions given. Patient understood and agreed with plan. Lab Data I reviewed the patient's lab results. 09/05/22 10:42 09/05/22 10:42 Labs/Radiology: Radiology Impressions Abdomen/Pelvis CT 09/05/22 10:26 IMPRESSION: 1. No renal stone or obstruction. 2. Bilateral adnexal masses. Most consistent with ovaries. The larger on the RIGHT measures 3.6 x 3.0 cm. No free fluid or adjacent inflammation. 3. Prior cholecystectomy. 4. No ascites. Laboratory Results WBC 7.9 10^3/uL (4.0-10.0) 09/05/22 10:42 RBC 5.07 10^6/uL (4.1-5.3) 09/05/22 10:42 Hgb 15.4 g/dL (11.5-15.3) H 09/05/22 10:42 Hct 45.0 % (37.0-47.0) 09/05/22 10:42 MCV 88.8 fl (81-99) 09/05/22 10:42 MCH 30.4 pg (28.0-34.0) 09/05/22 10:42 MCHC 34.2 g/dL (30.0-36.0) 09/05/22 10:42 RDW 11.9 % (12.1-15.1) L 09/05/22 10:42 Plt Count 199 10^3/cmm (130-400) 09/05/22 10:42 MPV 12.4 fL (7.4-10.4) H 09/05/22 10:42 Neut % (Auto) 66.0 % 09/05/22 10:42 Lymph % (Auto) 25.9 % 09/05/22 10:42 [place] % (Auto) 6.0 % 09/05/22 10:42 Eos % (Auto) 1.5 % 09/05/22 10:42 Baso % (Auto) 0.3 % 09/05/22 10:42 Neut # (Auto) 5.21 10^3/uL (1.8-7.7) 09/05/22 10:42 Lymph # (Auto) 2.0 10^3/uL (0.8-4.8) 09/05/22 10:42 [place] # (Auto) 0.5 10^3/uL (0.2-0.9) 09/05/22 10:42 Eos # (Auto) 0.1 10^3/uL (0.0-0.8) 09/05/22 10:42 Baso # (Auto) 0.0 10^3/uL (0.0-0.1) 09/05/22 10:42 Nucleated RBC % (auto) 0 % 09/05/22 10:42 Nucleated RBCs # 0.0 /100WBC 09/05/22 10:42 Sodium 135 mmol/L (136-145) L 09/05/22 10:42 Potassium 4.3 mmol/L (3.5-5.1) 09/05/22 10:42 Chloride 101 mmol/L (98-107) 09/05/22 10:42 Carbon Dioxide 22 mmol/L (22-29) 09/05/22 10:42 Anion Gap 16.3 (5-19) 09/05/22 10:42 BUN 11 mg/dL (6-20) 09/05/22 10:42 Creatinine 0.5 mg/dL (0.5-0.9) 09/05/22 10:42 GFR Calculation 149.1 mL/min (90-130) H 09/05/22 10:42 Glucose 89 mg/dL (65-115) 09/05/22 10:42 Calculated Osmolality 279 mOsm/kg (285-295) L 09/05/22 10:42 Calcium 9.5 mg/dL (8.5-10.5) 09/05/22 10:42 Total Bilirubin 0.4 mg/dL (0.15-1.2) 09/05/22 10:42 AST 15 U/L (0-32) 09/05/22 10:42 ALT 22 U/L (0-33) 09/05/22 10:42 Alkaline Phosphatase 40 U/L (35-105) 09/05/22 10:42 Total Protein 7.5 g/dL (6.6-8.7) 09/05/22 10:42 Albumin 4.8 g/dL (3.5-5.2) 09/05/22 10:42 Globulin 2.7 g/dL (1.3-4.6) 09/05/22 10:42 Urine Color Yellow (Yellow) 09/05/22 11:37 Urine Appearance Clear (CLEAR) 09/05/22 11:37 Urine pH 5 (5-7) 09/05/22 11:37 Ur Specific [place] 1.025 (1.005-1.030) 09/05/22 11:37 Urine Protein Neg (Negative) 09/05/22 11:37 Urine Glucose (UA) Norm (Normal) 09/05/22 11:37 Urine Ketones Negative (Negative) 09/05/22 11:37 Urine Blood Neg (Negative) 09/05/22 11:37 Urine Nitrate Negative (Negative) 09/05/22 11:37 Urine Bilirubin Neg (Negative) 09/05/22 11:37 Urine Urobilinogen Norm mg/dL (Negative) 09/05/22 11:37 Ur Leukocyte Esterase Negative (Negative) 09/05/22 11:37 Urine HCG, Qual Negative (Negative) 09/05/22 11:37 Discharge Plan Discharge Patient Disposition: Home Clinical Impression: Low back strain Qualifiers: Encounter type: initial encounter Qualified Code(s): S39.012A - Strain of muscle, fascia and tendon of lower back, initial encounter Condition: Stable Prescriptions: New ibuprofen 800 mg tablet 800 mg PO Q8H PRN (Reason: pain) Qty: 20 0RF cyclobenzaprine 10 mg tablet 10 mg PO BID PRN (Reason: muscle spasm) Qty: 20 0RF No Action neomycin-polymyxin B-dexameth 3.5mg/mL-10,000 unit/mL-0.1 % drops,suspension 1 drp ophthalmic (eye) Q3H 5 Days Qty: 5 0RF amoxicillin-pot clavulanate 875-125 mg tablet 1 tab PO BID 10 Days Qty: 20 0RF acetaminophen [Tylenol] 325 mg Tablet 325 mg PO QID PRN (Reason: Pain) Discharge Orders: Discharge ED (Routine); Ordered 09/05/22 Ordered By: Margarito Singh Referrals: Carline Orlando MEDICAL ASSISTANT SUPERVISOR [Primary Care Provider] - Discharge Diet: Regular Discharge Activity: Increase activity as tolerated Patient Instructions: Low Back Strain (ED) Activity Restrictions/Additional Instructions: Follow-up with medical provider as directed in the next 5 to 7 days for reevaluation. Take medications as prescribed. Return to the ER or your medical provider if condition worsens. Please read and understand discharge instructions. Thank you for choosing [facility] for your healthcare needs today. Please realize this is an emergency room and that we are providing you with a medical screening exam and this may not be complete and all inclusive of all the testing and or work up that you may need to determine your ailment or severity of your illness. It is very important that you follow up as instructed or that you return to the Emergency Department should you have concerns or if your condition changes or worsens in any way. Coding Level of Care Code ED Automotive Buyer for Claude Ordonez
[2022-09-05 10:53] VITALS: RESP 16
[2022-09-05] MEDS: sodium chloride 0.9% 1,000 ML 999 ML IV (10:53)
[2022-09-05] MEDS: ondansetron 2 mg/ML SDV 2 mL 4 MG IVP (10:53)
[2022-09-05] MEDS: morphine 4 mg/mL SDV 1 mL IVP ×2 (10:53→12:48)
[2022-09-05 11:05] LABS: Basophils % 0.3 %; Eosinophils # 0.1 10^3/uL (0.0-0.8); Eosinophils % 1.5 %; Hemoglobin 15.4 g/dL (11.5-15.3); Lymphocytes % 25.9 %; Mean Corpuscular HGB Conc 34.2 g/dL (30.0-36.0); Mean Corpuscular Hemoglobin 30.4 pg (28.0-34.0); Mean Corpuscular Volume 88.8 fl (81-99); Mean Platelet Volume 12.4 fL (7.4-10.4); Monocytes # 0.5 10^3/uL (0.2-0.9); Neutrophils # 5.21 10^3/uL (1.8-7.7); Nucleated Red Blood Cells % 0 %; Platelet Count 199 10^3/cmm (130-400); Red Blood Count 5.07 10^6/uL (4.1-5.3); Red Cell Distribution Width 11.9 % (12.1-15.1); White Blood Count 7.9 10^3/uL (4.0-10.0)
[2022-09-05 11:23] LABS: Alanine Aminotransferase 22 U/L (0-33); Albumin Level 4.8 g/dL (3.5-5.2); Alkaline Phosphatase 40 U/L (35-105); Anion Gap 16.3 (5-19); Aspartate Amino Transferase 15 U/L (0-32); Blood Urea Nitrogen 11 mg/dL (6-20); Calcium 9.5 mg/dL (8.5-10.5); Carbon Dioxide 22 mmol/L (22-29); Chloride 101 mmol/L (98-107); Globulin 2.7 g/dL (1.3-4.6); Glomerular Filtration Rate 149.1 mL/min (90-130); Glucose 89 mg/dL (65-115); Osmolality Calculated 279 mOsm/kg (285-295); Potassium 4.3 mmol/L (3.5-5.1); Sodium 135 mmol/L (136-145); Total Bilirubin 0.4 mg/dL (0.15-1.2); Total Protein 7.5 g/dL (6.6-8.7)
[2022-09-05 11:42] LABS: Add Urine Microscopic? NO; Charge for UA Resulting for Rev
[2022-09-05 11:51] LABS: Bilirubin Urine Neg (Negative); Blood Urine Neg (Negative); Glucose Urine UA Norm (Normal); Ketones Urine Negative (Negative); Leukocyte Esterase Urine Negative (Negative); Nitrate Urine Negative (Negative); Protein Urine Neg (Negative); Specific Gravity, Urine 1.025 (1.005-1.030); Urine Appearance Clear (CLEAR); Urine Color Yellow (Yellow); Urobilinogen Urine Norm (Negative); pH Urine 5 (5-7)
[2022-09-05 12:48] VITALS: RESP 16
[2022-09-05] MEDS: ketorolac 30 mg/mL INJ IVP (13:18)
[2022-09-05] MEDS: orphenadrine 30 mg/mL Inj 2 mL 60 MG IVP (13:18)
[2022-09-05 13:19] VITALS: BP 135/93; PULSE 63; RESP 14; O2SAT 97
[2022-09-05 13:47] VITALS: BP 131/80; PULSE 84; RESP 16; O2SAT 99
== END 2022-09-05 13:47 | disposition home or self-care (01) ==
PROVIDERS: Emergency Provider Physician Assistant; PCP Nurse Practitioner Family
DX: S39.012A Strain of muscle, fascia and tendon of lower back, initial encounter (principal); Z87.891 Personal history of nicotine dependence; X58.XXXA Exposure to other specified factors, initial encounter
CPT/HCPCS: 74176; 80053; 81003; 81025; 85025; 96361; 96374; 96375; 96376; 99285; J1885; J2270; J2360; J2405; J7030

== ENCOUNTER 2022-11-14 10:47 | Outpatient (CLI) | payer BC, MEDICAID, SELFPAY ==
--- NOTE | 2022-11-14 10:55 | US_ITS ---
WS: [id number] ULTRASOUND LEFT BREAST HISTORY: LEFT BREAST PAIN, upper outer quadrant as directed by the patient. COMPARISON: None available. TECHNIQUE: 2-D and Doppler. Ultrasound is directed to the upper outer quadrant by the patient. There are no masses. No skin thick ening. No distortion or shadowing. US/US breast LT limited* [id number] IMPRESSION: BI-RADS: 1-Negative FOLLOW-UP: See Report No follow-up necessary.
== END 2022-11-14 10:48 | disposition home or self-care (01) ==
PROVIDERS: PCP Family Medicine; Visit Provider Family Medicine
DX: N64.4 Mastodynia (principal)
CPT/HCPCS: 76642

== ENCOUNTER 2023-01-19 12:35 | Emergency (ER) | payer BC, MEDICAID, SELFPAY ==
[2023-01-19 12:36] VITALS: BP 154/85; PULSE 123; RESP 17; O2SAT 99; BMI 37.6
[2023-01-19 12:55] VITALS: BP 164/105; PULSE 117; O2SAT 97
--- NOTE | 2023-01-19 12:55 | W.ED.ALLEREA ---
HPI - Allergic Reaction General: Chief complaint: Allergic Reaction Stated complaint: bee sting Time Seen by Provider: 01/19/23 12:49 History of Present Illness: HPI narrative: Patient is a 27-year-old female who comes to the ED with allergic reaction. Patient has an allergy to bee stings and she has had to use EpiPen's in the past with bee stings. Today patient was stung by bee on her right wrist. She was able to remove the stinger and she took 2 tablets of Benadryl at 12:02 PM. She started having hives type rash around sting on wrist, chest tightness, throat swelling, blurry vision and dizziness. She then administered a dose of EpiPen at approximately 12:30 PM. Her symptoms are improving. She states that her throat tightness has improved since EpiPen but she still having some chest tightness and now has a cough. She endorses some nausea but says that usually gets worse after epi. Associated symptoms: Reports nausea; Deny abdominal pain, tongue swelling or vomiting Review of Systems Const: Denies: fever(s), chills or fatigue Eyes: Denies: change in vision or eye discomfort ENMT: Denies: throat pain, odynophagia, nasal discharge or nasal congestion Card: Denies: chest pain, palpitations, edema, swelling of feet/ankles, dyspnea on exertion or orthopnea Resp: Reports: non-productive cough; Denies: dyspnea or productive cough GI: Reports: nausea; Denies: abdominal pain, vomiting, diarrhea, constipation or hematochezia : Denies: flank pain, dysuria or hematuria Musc: Denies: neck pain, back pain or extremity swelling Skin/Breast: Denies: rash or new lesions Neuro: Denies: headache(s), numbness in extremities or weakness in extremities All/Imm: Reports: urticaria and throat swelling; Denies: tongue swelling PFSH ED PFSH: Medical History History of gestational diabetes GDM with 6th No pertinent past medical history neghx: htn, dm, thyroid, dvt/pe PCP: Carline at [facility] Pharyngitis with viral syndrome Surgical History H/O tubal ligation (01/19/20) At time of C/S. Performed by Dr. Hayes at [facility] in [place], [place] History of hysteroscopy (06/09/20) With D&C and polypectomy. Performed by Dr. Hayes at [facility] in [place], [place]. S/P section (01/31/17) Repeat low transverse section. Performed by Dr. You Hayes at [facility] in [place], [place]. S/P section (08/17/15) Low transverse section (documented). Diagnosis: Nonreassuring heart tones. Performed by Dr. Ashanti Jha at [facility] in [place], [place]. Single-layer closure of uterus. S/P cholecystectomy (~2010) Laparoscopic. Performed in [place], [place] S/P endometrial ablation (09/22/20) Hysteroscopy, D&C, NovaSure endometrial ablation. Performed by Dr. Hayes at [facility] in [place], [place] S/P tonsillectomy and adenoidectomy (~2002) Age 8. Performed in [place], [place] Status post section (01/19/20) RLTCS with BTL. Performed by Dr. Hayes at [facility] in [place], [place] Family History Father Hyperlipidemia Grandmother Diabetes paternal Hypertension Maternal Family/Other Diabetes paternal uncle, paternal aunt, paternal cousin Ovarian cancer paternal aunt Thyroid disease paternal aunt Grandfather Diabetes paternal Colon cancer maternal Thyroid disease Maternal Social History Substance/Drug Use: never Physical Exam Const: COMMON NORMALS: no acute distress, patient oriented x3 and alert HENMT: COMMON NORMALS: normocephalic HEAD & SCALP: normocephalic MOUTH: Normal oral and palatal mucosa present THROAT: posterior oropharynx normal and uvula midline Neck/C-Spine: COMMON NORMALS: supple GENERAL: Yes normal visual inspection Resp: COMMON NORMALS: normal respiratory effort, No retractions, No use of accessory muscles and clear to auscultation bilaterally EFFORT & INSPECTION: Yes Actively coughing non-productive and dry AUSCULTATION: clear to auscultation bilaterally Cardio: COMMON NORMALS: regular rate, regular rhythm, S1 normal heart sound present, S2 normal heart sound present, No gallops present (Cardio), No clicks present (Cardio), No murmurs present (Cardio) and Peripheral pulses 2+ throughout RATE: regular rate RHYTHM: regular rhythm HEART SOUNDS: S1 normal heart sound present and S2 normal heart sound present PERIPHERAL PULSES: Peripheral pulses 2+ throughout GI: COMMON NORMALS: Normal to inspection, nondistended, normoactive bowel sounds present, Soft to palpation, non-tender and no masses PALPATION: Yes Soft to palpation : COMMON NORMALS: Yes no CVA tenderness BLADDER/KIDNEY EXAM: Yes no CVA tenderness Back/Pelvis: COMMON NORMALS: no CVA tenderness Extremity: COMMON NORMALS: normal to inspection Neuro: COMMON NORMALS: patient oriented x3 SENSORIUM/ORIENTATION: Yes alert GAIT: Yes Normal gait present Skin: GENERAL SKIN EXAM: dry skin Course Reevaluation(s): Reevaluation #1: Patient was feeling a lot better and she says all of her symptoms have resolved. She has no more throat tightness or chest tightness. Time: 13:35 Vital Signs: Vital signs: Vital Signs Pulse Rate 86 01/19/23 14:00 Respiratory Rate 14 01/19/23 14:00 Blood Pressure 142/91 01/19/23 14:00 Pulse Oximetry 99 01/19/23 14:00 Oxygen Delivery Me thod Room Air 01/19/23 14:00 MDM - Allergic Reaction Medical Decision Making Patient is a 27-year-old female who comes to the ED with allergic reaction. Patient has an allergy to bee stings and she has had to use EpiPen's in the past with bee stings. Today patient was stung by bee on her right wrist. She was able to remove the stinger and she took 2 tablets of Benadryl at 12:02 PM. She started having hives type rash around sting on wrist, chest tightness, throat swelling, blurry vision and dizziness. She then administered a dose of EpiPen at approximately 12:30 PM. Her symptoms are improving. She states that her throat tightness has improved since EpiPen but she still having some chest tightness and now has a cough. She endorses some nausea but says that usually gets worse after epi. Vitals are stable. Patient appears nontoxic and in no acute distress or pain. She she has an active dry cough but her lungs are clear to auscultation bilaterally no other acute findings on exam noted. She was given a dose of IV Pepcid, Depo-Medrol and fluids. She was monitored for over an hour and a half and her symptoms had completely resolved. She was feeling a lot better and was stable for discharge home. Labs are unremarkable. Chest x-ray showed no acute findings. She was diagnosed with allergic reaction and sent home with a prescription for a couple days of prednisone. Patient says she has EpiPen at home and does not need a refill at this time. Told to follow-up with her PCP in the next week for reevaluation. Return to ED precautions given. Patient understood and agreed with plan. Lab Data I reviewed the patient's lab results. 01/19/23 13:00 01/19/23 13:00 Laboratory Results WBC 10.8 10^3/uL (4.0-10.0) H 01/19/23 13:00 RBC 5.11 10^6/uL (4.1-5.3) 01/19/23 13:00 Hgb 15.3 g/dL (11.5-15.3) 01/19/23 13:00 Hct 45.1 % (37.0-47.0) 01/19/23 13:00 MCV 88.3 fl (81-99) 01/19/23 13:00 MCH 29.9 pg (28.0-34.0) 01/19/23 13:00 MCHC 33.9 g/dL (30.0-36.0) 01/19/23 13:00 RDW 11.7 % (12.1-15.1) L 01/19/23 13:00 Plt Count 222 10^3/cmm (130-400) 01/19/23 13:00 MPV 12.2 fL (7.4-10.4) H 01/19/23 13:00 Neut % (Auto) 50.1 % 01/19/23 13:00 Lymph % (Auto) 39.9 % 01/19/23 13:00 [place] % (Auto) 7.5 % 01/19/23 13:00 Eos % (Auto) 1.7 % 01/19/23 13:00 Baso % (Auto) 0.5 % 01/19/23 13:00 Neut # (Auto) 5.42 10^3/uL (1.8-7.7) 01/19/23 13:00 Lymph # (Auto) 4.3 10^3/uL (0.8-4.8) 01/19/23 13:00 [place] # (Auto) 0.8 10^3/uL (0.2-0.9) 01/19/23 13:00 Eos # (Auto) 0.2 10^3/uL (0.0-0.8) 01/19/23 13:00 Baso # (Auto) 0.1 10^3/uL (0.0-0.1) 01/19/23 13:00 Nucleated RBC % (auto) 0 % 01/19/23 13:00 Nucleated RBCs # 0.0 /100WBC 01/19/23 13:00 Sodium 136 mmol/L (136-145) 01/19/23 13:00 Potassium 3.3 mmol/L (3.5-5.1) L 01/19/23 13:00 Chloride 101 mmol/L (98-107) 01/19/23 13:00 Carbon Dioxide 21 mmol/L (22-29) L 01/19/23 13:00 Anion Gap 17.3 (5-19) 01/19/23 13:00 BUN 11 mg/dL (6-20) 01/19/23 13:00 Creatinine 0.5 mg/dL (0.5-0.9) 01/19/23 13:00 GFR Calculation 149.1 mL/min (90-130) H 01/19/23 13:00 Glucose 120 mg/dL (65-115) H 01/19/23 13:00 Calculated Osmolality 283 mOsm/kg (285-295) L 01/19/23 13:00 Calcium 9.5 mg/dL (8.5-10.5) 01/19/23 13:00 Discharge Plan Discharge Patient Disposition: Home Clinical Impression: Allergic reaction Qualifiers: Encounter type: initial encounter Qualified Code(s): T78.40XA - Allergy, unspecified, initial encounter Condition: Stable Prescriptions: New prednisone 20 mg tablet 20 mg PO BID 3 Days Qty: 6 0RF No Action acetaminophen [Tylenol] 325 mg Tablet 325 mg PO QID PRN (Reason: Pain) ibuprofen 800 mg tablet 800 mg PO Q8H PRN (Reason: pain) Qty: 20 0RF cyclobenzaprine 10 mg tablet 10 mg PO BID PRN (Reason: muscle spasm) Qty: 20 0RF Benadryl 25 mg Capsule 50 mg PO TID PRN (Reason: Allergy Symptoms) Discharge Orders: Discharge ED (Routine); Ordered 01/19/23 Ordered By: Margarito Singh Referrals: Abimbola Rosado, [Primary Care Provider] - Discharge Diet: Regular Discharge Activity: Increase activity as tolerated Patient Instructions: Allergic Reaction Activity Restrictions/Additional Instructions: Follow-up with medical provider as directed. Take medications as prescribed. Return to the ER or your medical provider if condition worsens. Please read and understand discharge instructions. Thank you for choosing [facility] for your healthcare needs today. Please realize this is an emergency room and that we are providing you with a medical screening exam and this may not be complete and all inclusive of all the testing and or work up that you may need to determine your ailment or severity of your illness. It is very important that you follow up as instructed or that you return to the Emergency Department should you have concerns or if your condition changes or worsens in any way. Coding Level of Care Code ED Stud Master/Mistress for Claude Ordonez
--- NOTE | 2023-01-19 12:59 | XRR_ITS ---
PROCEDURE INFORMATION: Exam: XR Chest Exam date and time: 01/19/2023 1:11 PM Age: 27 years old Clinical indication: Other: Allergic reaction. ; Additional info: Allergic reaction-chest tightness. No history of trauma or recent surgery is provided. TECHNIQUE: Imaging protocol: Radiologic exam of the chest. 1image(s) are provided. Views: 1 view. COMPARISON: CR XR chest 1V portable [id number] 08/04/2020 11:[address] chest report of 02/20/2017. FINDINGS: Lungs: No lobar consolidation is appreciated.There is improved lung volume and aeration. Pleural spaces: No pneumothorax or pleural effusion is appreciated. Heart/Mediastinum: The cardiomediastinal silhouette is within normal. No cardiac decompensation is appreciated. Diaphragm: The hemidiaphragms are symmetric. Bones/joints: Osseous alignment is maintained.No interval displaced fracture or dislocation is appreciated. Soft tissues: No radiopaque foreign body or subcutaneous emphysema is appreciated. Other findings: No other significant interval changes are appreciated. XR/XR chest 1V portable [id number] IMPRESSION: No lobar consolidation is appreciated with improved aeration overall.No interval acute cardiopulmonary changes are appreciated.
[2023-01-19] MEDS: sodium chloride 0.9% 1,000 ML 999 ML IV (13:00)
[2023-01-19] MEDS: famotidine 20 mg/2 mL INJ 40 MG IVP (13:03)
[2023-01-19] MEDS: methylPREDNISolone (DEPO) 80 MG/ML INJ 1 mL IM (13:08)
[2023-01-19] MEDS: ondansetron 2 mg/ML SDV 2 mL 4 MG IVP (13:11)
[2023-01-19 13:14] LABS: Basophils # 0.1 10^3/uL (0.0-0.1); Basophils % 0.5 %; Eosinophils # 0.2 10^3/uL (0.0-0.8); Eosinophils % 1.7 %; Hematocrit 45.1 % (37.0-47.0); Hemoglobin 15.3 g/dL (11.5-15.3); Lymphocytes # 4.3 10^3/uL (0.8-4.8); Lymphocytes % 39.9 %; Mean Corpuscular HGB Conc 33.9 g/dL (30.0-36.0); Mean Corpuscular Hemoglobin 29.9 pg (28.0-34.0); Mean Corpuscular Volume 88.3 fl (81-99); Mean Platelet Volume 12.2 fL (7.4-10.4); Monocytes # 0.8 10^3/uL (0.2-0.9); Monocytes % 7.5 %; Neutrophils # 5.42 10^3/uL (1.8-7.7); Neutrophils % 50.1 %; Nucleated Red Blood Cells % 0 %; Platelet Count 222 10^3/cmm (130-400); Red Blood Count 5.11 10^6/uL (4.1-5.3); Red Cell Distribution Width 11.7 % (12.1-15.1); White Blood Count 10.8 10^3/uL (4.0-10.0)
[2023-01-19 13:28] LABS: Anion Gap 17.3 (5-19); Blood Urea Nitrogen 11 mg/dL (6-20); Calcium 9.5 mg/dL (8.5-10.5); Carbon Dioxide 21 mmol/L (22-29); Chloride 101 mmol/L (98-107); Glomerular Filtration Rate 149.1 mL/min (90-130); Glucose 120 mg/dL (65-115); Osmolality Calculated 283 mOsm/kg (285-295); Potassium 3.3 mmol/L (3.5-5.1); Sodium 136 mmol/L (136-145)
[2023-01-19 13:30] VITALS: BP 163/90; PULSE 99; RESP 16; O2SAT 96
[2023-01-19 14:00] VITALS: BP 142/91; PULSE 86; RESP 14; O2SAT 99
== END 2023-01-19 14:15 | disposition home or self-care (01) ==
PROVIDERS: Emergency Provider Physician Assistant; PCP Family Medicine
DX: T63.441A Toxic effect of venom of bees, accidental (unintentional), initial encounter (principal); R07.89 Other chest pain; L50.0 Allergic urticaria; R42 Dizziness and giddiness; H53.9 Unspecified visual disturbance; R05.9 Cough, unspecified
CPT/HCPCS: 71045; 80048; 85025; 96361; 96372; 96374; 96375; 99284; J1040; J2405; J3490; J7030

== ENCOUNTER 2023-02-27 10:30 | Outpatient (CLI) | payer BC, MEDICAID, SELFPAY ==
--- NOTE | 2023-02-27 10:52 | XRR_ITS ---
PROCEDURE INFORMATION: Exam: XR Right Hip Exam date and time: 02/27/2023 11:06 AM Age: 27 years old Clinical indication: Hip pain; Right hip; Additional info: Pain in R hip. No trauma TECHNIQUE: Imaging protocol: Radiologic exam of the right hip. 2image(s) are provided. Views: 1 view hip with pelvis when performed. COMPARISON: CT kidney stone [id number] 09/05/2022 12:03 PM FINDINGS: Bones/joints: Osseous alignment is maintained.No interval displaced fracture or dislocation is appreciated. Symmetric appearance of the sacral arcuate lines and sacroiliac junctions are appreciated. There are some mild chronic appearing degenerative changes about the sacroiliac joints albeit similar. There is some very minimal acetabular rim and subcapital spurring similar overall. Soft tissues: No radiopaque foreign body or subcutaneous emphysema is appreciated. Other findings: No significant interval changes are appreciated. XR/XR hip RT 2-3V wo/w pel* [id number] IMPRESSION: Osseous alignment is maintained.No interval fracture or dislocation is appreciated.
== END 2023-02-27 10:31 | disposition home or self-care (01) ==
LOC: RAD 10:34
PROVIDERS: PCP Family Medicine; Visit Provider Family Medicine
DX: M25.551 Pain in right hip (principal)
CPT/HCPCS: 73502

== ENCOUNTER 2023-03-20 09:14 | Emergency (ER) | payer BC, MEDICAID, SELFPAY ==
[2023-03-20 09:29] VITALS: BP 148/112; PULSE 87; RESP 15; TEMP 36.8; O2SAT 99; BMI 37.6
--- NOTE | 2023-03-20 09:31 | ED_ITS ---
HPI - Abdominal Pain General: Stated Complaint: abd pain Time Seen by Provider: 03/20/23 09:27 [facility] ED PFSH: Medical History History of gestational diabetes GDM with 6th No pertinent past medical history neghx: htn, dm, thyroid, dvt/pe PCP: Carline at [facility] Pharyngitis with viral syndrome Surgical History H/O tubal ligation (01/19/20) At time of C/S. Performed by Dr. Hayes at [facility] in [place], [place] History of hysteroscopy (06/09/20) With D&C and polypectomy. Performed by Dr. Hayes at [facility] in [place], [place]. S/P section (01/31/17) Repeat low transverse section. Performed by Dr. You Hayes at [facility] in [place], [place]. S/P section (08/17/15) Low transverse section (documented). Diagnosis: Nonreassuring heart tones. Performed by Dr. Ashanti Jha at [facility] in [place], [place]. Single-layer closure of uterus. S/P cholecystectomy (~2010) Laparoscopic. Performed in [place], [place] S/P endometrial ablation (09/22/20) Hysteroscopy, D&C, NovaSure endometrial ablation. Performed by Dr. Hayes at [facility] in [place], [place] S/P tonsillectomy and adenoidectomy (~2002) Age 8. Performed in [place], [place] Status post section (01/19/20) RLTCS with BTL. Performed by Dr. Hayes at [facility] in [place], [place] Family History Father Hyperlipidemia Grandmother Diabetes paternal Hypertension Maternal Family/Other Diabetes paternal uncle, paternal aunt, paternal cousin Ovarian cancer paternal aunt Thyroid disease paternal aunt Grandfather Diabetes paternal Colon cancer maternal Thyroid disease Maternal Social History Substance/Drug Use: never Discharge Plan Discharge Condition: Stable Prescriptions: No Action acetaminophen [Tylenol] 325 mg Tablet 325 mg PO QID PRN (Reason: Pain) ibuprofen 800 mg tablet 800 mg PO Q8H PRN (Reason: pain) Qty: 20 0RF cyclobenzaprine 10 mg tablet 10 mg PO BID PRN (Reason: muscle spasm) Qty: 20 0RF Benadryl 25 mg Capsule 50 mg PO TID PRN (Reason: Allergy Symptoms) Referrals: Abimbola Rosado DO [Primary Care Provider] - Coding Level of Care Code ED Tax Assistant for Claude Ordonez
[2023-03-20 09:35] VITALS: BP 161/106; PULSE 87; O2SAT 98
--- NOTE | 2023-03-20 09:46 | ED_ITS ---
HPI - Female Genitourinary General: Chief complaint: Urogenital-Female Stated complaint: abd pain Time Seen by Provider: 03/20/23 09:27 [facility] ED PFSH: Medical History History of gestational diabetes GDM with 6th No pertinent past medical history neghx: htn, dm, thyroid, dvt/pe PCP: Carline at [facility] Pharyngitis with viral syndrome Surgical History H/O tubal ligation (01/19/20) At time of C/S. Performed by Dr. Hayes at [facility] in [place], [place] History of hysteroscopy (06/09/20) With D&C and polypectomy. Performed by Dr. Hayes at [facility] in [place], [place]. S/P section (01/31/17) Repeat low transverse section. Performed by Dr. You Hayes at [facility] in [place], [place]. S/P section (08/17/15) Low transverse section (documented). Diagnosis: Nonreassuring heart tones. Performed by Dr. Ashanti Jha at [facility] in [place], [place]. Single-layer closure of uterus. S/P cholecystectomy (~2010) Laparoscopic. Performed in [place], [place] S/P endometrial ablation (09/22/20) Hysteroscopy, D&C, NovaSure endometrial ablation. Performed by Dr. Hayes at [facility] in [place], [place] S/P tonsillectomy and adenoidectomy (~2002) Age 8. Performed in [place], [place] Status post section (01/19/20) RLTCS with BTL. Performed by Dr. Hayes at [facility] in [place], [place] Family History Father Hyperlipidemia Grandmother Diabetes paternal Hypertension Maternal Family/Other Diabetes paternal uncle, paternal aunt, paternal cousin Ovarian cancer paternal aunt Thyroid disease paternal aunt Grandfather Diabetes paternal Colon cancer maternal Thyroid disease Maternal Social History Substance/Drug Use: never Course Vital Signs: Vital signs: Vital Signs Temperature 98.3 F 03/20/23 09:29 Pulse Rate 87 03/20/23 09:35 Respiratory Rate 15 03/20/23 09:29 Blood Pressure 161/106 03/20/23 09:35 Pulse Oximetry 98 03/20/23 09:35 Oxygen Delivery Me thod Room Air 03/20/23 09:35 Discharge Plan Discharge Condition: Stable Prescriptions: No Action acetaminophen [Tylenol] 325 mg Tablet 325 mg PO QID PRN (Reason: Pain) ibuprofen 800 mg tablet 800 mg PO Q8H PRN (Reason: pain) Qty: 20 0RF cyclobenzaprine 10 mg tablet 10 mg PO BID PRN (Reason: muscle spasm) Qty: 20 0RF Benadryl 25 mg Capsule 50 mg PO TID PRN (Reason: Allergy Symptoms) Referrals: Abimbola Rosado DO [Primary Care Provider] - Coding Level of Care Code ED Certified Activities Director for Chg Mery
--- NOTE | 2023-03-20 09:49 | ED_ITS ---
HPI - Female Genitourinary General: Chief complaint: Urogenital-Female Stated complaint: abd pain Time Seen by Provider: 03/20/23 09:27 Source: patient Mode of arrival: ambulatory Limitations: no limitations History of Present Illness: Patient is a 27-year-old female who presents to the emergency department complaining of bilateral flank pain starting yesterday evening-fairly acute onset. Patient states she has had this flank pain since I was born. She has had it worked up multiple times in the past, including with CT, and says that nobody has ever been able to tell her what her pain is from. She says that the last time she was here, she was diagnosed with a ruptured ovarian cyst. She reports one previous kidney stone. She also notes radiation ventrally to the bilateral suprapubic region. Her pain is associated with severe dysuria, hesitancy with urination, subjective fever, and nausea. Patient also reports a history of chronic back pain that she notes is from repetitive spinal taps during her pregnancies. She notes that she is able to differentiate when her pain is from her back or from her kidneys. Pain is currently an 8 out of 10, though she says last night it was a 10 and the pain is described as squeezing and sharp. The pain has been present since acute exacerbation last night, and she notes she has not been able to alleviate it with [id number] ibuprofen or Tylenol. She denies shortness of breath, chest pain, or any other symptoms. She denies possibility of as she has had a hysterectomy. MD elicited complaint: dysuria and flank pain Pertinent past history: hysterectomy Onset (ago): day(s) (yesterday evening) Location of symptoms: flank Severity: severe Female Urogenital Radiation: Suprapubic Severity scale (1-10): 8 Quality of pain: other (Squeezing) Consistency: constant Vaginal discharge: none Vaginal bleeding: none Urinary symptoms: Difficulty Urinating, Dysuria, Flank Pain and Urgency Exacerbating factors: urination Relieving factors: none Associated symptoms: Reports abdominal pain (Suprapubic) and nausea; Deny headache(s), syncope or vaginal discharge Treatment prior to arrival: none Sexual activity: Yes Patient : No Review of Systems Const: Reports: fever(s) (subjective yesterday); Denies: chills, body aches, fatigue or malaise Eyes: Denies: change in vision or blurry vision Card: Denies: chest pain, palpitations, irregular heart rhythm, syncope or dyspnea on exertion Resp: Denies: dyspnea, productive cough or pain on inspiration GI: Reports: abdominal pain (Suprapubic) and nausea; Denies: vomiting, hematemesis, diarrhea, constipation or change in bowel habits : Reports: flank pain, dysuria, urinary frequency, urinary urgency and urinary hesitancy; Denies: hematuria, vaginal bleeding, vaginal discharge or pelvic pain Musc: Reports: back pain (flanks); Denies: neck pain, extremity pain, extremity swelling or joint pain Skin/Breast: Denies: rash Neuro: Denies: headache(s), numbness in extremities, weakness in extremities, sensory changes or dizziness PFS ED PFSH: Medical History History of gestational diabetes GDM with 6th No pertinent past medical history neghx: htn, dm, thyroid, dvt/pe PCP: Carline at [facility] Pharyngitis with viral syndrome Surgical History H/O tubal ligation (01/19/20) At time of C/S. Performed by Dr. Hayes at [facility] in [place], [place] History of hysteroscopy (06/09/20) With D&C and polypectomy. Performed by Dr. Hayes at [facility] in [place], [place]. S/P section (01/31/17) Repeat low transverse section. Performed by Dr. You Hayes at [facility] in [place], [place]. S/P section (08/17/15) Low transverse section (documented). Diagnosis: Nonreassuring heart tones. Performed by Dr. Ashanti Jha at [facility] in [place], [place]. Single-layer closure of uterus. S/P cholecystectomy (~2010) Laparoscopic. Performed in [place], [place] S/P endometrial ablation (09/22/20) Hysteroscopy, D&C, NovaSure endometrial ablation. Performed by Dr. Hayes at [facility] in [place], [place] S/P tonsillectomy and adenoidectomy (~2002) Age 8. Performed in [place], [place] Status post section (01/19/20) RLTCS with BTL. Performed by Dr. Hayes at [facility] in [place], [place] Family History Father Hyperlipidemia Grandmother Diabetes paternal Hypertension Maternal Family/Other Diabetes paternal uncle, paternal aunt, paternal cousin Ovarian cancer paternal aunt Thyroid disease paternal aunt Grandfather Diabetes paternal Colon cancer maternal Thyroid disease Maternal Social History Substance/Drug Use: never Physical Exam Const: COMMON NORMALS: no acute distress, patient oriented x3, no limitations, alert and well nourished GENERAL APPEARANCE: cooperative, in distress and anxious NUTRITIONAL APPEARANCE: obese ORIENTATION/CONSCIOUSNESS: Yes awake, Yes oriented to person, Yes oriented to place and Yes oriented to time HENMT: COMMON NORMALS: normocephalic and atraumatic HEAD & SCALP: normal to inspection, normocephalic and atraumatic Eye: COMMON NORMALS: no scleral icterus Neck/C-Spine: COMMON NORMALS: full ROM, no lymphadenopathy, supple and no meningeal signs Resp: COMMON NORMALS: normal respiratory effort and clear to auscultation bilaterally AUSCULTATION: clear to auscultation bilaterally Cardio: COMMON NORMALS: regular rate and regular rhythm RATE: regular rate RHYTHM: regular rhythm GI: COMMON NORMALS: Normal to inspection, nondistended, normoactive bowel sounds present, Soft to palpation, No hepatosplenomegaly present and no masses INSPECTION: Yes normal to inspection AUSCULTATION: Yes normoactive bowel sounds PALPATION: Yes Soft to palpation, Yes Tenderness to palpation present (GI) (Suprapubic), No Guarding due to palpation present (GI), No Rigid due to palpation and Yes No hepatosplenomegaly present : BLADDER/KIDNEY EXAM: Yes CVA tenderness bilateral Back/Pelvis: COMMON NORMALS: thoracic and lumbar spine normal to inspection GENERAL BACK: Yes CVA tenderness THORACIC SPINE/UPPER BACK: Yes normal to inspection LUMBAR SPINE/LOWER BACK: Yes normal to inspection Extremity: COMMON NORMALS: normal to inspection GENERAL: Yes normal exam except as noted Neuro: DENEEN COMA SCALE: document GCS findings [place] coma scale eye opening: Spontaneous [place] coma scale verbal response: Orientated [place] coma scale motor response: Obey commands [place] coma scale total score: 15 COMMON NORMALS: patient oriented x3 SENSORIUM/ORIENTATION: Yes alert, Yes oriented to person, Yes oriented to place and Yes oriented to time MENINGEAL SIGNS: Yes no meningeal signs Skin: COMMON NORMALS: no rashes or lesions noted GENERAL SKIN EXAM: no rashes or lesions noted Course Vital Signs: Vital signs: Vital Signs Temperature 98.3 F 03/20/23 09:29 Pulse Rate 67 03/20/23 11:00 Respiratory Rate 18 03/20/23 10:07 Blood Pressure 137/91 03/20/23 11:00 Pulse Oximetry 99 03/20/23 11:00 Oxygen Delivery Me thod Room Air 03/20/23 11:00 [facility] - Female Medical Decision Making Patient is a 27-year-old female presents to ED today with complaint of bilateral flank pain starting yesterday evening. History she has had identical pains throughout her life. She does have histories of UTIs. She does complain of dysuria, frequency, urgency today. On arrival her vital signs are stable apart from hypertension. Her blood work is unremarkable. She has a normal white count. UA is completely normal. Patient has received multiple CT scans for symptoms previously all never showing etiology or abnormalities with her kidneys. I do not feel emergent repeat imaging is indicated today. Recommend she follow-up with her primary care provider for further evaluation and work-up and specialty referral if indicated. She did get relief with toradol/norflex so maybe musculoskeletal component. Lab Data 03/20/23 10:00 03/20/23 10:00 Laboratory Results WBC 7.8 10^3/uL (4.0-10.0) 03/20/23 10:00 RBC 5.02 10^6/uL (4.1-5.3) 03/20/23 10:00 Hgb 15.1 g/dL (11.5-15.3) 03/20/23 10:00 Hct 43.8 % (37.0-47.0) 03/20/23 10:00 MCV 87.3 fl (81-99) 03/20/23 10:00 MCH 30.1 pg (28.0-34.0) 03/20/23 10:00 MCHC 34.5 g/dL (30.0-36.0) 03/20/23 10:00 RDW 11.6 % (12.1-15.1) L 03/20/23 10:00 Plt Count 233 10^3/cmm (130-400) 03/20/23 10:00 MPV 11.7 fL (7.4-10.4) H 03/20/23 10:00 Neut % (Auto) 64.2 % 03/20/23 10:00 Lymph % (Auto) 27.4 % 03/20/23 10:00 [place] % (Auto) 6.3 % 03/20/23 10:00 Eos % (Auto) 1.2 % 03/20/23 10:00 Baso % (Auto) 0.6 % 03/20/23 10:00 Neut # (Auto) 4.98 10^3/uL (1.8-7.7) 03/20/23 10:00 Lymph # (Auto) 2.1 10^3/uL (0.8-4.8) 03/20/23 10:00 [place]eman # (Auto) 0.5 10^3/uL (0.2-0.9) 03/20/23 10:00 Eos # (Auto) 0.1 10^3/uL (0.0-0.8) 03/20/23 10:00 Baso # (Auto) 0.1 10^3/uL (0.0-0.1) 03/20/23 10:00 Nucleated RBC % (auto) 0 % 03/20/23 10:00 Nucleated RBCs # 0.0 /100WBC 03/20/23 10:00 Sodium 140 mmol/L (136-145) 03/20/23 10:00 Potassium 4.1 mmol/L (3.5-5.1) 03/20/23 10:00 Chloride 104 mmol/L (98-107) 03/20/23 10:00 Carbon Dioxide 24 mmol/L (22-29) 03/20/23 10:00 Anion Gap 16.1 (5-19) 03/20/23 10:00 BUN 8 mg/dL (6-20) 03/20/23 10:00 Creatinine 0.5 mg/dL (0.5-0.9) 03/20/23 10:00 GFR Calculation 149.1 mL/min (90-130) H 03/20/23 10:00 Glucose 97 mg/dL (65-115) 03/20/23 10:00 Calculated Osmolality 288 mOsm/kg (285-295) 03/20/23 10:00 Calcium 9.5 mg/dL (8.5-10.5) 03/20/23 10:00 Total Bilirubin 0.5 mg/dL (0.15-1.2) 03/20/23 10:00 AST 12 U/L (0-32) 03/20/23 10:00 ALT 20 U/L (0-33) 03/20/23 10:00 Alkaline Phosphatase 40 U/L (35-105) 03/20/23 10:00 Total Protein 7.8 g/dL (6.6-8.7) 03/20/23 10:00 Albumin 4.8 g/dL (3.5-5.2) 03/20/23 10:00 Globulin 3.0 g/dL (1.3-4.6) 03/20/23 10:00 Urine Color Straw (Yellow) 03/20/23 10:40 Urine Appearance Clear (CLEAR) 03/20/23 10:40 Urine pH 5 (5-7) 03/20/23 10:40 Ur Specific [place] 1.010 (1.005-1.030) 03/20/23 10:40 Urine Protein Neg (Negative) 03/20/23 10:40 Urine Glucose (UA) Norm (Normal) 03/20/23 10:40 Urine Ketones Negative (Negative) 03/20/23 10:40 Urine Blood Neg (Negative) 03/20/23 10:40 Urine Nitrate Negative (Negative) 03/20/23 10:40 Urine Bilirubin Neg (Negative) 03/20/23 10:40 Urine Urobilinogen Norm mg/dL (Negative) 03/20/23 10:40 Ur Leukocyte Esterase Negative (Negative) 03/20/23 10:40 Discharge Plan Discharge Patient Disposition: Home Clinical Impression: Bilateral flank pain Condition: Stable Prescriptions: New tramadol 50 mg tablet 50 mg PO Q6H PRN (Reason: pain) Qty: 10 0RF No Action Tylenol Ex Str Rapid Release 500 mg Tablet 1,000 - 2,000 mg PO Q6H PRN (Reason: Pain) ibuprofen 200 mg Tablet 400 - 800 mg PO Q6H PRN (Reason: Pain) EpiPen 0.3 mg/0.3 mL auto-injector See Rx Instructions .ROUTE .COMPLEX Rx Instructions: Administer 1 pen injector intramuscularly single dose as needed for anaphylaxis cyclobenzaprine 10 mg tablet 10 mg PO BID PRN (Reason: muscle spasm) Qty: 20 0RF Discharge Orders: Discharge ED (Routine); Ordered 03/20/23 Ordered By: Gaye Henry Referrals: Abimbola Rosado, [Primary Care Provider] - Patient Instructions: Opioid Safety, Pain Management Activity Restrictions/Additional Instructions: As we discussed your blood work is unremarkable. Your UA does not show evidence for infection. At this time I am unable to give you an explanation for your bilateral flank pains. As we have discussed you have underwent multiple CT scans previously for evaluation of these and I do not feel we need to undergo another CT scan today. Please follow-up with your primary care provider as soon as possible so they may work this up further or refer you to a specialty if indicated. Coding Level of Care Code ED Lead Mobile Developer for Claude Ordonez
[2023-03-20 10:07] VITALS: RESP 18; O2SAT 97
[2023-03-20] MEDS: morphine 4 mg/mL SDV 1 mL IVP (10:07)
[2023-03-20] MEDS: ondansetron 2 mg/ML SDV 2 mL 4 MG IVP (10:08)
[2023-03-20 10:17] LABS: Basophils # 0.1 10^3/uL (0.0-0.1); Basophils % 0.6 %; Eosinophils # 0.1 10^3/uL (0.0-0.8); Eosinophils % 1.2 %; Hematocrit 43.8 % (37.0-47.0); Hemoglobin 15.1 g/dL (11.5-15.3); Lymphocytes # 2.1 10^3/uL (0.8-4.8); Lymphocytes % 27.4 %; Mean Corpuscular HGB Conc 34.5 g/dL (30.0-36.0); Mean Corpuscular Hemoglobin 30.1 pg (28.0-34.0); Mean Corpuscular Volume 87.3 fl (81-99); Mean Platelet Volume 11.7 fL (7.4-10.4); Monocytes # 0.5 10^3/uL (0.2-0.9); Monocytes % 6.3 %; Neutrophils # 4.98 10^3/uL (1.8-7.7); Neutrophils % 64.2 %; Nucleated Red Blood Cells % 0 %; Platelet Count 233 10^3/cmm (130-400); Red Blood Count 5.02 10^6/uL (4.1-5.3); Red Cell Distribution Width 11.6 % (12.1-15.1); White Blood Count 7.8 10^3/uL (4.0-10.0)
[2023-03-20 10:35] VITALS: BP 157/108; O2SAT 97
[2023-03-20 10:49] LABS: Add Urine Microscopic? NO; Charge for UA Resulting for Rev
[2023-03-20 10:56] LABS: Alanine Aminotransferase 20 U/L (0-33); Albumin Level 4.8 g/dL (3.5-5.2); Alkaline Phosphatase 40 U/L (35-105); Anion Gap 16.1 (5-19); Aspartate Amino Transferase 12 U/L (0-32); Blood Urea Nitrogen 8 mg/dL (6-20); Calcium 9.5 mg/dL (8.5-10.5); Carbon Dioxide 24 mmol/L (22-29); Chloride 104 mmol/L (98-107); Glomerular Filtration Rate 149.1 mL/min (90-130); Glucose 97 mg/dL (65-115); Osmolality Calculated 288 mOsm/kg (285-295); Potassium 4.1 mmol/L (3.5-5.1); Sodium 140 mmol/L (136-145); Total Bilirubin 0.5 mg/dL (0.15-1.2); Total Protein 7.8 g/dL (6.6-8.7)
[2023-03-20 11:00] VITALS: BP 137/91; PULSE 67; O2SAT 99
[2023-03-20 11:07] LABS: Bilirubin Urine Neg (Negative); Blood Urine Neg (Negative); Glucose Urine UA Norm (Normal); Ketones Urine Negative (Negative); Leukocyte Esterase Urine Negative (Negative); Nitrate Urine Negative (Negative); Protein Urine Neg (Negative); Urine Appearance Clear (CLEAR); Urine Color Straw (Yellow); Urobilinogen Urine Norm (Negative); pH Urine 5 (5-7)
[2023-03-20] MEDS: ketorolac 30 mg/mL INJ IVP (11:37)
[2023-03-20] MEDS: orphenadrine 30 mg/mL Inj 2 mL 60 MG IVP (11:37)
[2023-03-20 12:03] VITALS: PULSE 63; O2SAT 98
== END 2023-03-20 12:05 | disposition home or self-care (01) ==
PROVIDERS: Emergency Provider Physician Assistant; PCP Family Medicine
DX: R10.9 Unspecified abdominal pain (principal)
CPT/HCPCS: 80053; 81003; 85025; 96374; 96375; 99284; J1885; J2270; J2360; J2405

== ENCOUNTER 2023-03-21 08:52 | Outpatient (CLI) | payer BC, MEDICAID, SELFPAY ==
--- NOTE | 2023-03-21 09:00 | XRR_ITS ---
PROCEDURE INFORMATION: Exam: XR Lumbosacral Spine Exam date and time: 03/21/2023 9:08 AM Age: 27 years old Clinical indication: Low back pain TECHNIQUE: Imaging protocol: Radiologic exam of the lumbosacral spine. Views: 6 or more views. Including flexion and extension views. COMPARISON: No relevant prior studies available. FINDINGS: Bones/joints: No fracture or other acute abnormality. There is a minor dextrocurvature at the thoracolumbar junction. Sagittal alignment is normal. Vertebral body and disc space heights are normal. Posterior elements are unremarkable. Soft tissues: There are several right abdominal clips. XR/XR lumbar spine 6V w f/e [id number] IMPRESSION: No acute findings.
== END 2023-03-21 08:53 | disposition home or self-care (01) ==
PROVIDERS: PCP Family Medicine; Visit Provider Family Medicine
DX: M54.50 Low back pain, unspecified (principal)
CPT/HCPCS: 72114

== ENCOUNTER → 2023-09-26 12:10 | Outpatient (BNVA) | payer BC, MEDICAID, SELFPAY | PROVIDERS: PCP Family Medicine; Visit Provider Nurse Practitioner Family | DX: R68.89 Other general symptoms and signs (principal) | CPT/HCPCS: 87426 ==

== ENCOUNTER 2023-10-01 09:48 | Emergency (ER) | payer BC, MEDICAID, SELFPAY ==
[2023-10-01 10:01] VITALS: BP 155/100; PULSE 84; RESP 14; TEMP 36.6; O2SAT 100
--- NOTE | 2023-10-01 10:19 | XRR_ITS ---
PROCEDURE INFORMATION: Exam: XR Chest Exam date and time: 10/01/2023 10:45 AM Age: 28 years old Clinical indication: Cough TECHNIQUE: Imaging protocol: Radiologic exam of the chest. Views: 1 view. COMPARISON: CR XR chest 1V portable [id number] 01/19/2023 1:11 PM FINDINGS: Lungs: No acute infiltrate detected. Pleural spaces: No definite pleural effusion. No pneumothorax. Heart/Mediastinum: Heart size stable compared to 01/19/2023. No pulmonary vascular congestion. Bones/joints: No obvious acute abnormality. XR/XR chest 1V portable [id number] IMPRESSION: No acute cardiopulmonary abnormality detected on AP portable chest radiograph. No significant change in appearance of the chest compared to 01/19/2023.
--- NOTE | 2023-10-01 10:23 | W.ED.URI ---
HPI - URI/Sore Throat General: Chief Complaint: Upper Respiratory Infection Stated Complaint: abd and lower back pains Time Seen by Provider: 10/01/23 09:55 History of Present Illness: Patient presents to the ER with complaints of frequent cough, bilateral flank pain, pleuritic chest pain. Patient states she was diagnosed with a sinus infection on Monday started on Augmentin and prednisone. She was tested for COVID then and it was negative. Patient states she just got worse since then now has a spastic cough that hurts really bad when she coughs as well as shoots pain across her middle back. Patient says she has no energy and overall body aches. Review of Systems General: Reports: 10 or more systems reviewed and unremarkable except in HPI and below PFSH ED PFSH: Medical History No pertinent past medical history neghx: htn, dm, thyroid, dvt/pe PCP: Carline at [facility] Pharyngitis with viral syndrome History of gestational diabetes GDM with 6th Surgical History S/P endometrial ablation (09/22/20) Hysteroscopy, D&C, NovaSure endometrial ablation. Performed by Dr. Hayes at [facility] in [place], [place] History of hysteroscopy (06/09/20) With D&C and polypectomy. Performed by Dr. Hayes at [facility] in [place], [place]. H/O tubal ligation (01/19/20) At time of C/S. Performed by Dr. Hayes at [facility] in [place], [place] Status post section (01/19/20) RLTCS with BTL. Performed by Dr. Hayes at [facility] in [place], [place] S/P section (08/17/15) Low transverse section (documented). Diagnosis: Nonreassuring heart tones. Performed by Dr. Ashanti Jha at [facility] in [place], [place]. Single-layer closure of uterus. S/P tonsillectomy and adenoidectomy (~2002) Age 8. Performed in [place], [place] S/P section (01/31/17) Repeat low transverse section. Performed by Dr. You Hayes at [facility] in [place], [place]. S/P cholecystectomy (~2010) Laparoscopic. Performed in [place], [place] Family History Father Hyperlipidemia Grandmother Diabetes paternal Hypertension Maternal Family/Other Diabetes paternal uncle, paternal aunt, paternal cousin Ovarian cancer paternal aunt Thyroid disease paternal aunt Grandfather Diabetes paternal Colon cancer maternal Thyroid disease Maternal Social History Substance/Drug Use: never Physical Exam Const: COMMON NORMALS: no acute distress, average body habitus, patient oriented x3, no limitations, healthy appearing, alert and well nourished HENMT: COMMON NORMALS: normocephalic, atraumatic, hearing grossly normal bilaterally, external ears normal, Normal external nose present, moist oral mucous membranes and oropharynx normal HEAD & SCALP: normocephalic and atraumatic NOSE: Normal external nose present EXTERNAL EAR: Yes external ears normal Neck/C-Spine: COMMON NORMALS: full ROM, no lymphadenopathy, supple, no meningeal signs, no JVD and Thyroid normal THYROID: Thyroid normal Chest: COMMONS NORMALS: normal inspection of the chest and normal palpation of entire chest wall Resp: COMMON NORMALS: normal respiratory effort, No retractions, No use of accessory muscles and clear to auscultation bilaterally (Dry spastic cough) AUSCULTATION: clear to auscultation bilaterally (Dry spastic cough) Cardio: COMMON NORMALS: no JVD, regular rate, regular rhythm, S1 normal heart sound present, S2 normal heart sound present, No gallops present (Cardio), No clicks present (Cardio), No murmurs present (Cardio) and No rub (Cardio) RATE: regular rate RHYTHM: regular rhythm HEART SOUNDS: S1 normal heart sound present and S2 normal heart sound present GI: COMMON NORMALS: Normal to inspection, nondistended, normoactive bowel sounds present, Soft to palpation, non-tender, No hepatosplenomegaly present and no masses PALPATION: Yes Soft to palpation and Yes No hepatosplenomegaly present Back/Pelvis: OTHER: Tender across lower thoracic upper lumbar paraspinal musculature nontender over spinous processes Neuro: COMMON NORMALS: patient oriented x3 SENSORIUM/ORIENTATION: Yes alert MENINGEAL SIGNS: Yes no meningeal signs Course Vital Signs: Vital signs: Vital Signs Temperature 97.9 F 10/01/23 10:01 Pulse Rate 84 10/01/23 10:01 Respiratory Rate 14 10/01/23 10:01 Blood Pressure 155/100 10/01/23 10:01 Pulse Oximetry 100 10/01/23 10:01 Oxygen Delivery Me thod Room Air 10/01/23 10:01 MDM - URI/Sore Throat Medical Decision Making Patient physical exam performed as well as lab work chest x-ray and respiratory swab. X-ray showed no acute changes no abnormalities, lab work and respiratory swab were negative. These results was discussed with the patient and her . Will prescribe some mild pain medicine for back pain but otherwise she is to follow-up with her family practice physician for further evaluation testing. Differential Diagnosis Likely upper respiratory infection and bronchitis; Unlikely croup, otitis media, sinusitis or pharyngitis Medical Records I reviewed the patient's medical records. Lab Data I reviewed the patient's lab results. 10/01/23 10:39 10/01/23 10:39 Radiology Impressions Chest X-Ray 10/01/23 10:19 IMPRESSION: No acute cardiopulmonary abnormality detected on AP portable chest radiograph. No significant change in appearance of the chest compared to 01/19/2023. Laboratory Results WBC 8.78 10^3/uL (3.29-11.43) 10/01/23 10:39 RBC 4.93 10^6/uL (3.85-5.65) 10/01/23 10:39 Hgb 15.20 g/dL (11.27-16.99) 10/01/23 10:39 Hct 43.1 % (36-47) 10/01/23 10:39 MCV 87.4 fl (85-98) 10/01/23 10:39 MCH 30.8 pg (27-33) 10/01/23 10:39 MCHC 35.3 g/dL (30-55) 10/01/23 10:39 RDW 11.9 % (12.1-15.1) L 10/01/23 10:39 Plt Count 205 10^3/cmm (157-399) 10/01/23 10:39 MPV 11.9 fL (7.4-10.4) H 10/01/23 10:39 Neut % (Auto) 60.4 % 10/01/23 10:39 Lymph % (Auto) 28.1 % 10/01/23 10:39 [place] % (Auto) 8.9 % 10/01/23 10:39 Eos % (Auto) 1.8 % 10/01/23 10:39 Baso % (Auto) 0.5 % 10/01/23 10:39 Neut # (Auto) 5.30 10^3/uL (1.8-7.7) 10/01/23 10:39 Lymph # (Auto) 2.5 10^3/uL (0.8-4.8) 10/01/23 10:39 [place] # (Auto) 0.8 10^3/uL (0.2-0.9) 10/01/23 10:39 Eos # (Auto) 0.2 10^3/uL (0.0-0.8) 10/01/23 10:39 Baso # (Auto) 0.0 10^3/uL (0.0-0.1) 10/01/23 10:39 Nucleated RBC % (auto) 0 % 10/01/23 10:39 Nucleated RBCs # 0.0 /100WBC 10/01/23 10:39 Sodium 137 mmol/L (136-145) 10/01/23 10:39 Potassium 3.6 mmol/L (3.5-5.1) 10/01/23 10:39 Chloride 103 mmol/L (98-107) 10/01/23 10:39 Carbon Dioxide 23 mmol/L (22-29) 10/01/23 10:39 Anion Gap 14.6 (5-19) 10/01/23 10:39 BUN 12 mg/dL (6-20) 10/01/23 10:39 Creatinine 0.6 mg/dL (0.5-0.9) 10/01/23 10:39 GFR Calculation 119.9 mL/min (90-130) 10/01/23 10:39 Glucose 87 mg/dL (65-115) 10/01/23 10:39 Calculated Osmolality 283 mOsm/kg (285-295) L 10/01/23 10:39 Calcium 9.0 mg/dL (8.5-10.5) 10/01/23 10:39 Total Bilirubin 0.2 mg/dL (0.15-1.2) 10/01/23 10:39 AST 10 U/L (0-32) 10/01/23 10:39 ALT 17 U/L (0-33) 10/01/23 10:39 Alkaline Phosphatase 40 U/L (35-105) 10/01/23 10:39 Total Protein 7.2 g/dL (6.6-8.7) 10/01/23 10:39 Albumin 4.4 g/dL (3.5-5.2) 10/01/23 10:39 Globulin 2.8 g/dL (1.3-4.6) 10/01/23 10:39 Lipase 27 U/L (13-60) 10/01/23 10:39 HCG, Qual Negative (Negative) 10/01/23 10:39 Urine Color Yellow (Yellow) 10/01/23 10:30 Urine Appearance Clear (CLEAR) 10/01/23 10:30 Urine pH 5 (5-7) 10/01/23 10:30 Ur Specific [place] 1.030 (1.005-1.030) 10/01/23 10:30 Urine Protein Neg (Negative) 10/01/23 10:30 Urine Glucose (UA) Norm (Normal) 10/01/23 10:30 Urine Ketones Negative (Negative) 10/01/23 10:30 Urine Blood Neg (Negative) 10/01/23 10:30 Urine Nitrate Negative (Negative) 10/01/23 10:30 Urine Bilirubin Neg (Negative) 10/01/23 10:30 Urine Urobilinogen Norm mg/dL (Negative) 10/01/23 10:30 Ur Leukocyte Esterase Negative (Negative) 10/01/23 10:30 Adenovirus (PCR) Not detected (NOT DETECT) 10/01/23 10:39 C. pneumoniae DNA (PCR) Not detected (NOT DETECT) 10/01/23 10:39 Coronavirus 229E (PCR) Not detected (NOT DETECT) 10/01/23 10:39 Human Metapneumovir PCR Not detected (NOT DETECT) 10/01/23 10:39 Influenza A (H1) PCR Not detected (NOT DETECT) 10/01/23 10:39 Influ A (H1/09) PCR Not detected (NOT DETECT) 10/01/23 10:39 Influenza A (H3) PCR Not detected (NOT DETECT) 10/01/23 10:39 Influenza Type A (PCR) Not detected (NOT DETECT) 10/01/23 10:39 Influenza Type B (PCR) Not detected (NOT DETECT) 10/01/23 10:39 M. pneumoniae (PCR) Not detected (NOT DETECT) 10/01/23 10:39 Parainfluenza 1 (PCR) Not detected (NOT DETECT) 10/01/23 10:39 Parainfluenza 2 (PCR) Not detected (NOT DETECT) 10/01/23 10:39 Parainfluenza 3 (PCR) Not detected (NOT DETECT) 10/01/23 10:39 Parainfluenza 4 (PCR) Not detected (NOT DETECT) 10/01/23 10:39 RSV Type A (PCR) Not detected (NOT DETECT) 10/01/23 10:39 RSV Type B (PCR) Not detected (NOT DETECT) 10/01/23 10:39 Entero/Rhino (PCR) Not detected (NOT DETECT) 10/01/23 10:39 SARS-CoV-2 (PCR) Not detected (NOT DETECT) 10/01/23 10:39 All radiology interpretation(s) finalized by discharge Discharge Plan Discharge Patient Disposition: Home Clinical Impression: Upper respiratory infection Qualifiers: URI type: unspecified URI Qualified Code(s): J06.9 - Acute upper respiratory infection, unspecified Low back pain Qualifiers: Chronicity: acute Back pain laterality: bilateral Sciatica presence: without sciatica Qualified Code(s): M54.50 - Low back pain, unspecified Condition: Stable Prescriptions: New tramadol 50 mg tablet 50 mg PO Q8H PRN (Reason: pain) Qty: 14 0RF No Action amoxicillin-pot clavulanate 875-125 mg tablet 1 tab PO BID 10 Days Qty: 20 0RF prednisone 20 mg tablet 20 mg PO DAILY 5 Days Qty: 5 0RF Tylenol Ex Str Rapid Release 500 mg Tablet 1,000 - 2,000 mg PO Q6H PRN (Reason: Pain) ibuprofen 200 mg Tablet 400 - 800 mg PO Q6H PRN (Reason: Pain) EpiPen 0.3 mg/0.3 mL auto-injector See Rx Instructions .ROUTE .COMPLEX Rx Instructions: Administer 1 pen injector intramuscularly single dose as needed for anaphylaxis cyclobenzaprine 10 mg tablet 10 mg PO BID PRN (Reason: muscle spasm) Qty: 20 0RF Discharge Orders: Discharge ED (Routine); Ordered 10/01/23 Ordered By: Perfecto Nye Referrals: Abimbola Rosado DO [Primary Care Provider] - Patient Instructions: Acute Low Back Pain (ED), Upper Respiratory Infection - Adult Activity Restrictions/Additional Instructions: Your evaluation in ER was negative. It appears you probably have a viral infection along with your sinusitis. Please continue the antibiotics and steroids at your previously prescribed. We will supply you with some pain medicine for her low back pain and this should improve once your infection starts improving. Please follow-up with your family practice physician in the next 7 days for further evaluation and treatment. Coding Level of Care Code ED Roentgenology Teacher for Claude Ordonez
[2023-10-01 10:35] LABS: Add Urine Microscopic? NO; Charge for UA Resulting for Rev
[2023-10-01 10:49] LABS: Basophils % 0.5 %; Eosinophils # 0.2 10^3/uL (0.0-0.8); Eosinophils % 1.8 %; Hematocrit 43.1 % (36-47); Lymphocytes # 2.5 10^3/uL (0.8-4.8); Lymphocytes % 28.1 %; Mean Corpuscular HGB Conc 35.3 g/dL (30-55); Mean Corpuscular Hemoglobin 30.8 pg (27-33); Mean Corpuscular Volume 87.4 fl (85-98); Mean Platelet Volume 11.9 fL (7.4-10.4); Monocytes # 0.8 10^3/uL (0.2-0.9); Monocytes % 8.9 %; Neutrophils % 60.4 %; Nucleated Red Blood Cells % 0 %; Platelet Count 205 10^3/cmm (157-399); Red Blood Count 4.93 10^6/uL (3.85-5.65); Red Cell Distribution Width 11.9 % (12.1-15.1); White Blood Count 8.78 10^3/uL (3.29-11.43)
[2023-10-01 10:55] LABS: Urine Appearance Clear (CLEAR); Urine Color Yellow (Yellow); pH Urine 5 (5-7)
[2023-10-01 10:56] LABS: Bilirubin Urine Neg (Negative); Blood Urine Neg (Negative); Glucose Urine UA Norm (Normal); Ketones Urine Negative (Negative); Leukocyte Esterase Urine Negative (Negative); Nitrate Urine Negative (Negative); Protein Urine Neg (Negative); Urobilinogen Urine Norm (Negative)
[2023-10-01 10:59] LABS: HCG, Serum Qual Negative (Negative)
[2023-10-01 11:06] LABS: Alanine Aminotransferase 17 U/L (0-33); Albumin Level 4.4 g/dL (3.5-5.2); Alkaline Phosphatase 40 U/L (35-105); Anion Gap 14.6 (5-19); Aspartate Amino Transferase 10 U/L (0-32); Blood Urea Nitrogen 12 mg/dL (6-20); Carbon Dioxide 23 mmol/L (22-29); Chloride 103 mmol/L (98-107); Globulin 2.8 g/dL (1.3-4.6); Glomerular Filtration Rate 119.9 mL/min (90-130); Glucose 87 mg/dL (65-115); Lipase 27 U/L (13-60); Osmolality Calculated 283 mOsm/kg (285-295); Potassium 3.6 mmol/L (3.5-5.1); Sodium 137 mmol/L (136-145); Total Bilirubin 0.2 mg/dL (0.15-1.2); Total Protein 7.2 g/dL (6.6-8.7)
[2023-10-01 12:32] LABS: Adenovirus Not Detected (NOT DETECT); Chlamydia Pneumoniae Not Detected (NOT DETECT); Coronavirus 229E,HKU1,NL63,OC4 Not Detected (NOT DETECT); Human Metapneumovirus Not Detected (NOT DETECT); Human Rhinovirus/Enterovirus Not Detected (NOT DETECT); Influenza A Not Detected (NOT DETECT); Influenza A H1 Not Detected (NOT DETECT); Influenza A H1-2009 Not Detected (NOT DETECT); Influenza A H3 Not Detected (NOT DETECT); Influenza B Not Detected (NOT DETECT); Mycoplasma Pneumoniae Not Detected (NOT DETECT); Parainfluenza Virus Type 1 Not Detected (NOT DETECT); Parainfluenza Virus Type 2 Not Detected (NOT DETECT); Parainfluenza Virus Type 3 Not Detected (NOT DETECT); Parainfluenza Virus Type 4 Not Detected (NOT DETECT); Respiratory Syncytial Virus A Not Detected (NOT DETECT); Respiratory Syncytial Virus B Not Detected (NOT DETECT); SARS-COV-2 Not Detected (NOT DETECT)
== END 2023-10-01 13:09 | disposition home or self-care (01) ==
PROVIDERS: Family Medicine; Emergency Provider Emergency Medicine; PCP Family Medicine
DX: J06.9 Acute upper respiratory infection, unspecified (principal); M54.50 Low back pain, unspecified; Z11.52 Encounter for screening for COVID-19
CPT/HCPCS: 36415; 71045; 80053; 81003; 83690; 84703; 85025; 87486; 87581; 87633; 99284

== ENCOUNTER → 2023-11-15 10:06 | Outpatient (BNVA) | payer BC, MEDICAID, SELFPAY | PROVIDERS: PCP Family Medicine; Visit Provider Nurse Practitioner Family | DX: R68.89 Other general symptoms and signs (principal) | CPT/HCPCS: 87804 ==

== ENCOUNTER 2024-04-15 07:23 | Emergency (ER) | payer BC, MEDICAID, SELFPAY ==
[2024-04-15] VITALS (9 sets, daily range): BP systolic 127–205; BP diastolic 81–165; PULSE 75–105; RESP 16–18; TEMP 36.8; O2SAT 95–99
--- NOTE | 2024-04-15 07:52 | CT_ITS ---
WS: [id number] CT ABDOMEN AND PELVIS WITH CONTRAST HISTORY: abd pain, LEFT sided. TECHNIQUE: Imaging performed of the abdomen and pelvis with IV contrast. Single phase imaging of the abdomen. Coronal and sagittal reformats are submitted. All CT scans at [facility] use at [address] one of these dose optimization techniques: automated exposure control; mA and/or kV adjustment per patient size (includes targeted exams where dose is matched to clinical indication); or iterative re construction. IV CONTRAST: Omnipaque 350; 100 mL IV. Oral contrast: No DLP: 1019.10 mGy.cm COMPARISON: 09/05/2022 Lower thorax: Lung bases are clear. Heart is normal size. No hiatal hernia. Liver/biliary system: Mild hepatic steatosis and hepatomegaly. No bile duct dilatation. Normal portal vein. Gallbladder: Status post cholecystectomy. Pancreas: Normal size pancreas and pancreatic duct. No adjacent inflammation. Spleen: Normal size spleen. No mass or infarct. Adrenal glands: Normal. Right kidney: Normal. Left kidney: Normal. Aorta: Normal. Lymphadenopathy: None. Free fluid: None. GI tract: Normal stomach. No small bowel obstruction. Normal appendix. Normal colon. No colitis or di verticulitis. Abdominal wall: Unremarkable abdominal wall. No hernia. Pelvis: Prior hysterectomy. Both ovaries are still present. RIGHT ovary slightly enlarged due to carlos ral follicles. The entire ovary measures 3.9 x 3.0 x 4.7 cm. Bones: Unremarkable. CT/CT abdomen pelvis w con* [id number] IMPRESSION: 1. Normal appendix. 2. No GI tract obstruction. No colitis identified at this time. No ischemic ch anges. 3. Prior cholecystectomy and hysterectomy. 4. No renal obstruction.
--- NOTE | 2024-04-15 07:52 | ED_ITS ---
HPI - Abdominal Pain 2 General: Chief Complaint: Abdominal Pain Stated Complaint: Abd pain Time Seen by Provider: 04/15/24 07:40 History of Present Illness: 29-year-old female presents emergency ro om complaining of severe abdominal pain. Abdominal pain is generalized to the abdomen. Began after she began had intercourse last night. She has previously had cholecystectomy and a hysterectomy. No fever sweats chills no dysuria urgency frequency has been very nauseous. She has had a couple of episodes of dry heaving. She denies any vaginal rectal bleeding Associated Symptoms: Denies chills, dysuria and fever(s) Related Data Previous Rx's Medication Instructions Recorded diclofenac sodium 75 mg 75 mg PO Q12H PRN pain #20 tabs 04/15/24 tablet,delayed release tramadol 50 mg tablet 50 mg PO Q6H PRN pain #14 tabs 04/15/24 Allergies Allergy/AdvReac Type Severity Reaction Status Date / Time bee venom protein (honey bee) Allergy Intermediate ALGY-Anaphy Verified 02/22/24 10:34 laxis adhesive tape Allergy ALGY-Rash Verified 02/22/24 10:34 banana Allergy ALGY-Swell Verified 02/22/24 10:34 Lip/Tongue/Throat hydrocodone Allergy angry and Verified 02/22/24 10:34 [From Hycomine violent (hydrocodone-PPA)] phenylpropanolamine Allergy angry and Verified 02/22/24 10:34 [From Hycomine violent (hydrocodone-PPA)] Review of Systems 2 Const: Denies: fever(s) or chills Card: Denies: chest pain Resp: Denies: dyspnea GI: Denies: abdominal pain : Denies: dysuria, urinary frequency or urinary urgency Musc: Denies: neck pain or back pain Skin/Breast: Denies: rash PFSH ED 2 PFSH: Medical History No pertinent past medical history neghx: htn, dm, thyroid, dvt/pe PCP: Carline at [facility] Pharyngitis with viral syndrome History of gestational diabetes GDM with 6th Surgical History History of hysterectomy S/P endometrial ablation (09/22/20) Hysteroscopy, D&C, NovaSure endometrial ablation. Performed by Dr. Hayes at [facility] in [place], [place] History of hysteroscopy (06/09/20) With D&C and polypectomy. Performed by Dr. Hayes at [facility] in [place], [place]. H/O tubal ligation (01/19/20) At time of C/S. Performed by Dr. Hayes at [facility] in [place], [place] Status post section (01/19/20) RLTCS with BTL. Performed by Dr. Hayes at [facility] in [place], [place] S/P section (08/17/15) Low transverse section (documented). Diagnosis: Nonreassuring heart tones. Performed by Dr. Ashanti Jha at [facility] in [place], [place]. Single-layer closure of uterus. S/P tonsillectomy and adenoidectomy (~2002) Age 8. Performed in [place], [place] S/P section (01/31/17) Repeat low transverse section. Performed by Dr. You Hayes at [facility] in [place], [place]. S/P cholecystectomy (~2010) Laparoscopic. Performed in [place], [place] Family History Father Hyperlipidemia Grandmother Diabetes paternal Hypertension Maternal Family/Other Diabetes paternal uncle, paternal aunt, paternal cousin Ovarian cancer paternal aunt Thyroid disease paternal aunt Grandfather Diabetes paternal Colon cancer maternal Thyroid disease Maternal Social History Smoking and tobacco/nicotine status: current every day tobacco/nicotine user (vape) cigarettes Packs smoked per day: 1 [ Other cigarette details: patient is down from 1ppd ] Substance/Drug Use: never Physical Exam 2 Const: GENERAL APPEARANCE: cooperative ORIENTATION/CONSCIOUSNESS: Yes awake, Yes oriented to person, Yes oriented to place and Yes oriented to time HENMT: COMMON NORMALS: normocephalic, atraumatic and hearing grossly normal bilaterally HEAD & SCALP: normocephalic and atraumatic Resp: COMMON NORMALS: normal respiratory effort, No retractions, No use of accessory muscles and clear to auscultation bilaterally AUSCULTATION: clear to auscultation bilaterally Cardio: COMMON NORMALS: regular rate, regular rhythm and No murmurs present (Cardio) RATE: regular rate RHYTHM: regular rhythm GI: COMMON NORMALS: No hepatosplenomegaly present AUSCULTATION: Yes normoactive bowel sounds PALPATION: Yes Tenderness to palpation present (GI), No Guarding due to palpation present (GI) and Yes No hepatosplenomegaly present Extremity: COMMON NORMALS: normal to inspection, capillary refill normal, no clubbing, cyanosis or edema, no calf tenderness and no pedal edema Neuro: SENSORIUM/ORIENTATION: Yes oriented to person, Yes oriented to place and Yes oriented to time Skin: COMMON NORMALS: no rashes or lesions noted GENERAL SKIN EXAM: no rashes or lesions noted Course 2 Vital Signs: Vital signs: Vital Signs Temperature 98.2 F 04/15/24 07:28 Pulse Rate 85 04/15/24 13:25 Respiratory Rate 16 04/15/24 12:30 Blood Pressure 145/100 04/15/24 13:25 Pulse Oximetry 95 04/15/24 13:25 Oxygen Delivery Me thod Room Air 04/15/24 12:30 MDM - Abdominal Pain Medical Decision Making Patient had postcoital pelvic pain. She previously had a hysterectomy. Pelvic exam did not show any bruising ecchymosis or lacerations or skin tears no perineal or anal skin tears. CT did not show any significant abnormalities she was unusually uncomfortable with pelvic exam vaginal cuff seemed a little thick a bimanual exam was done because of the degree of discomfort she had she does have some discomfort with palpation along the vaginal cuff. We did an ultrasound after reviewed with radiologist. No significant abnormalities there is good blood flow to the ovary there is no evidence of abscess no evidence of any other pathology. Discharge home with pain medications suspect that was the pain from intercourse. Return if she has further problems. Lab Data 04/15/24 08:00 04/15/24 08:00 Labs/Radiology: Radiology Impressions Abdomen/Pelvis CT 04/15/24 07:52 IMPRESSION: 1. Normal appendix. 2. No GI tract obstruction. No colitis identified at this time. No ischemic changes. 3. Prior cholecystectomy and hysterectomy. 4. No renal obstruction. Pelvic/Transvag US 04/15/24 11:57 IMPRESSION: 1. No mass at the vaginal cuff. 2. Tiny amount of physiologic free fluid in the pelvis. 3. RIGHT ovary is just slightly enlarged with small peripheral follicles. Normal vascularity within each ovary. Laboratory Results WBC 9.01 10^3/uL (3.29-11.43) 04/15/24 08:00 RBC 4.97 10^6/uL (3.85-5.65) 04/15/24 08:00 Hgb 15.40 g/dL (11.27-16.99) 04/15/24 08:00 Hct 43.4 % (36-47) 04/15/24 08:00 MCV 87.3 fl (85-98) 04/15/24 08:00 MCH 31.0 pg (27-33) 04/15/24 08:00 MCHC 35.5 g/dL (30-55) 04/15/24 08:00 RDW 11.8 % (12.1-15.1) L 04/15/24 08:00 Plt Count 200 10^3/cmm (157-399) 04/15/24 08:00 MPV 11.6 fL (7.4-10.4) H 04/15/24 08:00 Neut % (Auto) 64.2 % 04/15/24 08:00 Lymph % (Auto) 27.0 % 04/15/24 08:00 [place] % (Auto) 6.4 % 04/15/24 08:00 Eos % (Auto) 1.8 % 04/15/24 08:00 Baso % (Auto) 0.4 % 04/15/24 08:00 Neut # (Auto) 5.78 10^3/uL (1.8-7.7) 04/15/24 08:00 Lymph # (Auto) 2.4 10^3/uL (0.8-4.8) 04/15/24 08:00 [place] # (Auto) 0.6 10^3/uL (0.2-0.9) 04/15/24 08:00 Eos # (Auto) 0.2 10^3/uL (0.0-0.8) 04/15/24 08:00 Baso # (Auto) 0.0 10^3/uL (0.0-0.1) 04/15/24 08:00 Nucleated RBC % (auto) 0 % 04/15/24 08:00 Nucleated RBCs # 0.0 /100WBC 04/15/24 08:00 Sodium 136 mmol/L (136-145) 04/15/24 08:00 Potassium 4.3 mmol/L (3.5-5.1) 04/15/24 08:00 Chloride 102 mmol/L (98-107) 04/15/24 08:00 Carbon Dioxide 23 mmol/L (22-29) 04/15/24 08:00 Anion Gap 15.3 (5-19) 04/15/24 08:00 BUN 11 mg/dL (6-20) 04/15/24 08:00 Creatinine 0.5 mg/dL (0.5-0.9) 04/15/24 08:00 GFR Calculation 146.9 mL/min (90-130) H 04/15/24 08:00 Glucose 102 mg/dL (65-115) 04/15/24 08:00 Calculated Osmolality 282 mOsm/kg (285-295) L 04/15/24 08:00 Calcium 9.3 mg/dL (8.5-10.5) 04/15/24 08:00 Total Bilirubin 0.4 mg/dL (0.15-1.2) 04/15/24 08:00 AST 17 U/L (0-32) 04/15/24 08:00 ALT 29 U/L (0-33) 04/15/24 08:00 Alkaline Phosphatase 41 U/L (35-105) 04/15/24 08:00 Total Protein 7.7 g/dL (6.6-8.7) 04/15/24 08:00 Albumin 4.6 g/dL (3.5-5.2) 04/15/24 08:00 Globulin 3.1 g/dL (1.3-4.6) 04/15/24 08:00 Lipase 25 U/L (13-60) 04/15/24 08:00 Urine Color Yellow (Yellow) 04/15/24 09:15 Urine Appearance Clear (CLEAR) 04/15/24 09:15 Urine pH 5.0 (5-7) 04/15/24 09:15 Ur Specific [place] 1.074 (1.005-1.030) H 04/15/24 09:15 Urine Protein Negative (Negative) 04/15/24 09:15 Urine Glucose (UA) Negative (Normal) 04/15/24 09:15 Urine Ketones Negative (Negative) 04/15/24 09:15 Urine Blood Negative (Negative) 04/15/24 09:15 Urine Nitrate Negative (Negative) 04/15/24 09:15 Urine Bilirubin Negative (Negative) 04/15/24 09:15 Urine Urobilinogen 0.2 mg/dL (Negative) 04/15/24 09:15 Ur Leukocyte Esterase Negative (Negative) 04/15/24 09:15 Urine RBC 0-2 /hpf (0-2) 04/15/24 09:15 Urine WBC 0-5 /hpf (0-5) 04/15/24 09:15 Ur Squamous Epith Cells 0-5 /hpf (0-5) 04/15/24 09:15 Amorphous Sediment Not Reportable 04/15/24 09:15 Urine Bacteria None seen /hpf (NONE) 04/15/24 09:15 Hyaline Casts 0-4 /lpf H 04/15/24 09:15 All radiology interpretation(s) finalized by discharge Discharge Plan Discharge Patient Disposition: Home Clinical Impression: Pelvic pain Condition: Stable Prescriptions: New diclofenac sodium 75 mg tablet,delayed release (DR/EC) 75 mg PO Q12H PRN (Reason: pain) Qty: 20 0RF tramadol 50 mg tablet 50 mg PO Q6H PRN (Reason: pain) Qty: 14 0RF Discharge Orders: Discharge ED (Routine); Ordered 04/15/24 Ordered By: Rip Tello Referrals: Abimbola Rosado DO [Primary Care Provider] - Discharge Diet: Advance as tolerated Discharge Activity: Increase activity as tolerated Patient Instructions: Opioid Safety, Pain Management Activity Restrictions/Additional Instructions: Thank you for choosing [facility] for your healthcare needs today. It is very important that you follow up as instructed or that you return to the Emergency Department should you have concerns or if your condition changes or worsens in any way. You were seen today for complaint of pelvic pain CT and pelvic ultrasound did not show any specific abnormality. There are other cultures pending. Will contact you when it was resulted. Urine did not show signs of infection. Recommend pelvic rest for at least 5 to 7 days. You are given diclofenac and tramadol as previous discomfort. 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
[2024-04-15] MEDS: sodium chloride 0.9% 1,000 ML 999 ML IV (08:07)
[2024-04-15] MEDS: ondansetron 2 mg/ML SDV 2 mL 4 MG IVP (08:08)
[2024-04-15] MEDS: ketorolac 30 mg/mL INJ IVP (08:10)
[2024-04-15] MEDS: morphine 4 mg/mL SDV 1 mL IVP ×2 (08:11→12:05)
[2024-04-15 08:15] LABS: Basophils % 0.4 %; Eosinophils # 0.2 10^3/uL (0.0-0.8); Eosinophils % 1.8 %; Hematocrit 43.4 % (36-47); Lymphocytes # 2.4 10^3/uL (0.8-4.8); Mean Corpuscular HGB Conc 35.5 g/dL (30-55); Mean Corpuscular Volume 87.3 fl (85-98); Mean Platelet Volume 11.6 fL (7.4-10.4); Monocytes # 0.6 10^3/uL (0.2-0.9); Monocytes % 6.4 %; Neutrophils # 5.78 10^3/uL (1.8-7.7); Neutrophils % 64.2 %; Nucleated Red Blood Cells % 0 %; Platelet Count 200 10^3/cmm (157-399); Red Blood Count 4.97 10^6/uL (3.85-5.65); Red Cell Distribution Width 11.8 % (12.1-15.1); White Blood Count 9.01 10^3/uL (3.29-11.43)
[2024-04-15] MEDS: iohexol 350 mg/mL 500 mL Btl (per mL) IV (08:20)
[2024-04-15 08:36] LABS: Alanine Aminotransferase 29 U/L (0-33); Albumin Level 4.6 g/dL (3.5-5.2); Alkaline Phosphatase 41 U/L (35-105); Anion Gap 15.3 (5-19); Aspartate Amino Transferase 17 U/L (0-32); Blood Urea Nitrogen 11 mg/dL (6-20); Calcium 9.3 mg/dL (8.5-10.5); Carbon Dioxide 23 mmol/L (22-29); Chloride 102 mmol/L (98-107); Globulin 3.1 g/dL (1.3-4.6); Glomerular Filtration Rate 146.9 mL/min (90-130); Glucose 102 mg/dL (65-115); Lipase 25 U/L (13-60); Osmolality Calculated 282 mOsm/kg (285-295); Potassium 4.3 mmol/L (3.5-5.1); Sodium 136 mmol/L (136-145); Total Bilirubin 0.4 mg/dL (0.15-1.2); Total Protein 7.7 g/dL (6.6-8.7)
[2024-04-15 09:22] LABS: Charge for UA Resulting for Rev
[2024-04-15 09:29] LABS: Bilirubin Urine Negative (Negative); Blood Urine Negative (Negative); Glucose Urine UA Negative (Normal); Ketones Urine Negative (Negative); Leukocyte Esterase Urine Negative (Negative); Nitrate Urine Negative (Negative); Protein Urine Negative (Negative); Urine Appearance Clear (CLEAR); Urine Color Yellow (Yellow); Urobilinogen Urine 0.2 mg/dL (Negative)
[2024-04-15 09:34] LABS: Bacteria Urine None Seen /hpf; Hyaline Casts Urine 0-4 /lpf; RBC Urine 0-2 /hpf (0-2); Squamous Epithelial Cell Urine 0-5 /hpf (0-5); WBC Urine 0-5 /hpf (0-5)
[2024-04-15 09:37] LABS: Specific Gravity, Urine 1.074 (1.005-1.030)
--- NOTE | 2024-04-15 11:13 | PC.NURSE ---
this nurse assumed pt care at 1100.
--- NOTE | 2024-04-15 11:57 | US_ITS ---
WS: [id number] US pelvis lmt w transvag HISTORY: pelvic pain COMPARISON: None available. Prior hysterectomy. There is no abnormality noted at the vaginal cuff. Right ovary: 3.1 cm x 4.0 cm x 3.2 cm. RIGHT ovary is slightly large with numerous small peripheral f ollicles. Normal vascularity within the ovary. Left ovary: 2.1 cm x 3.2 cm x 2.6 cm. Normal size and vascularity, no cystic or solid masses. Very small amount of free fluid in the cul-de-sac. US/US pelvis lmt w transvag IMPRESSION: 1. No mass at the vaginal cuff. 2. Tiny amount of physiologic free fluid in the pelvis. 3. RIGHT ovary is just slightly enlarged with small peripheral follicles. Norm al vascularity within each ovary.
[2024-04-16 16:34] LABS: Chlamydia Trachomatis RNA TMA NOT DETECTED (NOT DETECTED); Neisseria Gonorrhoeae RNA, TMA NOT DETECTED (NOT DETECTED)
== END 2024-04-15 13:34 | disposition home or self-care (01) ==
PROVIDERS: Emergency Provider Family Medicine; PCP Family Medicine
DX: R10.2 Pelvic and perineal pain (principal); F17.210 Nicotine dependence, cigarettes, uncomplicated; F17.290 Nicotine dependence, other tobacco product, uncomplicated
CPT/HCPCS: 74177; 76830; 76857; 80053; 81003; 81015; 83690; 85025; 87210; 87491; 87591; 96361; 96374; 96375; 96376; 99285; J1885; J2270; J2405; J7030

== ENCOUNTER → 2024-09-16 09:10 | Outpatient (BNVA) | payer BC, MEDICAID, SELFPAY | PROVIDERS: PCP Family Medicine; Visit Provider Nurse Practitioner Family | DX: R68.89 Other general symptoms and signs (principal) | CPT/HCPCS: 87804 ==

== ENCOUNTER 2024-11-18 09:34 | Emergency (ER) | payer BC, MEDICAID, SELFPAY ==
[2024-11-18 09:43] VITALS: BP 139/96; PULSE 88; RESP 17; TEMP 36.8; O2SAT 97; BMI 42.4
[2024-11-18 10:16] LABS: Basophils % 0.4 %; Eosinophils # 0.1 10^3/uL (0.0-0.8); Eosinophils % 1.8 %; Hematocrit 40.7 % (36-47); Lymphocytes # 1.8 10^3/uL (0.8-4.8); Lymphocytes % 24.8 %; Mean Corpuscular HGB Conc 33.7 g/dL (30-55); Mean Corpuscular Hemoglobin 29.5 pg (27-33); Mean Corpuscular Volume 87.5 fl (85-98); Mean Platelet Volume 11.7 fL (7.4-10.4); Monocytes # 0.5 10^3/uL (0.2-0.9); Monocytes % 7.1 %; Neutrophils % 65.6 %; Nucleated Red Blood Cells % 0 %; Platelet Count 179 10^3/cmm (157-399); Red Blood Count 4.65 10^6/uL (3.85-5.65); Red Cell Distribution Width 12.3 % (12.1-15.1); White Blood Count 7.31 10^3/uL (3.29-11.43)
[2024-11-18 10:32] LABS: Alanine Aminotransferase 27 U/L (0-33); Albumin Level 4.6 g/dL (3.5-5.2); Alkaline Phosphatase 40 U/L (35-105); Anion Gap 15.1 (5-19); Aspartate Amino Transferase 17 U/L (0-32); Blood Urea Nitrogen 12 mg/dL (6-20); Carbon Dioxide 22 mmol/L (22-29); Chloride 104 mmol/L (98-107); Creatinine Clr Calc Pharmacy 190.8051; Globulin 2.8 g/dL (1.3-4.6); Glomerular Filtration Rate 146.9 mL/min (90-130); Glucose 92 mg/dL (65-115); Osmolality Calculated 283 mOsm/kg (285-295); Potassium 4.1 mmol/L (3.5-5.1); Sodium 137 mmol/L (136-145); Total Bilirubin 0.3 mg/dL (0.15-1.2); Total Protein 7.4 g/dL (6.6-8.7)
[2024-11-18 10:35] LABS: HCG, Serum Qual Negative (Negative)
[2024-11-18 10:45] VITALS: BP 155/95; PULSE 72; RESP 18; O2SAT 93
[2024-11-18 11:06] LABS: Add Urine Microscopic? NO
--- NOTE | 2024-11-18 11:08 | ED_ITS ---
HPI - Female Genitourinary 2 General: Chief complaint: Urogenital-Female Stated complaint: back pain, hurts when pee Time Seen by Provider: 11/18/24 10:46 Source: patient Mode of arrival: ambulatory Limitations: no limitations History of Present Illness: Patient is a 29-year-old female who presents today with back pain and dysuria. Patient states that this started this morning. She reports urethral burning- present even when she is not urinating, bladder pressure, and cloudy/pink urine x 1 this morning. Patient also states that she has chronic back/flank pain and has been seen for this several times in the past-over the course of years. She has no complaints of mass/bulges/feeling like she is sitting on a balloon/etc. No painful intercourse. MD elicited complaint: dysuria, UTI and pelvic pain Pertinent past history: hysterectomy Onset (ago): hour(s) Location of symptoms: suprapubic Severity: mild Quality of pain: burning (With urination and at rest) Consistency: intermittent Vaginal discharge: none Vaginal bleeding: none Urinary symptoms: Dysuria and Hematuria Exacerbating factors: urination and movement Relieving factors: none Associated symptoms: Deny abdominal pain, short of breath, headache(s) or syncope Treatment prior to arrival: none Sexual activity: Yes Patient : No Possible : other (Hysterectomy) Related Data Home Medications ?Medication ?Instructions ?Recorded ?Confirmed No Known Home Medications 11/18/2411/05 Allergies Allergy/AdvReac Type Severity Reaction Status Date / Time bee venom protein (honey bee) Allergy Intermediate ALGY-Anaphy Verified 09/16/24 08:51 laxis adhesive tape Allergy ALGY-Rash Verified 09/16/24 08:51 banana Allergy ALGY-Swell Verified 09/16/24 08:51 Lip/Tongue/Throat hydrocodone (From Hycomine Allergy angry and Verified 09/16/24 08:51 (hydrocodone-PPA)) violent phenylpropanolamine (From Allergy angry and Verified 09/16/24 08:51 Hycomine (hydrocodone-PPA)) violent Review of Systems 2 Const: Denies: fever(s), chills, body aches, fatigue or malaise Eyes: Denies: change in vision Card: Denies: chest pain, palpitations, lightheadedness or syncope Resp: Denies: dyspnea GI: Denies: abdominal pain, vomiting or change in bowel habits : Reports: dysuria and hematuria; Denies: flank pain, difficulty voiding, urinary frequency, urinary urgency, urinary hesitancy or vaginal bleeding Musc: Reports: neck pain and back pain; Denies: extremity pain, extremity swelling, joint pain, joint swelling or joint redness Skin/Breast: Denies: rash Neuro: Denies: headache(s), numbness in extremities, weakness in extremities, dizziness, vertigo or confusion PFSH ED 2 PFSH: Medical History No pertinent past medical history neghx: htn, dm, thyroid, dvt/pe PCP: Carline at [facility] Pharyngitis with viral syndrome History of gestational diabetes GDM with 6th Surgical History History of hysterectomy S/P endometrial ablation (09/22/20) Hysteroscopy, D&C, NovaSure endometrial ablation. Performed by Dr. Hayes at [facility] in [place], [place] History of hysteroscopy (06/09/20) With D&C and polypectomy. Performed by Dr. Hayes at [facility] in [place], [place]. H/O tubal ligation (01/19/20) At time of C/S. Performed by Dr. Hayes at [facility] in [place], [place] Status post section (01/19/20) RLTCS with BTL. Performed by Dr. Hayes at [facility] in [place], [place] S/P section (08/17/15) Low transverse section (documented). Diagnosis: Nonreassuring heart tones. Performed by Dr. Ashanti Jha at [facility] in [place], [place]. Single-layer closure of uterus. S/P tonsillectomy and adenoidectomy (~2002) Age 8. Performed in [place], [place] S/P section (01/31/17) Repeat low transverse section. Performed by Dr. You Hayes at [facility] in [place], [place]. S/P cholecystectomy (~2010) Laparoscopic. Performed in [place], [place] Family History Father Hyperlipidemia Grandmother Diabetes paternal Hypertension Maternal Family/Other Diabetes paternal uncle, paternal aunt, paternal cousin Ovarian cancer paternal aunt Thyroid disease paternal aunt Grandfather Diabetes paternal Colon cancer maternal Thyroid disease Maternal Social History Smoking and tobacco/nicotine status: former use of tobacco/nicotine Substance/Drug Use: never Physical Exam 2 Const: COMMON NORMALS: no acute distress, patient oriented x3, no limitations, healthy appearing, alert and well nourished GENERAL APPEARANCE: cooperative NUTRITIONAL APPEARANCE: obese ORIENTATION/CONSCIOUSNESS: Yes awake, Yes oriented to person, Yes oriented to place and Yes oriented to time Eye: GENERAL EYE: appearance normal, both eyes and all related structures Neck/C-Spine: GENERAL: Yes normal visual inspection Chest: COMMONS NORMALS: normal inspection of the chest and normal palpation of entire chest wall Resp: COMMON NORMALS: normal respiratory effort, No retractions, No use of accessory muscles and clear to auscultation bilaterally EFFORT & INSPECTION: Yes able to speak in complete sentences and Yes symmetric chest movement A USCULTATION: clear to auscultation bilaterally Cardio: COMMON NORMALS: regular rate and regular rhythm RATE: regular rate RHYTHM: regular rhythm GI: COMMON NORMALS: Normal to inspection, nondistended, normoactive bowel sounds present, Soft to palpation, non-tender, No hepatosplenomegaly present and no masses PALPATION: Yes Soft to palpation and Yes No hepatosplenomegaly present Back/Pelvis: COMMON NORMALS: thoracic and lumbar spine normal to inspection, no thoracic nor lumbar tenderness, thoraco-lumbar ROM normal and straight leg raise negative bilaterally OTHER: TTP paraspinal musculature BACK IMAGE (FEMALE): 1. 2. Extremity: GENERAL: Yes normal exam except as noted Neuro: COMMON NORMALS: patient oriented x3, moves all extremities, no focal motor deficits and no sensory deficits noted SENSORIUM/ORIENTATION: Yes alert, Yes oriented to person, Yes oriented to place and Yes oriented to time Skin: COMMON NORMALS: no rashes or lesions noted GENERAL SKIN EXAM: no rashes or lesions noted Course 2 Vital Signs: Vital signs: Vital Signs Temperature 98.2 F 11/18/24 09:43 Pulse Rate 86 11/18/24 12:16 Respiratory Rate 16 11/18/24 12:16 Blood Pressure 133/103 11/18/24 12:16 Pulse Oximetry 95 11/18/24 12:16 Oxygen Delivery Me thod Room Air 11/18/24 11:12 MDM - Female Medical Decision Making Patient here with a complaint of burning with urination as well as urethral burning even when she is not urinating. She has not noticed any itching or labial swelling. She and significant other did visualize area this morning and states it looks normal. She is not having any vaginal bleeding. She is status post partial hysterectomy. They did remove her cervix. She is not having any painful intercourse. Sexually monogamous with her significant other. Her back pain is easily reproducible and appears chronic by history. Her blood work today is unremarkable. Her UA is completely clear. At this time I do not feel she warrants any type of antibiotic therapy. Recommend she follow-up with her primary care provider for further evaluation of symptoms. Medical Records I reviewed the patient's medical records. Lab Data I reviewed the patient's lab results. 11/18/24 09:52 11/18/24 09:52 Laboratory Results WBC 7.31 10^3/uL (3.29-11.43) 11/18/24 09:52 RBC 4.65 10^6/uL (3.85-5.65) 11/18/24 09:52 Hgb 13.70 g/dL (11.27-16.99) 11/18/24 09:52 Hct 40.7 % (36-47) 11/18/24 09:52 MCV 87.5 fl (85-98) 11/18/24 09:52 MCH 29.5 pg (27-33) 11/18/24 09:52 MCHC 33.7 g/dL (30-55) 11/18/24 09:52 RDW 12.3 % (12.1-15.1) 11/18/24 09:52 Plt Count 179 10^3/cmm (157-399) 11/18/24 09:52 MPV 11.7 fL (7.4-10.4) H 11/18/24 09:52 Neut % (Auto) 65.6 % 11/18/24 09:52 Lymph % (Auto) 24.8 % 11/18/24 09:52 Rhea % (Auto) 7.1 % 11/18/24 09:52 Eos % (Auto) 1.8 % 11/18/24 09:52 Baso % (Auto) 0.4 % 11/18/24 09:52 Neut # (Auto) 4.80 10^3/uL (1.8-7.7) 11/18/24 09:52 Lymph # (Auto) 1.8 10^3/uL (0.8-4.8) 11/18/24 09:52 Rhea # (Auto) 0.5 10^3/uL (0.2-0.9) 11/18/24 09:52 Eos # (Auto) 0.1 10^3/uL (0.0-0.8) 11/18/24 09:52 Baso # (Auto) 0.0 10^3/uL (0.0-0.1) 11/18/24 09:52 Nucleated RBC % (auto) 0 % 11/18/24 09:52 Nucleated RBCs # 0.0 /100WBC 11/18/24 09:52 Sodium 137 mmol/L (136-145) 11/18/24 09:52 Potassium 4.1 mmol/L (3.5-5.1) 11/18/24 09:52 Chloride 104 mmol/L (98-107) 11/18/24 09:52 Carbon Dioxide 22 mmol/L (22-29) 11/18/24 09:52 Anion Gap 15.1 (5-19) 11/18/24 09:52 BUN 12 mg/dL (6-20) 11/18/24 09:52 Creatinine 0.5 mg/dL (0.5-0.9) 11/18/24 09:52 GFR Calculation 146.9 mL/min (90-130) H 11/18/24 09:52 Glucose 92 mg/dL (65-115) 11/18/24 09:52 Calculated Osmolality 283 mOsm/kg (285-295) L 11/18/24 09:52 Calcium 9.0 mg/dL (8.5-10.5) 11/18/24 09:52 Total Bilirubin 0.3 mg/dL (0.15-1.2) 11/18/24 09:52 AST 17 U/L (0-32) 11/18/24 09:52 ALT 27 U/L (0-33) 11/18/24 09:52 Alkaline Phosphatase 40 U/L (35-105) 11/18/24 09:52 Total Protein 7.4 g/dL (6.6-8.7) 11/18/24 09:52 Albumin 4.6 g/dL (3.5-5.2) 11/18/24 09:52 Globulin 2.8 g/dL (1.3-4.6) 11/18/24 09:52 HCG, Qual Negative (Negative) 11/18/24 09:52 Urine Color Yellow (Yellow) 11/18/24 10:57 Urine Appearance Clear (CLEAR) 11/18/24 10:57 Urine pH 5 (5-7) 11/18/24 10:57 Ur Specific [place] 1.020 (1.005-1.030) 11/18/24 10:57 Urine Protein Neg (Negative) 11/18/24 10:57 Urine Glucose (UA) Norm (Normal) 11/18/24 10:57 Urine Ketones Negative (Negative) 11/18/24 10:57 Urine Blood Neg (Negative) 11/18/24 10:57 Urine Nitrate Negative (Negative) 11/18/24 10:57 Urine Bilirubin Neg (Negative) 11/18/24 10:57 Urine Urobilinogen Norm mg/dL (Negative) 11/18/24 10:57 Ur Leukocyte Esterase Negative (Negative) 11/18/24 10:57 Amorphous Sediment Not Reportable 11/18/24 10:57 No radiology studies performed this visit Discharge Plan Discharge Patient Disposition: Home Clinical Impression: Urethral pain Back pain Qualifiers: Back pain location: thoracic back pain Chronicity: chronic Back pain laterality: bilateral Qualified Code(s): M54.6 - Pain in thoracic spine Condition: Stable Prescriptions: No Action No Known Home Medications Discharge Orders: Discharge ED (Routine); Ordered 11/18/24 Ordered By: Gaye Henry Referrals: Abimbola Rosado DO [Primary Care Provider] - Activity Restrictions/Additional Instructions: As we discussed, your urine analysis here did not show any evidence for infection. I recommend you follow-up with your primary care provider for the burning sensation that you are having as well as for further evaluation of your intermittent/chronic back pain. Stand Alone Forms: Work/School Release Print Language: Arabic Coding Level of Care Code ED Rounding Machine Tender for Claude Ordonez
[2024-11-18 11:09] LABS: Urine Appearance Clear (CLEAR); Urine Color Yellow (Yellow); pH Urine 5 (5-7)
[2024-11-18 11:10] LABS: Bilirubin Urine Neg (Negative); Blood Urine Neg (Negative); Glucose Urine UA Norm (Normal); Ketones Urine Negative (Negative); Leukocyte Esterase Urine Negative (Negative); Nitrate Urine Negative (Negative); Protein Urine Neg (Negative); Urobilinogen Urine Norm (Negative)
[2024-11-18 11:11] LABS: Charge for UA Resulting for Rev
[2024-11-18 11:12] VITALS: BP 155/95; PULSE 76; RESP 16; O2SAT 96
[2024-11-18 12:16] VITALS: BP 133/103; PULSE 86; RESP 16; O2SAT 95
== END 2024-11-18 12:16 | disposition home or self-care (01) ==
PROVIDERS: Emergency Provider Physician Assistant; PCP Family Medicine
DX: M54.6 Pain in thoracic spine (principal); Z87.891 Personal history of nicotine dependence; R30.0 Dysuria
CPT/HCPCS: 36415; 80053; 81003; 84703; 85025; 87077; 87086; 87186; 99283

== ENCOUNTER 2024-12-27 11:54 | Emergency (ER) | payer BC, MEDICAID, SELFPAY ==
[2024-12-27 12:09] VITALS: BP 134/96; PULSE 100; RESP 17; TEMP 36.9; O2SAT 98; BMI 42.4
--- NOTE | 2024-12-27 12:23 | CT_ITS ---
WS: [id number] CT HEAD TECHNIQUE: Noncontrast CT of the head obtained from the skullbase to the vertex. CLINICAL INFORMATION: OROZCO COMPARISON: 2006 DLP: 1091.[address] scans at [facility] use at least one of these dose optimization techniques: automated exposure control; mA and/or kV adjustment per patient size (includes targeted exams where dose is matched to clinical indication); or iterative reconstruction. FINDINGS: No evidence of intracranial hemorrhage or mass effect. Ventricular system and basal cisterns are patent. No extra-axial fluid collections. No evidence of mass or mass effect. Normal carcamo-white differentiation. Paranasal sinuses and mastoid air cells are well aerated. Small retention cysts in the maxillary sinuses..Normal visualized soft tissues. CT/CT head wo con* [id number] IMPRESSION: 1. No evidence of intracranial hemorrhage or mass effect. 2. No acute intracranial findings.
--- NOTE | 2024-12-27 12:25 | W.ED.GENADLT ---
HPI - General Adult General: Chief complaint: Nausea/Vomiting/Diarrhea Stated complaint: migraine, unstable BP and BS Time Seen by Provider: 12/27/24 12:00 Source: patient Mode of arrival: ambulatory Limitations: no limitations History of Present Illness: Patient is a 29-year-old female who presents to ED today with a complaint of a headache, feeling nauseous, feeling tingly all over , and one episode of diarrhea. Symptoms started yesterday. Patient states when she began experiencing symptoms she used her mother's glucometer to check her blood sugar and it was 210 yesterday. She has continued to check blood sugars this morning and they have read anywhere from 103-117. Patient states she has a strong family history of diabetes but personally does not carry this diagnosis. She also states her blood pressures have been all over the place reporting readings as high as 150s/130s at home. She does not have a diagnosis of hypertension and does not take medications for this. Her blood pressure upon arrival is 134/96. Patient is not having any abdominal pain. No fevers. She states her only physical pain at this time is her headache. Denies history of migraines. Onset (ago): day(s) (yesterday) Severity: moderate Severity scale (1-10): 7 Pain Consistency: constant Relieving factors: none Exacerbating factors: none Associated symptoms: Reports headache(s) and nausea; Deny chest pain, confusion, dyspnea, malaise, rash, palpitations, syncope or vomiting Treatments prior to arrival: none Related Data Home Medications ?Medication ?Instructions ?Recorded ?Confirmed No Known Home Medications 11/18/24 12/27/24 Allergies Allergy/AdvReac Type Severity Reaction Status Date / Time bee venom protein (honey bee) Allergy Intermediate ALGY-Anaphy Verified 09/16/24 08:51 laxis adhesive tape Allergy ALGY-Rash Verified 09/16/24 08:51 banana Allergy ALGY-Swell Verified 09/16/24 08:51 Lip/Tongue/Throat hydrocodone (From Hycomine Allergy angry and Verified 09/16/24 08:51 (hydrocodone-PPA)) violent phenylpropanolamine (From Allergy angry and Verified 09/16/24 08:51 Hycomine (hydrocodone-PPA)) violent Review of Systems Const: Denies: fever(s), chills, body aches, fatigue or malaise Eyes: Denies: change in vision, blurry vision, photophobia, floaters or seeing flashes Card: Denies: chest pain, palpitations, lightheadedness, syncope or pre-syncope Resp: Denies: dyspnea GI: Reports: nausea and diarrhea (x 1 this AM; non-bloody); Denies: abdominal pain or vomiting : Denies: flank pain, dysuria or hematuria Musc: Denies: neck pain, back pain, extremity pain, extremity swelling or joint swelling Skin/Breast: Denies: rash Neuro: Reports: headache(s) and sensory changes (reports feeling tingly all over ); Denies: weakness in extremities, lack of coordination, difficulty walking, dizziness or confusion PFSH ED PFSH: Medical History No pertinent past medical history neghx: htn, dm, thyroid, dvt/pe PCP: Carline at [facility] Pharyngitis with viral syndrome History of gestational diabetes GDM with 6th Surgical History History of hysterectomy S/P endometrial ablation (09/22/20) Hysteroscopy, D&C, NovaSure endometrial ablation. Performed by Dr. Hayes at [facility] in [place], [place] History of hysteroscopy (06/09/20) With D&C and polypectomy. Performed by Dr. Hayes at [facility] in [place], [place]. H/O tubal ligation (01/19/20) At time of C/S. Performed by Dr. Hayes at [facility] in [place], [place] Status post section (01/19/20) RLTCS with BTL. Performed by Dr. Hayes at [facility] in [place], [place] S/P section (08/17/15) Low transverse section (documented). Diagnosis: Nonreassuring heart tones. Performed by Dr. Ashanti Jha at [facility] in [place], [place]. Single-layer closure of uterus. S/P tonsillectomy and adenoidectomy (~2002) Age 8. Performed in [place], [place] S/P section (01/31/17) Repeat low transverse section. Performed by Dr. You Hayes at [facility] in [place], [place]. S/P cholecystectomy (~2010) Laparoscopic. Performed in [place], [place] Family History Father Hyperlipidemia Grandmother Diabetes paternal Hypertension Maternal Family/Other Diabetes paternal uncle, paternal aunt, paternal cousin Ovarian cancer paternal aunt Thyroid disease paternal aunt Grandfather Diabetes paternal Colon cancer maternal Thyroid disease Maternal Social History Smoking and tobacco/nicotine status: former use of tobacco/nicotine Substance/Drug Use: never Physical Exam Const: COMMON NORMALS: no acute distress, patient oriented x3, no limitations, alert and well nourished GENERAL APPEARANCE: cooperative NUTRITIONAL APPEARANCE: obese (BMI 42.2) ORIENTATION/CONSCIOUSNESS: Yes awake, Yes oriented to person, Yes oriented to place and Yes oriented to time HENMT: COMMON NORMALS: normocephalic and atraumatic HEAD & SCALP: normal to inspection, normocephalic and atraumatic FACE & SINUS: normal facial exam and face symmetric Neck/C-Spine: COMMON NORMALS: full ROM, no lymphadenopathy, supple and no meningeal signs Resp: COMMON NORMALS: normal respiratory effort and clear to auscultation bilaterally AUSCULTATION: clear to auscultation bilaterally Cardio: COMMON NORMALS: regular rate and regular rhythm RATE: regular rate RHYTHM: regular rhythm GI: COMMON NORMALS: Normal to inspection, nondistended, normoactive bowel sounds present, Soft to palpation, non-tender, No hepatosplenomegaly present and no masses PALPATION: Yes Soft to palpation and Yes No hepatosplenomegaly present Extremity: COMMON NORMALS: normal to inspection GENERAL: Yes normal exam except as noted Neuro: DENEEN COMA SCALE: document GCS findings [place] coma scale eye opening: Spontaneous [place] coma scale verbal response: Orientated [place] coma scale motor response: Obey commands [place] coma scale total score: 15 COMMON NORMALS: patient oriented x3, CN's II-XII intact bilaterally, moves all extremities, no focal motor deficits and no sensory deficits noted SENSORIUM/ORIENTATION: Yes alert, Yes oriented to person, Yes oriented to place and Yes oriented to time MENINGEAL SIGNS: Yes no meningeal signs Skin: COMMON NORMALS: no rashes or lesions noted GENERAL SKIN EXAM: no rashes or lesions noted Course Vital Signs: Vital signs: Vital Signs Temperature 98.5 F 12/27/24 12:09 Pulse Rate 100 12/27/24 12:09 Respiratory Rate 17 12/27/24 12:09 Blood Pressure 134/96 12/27/24 12:09 Pulse Oximetry 98 12/27/24 12:09 Oxygen Delivery Me thod Room Air 12/27/24 12:09 MDM - General Adult Medical Decision Making Patient's blood pressure has remained in the 130s systolic during her stay. She has had diastolics into the 100s. Her blood work overall is unremarkable. Her blood glucose on her CMP is 97. She has a normal hemoglobin A1c. Remainder of workup here is unremarkable. CT imaging of her head obtained and unremarkable. At this time I feel emergent/life threatening pathology has been ruled out-she feels comfortable following up with her primary care provider. Medical Records I reviewed the patient's medical records. Lab Data I reviewed the patient's lab results. 12/27/24 12:40 12/27/24 12:[address] 12/27/24 12:23 IMPRESSION: 1. No evidence of intracranial hemorrhage or mass effect. 2. No acute intracranial findings. Laboratory Results WBC 8.04 10^3/uL (3.29-11.43) 12/27/24 12:40 RBC 4.82 10^6/uL (3.85-5.65) 12/27/24 12:40 Hgb 14.30 g/dL (11.27-16.99) 12/27/24 12:40 Hct 41.1 % (36-47) 12/27/24 12:40 MCV 85.3 fl (85-98) 12/27/24 12:40 MCH 29.7 pg (27-33) 12/27/24 12:40 MCHC 34.8 g/dL (30-55) 12/27/24 12:40 RDW 12.1 % (12.1-15.1) 12/27/24 12:40 Plt Count 193 10^3/cmm (157-399) 12/27/24 12:40 MPV 11.9 fL (7.4-10.4) H 12/27/24 12:40 Neut % (Auto) 65.8 % 12/27/24 12:40 Lymph % (Auto) 25.1 % 12/27/24 12:40 [place] % (Auto) 7.0 % 12/27/24 12:40 Eos % (Auto) 1.7 % 12/27/24 12:40 Baso % (Auto) 0.2 % 12/27/24 12:40 Neut # (Auto) 5.28 10^3/uL (1.8-7.7) 12/27/24 12:40 Lymph # (Auto) 2.0 10^3/uL (0.8-4.8) 12/27/24 12:40 [place] # (Auto) 0.6 10^3/uL (0.2-0.9) 12/27/24 12:40 Eos # (Auto) 0.1 10^3/uL (0.0-0.8) 12/27/24 12:40 Baso # (Auto) 0.0 10^3/uL (0.0-0.1) 12/27/24 12:40 Nucleated RBC % (auto) 0 % 12/27/24 12:40 Nucleated RBCs # 0.0 /100WBC 12/27/24 12:40 Specimen Type Arterial 12/27/24 12:31 Sample Site Radial, left 12/27/24 12:31 ABG pH 7.43 (7.35-7.45) 12/27/24 12:31 ABG pCO2 34.8 mmHg (35-45) L 12/27/24 12:31 ABG pO2 94.0 mmHg (80.0-100.0) 12/27/24 12:31 ABG PO2/FiO2 Ratio 447 12/27/24 12:31 ABG HCO3 22.8 mmol/L (22-26) 12/27/24 12:31 ABG O2 Saturation 98.4 12/27/24 12:31 ABG Base Excess -1.0 mmol/L (-2.0-2.0) 12/27/24 12:31 Jaime Test Pos 12/27/24 12:31 A-a O2 Gradient 1.5 mmHg (5-10) L 12/27/24 12:31 Hematocrit 46.1 % (37-47) 12/27/24 12:31 Hgb O2 Saturation 96.4 % (95-100) 12/27/24 12:31 Carboxyhemoglobin 1.1 %THgb (0.4-20.1) 12/27/24 12:31 Methemoglobin 1.0 % (0.4-1.5) 12/27/24 12:31 Total Hemoglobin 15.1 g/dL (12-16) 12/27/24 12:31 Sodium 138.0 mmol/L (131-143) 12/27/24 12:31 Potassium 3.6 mmol/L (3.5-5.0) 12/27/24 12:31 Glucose 101.0 mg/dL (70-115) 12/27/24 12:31 Ionized Calcium 1.3 mmol/L (1.1-1.4) 12/27/24 12:31 O2 Delivery Device Room air 12/27/24 12:31 FiO2 21.0 % 12/27/24 12:31 Hole Digger Operator ID Cak 12/27/24 12:31 Sodium 136 mmol/L (136-145) 12/27/24 12:40 Potassium 4.0 mmol/L (3.5-5.1) 12/27/24 12:40 Chloride 102 mmol/L (98-107) 12/27/24 12:40 Carbon Dioxide 21 mmol/L (22-29) L 12/27/24 12:40 Anion Gap 17.0 (5-19) 12/27/24 12:40 BUN 9 mg/dL (6-20) 12/27/24 12:40 Creatinine 0.5 mg/dL (0.5-0.9) 12/27/24 12:40 GFR Calculation 146.9 mL/min (90-130) H 12/27/24 12:40 Glucose 97 mg/dL (65-115) 12/27/24 12:40 Estimat Average Glucose 103 12/27/24 12:40 Hemoglobin A1c 5.2 % (4.0-6.0) 12/27/24 12:40 Calculated Osmolality 281 mOsm/kg (285-295) L 12/27/24 12:40 Calcium 9.5 mg/dL (8.5-10.5) 12/27/24 12:40 Total Bilirubin 0.4 mg/dL (0.15-1.2) 12/27/24 12:40 AST 16 U/L (0-32) 12/27/24 12:40 ALT 24 U/L (0-33) 12/27/24 12:40 Alkaline Phosphatase 41 U/L (35-105) 12/27/24 12:40 Total Protein 7.5 g/dL (6.6-8.7) 12/27/24 12:40 Albumin 4.2 g/dL (3.5-5.2) 12/27/24 12:40 Globulin 3.3 g/dL (1.3-4.6) 12/27/24 12:40 Serum Ketones Negative (Negative) 12/27/24 12:40 All radiology interpretation(s) finalized by discharge Discharge Plan Discharge Patient Disposition: Home Clinical Impression: Elevated blood pressure reading without diagnosis of hypertension Headache Qualifiers: Headache type: unspecified Headache chronicity pattern: acute headache Intractability: not intractable Qualified Code(s): R51.9 - Headache, unspecified Condition: Stable Prescriptions: No Action No Known Home Medications Discharge Orders: Discharge ED (Routine); Ordered 12/27/24 Ordered By: Gaye Henry Referrals: Abimbola Rosado DO [Primary Care Provider, SILK SCREEN PRINTER MACHINE] Activity Restrictions/Additional Instructions: As we discussed, your blood sugars here have been normal as well as your hemoglobin A1c. We recommend keeping a blood pressure log over the next 2 weeks to discuss with primary care. Please follow-up with primary care for further testing regarding your symptoms. Stand Alone Forms: Work/School Release Print Language: Jordanian Coding Level of Care Code ED Plc Controls Engineer for Claude Ordonez
[2024-12-27 12:42] LABS: ABG PCO2 34.8 mmHg (35-45); ABG PH Result 7.43 (7.35-7.45); Alveolar-Arterial Oxygen Gradi 1.5 mmHg (5-10); Arterial Blood Gas Hematocrit 46.1 % (37-47); Blood Gas Allen Test Pos; Blood Gas Operator Identificat CAK; Blood Gas Sample Site Radial, left; Blood Gas Sample Type Arterial; Carboxyhemoglobin 1.1 %THgb (0.4-20.1); HCO3 ABG 22.8 mmol/L (22-26); HGB O2 Sat 96.4 % (95-100); Ionized Calcium Level - ABG 1.3 mmol/L (1.1-1.4); Oxygen Device ROOM AIR; Oxygen Saturation ABG 98.4; PO2 FiO2 Ratio Arterial Blood 447; Potassium Level - ABG 3.6 mmol/L (3.5-5.0); Total Hemoglobin 15.1 g/dL (12-16)
[2024-12-27 12:50] LABS: Basophils % 0.2 %; Eosinophils # 0.1 10^3/uL (0.0-0.8); Eosinophils % 1.7 %; Hematocrit 41.1 % (36-47); Lymphocytes % 25.1 %; Mean Corpuscular HGB Conc 34.8 g/dL (30-55); Mean Corpuscular Hemoglobin 29.7 pg (27-33); Mean Corpuscular Volume 85.3 fl (85-98); Mean Platelet Volume 11.9 fL (7.4-10.4); Monocytes # 0.6 10^3/uL (0.2-0.9); Neutrophils # 5.28 10^3/uL (1.8-7.7); Neutrophils % 65.8 %; Nucleated Red Blood Cells % 0 %; Platelet Count 193 10^3/cmm (157-399); Red Blood Count 4.82 10^6/uL (3.85-5.65); Red Cell Distribution Width 12.1 % (12.1-15.1); White Blood Count 8.04 10^3/uL (3.29-11.43)
[2024-12-27 13:01] LABS: Ketone (Acetest) Serum Negative (Negative)
[2024-12-27 13:07] LABS: Alanine Aminotransferase 24 U/L (0-33); Albumin Level 4.2 g/dL (3.5-5.2); Alkaline Phosphatase 41 U/L (35-105); Aspartate Amino Transferase 16 U/L (0-32); Blood Urea Nitrogen 9 mg/dL (6-20); Calcium 9.5 mg/dL (8.5-10.5); Carbon Dioxide 21 mmol/L (22-29); Chloride 102 mmol/L (98-107); Creatinine Clr Calc Pharmacy 190.8051; Globulin 3.3 g/dL (1.3-4.6); Glomerular Filtration Rate 146.9 mL/min (90-130); Glucose 97 mg/dL (65-115); Osmolality Calculated 281 mOsm/kg (285-295); Sodium 136 mmol/L (136-145); Total Bilirubin 0.4 mg/dL (0.15-1.2); Total Protein 7.5 g/dL (6.6-8.7)
[2024-12-27 13:09] LABS: Estmated Average Glucose 103; Hemoglobin A1C 5.2 % (4.0-6.0)
[2024-12-27] MEDS: ketorolac 60 mg/2 mL INJ 30 MG IVP (13:41)
[2024-12-27] MEDS: diphenhydrAMINE 50 mg/mL SDV 1mL 25 MG IVP (13:41)
[2024-12-27] MEDS: ondansetron 2 mg/ML SDV 2 mL 4 MG IVP (13:45)
[2024-12-27 15:04] LABS: Thyroid Stimulating Hormone 1.51 uIU/mL (0.27-4.20)
[2024-12-27 15:14] VITALS: BP 163/99; PULSE 92; O2SAT 97
== END 2024-12-27 15:15 | disposition home or self-care (01) ==
PROVIDERS: Emergency Provider Physician Assistant; PCP Family Medicine
DX: R51.9 Headache, unspecified (principal); R03.0 Elevated blood-pressure reading, without diagnosis of hypertension
CPT/HCPCS: 36600; 70450; 80051; 80053; 82009; 82330; 82805; 83036; 84443; 85025; 96374; 96375; 99285; J1200; J1885; J2405

== ENCOUNTER → 2025-04-17 17:01 | Outpatient (BNVA) | payer BC, SELFPAY | PROVIDERS: PCP Family Medicine; Visit Provider Emergency Medicine | DX: R30.0 Dysuria (principal) | CPT/HCPCS: 81000; 87086 ==